=== PATIENT | female | born 1945 | race Caucasian/White ===

== ENCOUNTER 2018-01-06 19:56 | Inpatient (IN) | payer MEDICARE, SELFPAY ==
[2018-01-06] VITALS (7 sets, daily range): BP systolic 113–157; BP diastolic 70–117; PULSE 105–122; RESP 16–25; TEMP 37; O2SAT 88–95; BMI 34.3
--- NOTE | 2018-01-06 20:02 | EKG12_ITS ---
Test Reason : CP Blood Pressure : / mmHG Vent. Rate : 084 BPM Atrial Rate : 084 BPM P-R Int : 128 ms QRS Dur : 088 ms QT Int : 422 ms P-R-T Axes : 007 048 -87 degrees QTc Int : 498 ms Normal sinus rhythm with sinus arrhythmia Left ventricular hypertrophy T wave abnormality, consider inferior ischemia T wave abnormality, consider anterolateral ischemia Prolonged QT Abnormal ECG Confirmed by THEE LUNA, CHAD ([id number]), sports editor OUMOU RO ([id number]) on 01/17/2018 3:28:32 PM Referred By: DR YADAV Confirmed By:CHAD KINGSTON MD
--- NOTE | 2018-01-06 20:20 | EKG12_ITS ---
Test Reason : RAPID HR Blood Pressure : / mmHG Vent. Rate : 129 BPM Atrial Rate : 277 BPM P-R Int : 000 ms QRS Dur : 078 ms QT Int : 306 ms P-R-T Axes : 000 064 -31 degrees QTc Int : 448 ms Atrial fibrillation Septal infarct , age undetermined Abnormal ECG Confirmed by THEE LUNA, CHAD ([id number]), publishing editor OUMOU RO ([id number]) on 01/11/2018 2:50:22 PM Referred By: PETERSON Confirmed By:CHAD KINGSTON MD
--- NOTE | 2018-01-06 20:25 | RAD_ITS ---
STUDY: X-RAY CHEST REASON FOR EXAM: Female, 72 years old. Difficulty breathing. COPD. TECHNIQUE: Frontal and lateral views of the chest. COMPARISON: 09/30/2015. FINDINGS: The lungs are hyperexpanded. There are coarsened interstitial markings suggestive of mild chronic fibrosis. Diffuse density seen throughout the left lung suggestive of additional overlying infiltrate. Correlate clinically. No gross focal infiltrates. No gross effusions. Normal size heart. Normal mediastinum and lexus. Normal visualized pulmonary arteries. Normal visualized aortic arch and descending thoracic aorta. There are diffuse degenerative changes of the visualized thoracic spine. Normal visualized ribs, clavicles, and shoulders. There is no demonstrated abnormality of the visualized soft tissue structures of the upper abdomen. RAD/Chest PA and Lateral IMPRESSION: COPD with fibrosis. Cannot exclude additional mild diffuse infiltrate of the left lung. Electronically Signed: Alex Benavidez MD at 21:00 EST , Service support ,
[2018-01-06] MEDS: dilTIAZem 25 MG/5 ML Vial 10 MG IV BOLUS ×2 (20:45→21:13)
[2018-01-06 20:49] LABS: Absolute Neutrophil Count 6.5 X10^3/uL (2.0-7.7); Basophil# 0.06 X10^3/uL; Basophil% 0.6 % (0-1); Eosinophil# 0.15 X10^3/uL; Eosinophils% 1.6 % (0-5); Hematocrit 45.5 % (37-47); Lymphocyte % 22.8 % (19-41); Mean Corp Hgb Conc 30.8 g/gl (32-36); Mean Corpuscular Volume 100.7 fL (81-99); Mean Platelet Vol. 10.8 fl (6.2-12.0); Monocyte# 0.74 X10^3/uL; Monocyte% 7.7 % (0-10); Neutrophil # 6.48 X10^3/uL (2.7-7.7); Neutrophil % 67.2 % (47-70); Platelet Count 252 K/mm3 (150-450); RBC Distribution Width CV 14.8 % (11.6-14.6); RBC Distribution Width SD 54.5 fl (35.1-43.9); Red Blood Count 4.52 M/mm3 (4.2-5.4); White Blood Count 9.6 K/mm3 (4.4-11.0)
[2018-01-06 20:52] LABS: International Normalized Ratio 1.5; POSITIVE COUNT NO; POSITIVE DIFFERENTIAL NO; POSITIVE MORPHOLOGY NO; Prothrombin Time (Protime)PT. 18.4 SECONDS (11.7-14.9)
[2018-01-06 21:17] LABS: Anion Gap 9 (5-15); BUN 28 mg/dL (7-18); BUN/Creat Ratio 28.4 RATIO (10-20); Calcium,Total 8.9 mg/dL (8.5-10.1); Chloride 104 mmol/L (98-107); Creatinine, Serum 0.98 mg/dL (0.55-1.02); EST Glomerular Filtration Rate 59 mL/min (>60); Est Glom Filt Rate - Afr Amer 71 mL/min (>60); Estimated Creatinine Clearance 36.18 ml/min; Glucose 156 mg/dL (74-106); Potassium 3.6 mmol/L (3.5-5.1); Sodium Level 141 mmol/L (136-145)
--- NOTE | 2018-01-06 21:27 | CT_ITS ---
STUDY: CTA CHEST REASON FOR EXAM: Female, 72 years old. Shortness of breath and elevated blood pressure. History of hypertension, CAD, atrial fibrillation, COPD, myocardial infarction and cardiac stents. RADIATION DOSAGE (If Supplied By Facility): CTDIvol = ( 5.29 ) mGy, DLP = ( 272.24 ) mGycm TECHNIQUE: The examination was performed with the intravenous administration of 100 ml of Isovue 370 contrast material. Post-processing of the angiographic images was performed, with multiplanar reformation and 3D reconstruction. Individualized dose optimization techniques were used for this CT. COMPARISON: Prior chest radiograph of January 06, [address] chest [address] exam of November 15, 2006. FINDINGS: Normal enhancement of the main pulmonary artery and right and left pulmonary arteries. Normal enhancement of the bilateral peripheral pulmonary arteries. There is no demonstrated pulmonary embolism. There is atherosclerotic calcification of the aortic arch with tortuosity. Normal heart and pericardium. Coronary calcifications. Normal mediastinum. Normal hilar regions. Diffuse emphysematous changes of the upper lobes. Bronchial thickening in the middle and lower lobes. Multifocal areas of atelectasis and/or small consolidations in the right middle lobe, right lower lobe and left lower lobe. Negative for a substantial pleural effusion. Some pectoral lipoma of the left chest. There are degenerative changes of thoracic spine. Normal visualized upper abdomen. CT/CTA Chest W/WO Contrast IMPRESSION: Negative for pulmonary embolus. Atherosclerotic changes of the thoracic aorta. Cardiomegaly and coronary calcifications. Diffuse emphysematous changes of the upper lobes. Bronchial thickening in the middle and lower lobes with multifocal areas of atelectasis and/or small consolidations in the right middle lobe, right lower lobe and left lower lobe. Large subpectoral lipoma of the left chest. Degenerative changes of the thoracic spine. Electronically Signed: Christie Bergman MD at 22:26 EST , Service support ,
[2018-01-06] MEDS: Enoxaparin 100 MG/ML Syringe 80 MG SC (22:11)
--- NOTE | 2018-01-06 23:19 | PCM.HP.STD ---
Problem List (1) Multifocal community-acquired pneumonia Status: Acute (2) Bilateral lower lobes atelectasis Status: Acute (3) Obstructive sleep apnea Status: Acute (4) Atrial fibrillation with RVR Status: Acute (5) HTN (hypertension) Status: Chronic (6) GERD (gastroesophageal reflux disease) Status: Chronic (7) Restless leg syndrome Status: Chronic (8) Dyslipidemia Status: Chronic (9) CAD (coronary artery disease) Status: Chronic Comment: Status post stent (10) Alcohol withdrawal Status: Suspected (11) COPD (chronic obstructive pulmonary disease) Status: Chronic (12) Hypokalemia Status: Acute (13) Chronic atrial fibrillation Status: Chronic (14) Tobacco dependence Status: Chronic History of Present Illness Date of Admission: 01/06/18 Chief Complaint: Shortness of breath acute on chronic worse today The patient is a 72 year old F with multiple comorbidities as listed above but significant for chronic A. fib on Coumadin, COPD, not on home oxygen, active smoker about 15 cigarettes per day last admission in September 2015 for A. fib with RVR came to ER with acute on chronic shortness of breath today while she was shoveling. The patient has on and off shortness of breath for at least 5-6 months with history of intermittent URIs about 2-3 times in last 3-4 months. Patient denies chest pain, palpitation or flutter waves. She denies diaphoresis. Patient took Mirapex for restless leg syndrome and is little confused while I examined the patient. As per the EMS, her heart rate was 1 22/min, pulse ox 100% on nonrebreather mask. EMS EKG shows A. fib with RVR at 1 43 bpm with frequent PVCs. In ED, patient was found tachycardic 110/min, blood pressure is good, respiratory 25/min and hypoxic 94% on 2 L of oxygen. Patient denies fever or chills. INR is subtherapeutic Patient CT angiogram of chest shows negative for PE but diffuse emphysematous changes of the upper lobes, bronchial thickening and middle and lower lobes with multifocal areas of atelectasis and/or/small consolidation in right middle lobe and right lower lobe and left lower lobe. Patient was started on IV Cardizem drip and Lovenox 80 mg 1 dose was given in the ER Past Medical History Past Medical History (Chronic Problems): Chronic Problems HTN (hypertension) (Chronic) GERD (gastroesophageal reflux disease) (Chronic) Restless leg syndrome (Chronic) Dyslipidemia (Chronic) CAD (coronary artery disease) (Chronic) Status post stent COPD (chronic obstructive pulmonary disease) (Chronic) Chronic atrial fibrillation (Chronic) Tobacco dependence (Chronic) Allergies CLINT Inhibitors Allergy (Verified 01/06/18 19:59) Unknown acyclovir [From Zovirax] Allergy (Verified 01/06/18 19:59) Unknown amoxicillin trihydrate [From Augmentin] Allergy (Verified 01/06/18 19:59) Unknown codeine Allergy (Verified 01/06/18 19:59) Unknown potassium clavulanate [From Augmentin] Allergy (Verified 01/06/18 19:59) Unknown Home Medications: Ambulatory Orders Medication Instructions Recorded Atorvastatin Calcium [Lipitor] 40 mg PO QHS 04/15/15 Levothyroxine Sodium [Levoxyl] 100 mcg PO DAILY 04/15/15 Paroxetine HCl [Paxil] 40 mg PO DAILY 04/15/15 Warfarin [Coumadin] 3 mg PO SUTUTH 04/15/15 Warfarin [Coumadin] 6 mg PO MOWEFRSA 04/15/15 Atenolol [Tenormin (beta cruz)] 50 mg PO BID #120 tablet 04/17/15 Diltiazem CD [Cardizem CD] 120 mg PO BID #120 capsule 04/17/15 Spironolactone [Aldactone] 25 mg PO DAILY #30 tablet 09/30/15 Pramipexole Di-HCl [Mirapex] 1 mg PO TID PRN PRN 01/06/18 Surgical History: - - Lower extremity arterial bypass Cardiac stent placement Psychiatric History: No pertinent psych hx 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 Denies: Chills HEENT: Denies: Head Aches, Sinus Congestion, Sinus Drainage Cardiovascular: Reports: Edema. Denies: Chest Pain, Palpitations Respiratory: Reports: Cough, Shortness of breath at rest. Denies: Sputum production, Wheezing Gastrointestinal: Denies: Abdominal Pain, Nausea, Vomiting Genitourinary: Denies: Dysuria Musculoskeletal: Denies: Joint Pain, Joint Tenderness Skin: Denies: Rash, Wounds Neurological: Denies: Numbness, Tingling, Focal weakness Psychiatric: Denies: Anxiety, Depression, Homicidal Ideations, Suicidal Ideations Hematologic/ Lymphatic: Denies: Easy Bruising, Easy Bleeding VTE Information - Inpt Only VTE Present on Admission: No VTE Mechan Device Prophylaxis: SCD's VTE Pharm Prophylaxis ordered?: Yes Patient Problems: Active and Suspected Problems Multifocal community-acquired pneumonia (Acute) Bilateral lower lobes atelectasis (Acute) Obstructive sleep apnea (Acute) Atrial fibrillation with RVR (Acute) - Physical Exam General: Alert, Oriented x3, Cooperative HEENT: Atraumatic, PERRLA, EOMI, Normocephalic Oral: Dry Mucosa Neck: Supple, No JVD, Negative Carotid Bruits Lungs: Diminished - Diffuse stiffness but air entry on both side, Rhonchi, Short of Breath, Tachypneic Cardiovascular: Normal S1, Normal S2, No murmurs, Irregular Rate, Tachycardic Abdomen: Bowel Sounds Present, Soft, Non Tender Extremities: No edema, Capillary Refill Less than 3 Seconds Skin: No rashes, No breakdown Musculoskeletal: No Tenderness to Palpation of Joints or Extremities Neurological: Cranial nerves II-XII grossly intact Psych/Mental Status: Normal Affect, Appropriate Vital Signs Temp Pulse Resp BP Pulse Ox 98.6 F 105 H 25 H 113/70 95 01/06/18 19:56 01/06/18 23:00 01/06/18 23:00 01/06/18 23:00 01/06/18 23:00 Oxygen Flow Rate 2 Oxygen Delivery Method Nasal Cannula Weight: 175 lb 14.862 oz Body Mass Index (BMI) 34.3 Laboratory Tests Past 24 Hrs 01/06/18 01/06/18 01/06/18 20:05 20:05 20:05 WBC 9.6 RBC 4.52 Hgb 14.0 Hct 45.5 MCV 100.7 H MCH 31.0 MCHC 30.8 L RDW 14.8 H RDW Differential 54.5 H Plt Count 252 MPV 10.8 Immature Gran % (Auto) 0.100 Neut % (Auto) 67.2 Lymph % (Auto) 22.8 Seneca % (Auto) 7.7 Eos % (Auto) 1.6 Baso % (Auto) 0.6 Absolute Neuts (auto) 6.5 Absolute Lymphs (auto) 2.20 Total Counted Not Reportable PT 18.4 H INR 1.5 Sodium 141 Potassium 3.6 Chloride 104 Carbon Dioxide 28.0 Anion Gap 9 BUN 28 H Creatinine 0.98 Estim Creat Clear Calc 36.18 Est GFR (MDRD) Af Amer 71 Est GFR (MDRD) Non-Af 59 L BUN/Creatinine Ratio 28.4 H Glucose 156 H Calcium 8.9 Troponin I < 0.02 Assessment/Plan Active and Suspected Problems Multifocal community-acquired pneumonia (Acute) Bilateral lower lobes atelectasis (Acute) Obstructive sleep apnea (Acute) Atrial fibrillation with RVR (Acute) The patient is a 72 year old F with multiple comorbidities as listed above but significant for paroxysmal A. fib on Coumadin, COPD, not on home oxygen, active smoker about 15 cigarettes per day last admission in September 2015 for A. fib with RVR came to ER with acute on chronic shortness of breath today while she was shoveling. The patient has on and off shortness of breath for at least 5-6 months with history of intermittent URIs about 2-3 times in last 3-4 months. Patient denies chest pain, palpitation or flutter waves. She denies diaphoresis. Patient took Mirapex for restless leg syndrome and is little confused while I examined the patient. As per the EMS, her heart rate was 1 22/min, pulse ox 100% on nonrebreather mask. EMS EKG shows A. fib with RVR at 1 43 bpm with frequent PVCs. In ED, patient was found tachycardic 110/min, blood pressure is good, respiratory 25/min and hypoxic 94% on 2 L of oxygen. Patient denies fever or chills. INR is subtherapeutic and was given Lovenox. Patient CT angiogram of chest shows negative for PE but diffuse emphysematous changes of the upper lobes, bronchial thickening and middle and lower lobes with multifocal areas of atelectasis and/or/small consolidation in right middle lobe and right lower lobe and left lower lobe. 1. A. fib with RVR: Patient is being admitted in PCU. Started on IV Cardizem drip tapered down as heart rate is controlled and transition to oral Cardizem. Continue Coumadin and supplement with Lovenox if needed. Discontinue Lovenox once INR is more than 1.8. Continue home rate control medications; atenolol 50 mg twice daily and diltiazem CD 120 mg twice daily. 2D echo tomorrow morning. Previous echo in April 2015 shows normal LV size with left ventricular systolic function lower limits of normal, EF 55% with no regional wall motion abnormalities. Mildly dilated right ventricle with normal systolic function. Left atrium severely enlarged. Right atrium severely enlarged. Trivial MR. PA SP 40-45 mmHg with 2+ TR suggestive of moderate pulmonary hypertension. 2. Acute hypoxic respiratory failure most rarely from diffuse COPD, precipitated by A. fib with RVR and pneumonia: On oxygen to keep pulse ox more than 90%. 3. Pulmonary conditions: COPD with moderate acute bronchitis, with moderate pulmonary hypertension and bilateral lower lobes atelectasis. She also has history of obstructive sleep apnea: On bronchodilator, IV Solu-Medrol, chest physiotherapy, incentive spirometry. And was advised CPAP 5 years ago but she is noncompliant and returned the machine back. Smoking counseling done. On nicotine patch 4. Bilateral, multifocal currently acquired pneumonia with recent history of URI: Pneumonia workup with urinary antigen, blood cultures ?2 and sputum culture. Respiratory panel ordered. Started on IV Rocephin and Zithromax. 5. Hyperglycemia, possible diabetes mellitus type 2: Patient serum glucose is 156 and BMP. Patient was started on Accu-Chek before meals and at bedtime and cover with NovoLog sliding scale as she is on Solu-Medrol. A1c ordered for tomorrow. Other chronic comorbidities include hypertension, GERD, dyslipidemia, coronary artery status post stent, restless leg syndrome moderate pulmonary hypertension and obesity: This complicates the present care until his recovery. Guarded prognosis. DVT prophylaxis: On Coumadin. Patient is given Lovenox 1 mg/kg body weight in ER Laboratory Results 01/06/18 20:05: WBC 9.6, RBC 4.52, Hgb 14.0, Hct 45.5, MCV 100.7 H, MCH 31.0, MCHC 30.8 L, RDW 14.8 H, RDW Differential 54.5 H, Plt Count 252, MPV 10.8, Immature Gran % (Auto) 0.100, Neut % (Auto) 67.2, Lymph % (Auto) 22.8, Seneca % (Auto) 7.7, Eos % (Auto) 1.6, Baso % (Auto) 0.6, Absolute Neuts (auto) 6.5, Absolute Lymphs (auto) 2.20, Total Counted Not Reportable 01/06/18 20:05: PT 18.4 H, INR 1.5 01/06/18 20:05: Sodium 141, Potassium 3.6, Chloride 104, Carbon Dioxide 28.0, Anion Gap 9, BUN 28 H, Creatinine 0.98, Estim Creat Clear Calc 36.18, Est GFR (MDRD) Af Amer 71, Est GFR (MDRD) Non-Af 59 L, BUN/Creatinine Ratio 28.4 H, Glucose 156 H, Calcium 8.9, Troponin I < 0.02 Clinical Impression(s) from Imaging Studies Chest X-Ray 01/06/18 20:25 IMPRESSION: COPD with fibrosis. Cannot exclude additional mild diffuse infiltrate of the left lung. Chest CTA 01/06/18 21:27 IMPRESSION: Negative for pulmonary embolus. Atherosclerotic changes of the thoracic aorta. Cardiomegaly and coronary calcifications. Diffuse emphysematous changes of the upper lobes. Bronchial thickening in the middle and lower lobes with multifocal areas of atelectasis and/or small consolidations in the right middle lobe, right lower lobe and left lower lobe. Large subpectoral lipoma of the left chest. Degenerative changes of the thoracic spine. [] Code Visit Inpatient E&M: 88900 Subs Hosp L3
[2018-01-07] VITALS (24 sets, daily range): BP systolic 100–152; BP diastolic 53–106; PULSE 68–126; RESP 14–29; TEMP 36.3–36.8; O2SAT 92–99; BMI 28.0
--- NOTE | 2018-01-07 00:34 | ED.VISSUMM ---
- ER Visit Summary Date of Service: 01/07/18 Chief Complaint: Dyspnea History of Present Illness: The patient is a 72 F presents with a sudden onset of dyspnea. She states that she was clearing the snow off her windshield when she suddenly got short of breath. She has been noting some shortness of breath with exertion over the past week. She notes a chronic cough with no change in that. She denies any new sputum changes. No fevers. No rhinorrhea. She denies any chest pain. EMS prehospital EKG demonstrates A. fib with RVR. She is in chronic A. fib and is on Coumadin. She is to see Dr. Camejo who is an had an appointment last about 1 year ago. She states that recently she ran out of her cardiac medicines for couple weeks ago but had them refilled and is not taking them. She states that she chronically has sleeping disorders and cannot sleep. She cannot maintain sleep and she has tried several therapies with no relief. She continues to smoke. She had PCI in 2012. This was done at [facility] by Dr. Morrison. She has peripheral artery disease and had arterial bypass in 2005. He currently sees no antique automobiles repairer. She has a history of noncompliance. Physical Examination: 98.6 heart rate of 116 respiratory rate is 22 pulse ox 88% on room air 94% on 2 L blood pressure 157/106 Gen: Well-nourished well-developed Head: Normocephalic atraumatic Eyes: Perrl EOMI ENT: TMs clear no rhinorrhea moist mucous membranes Neck: Supple no lymphadenopathy no JVD nontender CVS: Irregularly irregular rhythm no murmurs normal S1-S2 Respiratory: No distress clear to auscultation bilaterally chest nontender Abdomen: Soft nontender nondistended normal bowel sounds no masses Back: Nontender Extremity: Nontender no edema Skin: Normal color no rash Neuro: alert orientated ?3 CN II-XII intact normal strength sensation reflexes gait cerebellar Psych: Normal affect normal mood Test Results: EKG shows atrial fibrillation at a rate of 129. CBC and chemistry showed glucose of 156. INR subtherapeutic at 1.5. Troponin less than 0.02. Chest x-ray showed no obvious acute findings. CT angios demonstrates no PE. There is multifocal areas of atelectasis cysts versus pneumonia. Emergency Department Course and Treatment: I do not believe the patient has pneumonia. I believe the area seen on chest CT are probably atelectasis. She has no fever, no white count, no change in cough or sputum production. I believe the patient most likely went into A. fib with RVR due to hypoxia. The patient most likely has worsening COPD and would probably benefit from home oxygen. She was given a dose of Lovenox and several doses of Cardizem and eventually placed on a Cardizem drip. Impression: 1. Atrial fibrillation with rapid ventricular response 2. Hypoxemia 3. Subtherapeutic INR This note was generated with [employer] dictation software. It may contain incorrect words, spelling, and punctuation that were not noted in review of the chart prior to signing ED Disposition - Plan for ED Patient: Disposition: Acute Care Hospital [facility] Chief Complaint: Shortness of Breath
--- NOTE | 2018-01-07 00:38 | ED.DCSUM_ITS ---
- ER Visit Summary Date of Service: 01/07/18 Chief Complaint: Dyspnea History of Present Illness: The patient is a 72 F presents with a sudden onset of dyspnea. She states that she was clearing the snow off her windshield when she suddenly got short of breath. She has been noting some shortness of breath with exertion over the past week. She notes a chronic cough with no change in that. She denies any new sputum changes. No fevers. No rhinorrhea. She denies any chest pain. EMS prehospital EKG demonstrates A. fib with RVR. She is in chronic A. fib and is on Coumadin. She is to see Dr. Camejo who is an had an appointment last about 1 year ago. She states that recently she ran out of her cardiac medicines for couple weeks ago but had them refilled and is not taking them. She states that she chronically has sleeping disorders and cannot sleep. She cannot maintain sleep and she has tried several therapies with no relief. She continues to smoke. She had PCI in 2012. This was done at [facility] by Dr. Morrison. She has peripheral artery disease and had arterial bypass in 2005. 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 She has a history of noncompliance. Physical Examination: 98.6 heart rate of 116 respiratory rate is 22 pulse ox 88 % on room air 94% on 2 L blood pressure 157/106 Gen: Well-nourished well-developed Head: Normocephalic atraumatic Eyes: Perrl EOMI ENT: TMs clear no rhinorrhea moist mucous membranes Neck: Supple no lymphadenopathy no JVD nontender CVS: Irregularly irregular rhythm no murmurs normal S1-S2 Respiratory: No distress clear to auscultation bilaterally chest nontender Abdomen: Soft nontender nondistended normal bowel sounds no masses Back: Nontender Extremity: Nontender no edema Skin: Normal color no rash Neuro: alert orientated ?3 CN II-XII intact normal strength sensation reflexes gait cerebellar Psych: Normal affect normal mood Test Results: EKG shows atrial fibrillation at a rate of 129. CBC and chemistry showed glucose of 156. INR subtherapeutic at 1.5. Troponin less than 0.02. Chest x-ray showed no obvious acute findings. CT angios demonstrates no PE. There is multifocal areas of atelectasis cysts versus pneumonia. Emergency Department Course and Treatment: I do not believe the patient has pneumonia. I believe the area seen on chest CT are probably atelectasis. She has no fever, no white count, no change in cough or sputum production. I believe the patient most likely went into A. fib with RVR due to hypoxia. The patient most likely has worsening COPD and would probably benefit from home oxygen. She was given a dose of Lovenox and several doses of Cardizem and eventually placed on a Cardizem drip. Impression: 1. Atrial fibrillation with rapid ventricular response 2. Hypoxemia 3. Subtherapeutic INR This note was generated with [employer] dictation software. It may contain incorrect words, spelling, and punctuation that were not noted in review of the chart prior to signing ED Disposition - Plan for ED Patient: Disposition: Acute Care Hospital [facility] Chief Complaint: Shortness of Breath
[2018-01-07] MEDS: 0.9% Normal Saline 1,000 ML 100 ML IV ×3 (00:56→18:10)
[2018-01-07] MEDS: Ceftriaxone 1 GM/50 ML BAG IV (01:03)
[2018-01-07 01:49] LABS: Color, Urine Yellow (Yellow); Glucose, Dipstick Normal (Normal); Ketone-Dipstick Negative (Negative); Leukocyte Esterase-Dipstick Negative /ul (Negative); Nitrite-Dipstick Negative (Negative); Occult Blood-Urine 10 /ul (Negative); Protein-Dipstick 15 mg/dl (Negative); Urine Bilirubin Dipstick Negative (Negative); Urine Clarity Clear (Clear); Urine Urobilinogen 1 mg/dl (Normal)
[2018-01-07] MEDS: Pramipexole Di-HCl 1 MG Tablet PO ×2 (02:20→21:01)
[2018-01-07] MEDS: Ipratropium/Albuterol Sulfate 3 ML AMPUL.NEB INHALATION ×5 (03:00→19:07)
[2018-01-07 05:32] LABS: Absolute Neutrophil Count 5.8 X10^3/uL (2.0-7.7); Basophil# 0.02 X10^3/uL; Basophil% 0.3 % (0-1); Eosinophil# 0.01 X10^3/uL; Eosinophils% 0.2 % (0-5); Hematocrit 41.7 % (37-47); Hemoglobin 13.1 g/dl (12.0-15.0); Lymphocyte % 9.2 % (19-41); Mean Corp Hgb Conc 31.4 g/gl (32-36); Mean Corpuscular Hgb 31.5 pg (27.0-32.0); Mean Corpuscular Volume 100.2 fL (81-99); Mean Platelet Vol. 10.7 fl (6.2-12.0); Monocyte# 0.09 X10^3/uL; Monocyte% 1.4 % (0-10); Neutrophil # 5.79 X10^3/uL (2.7-7.7); Neutrophil % 88.7 % (47-70); Platelet Count 231 K/mm3 (150-450); RBC Distribution Width CV 14.8 % (11.6-14.6); RBC Distribution Width SD 53.6 fl (35.1-43.9); Red Blood Count 4.16 M/mm3 (4.2-5.4); White Blood Count 6.5 K/mm3 (4.4-11.0)
[2018-01-07 05:33] LABS: International Normalized Ratio 1.7; Prothrombin Time (Protime)PT. 19.6 SECONDS (11.7-14.9)
[2018-01-07 05:41] LABS: Differential Indicated SCAN CRITERIA MET; POSITIVE COUNT NO; POSITIVE DIFFERENTIAL YES; POSITIVE MORPHOLOGY NO
--- NOTE | 2018-01-07 05:55 | ECHOD_ITS ---
Reason For Study: Afib w RVR Procedure This was a 2D Doppler, Color Flow transthoracic echocardiogram. Exam performed portable in patient room. Left Ventricle Normal size and thickness. The estimated ejection fraction is 65 %. Unable to assess diastolic dysfunction. No regional wall motion abnormalities noted. Right Ventricle Normal size and thickness. Normal systolic function. Atria The left atrium is severely enlarged. The right atrium is severely enlarged. Normal atrial septum. Mitral Valve Mild diffuse mitral valve thickening. Moderate mitral annular calcification extending into the posterior leaflet. Tricuspid Valve Normal tricuspid valve. Mild (1+) tricuspid valve insufficiency. Right ventricular systolic pressure estimated to be 47 mmHg. Moderate pulmonary hypertension. Aortic Valve Trisinus/trileaflet aortic valve. Mild focal aortic valve thickening. There is no aortic stenosis. Pulmonic Valve Normal pulmonic valve. Great Vessels Normal aortic root. Normal arch. Normal inferior vena cava. Inferior vena cava collapse with sniff. Pericardium/Pleural No pericardial effusion. MMode/2D Measurements & Calculations LVIDd: 4.4 cm IVSd: 0.84 cm Ao root diam: 2.5 cm LVIDs: 2.4 cm LVPWd: 0.99 cm LA dimension: 5.4 cm RVDd: 3.1 cm FS: 43.9 % LAV(MOD-bp): 86.2 ml LA A4 area: 25.7 cm2 RA A4 area: 24.3 cm2 LAV(MOD-bp) Indexed: 49.5 ml/m2 LAV(MOD-sp2): 91.1 ml LAV(MOD-sp4): 79.9 ml Doppler Measurements & Calculations MV E max [place]: 109.2 cm/sec Lat Peak E' [place]: 7.1 cm/sec Med Peak E' [place]: 6.3 cm/sec E/E' lat: 15.5 E/E' med: 17.3 Ao V2 max: 136.7 cm/sec LV V1 max: 87.5 cm/sec PA V2 max: 78.9 cm/sec Ao max P.6 mmHg LV V1 max P.1 mmHg Ao V2 mean: 92.3 cm/sec Ao mean P.8 mmHg Ao V2 VTI: 26.2 cm TR max [place]: 280.4 cm/sec TR max P.5 mmHg Interpretation Summary The estimated ejection fraction is 65 %. Unable to assess diastolic dysfunction due to atrial fibrillation. The left atrium is severely enlarged. The right atrium is severely enlarged. Mild (1+) tricuspid valve insufficiency. Right ventricular systolic pressure estimated to be 47 mmHg. Moderate pulmonary hypertension. Mild focal aortic valve thickening located on left coronary cusp. Pt appears to be in atrial fibrillation. Compared to echo report dated 04/17/2015, no appreciable changes noted. Ordering Physician: Vinh Dutta Referring Physician: Aleksandar Wiley Performed By: Yajaira Aguilar RDCS, RVT
[2018-01-07 05:56] LABS: Anion Gap 7 (5-15); BUN 24 mg/dL (7-18); BUN/Creat Ratio 29.9 RATIO (10-20); Calcium,Total 8.4 mg/dL (8.5-10.1); Chloride 104 mmol/L (98-107); EST Glomerular Filtration Rate 74 mL/min (>60); Est Glom Filt Rate - Afr Amer 90 mL/min (>60); Estimated Creatinine Clearance 55.52 ml/min; Glucose 147 mg/dL (74-106); Sodium Level 138 mmol/L (136-145); T4 Free Direct 1.38 ng/dL (0.76-1.46); Thyroid Stim Hormone (TSH) 0.94 uIU/mL (0.358-3.74)
[2018-01-07] MEDS: Levothyroxine 100 MCG Tablet PO (06:22)
[2018-01-07 07:06] LABS: Bedside Glucose 149 mg/dL (70-110)
[2018-01-07 07:19] LABS: Hemoglobin A1c 6.3 % (4.2-6.3)
[2018-01-07] MEDS: guaiFENesin 1,200 MG Tablet 1200 MG PO ×2 (09:12→21:00)
[2018-01-07] MEDS: dilTIAZem CD 120 MG Capsule PO ×2 (09:12→21:00)
[2018-01-07] MEDS: Atenolol 50 MG Tablet PO ×2 (09:13→21:00)
[2018-01-07] MEDS: Famotidine 20 MG Tablet PO ×2 (09:13→21:00)
[2018-01-07] MEDS: Polyethylene Glycol 3350 17 GM PACKET PO (09:16)
[2018-01-07 11:21] LABS: Bedside Glucose 211 mg/dL (70-110)
--- NOTE | 2018-01-07 12:32 | PN_ITS ---
<Jordana Boyd - Last Filed: 01/07/18 12:32> Patient Problems: Active and Suspected Problems Multifocal community-acquired pneumonia (Acute) Bilateral lower lobes atelectasis (Acute) Obstructive sleep apnea (Acute) Atrial fibrillation with RVR (Acute) Subjective: Patient seen and examined. States shortness of breath is slightly improved. Complains of nonproductive cough. Denies chest pain, dizziness, lightheadedness. States she did not sleep well overnight due to restless legs. Denies other complaints. - Physical Exam General: Alert, Oriented x3, Cooperative, No apparent distress HEENT: Atraumatic, PERRLA, EOMI, Normocephalic Neck: Supple, No JVD, Negative Carotid Bruits Lungs: Diminished, Wheezes Cardiovascular: Normal S1, Normal S2, Murmur, - - A.Fib. Rate controlled. Abdomen: Bowel Sounds Present, Soft, Non Tender, Non-Distended Extremities: No clubbing, No cyanosis, No edema, Capillary Refill Less than 3 Seconds Skin: No rashes, No breakdown Musculoskeletal: No Tenderness to Palpation of Joints or Extremities Neurological: Cranial nerves II-XII grossly intact, Neuro grossly intact Psych/Mental Status: Normal Affect, Appropriate Vital Signs Temp Pulse Resp BP Pulse Ox 98.1 F 82 20 H 116/96 H 98 01/07/18 09:00 01/07/18 11:00 01/07/18 11:00 01/07/18 11:00 01/07/18 11:00 Oxygen Flow Rate 2 Oxygen Delivery Method Nasal Cannula Weight: 77.5 kg Body Mass Index (BMI) 28.0 Intake and Output for Last 24 Hours 01/05/18 01/06/18 01/07/18 23:59 23:59 23:59 Intake Total 703 / 703 Balance 703 / 703 Microbiology Past 72 Hours 01/07/18 03:40 Respiratory Panel (PCR) - Final Mucosa - Nasopharyngeal Rhinovirus 01/07/18 01:25 Legionella Antigen - Final Interface Orders 01/07/18 01:25 Streptococcus pneumoniae Antigen (M - Final Interface Orders Laboratory Tests Past 24 Hrs 01/07/18 01/07/18 01/07/18 01:05 01:25 05:00 WBC 6.5 RBC 4.16 L Hgb 13.1 Hct 41.7 MCV 100.2 H MCH 31.5 MCHC 31.4 L RDW 14.8 H RDW Differential 53.6 H Plt Count 231 MPV 10.7 Immature Gran % (Auto) 0.200 Neut % (Auto) 88.7 H Lymph % (Auto) 9.2 L [place] % (Auto) 1.4 Eos % (Auto) 0.2 Baso % (Auto) 0.3 Absolute Neuts (auto) 5.8 Absolute Lymphs (auto) 0.60 L Total Counted Not Reportable PT INR Sodium Potassium Chloride Carbon Dioxide Anion Gap BUN Creatinine Estim Creat Clear Calc Est GFR (MDRD) Af Amer Est GFR (MDRD) Non-Af BUN/Creatinine Ratio Glucose Hemoglobin A1c Calcium Troponin I 0.06 TSH Free T4 Urine Color Yellow Urine Clarity Clear Urine pH 5.0 Ur Specific [place] 1.010 Urine Protein 15 H Urine Glucose (UA) Normal Urine Ketones Negative Urine Occult Blood 10 H Urine Nitrite Negative Urine Bilirubin Negative Urine Urobilinogen 1 H Ur Leukocyte Esterase Negative 01/07/18 01/07/18 01/07/18 05:00 05:00 05:00 WBC RBC Hgb Hct MCV MCH MCHC RDW RDW Differential Plt Count MPV Immature Gran % (Auto) Neut % (Auto) Lymph % (Auto) [place] % (Auto) Eos % (Auto) Baso % (Auto) Absolute Neuts (auto) Absolute Lymphs (auto) Total Counted PT 19.6 H INR 1.7 Sodium 138 Potassium 4.0 Chloride 104 Carbon Dioxide 27.0 Anion Gap 7 BUN 24 H Creatinine 0.80 Estim Creat Clear Calc 55.52 Est GFR (MDRD) Af Amer 90 Est GFR (MDRD) Non-Af 74 BUN/Creatinine Ratio 29.9 H Glucose 147 H Hemoglobin A1c 6.3 Calcium 8.4 L Troponin I 0.12 H TSH 0.94 Free T4 1.38 Urine Color Urine Clarity Urine pH Ur Specific [place] Urine Protein Urine Glucose (UA) Urine Ketones Urine Occult Blood Urine Nitrite Urine Bilirubin Urine Urobilinogen Ur Leukocyte Esterase 01/07/18 10:30 WBC RBC Hgb Hct MCV MCH MCHC RDW RDW Differential Plt Count MPV Immature Gran % (Auto) Neut % (Auto) Lymph % (Auto) [place] % (Auto) Eos % (Auto) Baso % (Auto) Absolute Neuts (auto) Absolute Lymphs (auto) Total Counted PT INR Sodium Potassium Chloride Carbon Dioxide Anion Gap BUN Creatinine Estim Creat Clear Calc Est GFR (MDRD) Af Amer Est GFR (MDRD) Non-Af BUN/Creatinine Ratio Glucose Hemoglobin A1c Calcium Troponin I 0.12 H TSH Free T4 Urine Color Urine Clarity Urine pH Ur Specific [place] Urine Protein Urine Glucose (UA) Urine Ketones Urine Occult Blood Urine Nitrite Urine Bilirubin Urine Urobilinogen Ur Leukocyte Esterase POC Glucose 01/07/18 01/07/18 11:11 06:36 POC Glucose 211 H 149 H Assessment/Plan Active and Suspected Problems Multifocal community-acquired pneumonia (Acute) Bilateral lower lobes atelectasis (Acute) Obstructive sleep apnea (Acute) Atrial fibrillation with RVR (Acute) Patient is a 72-year-old female admitted 01/06/2018 due to increased shortness of breath. She has a past medical history of hypertension, GERD, restless leg syndrome, hyperlipidemia, CAD status post PCI, COPD, chronic atrial fibrillation and tobacco dependence. 1. Acute COPD exacerbation secondary to acute rhinovirus with associated acute hypoxia-do not further suspect pneumonia. CTA of chest negative for PE. Diffuse emphysematous changes of the upper lobes. Bronchial thickening in the middle and lower lobes with multifocal areas of atelectasis on the right middle lobe, right lower lobe and left lower lobe. Chest x-ray showed COPD with fibrosis. Questionable mild diffuse infiltrate of the left lung. Continue albuterol and DuoNeb aerosols. IV Solu-Medrol. Patient is afebrile. No leukocytosis. Nonproductive cough. Discontinue antibiotics pending sputum culture. Continue supplemental oxygen to maintain O2 at or above 90%. Patient will need walking pulse ox prior to discharge. Recommend further follow-up with pulmonary as outpatient. Urine negative for strep and Legionella. Blood cultures pending. Sputum culture pending. IS/PEP. 2. Atrial fibrillation with RVR-on Cardizem drip. Transition to oral Cardizem. Continue Coumadin. INR 1.7. Continue home atenolol. Echocardiogram shows an estimated ejection fraction of 65%, mild tricuspid valve insufficiency, RVSP estimated to be 47 mmHg. No changes noted from previous echo 04/17/2015. 3. Obstructive sleep apnea-noncompliant with CPAP. CPAP was prescribed approximately 5 years ago and patient returned machine. Encouraged outpatient pulmonary follow-up and CPAP use. 4. Hypertension-stable, continue current regimen. 5. GERD-not on home regimen. 6. Hyperlipidemia-continue statin. 7. CAD status post PCI-continue beta-cruz, statin, Coumadin. 8. Restless leg syndrome-continue home Mirapex regimen. 9. Elevated glucose-hemoglobin A1c 6.3%. Continue Accu-Cheks before meals at bedtime with sliding scale insulin. Suspect acute increase in glucoses due to steroid usage. Will need further monitoring as outpatient. 10. Nicotine dependence-encourage smoking cessation. Nicotine replacement patch. DVT prophylaxis-Coumadin. This patient was seen by ROSE Ariza under the supervision of Dr. Sutton. <Arthur Sutton - Last Filed: 01/07/18 15:15> - Physical Exam Vital Signs Temp Pulse Resp BP Pulse Ox 98.1 F 88 20 H 120/77 96 01/07/18 09:00 01/07/18 15:00 01/07/18 13:00 01/07/18 13:00 01/07/18 13:00 Oxygen Flow Rate 2 Oxygen Delivery Method Nasal Cannula Weight: 77.5 kg Body Mass Index (BMI) 28.0 Intake and Output for Last 24 Hours 01/05/18 01/06/18 01/07/18 23:59 23:59 23:59 Intake Total 1556.7 / 1556.7 Output Total 250 / 250 Balance 1306.7 / 1306.7 Microbiology Past 72 Hours 01/07/18 04:00 Gram Stain - Final Sputum, Expectorated/Coughed 01/07/18 03:40 Respiratory Panel (PCR) - Final Mucosa - Nasopharyngeal Rhinovirus 01/07/18 01:25 Legionella Antigen - Final Interface Orders 01/07/18 01:25 Streptococcus pneumoniae Antigen (M - Final Interface Orders Laboratory Tests Past 24 Hrs 01/07/18 01/07/18 01/07/18 01:05 01:25 05:00 WBC 6.5 RBC 4.16 L Hgb 13.1 Hct 41.7 MCV 100.2 H MCH 31.5 MCHC 31.4 L RDW 14.8 H RDW Differential 53.6 H Plt Count 231 MPV 10.7 Immature Gran % (Auto) 0.200 Neut % (Auto) 88.7 H Lymph % (Auto) 9.2 L [place] % (Auto) 1.4 Eos % (Auto) 0.2 Baso % (Auto) 0.3 Absolute Neuts (auto) 5.8 Absolute Lymphs (auto) 0.60 L Total Counted Not Reportable PT INR Sodium Potassium Chloride Carbon Dioxide Anion Gap BUN Creatinine Estim Creat Clear Calc Est GFR (MDRD) Af Amer Est GFR (MDRD) Non-Af BUN/Creatinine Ratio Glucose Hemoglobin A1c Calcium Troponin I 0.06 TSH Free T4 Urine Color Yellow Urine Clarity Clear Urine pH 5.0 Ur Specific [place] 1.010 Urine Protein 15 H Urine Glucose (UA) Normal Urine Ketones Negative Urine Occult Blood 10 H Urine Nitrite Negative Urine Bilirubin Negative Urine Urobilinogen 1 H Ur Leukocyte Esterase Negative 01/07/18 01/07/18 01/07/18 05:00 05:00 05:00 WBC RBC Hgb Hct MCV MCH MCHC RDW RDW Differential Plt Count MPV Immature Gran % (Auto) Neut % (Auto) Lymph % (Auto) [place] % (Auto) Eos % (Auto) Baso % (Auto) Absolute Neuts (auto) Absolute Lymphs (auto) Total Counted PT 19.6 H INR 1.7 Sodium 138 Potassium 4.0 Chloride 104 Carbon Dioxide 27.0 Anion Gap 7 BUN 24 H Creatinine 0.80 Estim Creat Clear Calc 55.52 Est GFR (MDRD) Af Amer 90 Est GFR (MDRD) Non-Af 74 BUN/Creatinine Ratio 29.9 H Glucose 147 H Hemoglobin A1c 6.3 Calcium 8.4 L Troponin I 0.12 H TSH 0.94 Free T4 1.38 Urine Color Urine Clarity Urine pH Ur Specific [place] Urine Protein Urine Glucose (UA) Urine Ketones Urine Occult Blood Urine Nitrite Urine Bilirubin Urine Urobilinogen Ur Leukocyte Esterase 01/07/18 10:30 WBC RBC Hgb Hct MCV MCH MCHC RDW RDW Differential Plt Count MPV Immature Gran % (Auto) Neut % (Auto) Lymph % (Auto) [place] % (Auto) Eos % (Auto) Baso % (Auto) Absolute Neuts (auto) Absolute Lymphs (auto) Total Counted PT INR Sodium Potassium Chloride Carbon Dioxide Anion Gap BUN Creatinine Estim Creat Clear Calc Est GFR (MDRD) Af Amer Est GFR (MDRD) Non-Af BUN/Creatinine Ratio Glucose Hemoglobin A1c Calcium Troponin I 0.12 H TSH Free T4 Urine Color Urine Clarity Urine pH Ur Specific [place] Urine Protein Urine Glucose (UA) Urine Ketones Urine Occult Blood Urine Nitrite Urine Bilirubin Urine Urobilinogen Ur Leukocyte Esterase POC Glucose 01/07/18 01/07/18 11:11 06:36 POC Glucose 211 H 149 H Assessment/Plan This patient was seen in conjunction withROSE Ariza I have independently interviewed and examined the patient and reviewed pertinent historical, laboratory, and other data. Please refer to ANNIKA Ariza note for details of this patient's presentation, findings, and recommendations. I have reviewed ROSE Ariza note and concur with documented findings. In brief, patient is a a 72-year-old lady who was admitted with progressive shortness of breath and palpitations. An assessment of COPD exacerbation and A. fib RVR made admitted to a monitored bed for further management Physical Examination: GENERAL: cooperative HEENT: Clear conjunctiva, NECK; supple, normal thyroid, CHEST: Diminished to auscultation bilaterally, HEART: irregular S1 S2, ABDOMEN: soft, normoactive bowel sounds, RECTAL: deferred CHEESE GRADER: Awake, no lateralizing signs. Assessment: 1. COPD with exacerbation precipitated by rhinovirus infection 2. A. fib with RVR 3. Sleep apnea 4. Obstructive sleep apnea-noncompliant with CPAP. 5. Essential hypertension 6. Hyperlipidemia-continue statin. 7. CAD status post PCI 8. Restless leg syndrome 9. GERD without esophagitis 10. Tobacco dependence. 11. DVT prophylaxis patient on Coumadin no need for additional measures Recommendations: 1. I have discussed the results of my overview and impressions with the patient Code Visit Inpatient E&M: 90130 [facility] Hosp L3
--- NOTE | 2018-01-07 15:20 | CASEMGMT ---
Face to Face with patient for initial transition planning/care coordination assessment. RN ENZO introduced self and role at [facility], pt voices understanding and consents to assessment at this time. Pt is sitting up in chair in no distress at this time. Pt is A/O x4 at this time and answers all questions appropriately at this time. Care providers, pharmacy, and demographics verified. See attached link. Pt voices no further concerns/needs at this time. Advised pt to ask for CM if any further questions/concerns/needs arise, voices understanding. CM to follow for any further discharge planning/needs. PLAN: [place] [facility]
[2018-01-07 16:46] LABS: Bedside Glucose 165 mg/dL (70-110)
[2018-01-07] MEDS: Atorvastatin Calcium 40 MG Tablet PO (21:00)
[2018-01-07 21:41] LABS: Bedside Glucose 208 mg/dL (70-110)
[2018-01-08] VITALS (7 sets, daily range): BP systolic 153; BP diastolic 88–103; PULSE 72–107; RESP 12–20; TEMP 36.7; O2SAT 91–97
[2018-01-08] MEDS: 0.9% Normal Saline 1,000 ML 100 ML IV (04:20)
[2018-01-08] MEDS: Levothyroxine 100 MCG Tablet PO (05:38)
[2018-01-08] MEDS: Ipratropium/Albuterol Sulfate 3 ML AMPUL.NEB INHALATION ×2 (06:46→10:36)
[2018-01-08 06:51] LABS: Bedside Glucose 131 mg/dL (70-110)
[2018-01-08 07:19] LABS: Hematocrit 42.2 % (37-47); Hemoglobin 12.9 g/dl (12.0-15.0); Mean Corp Hgb Conc 30.6 g/gl (32-36); Mean Corpuscular Hgb 31.1 pg (27.0-32.0); Mean Corpuscular Volume 101.7 fL (81-99); Mean Platelet Vol. 10.9 fl (6.2-12.0); Platelet Count 221 K/mm3 (150-450); RBC Distribution Width CV 14.7 % (11.6-14.6); RBC Distribution Width SD 54.9 fl (35.1-43.9); Red Blood Count 4.15 M/mm3 (4.2-5.4); White Blood Count 17.1 K/mm3 (4.4-11.0)
[2018-01-08 07:20] LABS: Scan Indicated on CBC? Y/N NO
[2018-01-08 07:27] LABS: International Normalized Ratio 2.4; Prothrombin Time (Protime)PT. 26.3 SECONDS (11.7-14.9)
[2018-01-08 07:48] LABS: Anion Gap 8 (5-15); BUN 26 mg/dL (7-18); BUN/Creat Ratio 33.9 RATIO (10-20); Calcium,Total 8.7 mg/dL (8.5-10.1); Chloride 107 mmol/L (98-107); Creatinine, Serum 0.77 mg/dL (0.55-1.02); EST Glomerular Filtration Rate 78 mL/min (>60); Est Glom Filt Rate - Afr Amer 95 mL/min (>60); Estimated Creatinine Clearance 44.41 ml/min; Glucose 134 mg/dL (74-106); Potassium 4.8 mmol/L (3.5-5.1); Sodium Level 137 mmol/L (136-145)
[2018-01-08] MEDS: guaiFENesin 1,200 MG Tablet 1200 MG PO (08:30)
[2018-01-08] MEDS: dilTIAZem CD 120 MG Capsule PO (08:30)
[2018-01-08] MEDS: Atenolol 50 MG Tablet PO (08:31)
[2018-01-08] MEDS: Famotidine 20 MG Tablet PO (08:31)
[2018-01-08] MEDS: Ceftriaxone 1 GM/50 ML BAG IV (10:10)
--- NOTE | 2018-01-08 10:46 | PCM.DC ---
- Discharge Diagnoses Current Active Problems: Current Active and Chronic Problems Multifocal community-acquired pneumonia (Acute) Bilateral lower lobes atelectasis (Acute) Obstructive sleep apnea (Acute) Atrial fibrillation with RVR (Acute) You will use the following diet at home:: Cardiac Discharge Activity: Return to Normal Activity Call your doctor if you observe: Shortness of breath, Dizziness, Fainting spells, Chest pain, Increased palpitations (irregular heartbeat) Additional Instructions: Recommend you establish and follow up with sound engineering technician for your COPD and obstructive sleep apnea and cardiolgist for atrial fibrillation. Dr. Sierra and Dr. Cid are lung doctors here at the hospital and we spoke about follow up with Dr. Brennan for your heart. Allergies/Adverse Reactions: Allergies CLINT Inhibitors Allergy (Verified 01/06/18 19:59) Unknown acyclovir [From Zovirax] Allergy (Verified 01/06/18 19:59) Unknown amoxicillin trihydrate [From Augmentin] Allergy (Verified 01/06/18 19:59) Unknown codeine Allergy (Verified 01/06/18 19:59) Unknown potassium clavulanate [From Augmentin] Allergy (Verified 01/06/18 19:59) Unknown Medications to take at Discharge Atorvastatin Calcium [Lipitor] 40 mg PO QHS 04/15/15 Levothyroxine Sodium [Levoxyl] 100 mcg PO DAILY 04/15/15 Paroxetine HCl [Paxil] 40 mg PO DAILY 04/15/15 Warfarin [Coumadin] 3 mg PO SUTUTH 04/15/15 Warfarin [Coumadin] 6 mg PO MOWEFRSA 04/15/15 Atenolol [Tenormin (beta cruz)] 50 mg PO BID #120 tablet 04/17/15 Spironolactone [Aldactone] 25 mg PO DAILY #30 tablet 09/30/15 Pramipexole Di-HCl [Mirapex] 1 mg PO TID PRN PRN 01/06/18 Albuterol Inhaler [Ventolin Hfa] 1 - 2 puff INHALATION Q4H PRN PRN #1 inhaler 01/08/18 Diltiazem CD [Cardizem CD] 180 mg PO BID #60 cap 01/08/18 Prednisone See Taper PO DAILY #30 tab 01/08/18 The following prescriptions were given: Albuterol Inhaler [Ventolin Hfa] 1 - 2 puff INHALATION Q4H PRN PRN #1 inhaler PRN Reason: Shortness Of Breath Prednisone See Taper PO DAILY #30 tab Diltiazem CD [Cardizem CD] 180 mg PO BID #60 cap Primary Care Physician: Aleksandar Wiley DO [Primary Care Provider] - Please follow up with your Primary Care Physician in: 1-2 Weeks Please Follow Up With: Ventura Cid MD - May see CENTRAL SERVICE TECH, establish patient When: 2 Weeks Please Follow Up With: Jeff Brennan MD - May see CENTRAL SERVICE TECH/PA, establish patient When: 1-2 Weeks Proposed Discharge Date: 01/08/18
--- NOTE | 2018-01-08 10:49 | DCINST_ITS ---
- Discharge Diagnoses Current Active Problems: Current Active and Chronic Problems Multifocal community-acquired pneumonia (Acute) Bilateral lower lobes atelectasis (Acute) Obstructive sleep apnea (Acute) Atrial fibrillation with RVR (Acute) You will use the following diet at home:: Cardiac Discharge Activity: Return to Normal Activity Call your doctor if you observe: Shortness of breath, Dizziness, Fainting spells , Chest pain, Increased palpitations (irregular heartbeat) Additional Instructions: Recommend you establish and follow up with numerical control operator for your COPD and obstructive sleep apnea and cardiolgist for atrial fibrillation. Dr. Sierra and Dr. Cid are lung doctors here at the hospital and we spoke about follow up with Dr. Brennan for your heart. Allergies/Adverse Reactions: Allergies CLINT Inhibitors Allergy (Verified 01/06/18 19:59) Unknown acyclovir [From Zovirax] Allergy (Verified 01/06/18 19:59) Unknown amoxicillin trihydrate [From Augmentin] Allergy (Verified 01/06/18 19:59) Unknown codeine Allergy (Verified 01/06/18 19:59) Unknown potassium clavulanate [From Augmentin] Allergy (Verified 01/06/18 19:59) Unknown Medications to take at Discharge Atorvastatin Calcium [Lipitor] 40 mg PO QHS 04/15/15 Levothyroxine Sodium [Levoxyl] 100 mcg PO DAILY 04/15/15 Paroxetine HCl [Paxil] 40 mg PO DAILY 04/15/15 Warfarin [Coumadin] 3 mg PO SUTUTH 04/15/15 Warfarin [Coumadin] 6 mg PO MOWEFRSA 04/15/15 Atenolol [Tenormin (beta cruz)] 50 mg PO BID #120 tablet 04/17/15 Spironolactone [Aldactone] 25 mg PO DAILY #30 tablet 09/30/15 Pramipexole Di-HCl [Mirapex] 1 mg PO TID PRN PRN 01/06/18 Albuterol Inhaler [Ventolin Hfa] 1 - 2 puff INHALATION Q4H PRN PRN #1 inhaler Diltiazem CD [Cardizem CD] 180 mg PO BID #60 cap 01/08/18 Prednisone See Taper PO DAILY #30 tab 01/08/18 The following prescriptions were given: Albuterol Inhaler [Ventolin Hfa] 1 - 2 puff INHALATION Q4H PRN PRN #1 inhaler PRN Reason: Shortness Of Breath Prednisone See Taper PO DAILY #30 tab Diltiazem CD [Cardizem CD] 180 mg PO BID #60 cap Primary Care Physician: Aleksandar Wiley DO [Primary Care Provider] - Please follow up with your Primary Care Physician in: 1-2 Weeks Please Follow Up With: Ventura Cid MD - May see INTERVENTIONAL PAIN PHYSICIAN, establish patient When: 2 Weeks Please Follow Up With: Jeff Brennan MD - May see INTERVENTIONAL PAIN PHYSICIAN/PA, establish patient When: 1-2 Weeks Proposed Discharge Date: 01/08/18
--- NOTE | 2018-01-08 10:52 | PCM.DC.SUM ---
<Jordana Boyd - Last Filed: 01/08/18 10:59> Discharge Date and Diagnosis Date of Admission: 01/06/18 Date of Discharge: 01/08/18 - Primary Discharge Diagnosis Active and Suspected Problems 1. Acute COPD exacerbation secondary to acute rhinovirus 2. Acute hypoxia secondary to #1 3. Atrial for ablation with RVR - Secondary Discharge Diagnosis Chronic Problems HTN (hypertension) (Chronic) GERD (gastroesophageal reflux disease) (Chronic) Restless leg syndrome (Chronic) Dyslipidemia (Chronic) CAD (coronary artery disease) (Chronic) Status post stent COPD (chronic obstructive pulmonary disease) (Chronic) Chronic atrial fibrillation (Chronic) Tobacco dependence (Chronic) Hospital Course and Treatment Imaging Results: Diagnostic Data Chest X-Ray 01/06/18 20:25 IMPRESSION: COPD with fibrosis. Cannot exclude additional mild diffuse infiltrate of the left lung. Electronically Signed: Alex Benavidez MD at 21:00 EST , Service support , Chest CTA 01/06/18 21:27 IMPRESSION: Negative for pulmonary embolus. Atherosclerotic changes of the thoracic aorta. Cardiomegaly and coronary calcifications. Diffuse emphysematous changes of the upper lobes. Bronchial thickening in the middle and lower lobes with multifocal areas of atelectasis and/or small consolidations in the right middle lobe, right lower lobe and left lower lobe. Large subpectoral lipoma of the left chest. Degenerative changes of the thoracic spine. Electronically Signed: Christie Bergman MD at 22:26 EST , Service support , Operations: None Procedures: 2-D Echocardiogram Summary of Care Provided: Patient is a 72-year-old female admitted 01/06/2018 due to increased shortness of breath. She has a past medical history of hypertension, GERD, restless leg syndrome, hyperlipidemia, CAD status post PCI, COPD, chronic atrial fibrillation and tobacco dependence. 1. Acute COPD exacerbation secondary to acute rhinovirus with associated acute hypoxia-CTA of chest negative for PE. Diffuse emphysematous changes of the upper lobes. Bronchial thickening in the middle and lower lobes with multifocal areas of atelectasis on the right middle lobe, right lower lobe and left lower lobe. Chest x-ray showed COPD with fibrosis. Questionable mild diffuse infiltrate of the left lung. Do not suspect pneumonia. Patient has remained afebrile. No leukocytosis. Nonproductive cough. Patient did receive antibiotics during admission but will not be discharged on further antibiotic therapy. She received IV Solu-Medrol and will be discharged on prednisone taper. Patient required supplemental oxygen during admission and was weaned off. Walking pulse ox completed prior to discharge and patient did not require home oxygen. Patient does not follow with floor supervisor and has never had formal pulmonary function testing. Recommend follow-up with pulmonary medicine of [place] which was discussed with patient. She was discharged on albuterol inhaler as needed for shortness of breath. 2. Atrial fibrillation with RVR-patient on Cardizem drip during admission which was transitioned to oral Cardizem. Her home Cardizem regimen was increased to 180 mg twice daily. She will continue Coumadin therapy. INR therapeutic, 2.4 at discharge. She will continue home atenolol. Echocardiogram shows an estimated ejection fraction of 65%, mild tricuspid valve insufficiency, RVSP estimated to be 47 mmHg. No changes noted from previous echo 04/17/2015. Patient does not follow with a collateral analyst. She previously followed with Dr. Camejo, CCLore. Discussed following up with [facility]. She states she has seen Dr. Owen inpatient in the past and would prefer to see another provider. Discussed with her that she may see AREA ATTENDANT/PA to establish as a patient and may also see Dr. Brennan or Dr. Dempsey. She is agreeable. 3. Obstructive sleep apnea-noncompliant with CPAP. CPAP was prescribed approximately 5 years ago and patient returned machine. Encouraged outpatient pulmonary follow-up and CPAP use. 4. Hypertension-stable, continue current regimen. 5. GERD-not on home regimen. 6. Hyperlipidemia-continue statin. 7. CAD status post PCI-continue beta-cruz, statin, Coumadin. 8. Restless leg syndrome-continue home Mirapex regimen. 9. Elevated glucose-hemoglobin A1c 6.3%. Continue Accu-Cheks before meals at bedtime with sliding scale insulin. Suspect acute increase in glucoses due to steroid usage. Will need further monitoring as outpatient. 10. Nicotine dependence-encourage smoking cessation. General: Alert, Oriented x3, Cooperative, No apparent distress HEENT: Atraumatic, PERRLA, EOMI, Normocephalic Neck: Supple, No JVD, Negative Carotid Bruits Lungs: Diminished, clear to auscultation Cardiovascular: Normal S1, Normal S2, Murmur, - - A.Fib. Rate controlled. Abdomen: Bowel Sounds Present, Soft, Non Tender, Non-Distended Extremities: No clubbing, No cyanosis, No edema, Capillary Refill Less than 3 Seconds Skin: No rashes, No breakdown Musculoskeletal: No Tenderness to Palpation of Joints or Extremities Neurological: Cranial nerves II-XII grossly intact, Neuro grossly intact Psych/Mental Status: Normal Affect, Appropriate Patient seen and examined prior to discharge. Physical assessment as noted above. Patient is stable for discharge home with recommendations as noted above. This patient was seen by ROSE Ariza under the supervision of Dr. Sutton. Discharge Diet: Low fat/ Low Cholesterol, Carb Control Diet Discharge Activity: Return to Normal Activity Call your doctor if you observe: Shortness of breath, Dizziness, Fainting spells, Chest pain, Increased palpitations (irregular heartbeat) Home Medications: Medications to take at Discharge Atorvastatin Calcium [Lipitor] 40 mg PO QHS 04/15/15 Levothyroxine Sodium [Levoxyl] 100 mcg PO DAILY 04/15/15 Paroxetine HCl [Paxil] 40 mg PO DAILY 04/15/15 Warfarin [Coumadin] 3 mg PO SUTUTH 04/15/15 Warfarin [Coumadin] 6 mg PO MOWEFRSA 04/15/15 Atenolol [Tenormin (beta cruz)] 50 mg PO BID #120 tablet 04/17/15 Spironolactone [Aldactone] 25 mg PO DAILY #30 tablet 09/30/15 Pramipexole Di-HCl [Mirapex] 1 mg PO TID PRN PRN 01/06/18 Albuterol Inhaler [Ventolin Hfa] 1 - 2 puff INHALATION Q4H PRN PRN #1 inhaler 01/08/18 Diltiazem CD [Cardizem CD] 180 mg PO BID #60 cap 01/08/18 Prednisone See Taper PO DAILY #30 tab 01/08/18 Following Prescrptions Were Given to Patient: Albuterol Inhaler [Ventolin Hfa] 1 - 2 puff INHALATION Q4H PRN PRN #1 inhaler PRN Reason: Shortness Of Breath Prednisone See Taper PO DAILY #30 tab Diltiazem CD [Cardizem CD] 180 mg PO BID #60 cap Primary Care Physician: Aleksandar Wiley DO [Primary Care Provider] - Please follow up with your Primary Care Physician in: 1-2 Weeks Please Follow Up With: Ventura Cid MD - May see AREA ATTENDANT, establish patient When: 2 Weeks Please Follow Up With: Jeff Brennan MD - May see AREA ATTENDANT/PA, establish patient When: 1-2 Weeks Disposition: Home Minutes spent on discharge:: 35 Patient Condition:: Stable Meaningful Use Info Meaningful Use Diagnoses (Choose all that apply): None applicable <Arthur Sutton - Last Filed: 01/08/18 11:36> Discharge Date and Diagnosis - Secondary Discharge Diagnosis Chronic Problems HTN (hypertension) (Chronic) GERD (gastroesophageal reflux disease) (Chronic) Restless leg syndrome (Chronic) Dyslipidemia (Chronic) CAD (coronary artery disease) (Chronic) Status post stent COPD (chronic obstructive pulmonary disease) (Chronic) Chronic atrial fibrillation (Chronic) Tobacco dependence (Chronic) Hospital Course and Treatment Summary of Care Provided: In brief, patient is a a 72-year-old lady who was admitted with progressive shortness of breath and palpitations. An assessment of COPD exacerbation and A. fib RVR made admitted to a monitored bed for further management Assessment: 1. COPD with exacerbation precipitated by rhinovirus infection 2. A. fib with RVR 3. Sleep apnea 4. Obstructive sleep apnea-noncompliant with CPAP. 5. Essential hypertension 6. Hyperlipidemia-continue statin. 7. CAD status post PCI 8. Restless leg syndrome 9. GERD without esophagitis 10. Tobacco dependence. 11. DVT prophylaxis patient on Coumadin no need for additional measures Hospital course as elicited above by Jordana Boyd AREA ATTENDANT- C Patient was seen and examined by myself did review her discharge instructions and home going medications prior to her discharge. Discharge process 35 minutes Code Visit Inpatient E&M: 09313 Subs Hosp L3 Code Visit Inpatient E&M: 59881 Disch Hosp
--- NOTE | 2018-01-08 10:58 | DS.PCM_ITS ---
<Jordana Boyd - Last Filed: 01/08/18 10:59> Discharge Date and Diagnosis Date of Admission: 01/06/18 Date of Discharge: 01/08/18 - Primary Discharge Diagnosis Active and Suspected Problems 1. Acute COPD exacerbation secondary to acute rhinovirus 2. Acute hypoxia secondary to #1 3. Atrial for ablation with RVR - Secondary Discharge Diagnosis Chronic Problems HTN (hypertension) (Chronic) GERD (gastroesophageal reflux disease) (Chronic) Restless leg syndrome (Chronic) Dyslipidemia (Chronic) CAD (coronary artery disease) (Chronic) Status post stent COPD (chronic obstructive pulmonary disease) (Chronic) Chronic atrial fibrillation (Chronic) Tobacco dependence (Chronic) Hospital Course and Treatment Imaging Results: Diagnostic Data Chest X-Ray 01/06/18 20:25 IMPRESSION: COPD with fibrosis. Cannot exclude additional mild diffuse infiltrate of the left lung. Electronically Signed: Alex Benavidez MD at 21:00 EST , Service support , Chest CTA 01/06/18 21:27 IMPRESSION: Negative for pulmonary embolus. Atherosclerotic changes of the thoracic aorta. Cardiomegaly and coronary calcifications. Diffuse emphysematous changes of the upper lobes. Bronchial thickening in the middle and lower lobes with multifocal areas of atelectasis and/or small consolidations in the right middle lobe, right lower lobe and left lower lobe. Large subpectoral lipoma of the left chest. Degenerative changes of the thoracic spine. Electronically Signed: Christie Bergman MD at 22:26 EST , Service support , Operations: None Procedures: 2-D Echocardiogram Summary of Care Provided: Patient is a 72-year-old female admitted 01/06/2018 due to increased shortness of breath. She has a past medical history of hypertension, GERD, restless leg syndrome, hyperlipidemia, CAD status post PCI, COPD, chronic atrial fibrillation and tobacco dependence. 1. Acute COPD exacerbation secondary to acute rhinovirus with associated acute hypoxia-CTA of chest negative for PE. Diffuse emphysematous changes of the upper lobes. Bronchial thickening in the middle and lower lobes with multifocal areas of atelectasis on the right middle lobe, right lower lobe and left lower lobe. Chest x-ray showed COPD with fibrosis. Questionable mild diffuse infiltrate of the left lung. Do not suspect pneumonia. Patient has remained afebrile. No leukocytosis. Nonproductive cough. Patient did receive antibiotics during admission but will not be discharged on further antibiotic therapy. She received IV Solu-Medrol and will be discharged on prednisone taper. Patient required supplemental oxygen during admission and was weaned off. Walking pulse ox completed prior to discharge and patient did not require home oxygen. Patient does not follow with bolt cutter and has never had formal pulmonary function testing. Recommend follow-up with pulmonary medicine of [place] which was discussed with patient. She was discharged on albuterol inhaler as needed for shortness of breath. 2. Atrial fibrillation with RVR-patient on Cardizem drip during admission which was transitioned to oral Cardizem. Her home Cardizem regimen was increased to 180 mg twice daily. She will continue Coumadin therapy. INR therapeutic, 2.4 at discharge. She will continue home atenolol. Echocardiogram shows an estimated ejection fraction of 65%, mild tricuspid valve insufficiency , RVSP estimated to be 47 mmHg. No changes noted from previous echo 04/17/2015. Patient does not follow with a physical therapy aide. She previously followed with Dr. Camejo, CCLore. Discussed following up with [facility]. She states she has seen Dr. Owen inpatient in the past and would prefer to see another provider. Discussed with her that she may see HALVER MACHINE OPERATOR/PA to establish as a patient and may also see Dr. Brennan or Dr. Dempsey. She is agreeable. 3. Obstructive sleep apnea-noncompliant with CPAP. CPAP was prescribed approximately 5 years ago and patient returned machine. Encouraged outpatient pulmonary follow-up and CPAP use. 4. Hypertension-stable, continue current regimen. 5. GERD-not on home regimen. 6. Hyperlipidemia-continue statin. 7. CAD status post PCI-continue beta-cruz, statin, Coumadin. 8. Restless leg syndrome-continue home Mirapex regimen. 9. Elevated glucose-hemoglobin A1c 6.3%. Continue Accu-Cheks before meals at bedtime with sliding scale insulin. Suspect acute increase in glucoses due to steroid usage. Will need further monitoring as outpatient. 10. Nicotine dependence-encourage smoking cessation. General: Alert, Oriented x3, Cooperative, No apparent distress HEENT: Atraumatic, PERRLA, EOMI, Normocephalic Neck: Supple, No JVD, Negative Carotid Bruits Lungs: Diminished, clear to auscultation Cardiovascular: Normal S1, Normal S2, Murmur, - - A.Fib. Rate controlled. Abdomen: Bowel Sounds Present, Soft, Non Tender, Non-Distended Extremities: No clubbing, No cyanosis, No edema, Capillary Refill Less than 3 Seconds Skin: No rashes, No breakdown Musculoskeletal: No Tenderness to Palpation of Joints or Extremities Neurological: Cranial nerves II-XII grossly intact, Neuro grossly intact Psych/Mental Status: Normal Affect, Appropriate Patient seen and examined prior to discharge. Physical assessment as noted above. Patient is stable for discharge home with recommendations as noted above. This patient was seen by ROSE Ariza under the supervision of Dr. Sutton. Discharge Diet: Low fat/ Low Cholesterol, Carb Control Diet Discharge Activity: Return to Normal Activity Call your doctor if you observe: Shortness of breath, Dizziness, Fainting spells , Chest pain, Increased palpitations (irregular heartbeat) Home Medications: Medications to take at Discharge Atorvastatin Calcium [Lipitor] 40 mg PO QHS 04/15/15 Levothyroxine Sodium [Levoxyl] 100 mcg PO DAILY 04/15/15 Paroxetine HCl [Paxil] 40 mg PO DAILY 04/15/15 Warfarin [Coumadin] 3 mg PO SUTUTH 04/15/15 Warfarin [Coumadin] 6 mg PO MOWEFRSA 04/15/15 Atenolol [Tenormin (beta cruz)] 50 mg PO BID #120 tablet 04/17/15 Spironolactone [Aldactone] 25 mg PO DAILY #30 tablet 09/30/15 Pramipexole Di-HCl [Mirapex] 1 mg PO TID PRN PRN 01/06/18 Albuterol Inhaler [Ventolin Hfa] 1 - 2 puff INHALATION Q4H PRN PRN #1 inhaler Diltiazem CD [Cardizem CD] 180 mg PO BID #60 cap 01/08/18 Prednisone See Taper PO DAILY #30 tab 01/08/18 Following Prescrptions Were Given to Patient: Albuterol Inhaler [Ventolin Hfa] 1 - 2 puff INHALATION Q4H PRN PRN #1 inhaler PRN Reason: Shortness Of Breath Prednisone See Taper PO DAILY #30 tab Diltiazem CD [Cardizem CD] 180 mg PO BID #60 cap Primary Care Physician: Aleksandar Wiley DO [Primary Care Provider] - Please follow up with your Primary Care Physician in: 1-2 Weeks Please Follow Up With: Ventura Cid MD - May see HALVER MACHINE OPERATOR, establish patient When: 2 Weeks Please Follow Up With: Jeff Brennan MD - May see HALVER MACHINE OPERATOR/PA, establish patient When: 1-2 Weeks Disposition: Home Minutes spent on discharge:: 35 Patient Condition:: Stable Meaningful Use Info Meaningful Use Diagnoses (Choose all that apply): None applicable <Arthur Sutton - Last Filed: 01/08/18 11:36> Discharge Date and Diagnosis - Secondary Discharge Diagnosis Chronic Problems HTN (hypertension) (Chronic) GERD (gastroesophageal reflux disease) (Chronic) Restless leg syndrome (Chronic) Dyslipidemia (Chronic) CAD (coronary artery disease) (Chronic) Status post stent COPD (chronic obstructive pulmonary disease) (Chronic) Chronic atrial fibrillation (Chronic) Tobacco dependence (Chronic) Hospital Course and Treatment Summary of Care Provided: In brief, patient is a a 72-year-old lady who was admitted with progressive shortness of breath and palpitations. An assessment of COPD exacerbation and A. fib RVR made admitted to a monitored bed for further management Assessment: 1. COPD with exacerbation precipitated by rhinovirus infection 2. A. fib with RVR 3. Sleep apnea 4. Obstructive sleep apnea-noncompliant with CPAP. 5. Essential hypertension 6. Hyperlipidemia-continue statin. 7. CAD status post PCI 8. Restless leg syndrome 9. GERD without esophagitis 10. Tobacco dependence. 11. DVT prophylaxis patient on Coumadin no need for additional measures Hospital course as elicited above by Jordana Boyd HALVER MACHINE OPERATOR- C Patient was seen and examined by myself did review her discharge instructions and home going medications prior to her discharge. Discharge process 35 minutes Code Visit Inpatient E&M: 38535 Subs Hosp L3 Code Visit Inpatient E&M: 84125 Disch Hosp
== END 2018-01-08 11:23 | disposition home or self-care (01) | DRG 191 ==
LOC: ED 23:22 → PCU 23:54
PROVIDERS: Nurse Practitioner Family; Admitting Provider Internal Medicine; Emergency Provider Emergency Medicine; Family Provider Student in an Organized Health Care Education/Training Program; PCP Student in an Organized Health Care Education/Training Program; Visit Provider Internal Medicine
DX: J44.1 Chronic obstructive pulmonary disease with (acute) exacerbation (principal); J98.11 Atelectasis; I27.20 Pulmonary hypertension, unspecified; I48.2 Chronic atrial fibrillation; G25.81 Restless legs syndrome; E78.5 Hyperlipidemia, unspecified; F17.210 Nicotine dependence, cigarettes, uncomplicated; B97.89 Other viral agents as the cause of diseases classified elsewhere; G47.33 Obstructive sleep apnea (adult) (pediatric); I25.10 Atherosclerotic heart disease of native coronary artery without angina pectoris; I10 Essential (primary) hypertension; K21.9 Gastro-esophageal reflux disease without esophagitis; Z95.5 Presence of coronary angioplasty implant and graft; Z79.899 Other long term (current) drug therapy; Z79.01 Long term (current) use of anticoagulants; Z91.19 Patient's noncompliance with other medical treatment and regimen
CPT/HCPCS: 36415; 71046; 71275; 80048; 81002; 82962; 83036; 84439; 84443; 84484; 85025; 85027; 85610; 87040; 87070; 87077; 87186; 87205; 87449; 87633; 93005; 93306; 94640; 94667; 94668; 97802; 99285; 99406; J7030; Q9967; A4216

== ENCOUNTER 2018-01-28 17:41 | Emergency (ER) | payer MEDICARE, SELFPAY ==
[2018-01-28 17:42] VITALS: BP 154/100; PULSE 99; RESP 16; TEMP 36.2; O2SAT 95; BMI 27.8
--- NOTE | 2018-01-28 18:15 | NURSING ---
PAGED DR CISNEROS CALLED [facility] FOR CT RESULTS TO BE FAXED TO US.
[2018-01-28 18:38] LABS: Absolute Lymphocyte Count 1.81 X10^3/ul (0.83-4.51); Absolute Neutrophil Count 4.5 X10^3/uL (2.0-7.7); Basophil# 0.04 X10^3/uL; Basophil% 0.6 % (0-1); Eosinophil# 0.16 X10^3/uL; Eosinophils% 2.3 % (0-5); Hematocrit 42.4 % (37-47); Hemoglobin 13.3 g/dl (12.0-15.0); Lymphocyte # 1.81 X10^3/ul (4.0); Mean Corp Hgb Conc 31.4 g/gl (32-36); Mean Corpuscular Hgb 31.4 pg (27.0-32.0); Mean Corpuscular Volume 100.2 fL (81-99); Mean Platelet Vol. 10.4 fl (6.2-12.0); Monocyte# 0.47 X10^3/uL; Monocyte% 6.8 % (0-10); Neutrophil # 4.47 X10^3/uL (2.7-7.7); Neutrophil % 64.2 % (47-70); POSITIVE DIFFERENTIAL NO; Platelet Count 239 K/mm3 (150-450); RBC Distribution Width CV 15.4 % (11.6-14.6); Red Blood Count 4.23 M/mm3 (4.2-5.4)
[2018-01-28 18:39] LABS: POSITIVE COUNT NO; POSITIVE MORPHOLOGY NO
[2018-01-28 18:50] LABS: Prothrombin Time (Protime)PT. 35.6 SECONDS (11.7-14.9)
[2018-01-28 18:52] LABS: Anion Gap 7 (5-15); BUN 29 mg/dL (7-18); BUN/Creat Ratio 31.6 RATIO (10-20); Calcium,Total 8.9 mg/dL (8.5-10.1); Chloride 105 mmol/L (98-107); Creatinine, Serum 0.92 mg/dL (0.55-1.02); EST Glomerular Filtration Rate 64 mL/min (>60); Est Glom Filt Rate - Afr Amer 77 mL/min (>60); Estimated Creatinine Clearance 50.22 ml/min; Glucose 131 mg/dL (74-106); Potassium 4.4 mmol/L (3.5-5.1); Sodium Level 139 mmol/L (136-145)
[2018-01-28 18:55] LABS: International Normalized Ratio 3.5
--- NOTE | 2018-01-28 19:45 | ED.DCSUM_ITS ---
- ER Visit Summary Date of Service: 01/28/18 Chief Complaint: Abnormal CT History of Present Illness: The patient is a 72 F presenting for evaluation secondary to an abnormal CT. Patient states that she has been dealing with abdominal pain that has been going on over the course of the last month. Patient states that it has been associated with left lower quadrant abdominal pain that comes and goes. She denies any other associated symptoms such as nausea vomiting diarrhea weight loss or night sweats. Patient states she was getting this evaluated with CT abdomen and pelvis with IV contrast that was performed yesterday and she was called today with results and was recommended to come to the ER because she had a clot in her aorta. Patient states she does have a history of peripheral vascular disease with a femoral popliteal bypass in the left leg in the past. Patient states that she has not had any issues with her INR. Patient states she has a bruise in her left lower quadrant they came up after she had some forcible coughing. Physical Examination: Vital signs within normal limits. Well-nourished female no acute distress. Moist mucous membranes. Heart was irregular with regular rate. Lung sounds clear. Abdomen was tender in left lower quadrant with some ecchymosis noted of the abdominal wall in the left lower quadrant. No palpable masses or pulsatile mass. Lower extremity exam shows warm skin bilaterally with normal capillary refill. Pulses were difficult to palpate but were dopplerable bilaterally both PT and DP and were symmetric. Normal temperature of the skin. Test Results: CBC and chemistry unremarkable, INR slightly supratherapeutic at 3.5. Results of the patient's CT scan were reviewed and it shows a 3 mm abdominal aortic aneurysm with mural thrombus as well as a rectus sheath hematoma Emergency Department Course and Treatment: Patient presented due to abnormal CT scan. I contacted the covering physician for the patient's PCP and did get the results. Patient has mural thrombus, she has no evidence of vascular compromise distally at this point, and she slightly supratherapeutic on her INR. Patient was recommended to half her dose of her Coumadin today, and then continue her normal regimen. Patient was seen by Dr. Barakat in the past for her femoral popliteal bypass, and I believe that she can follow-up with him for her mural thrombus. Patient was given signs and symptoms for which to return. Disposition: Discharge Impression: 1. 3 cm abdominal aortic aneurysm 2. Mural thrombus 3. Supratherapeutic INR This note was generated with [employer] dictation software. It may contain incorrect words, spelling, and punctuation that were not noted in review of the chart prior to signing ED Disposition - Plan for ED Patient: Disposition: Home or Assisted Living Chief Complaint: Abd Pain Diagnosis: Aortic mural thrombus Instructions: ED Aneurysm Abdominal Aortic Stable Referrals: Eric Barakat MD [STAFF PHYSICIAN] -
[2018-01-28 20:13] VITALS: PULSE 83; O2SAT 95
== END 2018-01-28 20:13 | disposition home or self-care (01) ==
PROVIDERS: Emergency Provider Emergency Medicine; Family Provider Student in an Organized Health Care Education/Training Program; PCP Student in an Organized Health Care Education/Training Program
DX: I71.4 Abdominal aortic aneurysm, without rupture (principal); I51.3 Intracardiac thrombosis, not elsewhere classified; R79.1 Abnormal coagulation profile; S30.1XXA Contusion of abdominal wall, initial encounter; X58.XXXA Exposure to other specified factors, initial encounter; Y93.9 Activity, unspecified; Y92.9 Unspecified place or not applicable; Z86.79 Personal history of other diseases of the circulatory system; J44.9 Chronic obstructive pulmonary disease, unspecified; K21.9 Gastro-esophageal reflux disease without esophagitis; I10 Essential (primary) hypertension; E78.00 Pure hypercholesterolemia, unspecified; I48.91 Unspecified atrial fibrillation; G25.81 Restless legs syndrome; Z79.84 Long term (current) use of oral hypoglycemic drugs; Z79.01 Long term (current) use of anticoagulants; Z79.899 Other long term (current) drug therapy; Z72.0 Tobacco use
CPT/HCPCS: 80048; 85025; 85610; 85730; 99283; A4216

== ENCOUNTER 2018-02-03 16:23 | Outpatient (RCR) | payer MEDICARE, SELFPAY | END 2018-02-05 23:59 | LOC: DC 16:23 | PROVIDERS: Family Provider Student in an Organized Health Care Education/Training Program; PCP Student in an Organized Health Care Education/Training Program; Visit Provider Nurse Practitioner Adult Health | DX: E11.9 Type 2 diabetes mellitus without complications (principal); Z71.3 Dietary counseling and surveillance | CPT/HCPCS: G0108 ==

== ENCOUNTER 2018-02-28 10:30 | Outpatient (RCR) | payer MEDICARE, SELFPAY | END 2018-03-07 23:59 | LOC: DC 10:30 | PROVIDERS: Family Provider Student in an Organized Health Care Education/Training Program; PCP Student in an Organized Health Care Education/Training Program; Visit Provider Student in an Organized Health Care Education/Training Program | DX: E11.9 Type 2 diabetes mellitus without complications (principal); Z71.3 Dietary counseling and surveillance | CPT/HCPCS: 97802 ==

== ENCOUNTER → 2018-03-22 06:05 | Outpatient (CLI) | payer MEDICARE, SELFPAY ==
--- NOTE | 2018-03-22 14:01 | STRESSREP_ITS ---
Stress Test Report Date: 03/22/2018 Procedure: Pharmacologic stress nuclear imaging study Indications: Shortness of breath/dyspnea; CAD; PCI Consent: Per the patient Procedure: The patient underwent pharmacologic (Regadenoson) evaluation with a peak heart rate of 127 beats per minute (86 predicted maximal heart rate) and a peak blood pressure of 170/100 mmHg. The baseline ECG demonstrated atrial fibrillation. The peak pharmacologic ECG demonstrated no obvious ECG changes. There was a rare PVC during pharmacologic infusion. There was no complaint of chest discomfort during pharmacologic infusion or recovery. The examination was discontinued secondary to completion of protocol. Impression: 1. Pharmacologic (Regadenoson) evaluation 2. Peak pharmacologic ECG with with continued atrial fibrillation with no obvious ECG changes. 3. As a rare PVC during pharmacologic infusion 4. Nuclear images pending Myocardial perfusion imaging study: Technique: The patient was injected with 11.1 millicuries of technetium 99m Cardiolite and subsequently rest SPECT Cardiolite nuclear imaging was obtained in the horizontal long, vertical long, and short axis views. The patient underwent pharmacologic (Regadenoson) evaluation with a peak heart rate of 127 beats per minute (86 % percent predicted maximal heart rate) and a peak blood pressure of 170/100 mmHg. The patient was injected with 32.8 millicuries of technetium 99m Cardiolite and subsequently stress SPECT Cardiolite nuclear imaging was obtained in the horizontal long, vertical long, and short axis views. A gated Cardiolite study at peak stress was obtained. Interpretation: Rest and stress SPECT Cardiolite nuclear imaging status post realignment, normalization, and attenuation correction demonstrate relative uniform tracer uptake and myocardial perfusion appearing within normal limits. There is end systolic thickening and brightening. The gated Cardiolite study demonstrates myocardial thickening and inward wall motion. The reported LVEF is 65 %. Impression: 1. Rest and stress SPECT Cardiolite nuclear imaging demonstrate relative uniform tracer uptake and myocardial perfusion appearing within normal limits. 2. The gated Cardiolite study reports an LVEF of 65%. This note was generated with [employer] software. It may contain incorrect words, spelling, and punctuation that were not noted in checking the note before signing.
== END ==
LOC: CVS 06:08
PROVIDERS: Family Provider Student in an Organized Health Care Education/Training Program; PCP Student in an Organized Health Care Education/Training Program; Visit Provider Internal Medicine Cardiovascular Disease
DX: I25.10 Atherosclerotic heart disease of native coronary artery without angina pectoris (principal); Z95.5 Presence of coronary angioplasty implant and graft; I48.2 Chronic atrial fibrillation
CPT/HCPCS: 78452; 93017; 93225; 93226; A9500; A4216; J2785

== ENCOUNTER 2018-10-05 18:59 | Inpatient (IN) | payer MEDICARE, MEDICAID, SELFPAY ==
[2018-10-05] VITALS (17 sets, daily range): BP systolic 108–143; BP diastolic 57–114; PULSE 13–135; RESP 18–134; TEMP 36.4–36.6; O2SAT 85–93; BMI 37.2; BMI 30.2
--- NOTE | 2018-10-05 19:08 | EKG12_ITS ---
Test Reason : SOB Blood Pressure : / mmHG Vent. Rate : 124 BPM Atrial Rate : 107 BPM P-R Int : 000 ms QRS Dur : 082 ms QT Int : 320 ms P-R-T Axes : 000 069 090 degrees QTc Int : 459 ms Atrial fibrillation with rapid ventricular response Nonspecific ST and T wave abnormality Abnormal ECG Confirmed by THEE LUNA, CHAD ([id number]), market editor AMY ALVAREZ ([id number]) on 10/07/2018 2:30:31 PM Referred By: ELIEZER Confirmed By:CHAD KINGSTON MD
--- NOTE | 2018-10-05 19:11 | ED.VISSUMM ---
- ER Visit Summary Date of Service: 10/05/18 Chief Complaint: Shortness of breath History of Present Illness: The patient is a [address] Brennan and Dr. Wiley. She reports that she has shortness of breath began approximately 1 hour ago. It was severe at worst and mild currently. Is worsened by exertion. It is unchanged by lying flat or coughing. Seems to be improved by the oxygen she was placed on by squad. She reports that she has a nebulizer, but has not used it lately. Patient reports has had a nonproductive cough for the past 2 weeks. No fever or chills. No chest pain. She reports that she is nauseated. She denies abdominal pain, vomiting, or diarrhea. Patient does have a history of obstructive sleep apnea. She reports that she does not like CPAP and returned her machine. She is not on home O2. She is on Coumadin for atrial fibrillation. She reports that she has not taken her evening medications including Cardizem CD or atenolol. Physical Examination: Vitals: 97.9, 141/114, 133, 30, 88% on room air which is hypoxic. General: Well-nourished and well-developed. Head: Normocephalic atraumatic. Neck: Supple, no lymphadenopathy. No JVD. Nontender. Cardiovascular: Tachycardic irregular rhythm. No murmurs. Respiratory: Mild respiratory distress. Fine crackles throughout the entire left lung and at the right base. Greatly decreased air movement.. Abdominal: Soft, nontender, nondistended, normal bowel sounds. No guarding, rebound, or peritoneal signs. Back: Nontender. Extremities: Nontender, 1+ pitting edema over lower extremities bilaterally. Skin: Normal color, no rash. Neurologic: Alert and oriented ?3. Cranial nerves II through XII are intact. Normal strength and sensation. Psych: Normal affect. Test Results: EKG is atrial fibrillation rate [address] changes. There is no significant change since February of this year. CBC is remarkable for segmented neutrophils 77 lymphocytes 17. Chem-7 is more for BUN 22 and glucose 185. INR is 2.9. Lactic acid is 1.9. Troponin 0 0.023. BTNP is 319.0. Chest x-ray shows COPD with superimposed congestive heart failure with possible tiny pleural effusions. Emergency Department Course and Treatment: Patient was given albuterol Atrovent aerosols. She was given a dose of Solu-Medrol IV. She was given Cardizem IV. She was given her evening dose of Cardizem CD and atenolol p.o. She was given 40 mg of Lasix IV. She feels much improved and is resting comfortably. Treatment Plan: The patient was discussed with Dr. Donovan. She will be admitted to the hospital for further evaluation and treatment. Disposition: Admitted in improved condition. Impression: 1. Atrial fibrillation with RVR. 2. Coumadin coagulopathy. 3. Hypoxia. 4. CHF. 5. COPD. 6. Critical care time 30 minutes. This note was generated with [employer] dictation software. It may contain incorrect words, spelling, and punctuation that were not noted in review of the chart prior to signing ED Disposition - Plan for ED Patient: Chief Complaint: Shortness of Breath Referrals: Aleksandar Wiley DO [Primary Care Provider] -
[2018-10-05] MEDS: MethylPREDNISolone 125 MG/2 ML Vial IV (19:15)
[2018-10-05] MEDS: Ipratropium/Albuterol Sulfate 3 ML AMPUL.NEB INHALATION ×2 (19:15→23:49)
--- NOTE | 2018-10-05 19:15 | RAD_ITS ---
STUDY: X-RAY CHEST REASON FOR EXAM: Female, 73 years old. Short of breath TECHNIQUE: AP portable COMPARISON: January 06, 2018 FINDINGS: Lungs are hyperinflated and there is diffuse interstitial thickening with mild bronchovascular cuffing. There is blunting of the costophrenic sulci possibly representing tiny effusions. Heart is enlarged. Normal mediastinum and lexus. Normal visualized pulmonary arteries. Normal visualized aortic arch and descending thoracic aorta. Dorsal spine demonstrates spondylosis. Normal visualized ribs, clavicles, and right shoulder. There appears to be mild inferior subluxation of left shoulder There is no demonstrated abnormality of the visualized soft tissue structures of the upper abdomen. RAD/Chest 1 View (Portable) IMPRESSION: COPD with superimposed congestive failure with possible tiny pleural effusions Electronically Signed: Lee Villegas MD at 20:11 EST , Service support ,
[2018-10-05] MEDS: dilTIAZem 25 MG/5 ML Vial 20 MG IV BOLUS ×2 (19:16→21:23)
[2018-10-05 19:28] LABS: Absolute Lymphocyte Count 1.52 X10^3/ul (0.83-4.51); Basophil# 0.04 X10^3/uL; Basophil% 0.4 % (0-1); Eosinophil# 0.08 X10^3/uL; Eosinophils% 0.9 % (0-5); Hematocrit 40.7 % (37-47); Hemoglobin 12.7 g/dl (12.0-15.0); Lymphocyte # 1.52 X10^3/ul (4.0); Lymphocyte % 16.7 % (19-41); Mean Corp Hgb Conc 31.2 g/gl (32-36); Mean Corpuscular Hgb 32.4 pg (27.0-32.0); Mean Corpuscular Volume 103.8 fL (81-99); Monocyte# 0.48 X10^3/uL; Monocyte% 5.3 % (0-10); Neutrophil # 6.99 X10^3/uL (2.7-7.7); Neutrophil % 76.6 % (47-70); Platelet Count 299 K/mm3 (150-450); RBC Distribution Width CV 15.7 % (11.6-14.6); Red Blood Count 3.92 M/mm3 (4.2-5.4); White Blood Count 9.1 K/mm3 (4.4-11.0)
[2018-10-05 19:29] LABS: POSITIVE COUNT NO; POSITIVE DIFFERENTIAL NO; POSITIVE MORPHOLOGY NO
[2018-10-05 19:40] LABS: Anion Gap 7 (5-15); BUN 22 mg/dL (7-18); BUN/Creat Ratio 26.4 RATIO (10-20); Calcium,Total 8.7 mg/dL (8.5-10.1); Chloride 106 mmol/L (98-107); Creatinine, Serum 0.83 mg/dL (0.55-1.02); EST Glomerular Filtration Rate 71 mL/min (>60); Est Glom Filt Rate - Afr Amer 86 mL/min (>60); Estimated Creatinine Clearance 42.07 ml/min; Glucose 185 mg/dL (74-106); Potassium 3.5 mmol/L (3.5-5.1); Sodium Level 142 mmol/L (136-145)
[2018-10-05 19:42] LABS: International Normalized Ratio 2.9; Prothrombin Time (Protime)PT. 30.4 SECONDS (11.7-14.9)
[2018-10-05] MEDS: Atenolol 50 MG Tablet PO (19:42)
[2018-10-05] MEDS: dilTIAZem CD 180 MG Capsule PO (19:42)
[2018-10-05 19:49] LABS: Lactic Acid 1.9 mmol/L (0.4-2.0)
[2018-10-05] MEDS: Furosemide 40 MG/4 ML Vial IV (20:35)
--- NOTE | 2018-10-05 21:00 | HP.PCM_ITS ---
Problem List (1) Atrial fibrillation with RVR Status: Acute (2) Heart failure Status: Acute (3) COPD (chronic obstructive pulmonary disease) Status: Chronic History of Present Illness Date of Admission: 10/05/18 Chief Complaint: shortness of breath The patient is a 73 year old F with a significant history of Pre-diabetes; abdominal aortic aneurysm; hyperlipidemia; hypertension; pulmonary hypertension; PAD; A. fib on home rate control drugs and anticoagulation; CAD status post stent; hypothyroidism; COPD; tobacco abuse; obstructive sleep apnea who presented with 1 month history of worsening shortness of breath. Her shortness of breath is at rest and it increases with exertion. Associated with her symptoms is orthopnea and paroxysmal nocturnal dyspnea. She has tried home nebulizer without any real relief. Associated with her symptoms is dry cough and rhinorrhea. Reportedly she missed some doses of her home Cardizem. At the emergency department patient was found to be severely hypoxic and required supplemental oxygen administration. Past Medical History Past Medical History (Chronic Problems): Chronic Problems (Last Reviewed 10/05/18 @ 22:11 by Ronen Donovan MD) COPD (chronic obstructive pulmonary disease) (Chronic) Aneurysm of infrarenal abdominal aorta (Chronic) Presence of stent in coronary artery (Chronic) PTCA/GAIL to LCX 06/19/13 @ [facility] Chronic atrial fibrillation (Chronic) Secondary pulmonary arterial hypertension (Chronic) Nicotine dependence (Chronic) Atherosclerosis of coronary artery of [place] heart without angina pectoris (Chronic) PTCA/GAIL to LCX 06/19/13 @ [facility] Hypertension (Chronic) Dyslipidemia (Chronic) Medical History: Medical History (Last Reviewed 10/05/18 @ 22:11 by Ronen Donovan MD) Aneurysm of infrarenal abdominal aorta (Chronic) I71.4 Chronic atrial fibrillation (Chronic) I48.2 Secondary pulmonary arterial hypertension (Chronic) I27.21 Nicotine dependence (Chronic) F17.200 Atherosclerosis of coronary artery of [place] heart without angina pectoris (Chronic) I25.10 PTCA/GAIL to LCX 06/19/13 @ [facility] Hypertension (Chronic) I10 Atrial fibrillation with RVR (Acute) Onset Date: ~01/2018 I48.91 Dyslipidemia (Chronic) E78.5 Acute coronary syndrome I24.9 COPD (chronic obstructive pulmonary disease) J44.9 GERD (gastroesophageal reflux disease) K21.9 Obstructive sleep apnea G47.33 Peripheral artery disease I73.9 RLS (restless legs syndrome) G25.81 Pneumonia Onset Date: ~01/2018 J18.9 Allergies CLINT Inhibitors Allergy (Verified 10/05/18 19:00) Unknown acyclovir [From Zovirax] Allergy (Verified 10/05/18 19:00) Unknown amoxicillin trihydrate [From Augmentin] Allergy (Verified 10/05/18 19:00) Unknown codeine Allergy (Verified 10/05/18 19:00) Unknown potassium clavulanate [From Augmentin] Allergy (Verified 10/05/18 19:00) Unknown Home Medications: Ambulatory Orders Medication Instructions Recorded Atorvastatin Calcium [Lipitor] 40 mg PO QHS 04/15/15 Paroxetine HCl [Paxil] 40 mg PO DAILY 04/15/15 Warfarin [Coumadin] 6 mg PO MOWE 04/15/15 Atenolol [Tenormin (beta cruz)] 50 mg PO BID #120 tab 04/17/15 Spironolactone [Aldactone] 25 mg PO DAILY #30 tab 09/30/15 Pramipexole Di-HCl [Mirapex] 1 mg PO TID PRN PRN 01/06/18 Diltiazem CD [Cardizem CD] 180 mg PO BID #60 cap 01/08/18 levothyroxine 100 mcg tablet 100 mcg PO DAILY tab 02/17/18 warfarin 3 mg tablet 3 mg PO SUTUTHFRSA 02/17/18 Surgical History: Surgical History (Last Reviewed 10/05/18 @ 22:11 by Ronen Donovan MD) Presence of stent in coronary artery (Chronic) Z95.5 PTCA/GAIL to LCX 06/19/13 @ [facility] History of partial thyroidectomy E89.0 History of total hysterectomy Z90.710 Postsurgical percutaneous transluminal coronary angioplasty (PTCA) status Z98.61 PTCA/GAIL to LCX 06/19/13 @ [facility] Surgical History: - - Lower extremity arterial bypass Cardiac stent placement Psychiatric History: No pertinent psych hx COMMUNITY HEALTH NURSE History: No pertinent COMMUNITY HEALTH NURSE history Lives: With Family Smoking Status: Current every day smoker Tobacco Use: Cigarettes - *Family History Paternal Family History: Family History (Last Reviewed 10/05/18 @ 22:11 by Ronen Donovan MD) Father Cancer Mother Heart disease Sister Hypertension Sister Hypertension History Items: Cancer - Father of dysphagia CA Review of Systems Constitutional: Denies: Chills, Fever, Weight Change HEENT: Denies: Head Aches, Sinus Congestion, Sinus Drainage Cardiovascular: Denies: Chest Pain, Palpitations Respiratory: Reports: Cough, Shortness of Breath, Shortness of breath at rest, Shortness of breath upon exertion. Denies: Sputum production Gastrointestinal: Denies: Abdominal Pain, Nausea, Vomiting Genitourinary: Denies: Dysuria Musculoskeletal: Denies: Joint Pain, Joint Tenderness Skin: Denies: Rash, Wounds Neurological: Denies: Numbness, Tingling, Focal weakness Psychiatric: Reports: Anxiety. Denies: Depression, Homicidal Ideations, Suicidal Ideations Hematologic/ Lymphatic: Denies: Easy Bruising, Easy Bleeding VTE Information - Inpt Only VTE Present on Admission: No VTE Mechan Device Prophylaxis: None VTE Pharm Prophylaxis ordered?: No Reason prophylaxis not ordered:: Treatment Not Indicated - Therapeutic anticoagulated for A. fib. Patient Problems: Active and Suspected Problems (Last Reviewed 10/05/18 @ 22:11 by Ronen Donovan MD) Heart failure (Acute) - Physical Exam General: Alert, Oriented x3, Cooperative HEENT: Atraumatic, PERRLA, EOMI, Normocephalic Neck: Supple, No JVD, Negative Carotid Bruits Lungs: Normal air movement, Rales - left lung base, Tachypneic Cardiovascular: No murmurs, Irregular Rate Abdomen: Bowel Sounds Present, Soft, Non Tender Extremities: No edema, Capillary Refill Less than 3 Seconds Skin: No rashes, No breakdown Musculoskeletal: No Tenderness to Palpation of Joints or Extremities Neurological: Neuro grossly intact Psych/Mental Status: Anxious Vital Signs Temp Pulse Resp BP Pulse Ox 97.9 F 104 H 26 H 141/114 H 93 10/05/18 19:00 10/05/18 20:30 10/05/18 20:30 10/05/18 19:00 10/05/18 20:30 Oxygen Flow Rate (L/min) 4 Oxygen Delivery Method Nasal Cannula Weight: 86.5 kg Body Mass Index (BMI) 37.2 Microbiology Past 72 Hours 10/05/18 19:25 Influenza Types A,B Direct FA (PORTER) - Final Mucosa - Nasopharyngeal Laboratory Tests Past 24 Hrs 11/28/18 11/28/18 11/28/18 19:12 19:12 19:12 WBC 9.1 RBC 3.92 L Hgb 12.7 Hct 40.7 MCV 103.8 H MCH 32.4 H MCHC 31.2 L RDW 15.7 H RDW Differential 59.0 H Plt Count 299 MPV 10.0 Immature Gran % (Auto) 0.100 Neut % (Auto) 76.6 H Lymph % (Auto) 16.7 L [place] % (Auto) 5.3 Eos % (Auto) 0.9 Baso % (Auto) 0.4 Absolute Neuts (auto) 7.0 Absolute Lymphs (auto) 1.52 Total Counted Not Reportable PT INR Sodium 142 Potassium 3.5 Chloride 106 Carbon Dioxide 29.0 Anion Gap 7 BUN 22 H Creatinine 0.83 Estim Creat Clear Calc 42.07 Est GFR (MDRD) Af Amer 86 Est GFR (MDRD) Non-Af 71 BUN/Creatinine Ratio 26.4 H Glucose 185 H Lactic Acid 1.9 Calcium 8.7 Troponin I 0.023 B-Natriuretic Peptide 10/05/18 10/05/18 19:12 19:12 WBC RBC Hgb Hct MCV MCH MCHC RDW RDW Differential Plt Count MPV Immature Gran % (Auto) Neut % (Auto) Lymph % (Auto) [place] % (Auto) Eos % (Auto) Baso % (Auto) Absolute Neuts (auto) Absolute Lymphs (auto) Total Counted PT 30.4 H INR 2.9 Sodium Potassium Chloride Carbon Dioxide Anion Gap BUN Creatinine Estim Creat Clear Calc Est GFR (MDRD) Af Amer Est GFR (MDRD) Non-Af BUN/Creatinine Ratio Glucose Lactic Acid Calcium Troponin I B-Natriuretic Peptide 319.0 H Assessment/Plan All Active Problems (Last Reviewed 10/05/18 @ 22:11 by Ronen Donovan MD) Heart failure (Acute) Atrial fibrillation with RVR (Acute ~01/2018) Alcohol withdrawal (Resolved) Bilateral lower lobes atelectasis (Resolved) Hypokalemia (Resolved) Multifocal community-acquired pneumonia (Resolved) The patient is a 73 year old F with a significant history of prediabetes; a bdominal aortic aneurysm; hyperlipidemia; hypertension; pulmonary hypertension;PAD; A. fib on home rate control drugs and anticoagulation; CAD status post stent; hypothyroidism; COPD; tobacco abuse; obstructive sleep apnea who presented with 1 month history of worsening shortness of breath and found to be hypoxic have radiographic evidence of pulmonary congestion; and with A. fib with RVR. Acute hypoxemic respiratory failure Patient with respiratory rate as high as 28. On 4 L oxygen saturation was 88%. Chest x-ray personally reviewed is consistent with hyper inflation with diffuse congestion significant for COPD and acute heart failure. Also noted was small blunting of costophrenic angles consistent with radiologist reading. It could be her A. fib that has thrown her into acute heart failure. It is also possible that she has some viral illness that has thrown her into A. fib and heart failure causing pulmonary congestion.. We will check respiratory pathogen panel. Scheduled DuoNeb and as needed. Cautious use of beta agonist because of A. fib with RVR. Mucinex for cough. Flonase for rhinorrhea. Acute heart failure BNP on admission was 319. Her echocardiogram on 01/07/2018 showed estimated ejection fraction of 65%. Her diastolic function was not able to be accessed. She had severely enlarged left atrium; and right atrium. Also she had mild diffuse mitral valve thickening. Moderate mitral annular calcification extending into the posterior leaflet. Also she had mild tricuspid valve insufficiency. Right ventricular systolic pressure was estimated to be 47. She had moderate pulmonary hypertension. She had mild focal aortic valve thickening without any aortic stenosis. We will repeat echocardiogram. Patient received 40 mg IV Lasix at emergency department. IV Lasix continued. Hold Aldactone continued. A TSH and magnesium was ordered. Will trend BMP. Potassium supplementation ordered in view of starting Lasix. Potassium on admission was 3.5. 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 Consider discussing with Cardiology A. fib with RVR. On admission heart rate was in the 133 and telemetry showed A. fib with RVR. Her etiology of her A. fib could be due to missing doses of her rate control medication; heart failure; viral illness or other. Will place on telemetry at the PCU. Patient received Cardizem bolus at emergency department. At emergency department and Cardizem extended release and atenolol was stopped. Since patient is still in A. fib with RVR Cardizem drip started with parameters to maintain heart rate to less than 90 and to hold for systolic blood pressure less than 100. At emergency department her INR was 2.9. Reportedly she takes 6 mg of Coumadin on Wednesday and Wednesday. That day she takes 6 mg of Coumadin. Her last Coumadin dose was a day before her admission where she took 3 mg. Today (10/05/2018) will give 3 mg of Coumadin. Daily INR. Dose Coumadin daily base on INR. COPD Patient is no wheezing. However, rule out COPD exacerbation at this time. Breathing treatment as above. Prediabetes Patient reports borderline diabetes. Blood glucose on admission was 185. We will check A1c. Meanwhile will cover patient with low dose correction scale regimen. Hypothyroidism Synthroid continued TSH ordered in view of A. fib with RVR. CAD with stents No chest pain Patient had a stent placed in 2012. Home Coumadin continued. Restless leg syndrome Mirapex continued Anxiety Paxil continued. Hypertension Blood pressure on admission was fairly within goal. Continue home Aldactone and atenolol. Cardizem drip to control heart rate. Trend blood pressures. Tobacco Abuse Nicoderm patch ordered Inpatient consult smoking cessation. LEAH Returned CPAP/Bipap machine because of mask inconvenience. Encouraged to discuss with PCP on alternate mask DVT Prophylaxis Not indicated in the setting of therapeutic INR for anticoagulation for A. fib. Code Visit Inpatient E&M: 33056 Init Hosp L3
[2018-10-05] MEDS: Pramipexole Di-HCl 1 MG Tablet PO (21:07)
--- NOTE | 2018-10-05 21:20 | ED.RN ---
DISCUSSED HR/PULSE WITH MD. GIVE CARDIZEM PER .
--- NOTE | 2018-10-05 22:27 | ECHOD_ITS ---
Reason For Study: AFIB/FLUTTER Procedure This was a 2D Doppler, Color Flow transthoracic echocardiogram. The study was technically difficult. Due to arryhtmia and patient was very restless, unable to lie still. Exam performed portable in patient room. Left Ventricle Normal size and thickness. The estimated ejection fraction is 65 %. No regional wall motion abnormalities noted. Right Ventricle Moderately dilated right ventricle. Normal systolic function. Atria The left atrium is severely enlarged. The right atrium is moderately enlarged. Normal atrial septum. Mitral Valve Mild diffuse mitral valve thickening. Severe mitral annular calcification extending into the posterior leaflet. Tricuspid Valve Normal tricuspid valve. Mild to moderate (1-2+) tricuspid valve insufficiency. Right ventricular systolic pressure estimated to be 54 mmHg. Moderate pulmonary hypertension. Aortic Valve Trisinus/trileaflet aortic valve. Mild diffuse aortic valve thickening. Moderate focal thickening of left coronary cusp. Pulmonic Valve The pulmonic valve is not well visualized. Great Vessels Normal aortic root. Normal arch. The inferior vena cava is dilated. Inferior vena cava collapse with sniff. Pericardium/Pleural No pericardial effusion. MMode/2D Measurements & Calculations LVIDd: 4.0 cm IVSd: 0.90 cm Ao root diam: 2.5 cm LVIDs: 2.5 cm LVPWd: 0.93 cm RVDd: 3.9 cm FS: 38.3 % LAV(MOD-bp): 102.8 ml LA A4 area: 28.7 cm2 LA dimension(2D): 4.0 cm LAV(MOD-bp) Indexed: 56.3 ml/m2 LAV(MOD-sp2): 103.6 ml LAV(MOD-sp4): 101.9 ml RA A4 area: 22.1 cm2 Doppler Measurements & Calculations MV E max hermelindo: 124.3 cm/sec Ao V2 max: 149.7 cm/sec LV V1 max: 102.7 cm/sec Ao max P.0 mmHg LV V1 max P.2 mmHg PA V2 max: 93.4 cm/sec TR max hermelidno: 310.3 cm/sec TR max P.9 mmHg Interpretation Summary The estimated ejection fraction is 65 %. Moderately dilated right ventricle. The left atrium is severely enlarged. The right atrium is moderately enlarged. Mild to moderate (1-2+) tricuspid valve insufficiency. Right ventricular systolic pressure estimated to be 54 mmHg. Moderate pulmonary hypertension. Moderate focal thickening of left coronary cusp. Compared to echo report dated 01/07/2018, no appreciable changes noted. Pt appears to be in atrial fibrillation. Ordering Physician: Ronen Donovan Referring Physician: Aleksandar Putnam Performed By: Joceline Gan, EDIS, RVT
[2018-10-05 22:55] LABS: Magnesium 1.6 mg/dL (1.6-2.6); Thyroid Stim Hormone (TSH) 3.68 uIU/mL (0.358-3.74)
[2018-10-05] MEDS: guaiFENesin 1,200 MG Tablet 1200 MG PO (23:25)
[2018-10-05] MEDS: Atorvastatin Calcium 40 MG Tablet PO (23:25)
[2018-10-05 23:41] LABS: Bedside Glucose 141 mg/dL (70-110)
[2018-10-06] VITALS (18 sets, daily range): BP systolic 124–155; BP diastolic 63–78; PULSE 69–122; RESP 15–22; TEMP 36.2–37; O2SAT 86–98
[2018-10-06 06:26] LABS: International Normalized Ratio 3.1; Prothrombin Time (Protime)PT. 32.3 SECONDS (11.7-14.9)
[2018-10-06 06:30] LABS: Anion Gap 8 (5-15); BUN 23 mg/dL (7-18); BUN/Creat Ratio 23.2 RATIO (10-20); Calcium,Total 8.3 mg/dL (8.5-10.1); Chloride 108 mmol/L (98-107); Creatinine, Serum 0.99 mg/dL (0.55-1.02); EST Glomerular Filtration Rate 58 mL/min (>60); Est Glom Filt Rate - Afr Amer 70 mL/min (>60); Estimated Creatinine Clearance 44.18 ml/min; Glucose 197 mg/dL (74-106); Potassium 4.1 mmol/L (3.5-5.1); Sodium Level 143 mmol/L (136-145)
[2018-10-06 06:43] LABS: Hemoglobin A1c 6.5 % (4.2-6.3)
[2018-10-06] MEDS: Levothyroxine 100 MCG Tablet PO (06:49)
[2018-10-06] MEDS: Ipratropium/Albuterol Sulfate 3 ML AMPUL.NEB INHALATION ×2 (06:58→13:26)
[2018-10-06 07:05] LABS: Bedside Glucose 191 mg/dL (70-110)
[2018-10-06] MEDS: Insulin Lispro 100 UNIT/ML INSULN.PEN SC ×3 (08:21→21:39)
[2018-10-06] MEDS: Pramipexole Di-HCl 1 MG Tablet PO ×2 (09:32→21:38)
[2018-10-06] MEDS: Fluticasone 0.05% 1 SPRAY NASAL.SRY NASAL ×2 (09:47→21:33)
[2018-10-06] MEDS: Spironolactone 25 MG Tablet PO (09:49)
[2018-10-06] MEDS: Atenolol 50 MG Tablet PO ×2 (09:50→21:38)
[2018-10-06] MEDS: dilTIAZem CD 180 MG Capsule PO ×2 (09:51→21:38)
[2018-10-06] MEDS: guaiFENesin 1,200 MG Tablet 1200 MG PO ×2 (09:51→21:38)
[2018-10-06] MEDS: Furosemide 40 MG/4 ML Vial IV ×2 (09:54→16:51)
[2018-10-06] MEDS: Glucerna Shake 120 ML LIQUID PO ×2 (10:09→14:43)
[2018-10-06 12:06] LABS: Bedside Glucose 142 mg/dL (70-110)
--- NOTE | 2018-10-06 12:50 | CASEMGMT ---
PAOLA GIRALDO INITIAL ASSESSMENT D/C PLAN: Home Face to Face with patient for initial transition planning/care coordination assessment. PAOLA GIRALDO introduced self and role at [facility]. Care providers, pharmacy, and demographics verified. PCP: Saurabh. has an appt on Wednesday. Specialists: Anu Preferred Pharmacy: [facility] Insurance: [employer] [facility], Medicaid Prescription Benefit: Yes. States does have some difficulty with paying for prescriptions and is interested in talking with SW for resources, but would like to wait until tomorrow to talk with someone. MERON Hancock, made aware. Living Will/HPOA: Does not have either. Is not interested in talking with SW at this time. Interested in info and states may consider having paperwork completed in the future. Pt provided with [employer] info card on AD and phone number. Informed pt she can call to make an appt as an out-pt if she would like. LNOK: Daughter and son, sister Living Arrangements: Lives with her sister in a mobile home. 4 steps to enter. Independent with ADL's. Transportation: Drives DME: Has rails/grab bars. Does not use device for ambulation or other DME. Denies needs. States if she would need to go home on oxygen, she has no preference of DME company. HHC/SNF: Has been to [facility] in the past. Denies needs for HHC or other discharge planning needs at this time. Informed if she should have any concerns, questions, or needs to have CM notified. Pt voices understanding. Pt wishes to return home. CM to follow for any further discharge planning needs that may arise. Melva WARREN RN, CM
[2018-10-06] MEDS: predniSONE 20 MG Tablet 40 MG PO (14:44)
[2018-10-06] MEDS: Bisacodyl 5 MG Tablet PO (14:45)
--- NOTE | 2018-10-06 14:51 | NURSING ---
Student nurse charting reviewed and appropriate
--- NOTE | 2018-10-06 15:34 | PCM.PN.HOSP ---
Patient Problems: Active and Suspected Problems (Last Reviewed 10/05/18 @ 22:11 by Ronen Donovan MD) Heart failure (Acute) Subjective: Patient was seen and examined. Complains of slight shortness of breath. Denies any fever or chills. History history of COPD, not on home oxygen. Has shortness of breath when she walks out into cold weather. No recent upper respiratory symptoms. Vitals/I&O's: Vital Signs Temp Pulse Resp BP Pulse Ox 98.1 F 72 16 155/67 H 94 10/06/18 10:25 10/06/18 13:26 10/06/18 13:26 10/06/18 10:25 10/06/18 14:49 Oxygen Flow Rate (L/min) [ 2 AMBULATION with Oxygen] Oxygen Flow Rate (L/min) 2 Oxygen Delivery Method Nasal Cannula Weight: 82.2 kg Body Mass Index (BMI) 30.2 Intake and Output for Last 24 Hours 10/04/18 10/05/18 10/06/18 23:59 23:59 23:59 Intake Total 960 / 960 Balance 960 / 960 General: Alert, Oriented x3, Cooperative, No apparent distress, - - 4 L of oxygen HEENT: Atraumatic, PERRLA, EOMI, Normocephalic Oral: Moist Mucosa Neck: Supple, No JVD, Negative Carotid Bruits Lungs: Normal air movement, Diminished, Rales - Few rales at the lung bases Cardiovascular: Regular rate, Regular Rhythm, Normal S1, Normal S2, No murmurs Abdomen: Bowel Sounds Present, Soft, Non Tender, Non-Distended, No Hepato-splenomegaly Extremities: No edema Skin: No rashes, No breakdown Musculoskeletal: No Tenderness to Palpation of Joints or Extremities Lymphatic: No Cervical, Supraclavicular, or Inguinal Adenopathy Neurological: Cranial nerves II-XII grossly intact, Neuro grossly intact Psych/Mental Status: Normal Affect, Appropriate Microbiology Past 72 Hours 10/05/18 22:50 Mucosa - Nose Respiratory Panel (PCR) - Final 10/05/18 19:25 Mucosa - Nasopharyngeal Influenza Types A,B Direct FA (PORTER) - Final Laboratory Results 10/05/18 19:12: WBC 9.1, RBC 3.92 L, Hgb 12.7, Hct 40.7, MCV 103.8 H, MCH 32.4 H, MCHC 31.2 L, RDW 15.7 H, RDW Differential 59.0 H, Plt Count 299, MPV 10.0, Immature Gran % (Auto) 0.100, Neut % (Auto) 76.6 H, Lymph % (Auto) 16.7 L, Emanuel % (Auto) 5.3, Eos % (Auto) 0.9, Baso % (Auto) 0.4, Absolute Neuts (auto) 7.0, Absolute Lymphs (auto) 1.52, Total Counted Not Reportable 10/05/18 19:12: Sodium 142, Potassium 3.5, Chloride 106, Carbon Dioxide 29.0, Anion Gap 7, BUN 22 H, Creatinine 0.83, Estim Creat Clear Calc 42.07, Est GFR (MDRD) Af Amer 86, Est GFR (MDRD) Non-Af 71, BUN/Creatinine Ratio 26.4 H, Glucose 185 H, Calcium 8.7, Troponin I 0.023 10/05/18 19:12: Lactic Acid 1.9 10/05/18 19:12: PT 30.4 H, INR 2.9 10/05/18 19:12: B-Natriuretic Peptide 319.0 H 10/05/18 19:12: Magnesium 1.6, TSH 3.68 10/05/18 23:01: POC Glucose 141 H 10/06/18 05:40: Hemoglobin A1c 6.5 H 10/06/18 05:40: PT 32.3 H, INR 3.1 10/06/18 05:40: Sodium 143, Potassium 4.1, Chloride 108 H, Carbon Dioxide 27.0, Anion Gap 8, BUN 23 H, Creatinine 0.99, Estim Creat Clear Calc 44.18, Est GFR (MDRD) Af Amer 70, Est GFR (MDRD) Non-Af 58 L, BUN/Creatinine Ratio 23.2 H, Glucose 197 H, Calcium 8.3 L 10/06/18 06:48: POC Glucose 191 H 10/06/18 11:54: POC Glucose 142 H Current Medications Acetaminophen (Tylenol) 650 mg PO Q6H PRN PRN PRN Reason: Mild Pain (scale 0-3)/T>100.7 Albuterol Sulfate (Ventolin Aerosols) 2.5 mg INHALATION Q2H PRN PRN PRN Reason: SOB/WHEEZING Albuterol/Ipratropium (Duoneb) 3 ml INHALATION Q6H.RT [facility] Last Admin: 10/06/18 13:26 Dose: 3 ml Atenolol (Tenormin (Beta Fidel)) 50 mg PO BID [facility] Last Admin: 10/06/18 09:50 Dose: 50 mg Atorvastatin Calcium (Lipitor) 40 mg PO QHS [facility] Last Admin: 10/05/18 23:25 Dose: 40 mg Bisacodyl (Dulcolax) 5 mg PO DAILY PRN PRN PRN Reason: Constipation Last Admin: 10/06/18 14:45 Dose: 5 mg Diltiazem HCl (Cardizem Cd) 180 mg PO BID [facility] Last Admin: 10/06/18 09:51 Dose: 180 mg Fluticasone Propionate (Flonase Nasal [place]) 1 spray NASAL BID [facility] Last Admin: 10/06/18 09:47 Dose: 1 spray Furosemide (Lasix) 40 mg IV BIDLX [facility] Last Admin: 10/06/18 09:54 Dose: 40 mg Guaifenesin (Mucinex) 1,200 mg PO BID [facility] Last Admin: 10/06/18 09:51 Dose: 1,200 mg Insulin Human Lispro (Humalog Kwikpen (Bkc)) 0 unit SC [facility]; Protocol Last Admin: 10/06/18 11:57 Dose: Not Given Levothyroxine Sodium (Synthroid) 100 mcg PO DAILY@0600 [facility] Last Admin: 10/06/18 06:49 Dose: 100 mcg Magnesium Hydroxide (Milk Of Magnesia) 30 ml PO DAILY PRN PRN Reason: Constipation Nicotine (Nicoderm Cq (Pbkc)) 21 mg TRANSDERM. DAILY [facility] Last Admin: 10/06/18 09:51 Dose: 21 mg Nutritional Formula (Lactose Free) (Glucerna Shake) 120 ml PO 4X/DAY [facility] Last Admin: 10/06/18 14:43 Dose: 120 ml Ondansetron HCl (Zofran) 4 mg IV Q8H PRN PRN PRN Reason: NAUSEA Paroxetine HCl (Paxil) 40 mg PO DAILY [facility] Last Admin: 10/06/18 09:49 Dose: 40 mg Potassium Chloride (K-Dur) 40 meq PO DAILYCM [facility] Last Admin: 10/06/18 08:19 Dose: 40 meq Pramipexole Dihydrochloride (Mirapex) 1 mg PO TID PRN PRN PRN Reason: RESTLESS LEGS Last Admin: 10/06/18 09:32 Dose: 1 mg Prednisone () 40 mg PO DAILY@0800 [facility]; Taper Stop: 10/18/18 07:59 Sodium Chloride () 5 - 15 ml IV UD PRN PRN Reason: SALINE FLUSH Spironolactone (Aldactone) 25 mg PO DAILY [facility] Last Admin: 10/06/18 09:49 Dose: 25 mg Warfarin Sodium (Coumadin (Pbkc)) 3 mg PO DAILY@1700 [facility] Last Admin: 10/05/18 23:25 Dose: 3 mg Zolpidem Tartrate (Ambien (Generic)) 5 mg PO QHS PRN PRN PRN Reason: INSOMNIA Medical Necessity - Tobacco Use Smoking Status: Current every day smoker Tobacco Use: Cigarettes Assessment/Plan All Active Problems (Last Reviewed 10/05/18 @ 22:11 by Ronen Donovan MD) Heart failure (Acute) Atrial fibrillation with RVR (Acute ~01/2018) Alcohol withdrawal (Resolved) Bilateral lower lobes atelectasis (Resolved) Hypokalemia (Resolved) Multifocal community-acquired pneumonia (Resolved) 1. Acute hypoxic respiratory failure secondary to possible acute on chronic diastolic CHF/COPD exacerbation Patient is currently on 4 L of oxygen, will encourage use of incentive spirometer, wean off oxygen 2. Acute on chronic diastolic CHF, improving, will continue on IV Lasix, will continue with strict I's and O's, daily weights, low-salt diet 3. A. fib with RVR, rate controlled now, on atenolol, Cardizem , INR is therapeutic, will continue to monitor 4. 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 Pre-diabetes, hgbA1c 6.5, will continue to monitor 6. Hypothyroidism, on Synthroid 7. CAD s/p stents 8. Restless leg, on Mirapex 9. Anxiety, on Paxil 10. Nicotine dependence, on nicotine patch 11. LEAH, not on CPAP, needs to follow-up with pulmonology 12. DVT PPx- INR is therapeutic with Coumadin Code Visit Inpatient E&M: 06387 Subs Hosp L2
--- NOTE | 2018-10-06 15:41 | PN_ITS ---
Patient Problems: Active and Suspected Problems (Last Reviewed 10/05/18 @ 22:11 by Ronen Donovan MD) Heart failure (Acute) Subjective: Patient was seen and examined. Complains of slight shortness of breath. Denies any fever or chills. History history of COPD, not on home oxygen. Has shortness of breath when she walks out into cold weather. No recent upper respiratory symptoms. Vitals/I&O's: Vital Signs Temp Pulse Resp BP Pulse Ox 98.1 F 72 16 155/67 H 94 10/06/18 10:25 10/06/18 13:26 10/06/18 13:26 10/06/18 10:25 10/06/18 14:49 Oxygen Flow Rate (L/min) [ 2 AMBULATION with Oxygen] Oxygen Flow Rate (L/min) 2 Oxygen Delivery Method Nasal Cannula Weight: 82.2 kg Body Mass Index (BMI) 30.2 Intake and Output for Last 24 Hours 10/04/18 10/05/18 10/06/18 23:59 23:59 23:59 Intake Total 960 / 960 Balance 960 / 960 General: Alert, Oriented x3, Cooperative, No apparent distress, - - 4 L of oxygen HEENT: Atraumatic, PERRLA, EOMI, Normocephalic Oral: Moist Mucosa Neck: Supple, No JVD, Negative Carotid Bruits Lungs: Normal air movement, Diminished, Rales - Few rales at the lung bases Cardiovascular: Regular rate, Regular Rhythm, Normal S1, Normal S2, No murmurs Abdomen: Bowel Sounds Present, Soft, Non Tender, Non-Distended, No Hepato- splenomegaly Extremities: No edema Skin: No rashes, No breakdown Musculoskeletal: No Tenderness to Palpation of Joints or Extremities Lymphatic: No Cervical, Supraclavicular, or Inguinal Adenopathy Neurological: Cranial nerves II-XII grossly intact, Neuro grossly intact Psych/Mental Status: Normal Affect, Appropriate Microbiology Past 72 Hours 10/05/18 22:50 Mucosa - Nose Respiratory Panel (PCR) - Final 10/05/18 19:25 Mucosa - Nasopharyngeal Influenza Types A,B Direct FA (PORTER) - Final Laboratory Results 10/05/18 19:12: WBC 9.1, RBC 3.92 L, Hgb 12.7, Hct 40.7, MCV 103.8 H, MCH 32.4 H , MCHC 31.2 L, RDW 15.7 H, RDW Differential 59.0 H, Plt Count 299, MPV 10.0, Immature Gran % (Auto) 0.100, Neut % (Auto) 76.6 H, Lymph % (Auto) 16.7 L, Cherry % (Auto) 5.3, Eos % (Auto) 0.9, Baso % (Auto) 0.4, Absolute Neuts (auto) 7.0, Absolute Lymphs (auto) 1.52, Total Counted Not Reportable 10/05/18 19:12: Sodium 142, Potassium 3.5, Chloride 106, Carbon Dioxide 29.0, Anion Gap 7, BUN 22 H, Creatinine 0.83, Estim Creat Clear Calc 42.07, Est GFR (MDRD) Af Amer 86, Est GFR (MDRD) Non-Af 71, BUN/Creatinine Ratio 26.4 H, Glucose 185 H, Calcium 8.7, Troponin I 0.023 10/05/18 19:12: Lactic Acid 1.9 10/05/18 19:12: PT 30.4 H, INR 2.9 10/05/18 19:12: B-Natriuretic Peptide 319.0 H 10/05/18 19:12: Magnesium 1.6, TSH 3.68 10/05/18 23:01: POC Glucose 141 H 10/06/18 05:40: Hemoglobin A1c 6.5 H 10/06/18 05:40: PT 32.3 H, INR 3.1 10/06/18 05:40: Sodium 143, Potassium 4.1, Chloride 108 H, Carbon Dioxide 27.0, Anion Gap 8, BUN 23 H, Creatinine 0.99, Estim Creat Clear Calc 44.18, Est GFR (MDRD) Af Amer 70, Est GFR (MDRD) Non-Af 58 L, BUN/Creatinine Ratio 23.2 H, Glucose 197 H, Calcium 8.3 L 10/06/18 06:48: POC Glucose 191 H 10/06/18 11:54: POC Glucose 142 H Current Medications Acetaminophen (Tylenol) 650 mg PO Q6H PRN PRN PRN Reason: Mild Pain (scale 0-3)/T>100.7 Albuterol Sulfate (Ventolin Aerosols) 2.5 mg INHALATION Q2H PRN PRN PRN Reason: SOB/WHEEZING Albuterol/Ipratropium (Duoneb) 3 ml INHALATION Q6H.RT [facility] Last Admin: 10/06/18 13:26 Dose: 3 ml Atenolol (Tenormin (Beta Fidel)) 50 mg PO BID [facility] Last Admin: 10/06/18 09:50 Dose: 50 mg Atorvastatin Calcium (Lipitor) 40 mg PO QHS [facility] Last Admin: 10/05/18 23:25 Dose: 40 mg Bisacodyl (Dulcolax) 5 mg PO DAILY PRN PRN PRN Reason: Constipation Last Admin: 10/06/18 14:45 Dose: 5 mg Diltiazem HCl (Cardizem Cd) 180 mg PO BID [facility] Last Admin: 10/06/18 09:51 Dose: 180 mg Fluticasone Propionate (Flonase Nasal [place]) 1 spray NASAL BID [facility] Last Admin: 10/06/18 09:47 Dose: 1 spray Furosemide (Lasix) 40 mg IV BIDLX [facility] Last Admin: 10/06/18 09:54 Dose: 40 mg Guaifenesin (Mucinex) 1,200 mg PO BID [facility] Last Admin: 10/06/18 09:51 Dose: 1,200 mg Insulin Human Lispro (Humalog Kwikpen (Bkc)) 0 unit SC [facility]; Protocol Last Admin: 10/06/18 11:57 Dose: Not Given Levothyroxine Sodium (Synthroid) 100 mcg PO DAILY@0600 [facility] Last Admin: 10/06/18 06:49 Dose: 100 mcg Magnesium Hydroxide (Milk Of Magnesia) 30 ml PO DAILY PRN PRN Reason: Constipation Nicotine (Nicoderm Cq (Pbkc)) 21 mg TRANSDERM. DAILY [facility] Last Admin: 10/06/18 09:51 Dose: 21 mg Nutritional Formula (Lactose Free) (Glucerna Shake) 120 ml PO 4X/DAY [facility] Last Admin: 10/06/18 14:43 Dose: 120 ml Ondansetron HCl (Zofran) 4 mg IV Q8H PRN PRN PRN Reason: NAUSEA Paroxetine HCl (Paxil) 40 mg PO DAILY [facility] Last Admin: 10/06/18 09:49 Dose: 40 mg Potassium Chloride (K-Dur) 40 meq PO DAILYCM [facility] Last Admin: 10/06/18 08:19 Dose: 40 meq Pramipexole Dihydrochloride (Mirapex) 1 mg PO TID PRN PRN PRN Reason: RESTLESS LEGS Last Admin: 10/06/18 09:32 Dose: 1 mg Prednisone () 40 mg PO DAILY@0800 [facility]; Taper Stop: 10/18/18 07:59 Sodium Chloride () 5 - 15 ml IV UD PRN PRN Reason: SALINE FLUSH Spironolactone (Aldactone) 25 mg PO DAILY [facility] Last Admin: 10/06/18 09:49 Dose: 25 mg Warfarin Sodium (Coumadin (Pbkc)) 3 mg PO DAILY@1700 [facility] Last Admin: 10/05/18 23:25 Dose: 3 mg Zolpidem Tartrate (Ambien (Generic)) 5 mg PO QHS PRN PRN PRN Reason: INSOMNIA Medical Necessity - Tobacco Use Smoking Status: Current every day smoker Tobacco Use: Cigarettes Assessment/Plan All Active Problems (Last Reviewed 10/05/18 @ 22:11 by Ronen Donovan MD) Heart failure (Acute) Atrial fibrillation with RVR (Acute ~01/2018) Alcohol withdrawal (Resolved) Bilateral lower lobes atelectasis (Resolved) Hypokalemia (Resolved) Multifocal community-acquired pneumonia (Resolved) 1. Acute hypoxic respiratory failure secondary to possible acute on chronic diastolic CHF/COPD exacerbation Patient is currently on 4 L of oxygen, will encourage use of incentive spirometer, wean off oxygen 2. Acute on chronic diastolic CHF, improving, will continue on IV Lasix, will continue with strict I's and O's, daily weights, low-salt diet 3. A. fib with RVR, rate controlled now, on atenolol, Cardizem , INR is therapeutic, will continue to monitor 4. 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 Pre-diabetes, hgbA1c 6.5, will continue to monitor 6. Hypothyroidism, on Synthroid 7. CAD s/p stents 8. Restless leg, on Mirapex 9. Anxiety, on Paxil 10. Nicotine dependence, on nicotine patch 11. LEAH, not on CPAP, needs to follow-up with pulmonology 12. DVT PPx- INR is therapeutic with Coumadin Code Visit Inpatient E&M: 64676 Subs Hosp L2
--- NOTE | 2018-10-06 18:53 | NURSING ---
care and medication pass completed by bella weaver completed under the supervision of this RN
[2018-10-06 19:41] LABS: Bedside Glucose 150 mg/dL (70-110)
[2018-10-06] MEDS: Atorvastatin Calcium 40 MG Tablet PO (21:38)
[2018-10-06 22:11] LABS: Bedside Glucose 168 mg/dL (70-110)
[2018-10-07] VITALS (8 sets, daily range): BP systolic 113–127; BP diastolic 61–78; PULSE 69–88; RESP 16–18; TEMP 36.6–36.9; O2SAT 91–98
[2018-10-07 06:04] LABS: Absolute Lymphocyte Count 0.69 X10^3/ul (0.83-4.51); Hematocrit 37.3 % (37-47); Hemoglobin 11.4 g/dl (12.0-15.0); Lymphocyte # 0.69 X10^3/ul (4.0); Lymphocyte % 3.6 % (19-41); Mean Corp Hgb Conc 30.6 g/gl (32-36); Mean Corpuscular Hgb 32.1 pg (27.0-32.0); Mean Corpuscular Volume 105.1 fL (81-99); Monocyte# 0.66 X10^3/uL; Monocyte% 3.4 % (0-10); Neutrophil # 17.96 X10^3/uL (2.7-7.7); Neutrophil % 92.8 % (47-70); Platelet Count 277 K/mm3 (150-450); RBC Distribution Width CV 15.5 % (11.6-14.6); RBC Distribution Width SD 58.5 fl (35.1-43.9); Red Blood Count 3.55 M/mm3 (4.2-5.4); White Blood Count 19.4 K/mm3 (4.4-11.0)
[2018-10-07 06:10] LABS: POSITIVE COUNT NO; POSITIVE DIFFERENTIAL NO; POSITIVE MORPHOLOGY NO
[2018-10-07 06:24] LABS: Anion Gap 8 (5-15); BUN 35 mg/dL (7-18); Chloride 103 mmol/L (98-107); Creatinine, Serum 1.06 mg/dL (0.55-1.02); EST Glomerular Filtration Rate 54 mL/min (>60); Est Glom Filt Rate - Afr Amer 65 mL/min (>60); Estimated Creatinine Clearance 41.26 ml/min; Glucose 141 mg/dL (74-106); Magnesium 2.2 mg/dL (1.6-2.6); Potassium 4.7 mmol/L (3.5-5.1); Sodium Level 142 mmol/L (136-145)
[2018-10-07] MEDS: Ipratropium/Albuterol Sulfate 3 ML AMPUL.NEB INHALATION ×2 (06:26→12:39)
[2018-10-07] MEDS: Levothyroxine 100 MCG Tablet PO (06:51)
[2018-10-07 07:01] LABS: Bedside Glucose 151 mg/dL (70-110)
[2018-10-07] MEDS: Insulin Lispro 100 UNIT/ML INSULN.PEN SC (09:01)
[2018-10-07] MEDS: predniSONE 10 MG Tablet 40 MG PO (09:02)
[2018-10-07] MEDS: Furosemide 20 MG Tablet PO (09:03)
[2018-10-07] MEDS: guaiFENesin 1,200 MG Tablet 1200 MG PO (09:03)
[2018-10-07] MEDS: Spironolactone 25 MG Tablet PO (09:03)
[2018-10-07] MEDS: dilTIAZem CD 180 MG Capsule PO (09:03)
[2018-10-07] MEDS: Fluticasone 0.05% 1 SPRAY NASAL.SRY NASAL (09:03)
[2018-10-07] MEDS: Atenolol 50 MG Tablet PO (09:04)
--- NOTE | 2018-10-07 09:30 | CASEMGMT ---
MERON met with patient, introduced self as well as role at [facility]. SW asked patient about her financial concerns with medications. SW asked if she gets extra help through Medicaid. She said she doesn't know. SW asked her what her co-pays are normally and she said some are $3 and didn't know about others. 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 (?) Then a few minutes later she said she gets a check for $32 a month. She said it is difficult when they are all due at the same time. MERON called [facility] and patient must get extra help with her prescriptions through Social Security as her co-pays are $3. There isn't much else to offer SW as she appears to be getting all the government assistance there is available. MERON will give her information on [employer]. Karissa CORDOVA
--- NOTE | 2018-10-07 10:18 | DCINST_ITS ---
- Discharge Diagnoses Current Active Problems: Current Active and Chronic Problems (Last Reviewed 10/05/18 @ 22:11 by Ronen Donovan MD) Heart failure (Acute) COPD (chronic obstructive pulmonary disease) (Chronic) Reason(s) for Visit for Discharge Instructions: Shortness of breath You will use the following diet at home:: Cardiac Your food should be the consistency of: Regular Your liquids should be the consistency of: Regular/Thin Discharge Activity: Return to Normal Activity Additional Instructions: Complete your steroid taper. You have been prescribed Lasix. Continue to follow a low salt diet, weigh yourself everyday, restrict fluyids to 1.5L daily. Call your doctor if you gain more than 4 pounds within a couple of days. You should discuss with your doctor about whether you should reduce the dose of lasix. You will need a repeat blood work when you see your doctor in 3 days as scheduled. Use the inhaler as need for shortness of breath. You are strongly advised to quit smoking. You should follow your doctor for INR draws as scheduled. You will need to follow-up with the lung doctors in 2 weeks. Allergies/Adverse Reactions: Allergies CLINT Inhibitors Allergy (Verified 10/05/18 19:00) Unknown acyclovir [From Zovirax] Allergy (Verified 10/05/18 19:00) Unknown amoxicillin trihydrate [From Augmentin] Allergy (Verified 10/05/18 19:00) Unknown codeine Allergy (Verified 10/05/18 19:00) Unknown potassium clavulanate [From Augmentin] Allergy (Verified 10/05/18 19:00) Unknown Medications to take at Discharge Atorvastatin Calcium [Lipitor] 40 mg PO QHS 04/15/15 Paroxetine HCl [Paxil] 40 mg PO DAILY 04/15/15 Warfarin [Coumadin] 6 mg PO MOWE 04/15/15 Atenolol [Tenormin (beta cruz)] 50 mg PO BID #120 tab 04/17/15 Spironolactone [Aldactone] 25 mg PO DAILY #30 tab 09/30/15 Pramipexole Di-HCl [Mirapex] 1 mg PO TID PRN PRN 01/06/18 Diltiazem CD [Cardizem CD] 180 mg PO BID #60 cap 01/08/18 levothyroxine 100 mcg tablet 100 mcg PO DAILY tab 02/17/18 warfarin 3 mg tablet 3 mg PO SUTUTHFRSA 02/17/18 Albuterol Inhaler [Ventolin Hfa] 1 puff INHALATION Q4H PRN PRN #1 inhaler 10/07/18 Furosemide [Lasix] 20 mg PO BID@1000,1800 #60 tablet 10/07/18 Guaifenesin [Mucinex] 1,200 mg PO BID #10 tablet 10/07/18 Prednisone 10 mg PO UD #30 tablet 10/07/18 The following prescriptions were given: Albuterol Inhaler [Ventolin Hfa] 1 puff INHALATION Q4H PRN PRN #1 inhaler PRN Reason: Sob &/Or Wheezing Furosemide [Lasix] 20 mg PO BID@1000,1800 #60 tablet Prednisone 10 mg PO UD #30 tablet Guaifenesin [Mucinex] 1,200 mg PO BID #10 tablet Primary Care Physician: Aleksandar Wiley DO [Primary Care Provider] - Please follow up with your Primary Care Physician in: within 1-2 weeks as scheduled Test Results: Test results from this visit will be discussed in further detail at your follow- up appointment, if applicable. Please Follow Up With: Ventura Cid MD When: within 2 weeks Proposed Discharge Date: 10/07/18
--- NOTE | 2018-10-07 10:29 | PCM.DC.SUM ---
Discharge Date and Diagnosis Date of Admission: 10/05/18 Date of Discharge: 10/07/18 - Primary Discharge Diagnosis Active and Suspected Problems (Last Reviewed 10/05/18 @ 22:11 by Ronen Donovan MD) Acute hypoxic respiratory failure Acute on chronic diastolic CHF A. fib with RVR COPD exacerbation Prediabetes Nicotine dependence - Secondary Discharge Diagnosis Chronic Problems (Last Reviewed 10/05/18 @ 22:11 by Ronen Donovan MD) COPD (chronic obstructive pulmonary disease) (Chronic) Aneurysm of infrarenal abdominal aorta (Chronic) Presence of stent in coronary artery (Chronic) PTCA/GAIL to LCX 06/19/13 @ [facility] Chronic atrial fibrillation (Chronic) Secondary pulmonary arterial hypertension (Chronic) Nicotine dependence (Chronic) Atherosclerosis of coronary artery of [place] heart without angina pectoris (Chronic) PTCA/GAIL to LCX 06/19/13 @ [facility] Hypertension (Chronic) Dyslipidemia (Chronic) LEAH not on CPAP Hospital Course and Treatment Imaging Results: Clinical Impression(s) from Imaging Studies Chest X-Ray 10/05/18 19:15 IMPRESSION: COPD with superimposed congestive failure with possible tiny pleural effusions Electronically Signed: Lee Villegas MD at 20:11 EST , Service support , None Operations: None Procedures: None Summary of Care Provided: The patient is a 73 year old F with past medical history of COPD, not on home oxygen, chronic diastolic CHF, comes in with complaints of shortness of breath worse when she goes out during the winter. Patient was admitted to a telemetry bed, managed as acute hypoxic respiratory failure secondary to acute on chronic diastolic CHF and COPD exacerbation. She improved on IV Lasix, and prednisone taper. Patient on admission had gone into A. fib with RVR, she received a loading dose of Cardizem and was started on Cardizem drip. This was switched off briefly. Patient was continued on her atenolol and Cardizem oral. Her INR remained therapeutic on Coumadin. Patient was discharged on a prednisone taper. She needs to follow-up with pulmonology in the outpatient for pulmonary function testing and LEAH evaluation. She did not qualify for oxygen on discharge. She was off oxygen. She will follow-up with the primary care doctor in 3 days. Subjective: The day of discharge, patient felt better. Off oxygen. Ambulates in the room with no worsening shortness of breath. Denies any dizziness or fever or chills. Has occasional cough. Objective: Physical exam: General: Alert, Oriented x3, Cooperative, No apparent distress, off oxygen HEENT: Atraumatic, PERRLA, EOMI, Normocephalic Oral: Moist Mucosa Neck: Supple, No JVD, Negative Carotid Bruits Lungs: Normal air movement, Diminished, Rales - Few rales at the lung bases Cardiovascular: Regular rate, Regular Rhythm, Normal S1, Normal S2, No murmurs Abdomen: Bowel Sounds Present, Soft, Non Tender, Non-Distended, No Hepato-splenomegaly Extremities: No edema Skin: No rashes, No breakdown Musculoskeletal: No Tenderness to Palpation of Joints or Extremities Lymphatic: No Cervical, Supraclavicular, or Inguinal Adenopathy Neurological: Cranial nerves II-XII grossly intact, Neuro grossly intact Psych/Mental Status: Normal Affect, Appropriate - Physical Exam Vital Signs Temp Pulse Resp BP Pulse Ox 97.8 F 69 16 113/61 98 10/07/18 03:30 10/07/18 07:25 10/07/18 06:26 10/07/18 03:30 10/07/18 06:26 Oxygen Flow Rate (L/min) [ 2 AMBULATION with Oxygen] Oxygen Flow Rate (L/min) 2 Oxygen Delivery Method Nasal Cannula Weight: 81.6 kg Body Mass Index (BMI) 30.2 Intake and Output for Last 24 Hours 10/05/18 10/06/18 10/07/18 23:59 23:59 23:59 Intake Total 1265 / 1265 Balance 1265 / 1265 Microbiology Past 72 Hours 10/05/18 22:50 Respiratory Panel (PCR) - Final Mucosa - Nose 10/05/18 19:25 Influenza Types A,B Direct FA (PORTER) - Final Mucosa - Nasopharyngeal Laboratory Tests Past 24 Hrs 10/07/18 10/07/18 05:30 05:30 WBC 19.4 H RBC 3.55 L Hgb 11.4 L Hct 37.3 MCV 105.1 H MCH 32.1 H MCHC 30.6 L RDW 15.5 H RDW Differential 58.5 H Plt Count 277 MPV 11.0 Immature Gran % (Auto) 0.200 Neut % (Auto) 92.8 H Lymph % (Auto) 3.6 L Andrews % (Auto) 3.4 Eos % (Auto) 0.0 Baso % (Auto) 0.0 Absolute Neuts (auto) 18.0 H Absolute Lymphs (auto) 0.69 L Total Counted Not Reportable Sodium 142 Potassium 4.7 Chloride 103 Carbon Dioxide 31.0 Anion Gap 8 BUN 35 H Creatinine 1.06 H Estim Creat Clear Calc 41.26 Est GFR (MDRD) Af Amer 65 Est GFR (MDRD) Non-Af 54 L BUN/Creatinine Ratio 33.0 H Glucose 141 H Calcium 9.0 Magnesium 2.2 POC Glucose 10/07/18 10/06/18 10/06/18 06:50 21:23 16:45 POC Glucose 151 H 168 H 150 H 10/06/18 11:54 POC Glucose 142 H Discharge Diet: Low fat/ Low Cholesterol, 8 Cup Fluid Restriciton, 2000 mg Sodium Diet Discharge Activity: Return to Normal Activity Home Medications: Medications to take at Discharge Atorvastatin Calcium [Lipitor] 40 mg PO QHS 04/15/15 Paroxetine HCl [Paxil] 40 mg PO DAILY 04/15/15 Warfarin [Coumadin] 6 mg PO MOWE 04/15/15 Atenolol [Tenormin (beta cruz)] 50 mg PO BID #120 tab 04/17/15 Spironolactone [Aldactone] 25 mg PO DAILY #30 tab 09/30/15 Pramipexole Di-HCl [Mirapex] 1 mg PO TID PRN PRN 01/06/18 Diltiazem CD [Cardizem CD] 180 mg PO BID #60 cap 01/08/18 levothyroxine 100 mcg tablet 100 mcg PO DAILY tab 02/17/18 warfarin 3 mg tablet 3 mg PO SUTUTHFRSA 02/17/18 Albuterol Inhaler [Ventolin Hfa] 1 puff INHALATION Q4H PRN PRN #1 inhaler 10/07/18 Furosemide [Lasix] 20 mg PO BID@1000,1800 #60 tablet 10/07/18 Guaifenesin [Mucinex] 1,200 mg PO BID #10 tablet 10/07/18 Prednisone 10 mg PO UD #30 tab 10/07/18 Following Prescrptions Were Given to Patient: Albuterol Inhaler [Ventolin Hfa] 1 puff INHALATION Q4H PRN PRN #1 inhaler PRN Reason: Sob &/Or Wheezing Furosemide [Lasix] 20 mg PO BID@1000,1800 #60 tablet Prednisone 10 mg PO UD #30 tab Guaifenesin [Mucinex] 1,200 mg PO BID #10 tablet Primary Care Physician: Aleksandar Wiley DO [Primary Care Provider] - Please follow up with your Primary Care Physician in: within 1-2 weeks as scheduled Please Follow Up With: Ventura Cid MD When: within 2 weeks Disposition: Home Minutes spent on discharge:: 40 Patient Condition:: Stable Medical Necessity - Tobacco Use Smoking Status: Current every day smoker Tobacco Use: Cigarettes Meaningful Use Info Meaningful Use Diagnoses (Choose all that apply): CHF - CHF CLINT/ARB ordered at discharge?: No Reason CLINT/ARB not ordered?: Drug Interaction - No indication fvor ARB Documented LVEF (%): 65
[2018-10-07 11:05] LABS: International Normalized Ratio 3.4; Prothrombin Time (Protime)PT. 34.4 SECONDS (11.7-14.9)
--- NOTE | 2018-10-10 14:46 | CASEMGMT ---
PAOLA GIRALDO Discharge Follow-up Phone Call: JOSUÉ: Vitaly Strata: 3 Call Date: 10/10/18 Discharge Date: 10/07/18 Time of Call: 1410 Duration: 7 minutes ? Admitting Diagnosis: Respiratory failure, A/C diastolic CHF, Afib, COPD exac This PAOLA GIRALDO contacted pt via telephone for discharge follow-up. Pt states she has been doing well and that her breathing has been much better. Her only complaints of feeling lightheaded this AM. Pt states she has been taking her medications and that she has been following her fluid restriction. Encouraged pt to contact her physician if the lightheadedness persists. Pt did state she took her medications this morning in three increments which is abnormal for her and she may have taken one twice although she does not think she actually did. Pt states she has been weighing herself and was 172# last pm. Pt states she usually weighs around 173-174# on her home scale. Pt is aware of her follow-up appointments. Pt denies any further questions or concerns. Jacek Pettit RN
--- OUTSIDE RECORDS SUMMARY | 2018-12-01 04:34 | XMS RPT_ITS ---
:1945 Author Organization OHIP Support Name Relationship Address Phone KWESI GOMEZ Unavailable [facility] [address] + [place] [address] R Unavailable Unavailable Unavailable FOUGHT, TREVOR Unavailable . + [place] [address] PATRICIA KWESI Unavailable [facility] [address] + [place] [address] R Unavailable Unavailable Unavailable FOUGHT, TREVOR Unavailable Unavailable + [place] [address] PATRICIA KWESI Unavailable [facility] [address] + [place] [address] R Unavailable Unavailable Unavailable FOUGHT, TREVOR Unavailable . + [place] [address] PATRICIA KWESI Unavailable [facility] [address] + [place] [address] R Unavailable Unavailable Unavailable PATRICIA KWESI Unavailable [facility] [address] + [place] [address] R Unavailable Unavailable Unavailable PATRICIA, KWESI Unavailable [facility] [address] + [place] [address] R Unavailable Unavailable Unavailable PATRICIA KWESI Unavailable [facility] [address] + [place] [address] R Unavailable Unavailable Unavailable PATRICIA KWESI Unavailable [facility] [address] + [place] [address] R Unavailable Unavailable Unavailable PATRICIA KWESI Unavailable [facility] [address] + [place] [address] R Unavailable Unavailable Unavailable GOMEZ, KWESI Unavailable [facility] [address] + [place] [address] R Unavailable Unavailable Unavailable R Unavailable Unavailable Unavailable PATRICIA KWESI Unavailable [facility] [address] + [place] [address] KARNAS, TYREL Unavailable [address] [place] [address] R Unavailable Unavailable Unavailable GOMEZ, KWESI Unavailable [address] + [place] [address] R Unavailable Unavailable Unavailable R Unavailable Unavailable Unavailable GOMEZ, KWESI Unavailable [facility] [address] + [place] [address] KARNAS, TYREL Unavailable [address] [place] [address] R Unavailable Unavailable Unavailable GOMEZ, KWESI Unavailable [facility] [address] + [place] [address] KARNAS, TYREL Unavailable [address] [place] [address] R Unavailable Unavailable Unavailable GOMEZ, KWESI Unavailable [facility] [address] + [place] [address] KARNAS, TYREL Unavailable [address] [place] [address] R Unavailable Unavailable Unavailable GOMEZ, KWESI Unavailable [facility] [address] + [place] [address] KARNAS, TYREL Unavailable [address] [place] [address] R Unavailable Unavailable Unavailable GOMEZ, KWESI Unavailable [facility] [address] + [place] [address] KARNAS, TYREL Unavailable [address] [place] [address] R Unavailable Unavailable Unavailable GOMEZ, KWESI Unavailable [facility] [address] + [place] [address] KARNAS, TYREL Unavailable [address] [place] [address] R Unavailable Unavailable Unavailable GOMEZ, KWESI Unavailable [facility] [address] + [place] [address] KARNAS, TYREL Unavailable [address] [place] [address] R Unavailable Unavailable Unavailable GOMEZ, KWESI Unavailable [facility] [address] + [place] [address] KARTC, TYREL Unavailable [address] [place] [address] R Unavailable Unavailable Unavailable KWESI GOMEZ Unavailable [address] + [place] [address] KARTC, TYREL Unavailable [address] [place] [address] R Unavailable Unavailable Unavailable Care Team Providers Name Role Phone Wiley, Aleksandar Primary Care Unavailable Tra, Vinh Admitting Unavailable Arthur Sutton Attending Unavailable Tra, Vinh Admitting Unavailable Tra, Vinh Attending Unavailable Wiley, Aleksandar Primary Care Unavailable Tra, Vinh Consulting Unavailable Tra, Vinh Admitting Unavailable Wiley, Aleksandar Primary Care Unavailable Arthur Sutton Consulting Unavailable Arthur Sutton Attending Unavailable Tra, Vinh Admitting Unavailable Wiley, Aleksandar Primary Care Unavailable Arthur Sutton Consulting Unavailable Arthur Sutton Attending Unavailable Jesus Aguilar Attending Unavailable Wiley, Aleksandar Referring Unavailable Corniello, Verna HEAD OF PRODUCT-C Attending Unavailable Wiley, Aleksandar Primary Care Unavailable Corniello, Verna HEAD OF PRODUCT-C Referring Unavailable Wiley, Aleksandar Primary Care Unavailable Ramiro Carlson Attending Unavailable Wiley, Aleksandar Primary Care Unavailable Wiley, Aleksandar Attending Unavailable Wiley, Aleksandar Referring Unavailable Lilliana Casey Attending Unavailable Spohia Baptiste Attending Unavailable Reynold Dempsey Attending Unavailable Tra, Vinh Referring Unavailable MoodJeff bradley Attending Unavailable Wiley, Aleksandar Referring Unavailable Wiley, Aleksandar Primary Care Unavailable Wiley, Aleksandar Attending Unavailable Wiley, Aleksandar Referring Unavailable Wiley, Aleksandar Primary Care Unavailable Jeff Brennan Attending Unavailable Jeff Brennan Referring Unavailable Wiley, Aleksandar Primary Care Unavailable Eric Barakat Attending Unavailable Jeff Brennan Referring Unavailable Jeff Brennan Attending Unavailable Jeff Brennan Referring Unavailable Sophia Conley Attending Unavailable Wiley, Aleksandar Referring Unavailable Wiley, Aleksandar Primary Care Unavailable Ronen Donovan Admitting Unavailable Jacque Hogan Attending Unavailable Ronen Donovan Admitting Unavailable Ronen Donovan Attending Unavailable Wiley, Aleksandar Primary Care Unavailable AgyepongRonen Consulting Unavailable Agyepong, Ronen Admitting Unavailable Paintsil, Osce[place] Attending Unavailable Wliey, Aleksandar Primary Care Unavailable Paintsil, [place] Consulting Unavailable Agyepong, Ronen Admitting Unavailable Paintsil, [place] Attending Unavailable Wiley, Aleksandar Primary Care Unavailable Paintsil, [place] Consulting Unavailable CORNIELLO, VERNA L (FIELD INSTALLATION TECHNICIAN) Attending Unavailable CORNIELLO, VERNA L (FIELD INSTALLATION TECHNICIAN) Referring Unavailable CORNIELLO, VERNA L (FIELD INSTALLATION TECHNICIAN) Referring Unavailable WILEY, ALEKSANDAR L Referring Unavailable CORNIELLO, VERNA L (FIELD INSTALLATION TECHNICIAN) Referring Unavailable WILEY, ALEKSANDAR L Attending Unavailable WILEY, ALEKSANDAR L Referring Unavailable WILEY, ALEKSANDAR L Referring Unavailable WILEY, ALEKSANDAR L Referring Unavailable WILEY, ALEKSANDAR L Referring Unavailable ATHY, BELEM R (PA) Referring Unavailable WILEY, ALEKSANDAR L Referring Unavailable WILEY, ALEKSANDAR L Referring Unavailable WILEY, ALEKSANDAR L Referring Unavailable WILEY, ALEKSANDAR L Referring Unavailable CORNIELLO, VERNA L (FIELD INSTALLATION TECHNICIAN) Referring Unavailable WILEY, ALEKSANDAR L Referring Unavailable WILEY, ALEKSANDAR L Referring Unavailable WILEY, ALEKSANDAR L Referring Unavailable WILEY, ALEKSANDAR L Referring Unavailable WILEY, ALEKSANDAR L Referring Unavailable CORNIELLO, VERNA L (FIELD INSTALLATION TECHNICIAN) Attending Unavailable CORNIELLO, VERNA L (FIELD INSTALLATION TECHNICIAN) Referring Unavailable CORNIELLO, VERNA L (FIELD INSTALLATION TECHNICIAN) Referring Unavailable WILEY, ALEKSANDAR L Referring Unavailable CORNIELLO, VERNA L (FIELD INSTALLATION TECHNICIAN) Referring Unavailable CORNIELLO, VERNA L (FIELD INSTALLATION TECHNICIAN) Referring Unavailable PROBLEMS PROBLEMS DATE TYPE CONDITION / CODE ATTENDING STATUS SOURCE 10/25/2018 Active Chronic kidney NA Active [place] disease, stage 3 [facility] (moderate) / [place] N18.3(ICD-10) Repository 10/20/2018 Active Heart failure, NA Active [place] unspecified / [facility] I50.9(ICD-10) [place] Repository 10/20/2018 Active Elevated white blood NA Active [facility] cell count, [facility] unspecified / [place] D72.829(ICD-10) Repository 10/20/2018 Active Cramp and spasm / NA Active [place] R25.2(ICD-10) [facility] [place] Repository 10/18/2018 Active Hyperglycemia, NA Active [place] unspecified / [facility] R73.9(ICD-10) [place] Repository 08/23/2018 Unknown I71.4 - Abdominal Conley, Active [place] aortic aneurysm, [facility] without rupture / Hospital I71.4(ICD-10) Repository 08/06/2018 Active Encounter for NA Active [place] immunization / [facility] Z23(ICD-10) [place] Repository 11/21/2010 Active Supraventricular NA Active [place] tachycardia / [facility] I47.1(ICD-10) [place] Repository 04/21/2018 Active Chronic obstructive NA Active [place] pulmonary disease with [facility] (acute) exacerbation / [place] J44.1(ICD-10) Repository 04/18/2018 Active Encounter for NA Active [place] screening mammogram [facility] for malignant neoplasm [place] of breast / Repository Z12.31(ICD-10) 05/04/2016 Active Mixed hyperlipidemia / NA Active [place] E78.2(ICD-10) [facility] [place] Repository 08/25/2013 Active Vitamin D deficiency, NA Active [place] unspecified / [facility] E55.9(ICD-10) [place] Repository 11/21/2010 Active Essential (primary) NA Active [place] hypertension / [facility] I10(ICD-10) [place] Repository 03/30/2018 Active Type 2 diabetes NA Active [place] mellitus without [facility] complications / [place] E11.9(ICD-10) Repository 03/30/2018 Active Other 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 Repository without angina pectoris / I25.10(ICD-10) 02/17/2018 Unknown I48.2 - Chronic atrial [place], Active [place] fibrillation / [facility] I48.2(ICD-10) Hospital Repository 02/17/2018 Unknown I48.91 - Unspecified [place], Active [place] atrial fibrillation / [facility] I48.91(ICD-10) Hospital Repository 02/17/2018 Unknown Z95.5 - Presence of [place], Active [place] coronary angioplasty [facility] implant and graft / Hospital Z95.5(ICD-10) Repository 01/27/2018 Active Intra-abdominal and NA Active [place] pelvic swelling, mass [facility] and lump, unspecified [place] site / R19.00(ICD-10) Repository 01/17/2018 Active Left lower quadrant NA Active [place] abdominal swelling, [facility] mass and lump / [place] R19.04(ICD-10) Repository 01/17/2018 Active Other abnormal glucose NA Active [place] / R73.09(ICD-10) [facility] [place] Repository PROCEDURES PROCEDURES No Procedure Records FoundRESULTS RESULTS PERIOD AND VOLUME Collected: 10/25/2018 Status: F Source: [place] 5:00 AM [facility] TYPE CODE TESTS RESULT OUT OF REFERENCE UNITS RANGE LAB PER hr Period 22 LAB VOL mL Volume 1100 PROGRESS Observed: 10/20/2018 Status: COMPLETED Source: [place] 2:01 PM [facility] HNO ID: [id number] Author: Destini Mackenzie LPN Service: (none) Author Type: (none) Type: Progress Notes Filed: 10/20/2018 2:02 PM Note Text: Phoned patient and went over notes from Verna Ibrahim HEAD OF PRODUCT with understanding. Scheduled appt for coumadin clinic for 10/27/2018 at 745 am. PROGRESS Observed: 10/20/2018 Status: COMPLETED Source: [place] 11:58 AM [facility] HNO ID: [id number] Author: Verna Ibrahim Service: (none) Author Type: Nurse Practitioner Type: Progress Notes Filed: 10/20/2018 2:02 PM Note Text: Please have INR checked in 1 week otherwise agree Verna Ibrahim APRN.FIELD INSTALLATION TECHNICIAN PROGRESS Observed: 10/20/2018 Status: COMPLETED Source: [place] 10:49 AM [facility] HNO ID: [id number] Author: Sophia Nunez RN Service: (none) Author Type: (none) Type: Progress Notes Filed: 10/20/2018 10:50 AM Note Text: patient had inr completed at [facility] patients inr is 3.0 (patients inr range is 2.0-3.0) patient is currently taking 6mg Mon,Wed and 3mg all other days patients last dose change was on 05/02/18 due to a high level of 3.3 (dose at that time was 6mg Mon,Wed,Fri and 3mg all other days) patient has had no changes in medication and no missed doses and no change in diet Advised patient to continue on the same dose(s) and that they would only be contacted regarding dosage and follow up instructions after review with provider, if a change is needed. Written instructions given and patient verbalized understanding. Presently scheduled in 2 weeks (11/03/18) for follow up INR since level is on the higher side of normal, but patient did just complete steroid treatment. XR CHEST 2V FRONTAL/LAT Observed: 10/20/2018 Status: F Source: [place] 9:39 AM [facility] RE[facility] * * *Final Report* * * DATE OF EXAM: Oct 20 2018 9:39AM WOX [id number] - XR CHEST 2V FRONTAL/LAT / PROCEDURE REASON: multiple diagnoses * * * * Physician Interpretation * * * * EXAMINATION: CHEST RADIOGRAPH (2 VIEW FRONTAL and LATERAL) CLINICAL HISTORY: Congestive heart failure, unspecified HF chronicity, unspecified heart failure type (HCC) Leukocytosis, unspecified type MQ: XC2_5 Comparison: 04/21/2018 RESULT: Lines, tubes, and devices: None. Lungs and pleura: No consolidation. No lung mass. No pleural effusion. Cardiomediastinal silhouette: Mild cardiomegaly IMPRESSION: No acute radiographic abnormality. Mild cardiomegaly [place] Pilot: ZAC Transcribe Date/Time: Oct 20 2018 11:11A Dictated by : KANU PETERSON MD This examination was interpreted and the report reviewed and electronically signed by: KANU PETERSON MD on Oct 20 2018 11:13AM EST [id number] PROGRESS Observed: 10/20/2018 Status: COMPLETED Source: [place] 9:31 AM [facility] HNO ID: [id number] Author: Shefali Ulloa (Rt) Liset Mg Service: (none) Author Type: Shellacker Type: Progress Notes Filed: 10/20/2018 9:39 AM Note Text: Radiology Service Progress Note PATIENT NAME: Taz Zavaleta DATE OF SERVICE: October 20, 2018 TIME: 9:31 AM PATIENT IDENTITY VERIFICATION COMPLETED USING TWO (2) METHODS: Patient confirmed name verbally and Date of . PATIENT GENDER DATA: Female. status: : No status: NO. PATIENT RELEVANT IMPLANT DATA REVIEWED: Not Applicable RADIOLOGY DEPARTMENT: General X-ray: Exam(s) Completed: Chest X-Ray PERIPHERAL IV DATA: Not applicable SIGNED BY: RT Percy October 20, 2018 9:31 AM ALBUMIN/CREAT RATIO Collected: 10/20/2018 Status: F Source: [place] 9:18 AM [facility] TYPE CODE TESTS RESULT OUT OF REFERENCE UNITS RANGE LAB UCRR 20-300 mg/dL Creatinine,Ur 155.4 ine,Ran LAB UALBR 0.0-23.0 mg/L High Albumin Urine 37.6 Random LAB UALBCR 0-30 mg/g Albumin/Creat 24 Ratio Result Comment: 30 to 300 mg/g indicates an increased risk for diabetic nephropathy. Greater than 300 mg/g is consistent with clinical nephropathy. (Am J Kidney Disease 1995, 25:107) Performed By: #### UACR #### [facility] [address] [address] PROGRESS Observed: 10/20/2018 Status: COMPLETED Source: [place] 9:16 AM [facility] HNO ID: [id number] Author: Verna Ruiz (Illustrator Set) Shana Service: (none) Author Type: Nurse Practitioner Type: Progress Notes Filed: 10/20/2018 9:33 AM Note Text: HPI/CC: Taz Zavaleta is a 73 year old female who presents to the office today for hospital follow-up. She was to [facility] following c/o SOB. Was admitted for acute hypoxic respiratory failure, acute on chronic diastolic failure, afib with RVR, prediabetes, nicotine dependence. Testing completed at the facility: Xray showed COPD with superimposed CHF with possible tiny pleural effusions. Echo Labwork completed at the facility: CBC, CMP, BNP, influenza, troponin, INR, TSH. Patient was treated with IV lasix, cardizem IV bolus. Continued anticoagulation. Other specialist and follow up care: cardiology (Dr. Brennan) and pulmonology (Dr. Sierra) Reviewed labs and diagnostics from hospitalization. Currently patient states she is doing well. Admits to not taking her lasix and Cardizem as ordered prior to hospitalization. Continue s coumadin but has not had INR since DC. Reviewed recent labs with patient: Component Latest Ref Rng AND Units 10/18/2018 WBC 3.70 - 11.00 k/uL 13.01 (H) RBC 3.90 - 5.20 m/uL 4.67 Hemoglobin 11.5 - 15.5 g/dL 15.2 Hematocrit 36.0 - 46.0 % 50.6 (H) MCV 80.0 - 100.0 fL 108.4 (H) MCH 26.0 - 34.0 pG 32.5 MCHC 30.5 - 36.0 g/dL 30.0 (L) RDW-CV 11.5 - 15.0 % 15.9 (H) Platelet Count 150 - 400 k/uL 308 MPV 9.0 - 12.7 fL 11.1 Neut% % 81.4 Abs Neut (ANC) 1.45 - 7.50 k/uL 10.59 (H) Lymph% % 12.9 Abs Lymph 1.00 - 4.00 k/uL 1.68 Denali% % 4.4 Abs Denali <0.87 k/uL 0.57 Eosin% % 1.0 Abs Eosin <0.46 k/uL 0.13 Baso% % 0.3 Abs Baso <0.11 k/uL 0.04 Nucleated Reds 0 /100 WBC 0.0 Absolute nRBC <0.01 k/uL <0.01 Diff Type Auto Diff Protein, Total 6.3 - 8.0 g/dL 7.4 Albumin 3.9 - 4.9 g/dL 4.1 Calcium 8.5 - 10.2 mg/dL 9.4 Bilirubin, Total 0.2 - 1.3 mg/dL 0.6 Alkaline Phosphatase 34 - 123 U/L 80 AST 13 - 35 U/L 34 Glucose 74 - 99 mg/dL 122 (H) BUN 7 - 21 mg/dL 29 (H) Creatinine 0.58 - 0.96 mg/dL 1.08 (H) Sodium 136 - 144 mmol/L 139 Potassium 3.7 - 5.1 mmol/L 4.9 Chloride 97 - 105 mmol/L 95 (L) CO2 22 - 30 mmol/L 28 Anion Gap 9 - 18 mmol/L 16 ALT 7 - 38 U/L 31 eGFR- 60 eGFR-All Other Races . 49 Hemoglobin A1C 4.3 - 5.6 % 6.4 (H) Estimated Average Glucose mg/dL 137 REVIEW OF SYSTEMS as above HISTORIES: PAST MEDICAL HISTORY Diagnosis Date - AAA (abdominal aortic aneurysm) ([facility]) 01/2018 3 cm - Allergic rhinitis, cause unspecified - Chronic airway obstruction, not elsewhere classified - Diabetes ([facility]) - Diverticulosis of colon (without mention of hemorrhage) - Essential hypertension, benign - Heart failure ([facility]) - Insomnia, unspecified - Lipoma Left upper anterior chest - Major depressive disorder, recurrent episode, unspecified - Osteoporosis - Other and unspecified disc disorder of unspecified region Intervertebral disc disorders - Other and unspecified hyperlipidemia - PAD (peripheral artery disease) ([facility]) - PAT (paroxysmal atrial tachycardia) ([facility]) - Tobacco use disorder PAST SURGICAL HISTORY Procedure Laterality Date - ARTERIOGRAM EXTREMITY LOW VASC O/P F26/6 07/17/05 - ARTERY X-RAYS, ARM/LEG 01/05/06 - COLONOSCOP W/ OR W/O [facility] SPEC 09/05/10 - CONTRAST X-RAY EXAM OF AORTA 01/05/06 - PERC TRANSL COR ANGIO 2012 Percutaneous Transluminal Coronary Angio Status - PLACE CATH SUBSELECT ART,ABD/PEL 01/05/06 - THYROID FINE NEEDLE ASPIRATION 03/01/06 left thyroid fna - THYROIDECTOMY 04/13 partial - TOTAL ABDOM HYSTERECTOMY 1991 - VEIN BYPASS GRAFT,FEM-POP 08/19/2005 FAMILY HISTORY Problem Relation Age of Onset - other (GLUCOMA [Other]) Maternal Grandmother - Heart Mother - Cancer Father ESOPHAGUS - Hypertension Sister - Hypertension Sister - Alzheimer's Disease Brother Social History Marital status: Spouse name: Years of education: Number of children: Social History Main Topics Smoking status: Current Every Day Smoker Packs/day: 0.50 Years: 40.00 Types: Cigarettes Smokeless tobacco: Never Used Comment: 6 cigs daily. Alcohol use: Yes 18.0 oz/week Comment: occasionally Drug use: No Sexual activity: No Current Outpatient Prescriptions on File Prior to Visit: albuterol (PROVENTIL) 2.5 mg /3 mL (0.083 %) nebulizer solution Use 3 mL via nebulizer every 4 hours as needed for Wheezing/Shortness of Breath. Use over 5-15minutes. atenolol (TENORMIN) 50 mg tablet Take 1 tablet by mouth twice daily. atorvastatin (LIPITOR) 40 mg tablet Take 1 tablet by mouth daily at bedtime. For cholesterol. diltiazem CD (CARDIZEM CD, CARTIA XT) 180 mg 24 hr capsule Take 1 capsule by mouth twice daily. furosemide (LASIX) 20 mg tablet Take 1 tablet by mouth once daily. levothyroxine (SYNTHROID) 100 mcg tablet Take 1 tablet by mouth once daily. Take on empty stomach. For Thyroid PARoxetine (PAXIL) 40 mg tablet Take 1.5 tablets by mouth once daily. pramipexole (MIRAPEX) 1 mg tablet Take 1 tablet by mouth three times daily as needed. spironolactone (ALDACTONE) 25 mg tablet Take 1 tablet by mouth once daily. warfarin (COUMADIN) 3 mg tablet 6 mg on Mon/Wed/Fri/Sat 3 mg all other days or as directed. warfarin (COUMADIN) 6 mg tablet 6 mg on Mon/Wed/Wed/Sat 3 mg all other days or as directed. No current facility-administered medications on file prior to visit. ALLERGIES Allergen Reactions - Clint Inhibitors Hives - Ambien [Zolpidem Ta* Mental Status Change falls - Amitriptyline Mental Status Change - Augmentin [Amoxicil* Hives - Codeine Hives - Zovirax [Acyclovir * PHYSICAL EXAMINATION: BP 120/72 Pulse 88 Resp 16 Wt 78.5 kg (173 lb) SpO2 98% BMI 29.70 kg/m? General appearance: Well appearing, alert, in no acute distress, well-hydrated, well nourished. Skin: Skin color, texture, turgor normal, no suspicious rashes or lesions Lungs: Lungs diminished to auscultation. No wheezing, rhonchi, rales Heart: Positive findings: irregular rhythm Extremities: No edema Peripheral pulses: Normal Neuro: Gait normal. Reflexes normal and symmetric. Sensation grossly intact. ASSESSMENT/PLAN: 1. Hospital discharge follow-up - ICD9: V67.59, ICD10: Z09 (primary diagnosis) - 2. Persistent atrial fibrillation (HCC) - ICD9: 427.31, ICD10: I48.1 - continue current regimen and f/u with cards - INR today 3. COPD with chronic bronchitis (HCC) - ICD9: 491.20, ICD10: J44.9 - f/u with pulmonology - taking only ABRAN 4. Congestive heart failure, unspecified HF chronicity, unspecified heart failure type (HCC) - ICD9: 428.0, ICD10: I50.9 - as above - continue Lasix BID, aldactone daily - f/u with cards - continue daily weight, sodium restriction and fluid restriction - XR CHEST 2V FRONTAL/LAT 5. Chronic renal disease, stage 3, moderately decreased glomerular filtration rate (GFR) between 30-59 mL/min/1.73 square meter (HCC) - ICD9: 585.3, ICD10: N18.3 - decreased funtion - CREAT CLEAR 24 HOUR - US KIDNEY/BLADDER - likely need nephrology consult for recommendations and management 6. IFG (impaired fasting glucose) - ICD9: 790.21, ICD10: R73.01 - monitor - may consider restarting metformin 7. Leukocytosis, unspecified type - ICD9: 288.60, ICD10: D72.829 - XR CHEST 2V FRONTAL/LAT - concern fo PNA 8. Leg cramps - ICD9: 729.82, ICD10: R25.2 - MAGNESIUM BLD - f/u in 1 month with PCP or before if symptoms are worse. Verna Ibrahim APRN.CNP CNOV Observed: 10/20/2018 Status: COMPLETED Source: [place] 8:00 AM [facility] REPOS[facility] Office Visit (FAMPWS) TAZ ZAVALETA ([id number]) 1945 F Date Time Provider Department 10/20/18 8:00 AM VERNA IBRAHIM (FIELD INSTALLATION TECHNICIAN) FAMPWS During your visit today, we recorded the following information about you: Pulse Respiration Blood pressure Weight 88/minute 16/minute 120/72 78.5 kg Verna Ibrahim APRN.CNP 10/20/2018 9:33 AM Signed HPI/CC: Taz Zavaleta is a 73 year old female who presents to the office today for hospital follow-up. She was to [facility] following c/o SOB. Was admitted for acute hypoxic respiratory failure, acute on chronic diastolic failure, afib with RVR, prediabetes, nicotine dependence. Testing completed at the facility: Xray showed COPD with superimposed CHF with possible tiny pleural effusions. Echo Labwork completed at the facility: CBC, CMP, BNP, influenza, troponin, INR, TSH. Patient was treated with IV lasix, cardizem IV bolus. Continued anticoagulation. Other specialist and follow up care: cardiology (Dr. Brennan) and pulmonology (Dr. Sierra) Reviewed labs and diagnostics from hospitalization. Currently patient states she is doing well. Admits to not taking her lasix and Cardizem as ordered prior to hospitalization. Continue s coumadin but has not had INR since DC. Reviewed recent labs with patient: Component Latest Ref Rng AND Units 10/18/2018 WBC 3.70 - 11.00 k/uL 13.01 (H) RBC 3.90 - 5.20 m/uL 4.67 Hemoglobin 11.5 - 15.5 g/dL 15.2 Hematocrit 36.0 - 46.0 % 50.6 (H) MCV 80.0 - 100.0 fL 108.4 (H) MCH 26.0 - 34.0 pG 32.5 MCHC 30.5 - 36.0 g/dL 30.0 (L) RDW-CV 11.5 - 15.0 % 15.9 (H) Platelet Count 150 - 400 k/uL 308 MPV 9.0 - 12.7 fL 11.1 Neut% % 81.4 Abs Neut (ANC) 1.45 - 7.50 k/uL 10.59 (H) Lymph% % 12.9 Abs Lymph 1.00 - 4.00 k/uL 1.68 Denali% % 4.4 Abs Denali <0.87 k/uL 0.57 Eosin% % 1.0 Abs Eosin <0.46 k/uL 0.13 Baso% % 0.3 Abs Baso <0.11 k/uL 0.04 Nucleated Reds 0 /100 WBC 0.0 Absolute nRBC <0.01 k/uL <0.01 Diff Type Auto Diff Protein, Total 6.3 - 8.0 g/dL 7.4 Albumin 3.9 - 4.9 g/dL 4.1 Calcium 8.5 - 10.2 mg/dL 9.4 Bilirubin, Total 0.2 - 1.3 mg/dL 0.6 Alkaline Phosphatase 34 - 123 U/L 80 AST 13 - 35 U/L 34 Glucose 74 - 99 mg/dL 122 (H) BUN 7 - 21 mg/dL 29 (H) Creatinine 0.58 - 0.96 mg/dL 1.08 (H) Sodium 136 - 144 mmol/L 139 Potassium 3.7 - 5.1 mmol/L 4.9 Chloride 97 - 105 mmol/L 95 (L) CO2 22 - 30 mmol/L 28 Anion Gap 9 - 18 mmol/L 16 ALT 7 - 38 U/L 31 eGFR- 60 eGFR-All Other Races . 49 Hemoglobin A1C 4.3 - 5.6 % 6.4 (H) Estimated Average Glucose mg/dL 137 REVIEW OF SYSTEMS as above HISTORIES: PAST MEDICAL HISTORY Diagnosis Date - AAA (abdominal aortic aneurysm) ([facility]) 01/2018 3 cm - Allergic rhinitis, cause unspecified - Chronic airway obstruction, not elsewhere classified - Diabetes ([facility]) - Diverticulosis of colon (without mention of hemorrhage) - Essential hypertension, benign - Heart failure ([facility]) - Insomnia, unspecified - Lipoma Left upper anterior chest - Major depressive disorder, recurrent episode, unspecified - Osteoporosis - Other and unspecified disc disorder of unspecified region Intervertebral disc disorders - Other and unspecified hyperlipidemia - PAD (peripheral artery disease) ([facility]) - PAT (paroxysmal atrial tachycardia) ([facility]) - Tobacco use disorder PAST SURGICAL HISTORY Procedure Laterality Date - ARTERIOGRAM EXTREMITY LOW VASC O/P F26/6 07/17/05 - ARTERY X-RAYS, ARM/LEG 01/05/06 - COLONOSCOP W/ OR W/O [facility] SPEC 09/05/10 - CONTRAST X-RAY EXAM OF AORTA 01/05/06 - PERC TRANSL COR ANGIO 2013 Percutaneous Transluminal Coronary Angio Status - PLACE CATH SUBSELECT ART,ABD/PEL 01/05/06 - THYROID FINE NEEDLE ASPIRATION 03/01/06 left thyroid fna - THYROIDECTOMY 04/13 partial - TOTAL ABDOM HYSTERECTOMY 1991 - VEIN BYPASS GRAFT,FEM-POP 08/19/2005 FAMILY HISTORY Problem Relation Age of Onset - other (GLUCOMA [Other]) Maternal Grandmother - Heart Mother - Cancer Father ESOPHAGUS - Hypertension Sister - Hypertension Sister - Alzheimer's Disease Brother Social History Marital status: Spouse name: Years of education: Number of children: Social History Main Topics Smoking status: Current Every Day Smoker Packs/day: 0.50 Years: 40.00 Types: Cigarettes Smokeless tobacco: Never Used Comment: 6 cigs daily. Alcohol use: Yes 18.0 oz/week Comment: occasionally Drug use: No Sexual activity: No Current Outpatient Prescriptions on File Prior to Visit: albuterol (PROVENTIL) 2.5 mg /3 mL (0.083 %) nebulizer solution Use 3 mL via nebulizer every 4 hours as needed for Wheezing/Shortness of Breath. Use over 5-15minutes. atenolol (TENORMIN) 50 mg tablet Take 1 tablet by mouth twice daily. atorvastatin (LIPITOR) 40 mg tablet Take 1 tablet by mouth daily at bedtime. For cholesterol. diltiazem CD (CARDIZEM CD, CARTIA XT) 180 mg 24 hr capsule Take 1 capsule by mouth twice daily. furosemide (LASIX) 20 mg tablet Take 1 tablet by mouth once daily. levothyroxine (SYNTHROID) 100 mcg tablet Take 1 tablet by mouth once daily. Take on empty stomach. For Thyroid PARoxetine (PAXIL) 40 mg tablet Take 1.5 tablets by mouth once daily. pramipexole (MIRAPEX) 1 mg tablet Take 1 tablet by mouth three times daily as needed. spironolactone (ALDACTONE) 25 mg tablet Take 1 tablet by mouth once daily. warfarin (COUMADIN) 3 mg tablet 6 mg on Mon/Wed/Fri/Sat 3 mg all other days or as directed. warfarin (COUMADIN) 6 mg tablet 6 mg on Mon/Wed/Wed/Sat 3 mg all other days or as directed. No current facility-administered medications on file prior to visit. ALLERGIES Allergen Reactions - Clint Inhibitors Hives - Ambien [Zolpidem Ta* Mental Status Change falls - Amitriptyline Mental Status Change - Augmentin [Amoxicil* Hives - Codeine Hives - Zovirax [Acyclovir * PHYSICAL EXAMINATION: BP 120/72 Pulse 88 Resp 16 Wt 78.5 kg (173 lb) SpO2 98% BMI 29.70 kg/m? General appearance: Well appearing, alert, in no acute distress, well-hydrated, well nourished. Skin: Skin color, texture, turgor normal, no suspicious rashes or lesions Lungs: Lungs diminished to auscultation. No wheezing, rhonchi, rales Heart: Positive findings: irregular rhythm Extremities: No edema Peripheral pulses: Normal Neuro: Gait normal. Reflexes normal and symmetric. Sensation grossly intact. ASSESSMENT/PLAN: 1. Hospital discharge follow-up - ICD9: V67.59, ICD10: Z09 (primary diagnosis) - 2. Persistent atrial fibrillation (HCC) - ICD9: 427.31, ICD10: I48.1 - continue current regimen and f/u with cards - INR today 3. COPD with chronic bronchitis (HCC) - ICD9: 491.20, ICD10: J44.9 - f/u with pulmonology - taking only ABRAN 4. Congestive heart failure, unspecified HF chronicity, unspecified heart failure type (HCC) - ICD9: 428.0, ICD10: I50.9 - as above - continue Lasix BID, aldactone daily - f/u with cards - continue daily weight, sodium restriction and fluid restriction - XR CHEST 2V FRONTAL/LAT 5. Chronic renal disease, stage 3, moderately decreased glomerular filtration rate (GFR) between 30-59 mL/min/1.73 square meter (HCC) - ICD9: 585.3, ICD10: N18.3 - decreased funtion - CREAT CLEAR 24 HOUR - US KIDNEY/BLADDER - likely need nephrology consult for recommendations and management 6. IFG (impaired fasting glucose) - ICD9: 790.21, ICD10: R73.01 - monitor - may consider restarting metformin 7. Leukocytosis, unspecified type - ICD9: 288.60, ICD10: D72.829 - XR CHEST 2V FRONTAL/LAT - concern fo PNA 8. Leg cramps - ICD9: 729.82, ICD10: R25.2 - MAGNESIUM BLD - f/u in 1 month with PCP or before if symptoms are worse. Verna Ibrahim APRN.FIELD INSTALLATION TECHNICIAN Referring Provider: SELF [[id number]] Allergies As of Date: 10/20/2018 Noted Allergy Reaction CLINT INHIBITORS 09/01/2005 4 - Hives AMBIEN (ZOLPIDEM TARTRATE) 12/20/2015 1 - Mental Status Change Comments: falls AMITRIPTYLINE 05/17/2015 1 - Mental Status Change AUGMENTIN (AMOXICILLIN-POT CLAVUL*09/01/2005 4 - Hives CODEINE 09/01/2005 4 - Hives ZOVIRAX (ACYCLOVIR SODIUM) 09/01/2005 Date Reviewed: 10/20/2018 Reviewed by: Maurilio Walker LPN - Fully Assessed Reason for Visit: Hospital Follow Up [177] Cmt: [facility] follow up dx: acute respiratory failure Primary Visit Diagnosis:Hospital discharge follow-up [Z09] Other Visit Diagnoses:Persistent atrial fibrillation (HCC) [I48.1] COPD with chronic bronchitis (HCC) [J44.9] Congestive heart failure, unspecified HF chronicity, unspecified heart failure type (HCC) [I50.9] Chronic renal disease, stage 3, moderately decreased glomerular filtration rate (GFR) between 30-59 mL/min/1.73 square meter (HCC) [N18.3] IFG (impaired fasting glucose) [R73.01] Leukocytosis, unspecified type [D72.829] Leg cramps [R25.2] Order(s):MAGNESIUM BLD [SQMG1] Order #: [id number] FUTURE CREAT CLEAR 24 HOUR [SQUCCLR] Order #: [id number] FUTURE XR CHEST 2V FRONTAL/LAT [1206880] Order #: [id number] FUTURE KIDNEY/BLADDER [8857061] Order #: [id number] FUTURE Prescriptions as of 10/20/2018 Sig: ALBUTEROL SULFATE 2.5 MG/3 ML* Use 3 mL via nebulizer every * ATENOLOL 50 MG TABLET Take 1 tablet by mouth twice * ATORVASTATIN 40 MG TABLET Take 1 tablet by mouth daily * DILTIAZEM SR 180 MG 24 HR CAP Take 1 capsule by mouth twice* FUROSEMIDE 20 MG TABLET Take 1 tablet by mouth once d* LEVOTHYROXINE 100 MCG TABLET Take 1 tablet by mouth once d* PAROXETINE 40 MG TABLET Take 1.5 tablets by mouth onc* PRAMIPEXOLE 1 MG TABLET Take 1 tablet by mouth three * SPIRONOLACTONE 25 MG TABLET Take 1 tablet by mouth once d* WARFARIN 3 MG TABLET 6 mg on Wed/Wed/Wed/Sat 3 mg * WARFARIN 6 MG TABLET 6 mg on Wed/Wed/Wed/Sat 3 mg* Problem List As Of Date 10/20/2018 Noted Resolved PERIPHERAL VASC DISEASE (See also PVD) [I73.9] INVALID FOR* Other and unspecified disc disorder of unspecif* 01/17/2018 More... Hyperlipidemia [E78.5] 01/17/2018 Chronic airway obstruction, not elsewhere class* 01/17/2018 ALLERGIC RHINITIS NOS [J30.9] INSOMNIA NOS [G47.00] TOBACCO USE DISORDER [F17.200] LIPOMA OTHER SKIN AND SUBCUTANEOUS (Left upper Ch*INVALID FOR*11/21/2010 THYROID NODULE NODULE, NONTOXIC (Left) [E04.1] INVALID FOR*05/22/2011 NERVE INJURY UNSPECIFIED(Left recurrent larynge*INVALID FOR*01/17/2018 Atrial fibrillation (HCC) [I48.91] INVALID FOR*01/17/2018 Essential hypertension, benign [I10] INVALID FOR* PAT (paroxysmal atrial tachycardia) [I47.1] INVALID FOR* Anxiety [F41.9] INVALID FOR* CAD (coronary artery disease) [I25.10] INVALID FOR* Vitamin D deficiency [E55.9] INVALID FOR* Osteoporosis [M81.0] INVALID FOR* Varicose veins with pain [I83.819] INVALID FOR* Restless leg syndrome [G25.81] INVALID FOR* Mixed hyperlipidemia [E78.2] INVALID FOR* Persistent atrial fibrillation (HCC) [I48.1] INVALID FOR* Coronary artery disease involving [place]*INVALID FOR* COPD with chronic bronchitis (HCC) [J44.9] INVALID FOR* AAA (abdominal aortic aneurysm) (HCC) [I71.4] INVALID FOR* More... Medications Discontinued During This Encounter rOPINIRole (REQUIP) 2 mg tablet 90 t* 5 03/26/2017 10/20/2018 Class: Print RX Route: ORAL Sig: Take 1-2 tablets by mouth daily at bedtime. Ok to take 1 tablet during day as needed for restless legs as well. Disc: Reason for discontinue is not on file. cholecalciferol, Vitamin D3, (VITAMI* 12 c* 0 04/01/2018 10/20/2018 Route: ORAL Sig: Take 1 capsule by mouth once each week. Disc: Reason for discontinue is not on file. benzonatate (TESSALON PERLES) 100 mg* 30 c* 0 04/20/2018 10/20/2018 Route: ORAL Sig: Take 2 capsules by mouth three times daily as needed. Disc: Reason for discontinue is not on file. Encounter Status:Closed by VERNA IBRAHIM CNP on 10/20/18 CBC AND DIFFERENTIAL Collected: 10/18/2018 Status: F Source: [place] 10:44 AM [facility] TYPE CODE TESTS RESULT OUT OF REFERENCE UNITS RANGE LAB WBC 3.70-11.00 k/uL WBC High 13.01 LAB RBC 3.90-5.20 m/uL RBC 4.67 LAB HGB 11.5-15.5 g/dL Hemoglobin 15.2 LAB HCT 36.0-46.0 % High Hematocrit 50.6 LAB MCV 80.0-100.0 fL MCV High 108.4 LAB MCH 26.0-34.0 pG MCH 32.5 LAB MCHC 30.5-36.0 g/dL Low MCHC 30.0 LAB RDWCV 11.5-15.0 % RDW-CV High 15.9 LAB PLTCT 150-400 k/uL Platelet Count 308 LAB MPV 9.0-12.7 fL MPV 11.1 LAB ANEUT % Neut% 81.4 LAB AANEUT 1.45-7.50 k/uL Abs Neut High 10.59 LAB ALYMP % Lymph% 12.9 LAB AALYMP 1.00-4.00 k/uL Abs Lymph 1.68 LAB AMONO % Denali% 4.4 LAB AAMONO <0.87 k/uL Abs Denali 0.57 LAB AEOS % Eosin% 1.0 LAB AAEOS <0.46 k/uL Abs Eosin 0.13 LAB ABASO % Baso% 0.3 LAB AABASO <0.11 k/uL Abs Baso 0.04 LAB AUNRBC 0 /100 WBC NRBCs 0.0 LAB ABNRBC <0.01 k/uL Absolute nRBC <0.01 LAB DTYP DTYPE Auto Diff Performed By: #### CBCDIF, CMP, HBA1C #### [facility] [address] [place], [place] [address] COMP METABOLIC PANEL Collected: 10/18/2018 Status: F Source: [place] 10:44 AM [facility] REPOSITORY TYPE CODE TESTS RESULT OUT OF REFERENCE UNITS RANGE LAB TP 6.3-8.0 g/dL Protein, Total 7.4 LAB ALB 3.9-4.9 g/dL Albumin 4.1 LAB CA 8.5-10.2 mg/dL Calcium, Total 9.4 LAB TBIL 0.2-1.3 mg/dL Bilirubin, Total 0.6 LAB ALKP 34-123 U/L Alkaline Phosphatase 80 LAB AST 13-35 U/L AST 34 LAB GLU 74-99 mg/dL Glucose High 122 Result Comment: The [place] [employer] Association (ADA) provides guidance for cutoff values for fasting glucose and random glucose. The ADA defines fasting as no caloric intake for at least 8 hours. Fas ting plasma glucose results between 100 to 125 mg/dL indicate increased risk for diabetes (prediabetes). Fasting plasma glucose results greater than or equal to 126 mg/dL meet the criteria for diagnosis of diabetes. In the absence of unequivocal hyperglycemia, results should be confirmed by repeat testing. In a patient with classic symptoms of hyperglycemia or hyperglycemic crisis, random plasma glucose results greater than or equal to 200 mg/dL meet the criteria for diagnosis of diabetes. Reference: Standards of Medical Care in Diabetes 2016, [place] [employer] Association. Diabetes Care. 2016.39(Suppl 1). LAB BUN 7-21 mg/dL BUN High 29 LAB CRET 0.58-0.96 mg/dL Creatinine High 1.08 LAB NA 136-144 mmol/L Sodium 139 LAB K 3.7-5.1 mmol/L Potassium 4.9 LAB CL 97-105 mmol/L Low Chloride 95 LAB CO2 22-30 mmol/L CO2 28 LAB AGAP 9-18 mmol/L Anion Gap 16 LAB ALT 7-38 U/L ALT 31 LAB GFRAA eGFR- Amer. 60 LAB GFRNAA . eGFR-All Other Races 49 Result Comment: eGFR (Estimated GFR) Units of measure: mL/min/1.73 meters squared eGFR is derived from the reexpressed MDRD Study equation using the following parameters: serum creatinine, age, gender and race. The creatinine assay has been calibrated to be traceable to IDMS. An eGFR <60 mL/min/1.73m2 for >3 months is consistent with chronic kidney disease. Refer to KDOQI guidelines for clinical interpretation. In patients with unstable renal function, e.g. those with acute kidney injury, the eGFR may not accurately reflect actual GFR. Performed By: #### CBCDIF, CMP, HBA1C #### [facility] [address] [place], [place] [address] HEMOGLOBIN A1C Collected: 10/18/2018 Status: F Source: [place] 10:44 AM [facility] REPOSITORY TYPE CODE TESTS RESULT OUT OF REFERENCE UNITS RANGE LAB HGBA1C 4.3-5.6 % High Hemoglobin A1c 6.4 Result Comment: [place] Diabetes Association guidelines indicate that patients with HgbA1c in the range 5.7-6.4% are at increased risk for development of diabetes, and intervention by lifestyle modification may be beneficial. HgbA1c greater or equal to 6.5% is considered diagnostic of diabetes. LAB HBA0 mg/dL Est. Average Glucose 137 Result Comment: eAG: (Estimated average glucose) is a calculated value from HgbA1c and is sales representative publications of the average blood glucose level in the last 2-3 month period. Performed By: #### CBCDIF, CMP, HBA1C #### [facility] [address] [place], [place] [address] MAGNESIUM Collected: 10/18/2018 Status: F Source: [place] 10:44 AM [facility] REPOSITORY TYPE CODE TESTS RESULT OUT OF REFERENCE UNITS RANGE LAB MG 1.7-2.3 mg/dL Magnesium 2.0 Performed By: #### MG1 #### [facility] [address] [place], [place] [address] DISCHARGE SUMMARY Observed: 10/07/2018 Status: F Source: [place] 3:28 PM [facility] REPOSITORY [facility] Medical Records Department [address] [place] [address] Discharge Summary 10/07/18 1029 MR#: [id number] Acct: [id number] Name: TAZ ZAVALETA Rep #: [id number] : 1945 73 From: Jacque Hogan MD PCP: Aleksandar Putnam DO Status: DIS IN Y Location: [facility] [id number] Discharge Date and Diagnosis Date of Admission: 10/05/18 Date of Discharge: 10/07/18 - Primary Discharge Diagnosis Active and Suspected Problems (Last Reviewed 10/05/18 @ 22:11 by Ronen Donovan MD) Acute hypoxic respiratory failure Acute on chronic diastolic CHF A. fib with RVR COPD exacerbation Prediabetes Nicotine dependence - Secondary Discharge Diagnosis Chronic Problems (Last Reviewed 10/05/18 @ 22:11 by Ronen Donovan MD) COPD (chronic obstructive pulmonary disease) (Chronic) Aneurysm of infrarenal abdominal aorta (Chronic) Presence of stent in coronary artery (Chronic) PTCA/GAIL to LCX 06/19/[address] [facility] Chronic atrial fibrillation (Chronic) Secondary pulmonary arterial hypertension (Chronic) Nicotine dependence (Chronic) Atherosclerosis of coronary artery of [place] without angina pectoris (Chronic) PTCA/GAIL to LCX 06/19/[address] [facility] Hypertension (Chronic) Dyslipidemia (Chronic) LEAH not on CPAP Hospital Course and Treatment Imaging Results: Clinical Impression(s) from Imaging Studies Chest X-Ray 10/05/18 19:15 IMPRESSION: COPD with superimposed congestive failure with possible tiny pleural effusions Electronically Signed: eLe Villegas MD at 20:11 EST , Service support , None Operations: None Procedures: None Summary of Care Provided: The patient is a 73 year old F with past medical history of COPD, not on home oxygen, chronic diastolic CHF, comes in with complaints of shortness of breath worse when she goes out during the winter. Patient was admitted to a telemetry bed, managed as acute hypoxic respiratory failure secondary to acute on chronic diastolic CHF and COPD exacerbation. She improved on IV Lasix, and prednisone taper. Patient on admission had gone into A. fib with RVR, she received a loading dose of Cardizem and was started on Cardizem drip. This was switched off briefly. Patient was continued on her atenolol and Cardizem oral. Her INR remained therapeutic on Coumadin. Patient was discharged on a prednisone taper. She needs to follow-up with pulmonology in the outpatient for pulmonary function testing and LEAH evaluation. She did not qualify for oxygen on discharge. She was off oxygen. She will follow-up with the primary care doctor in 3 days. Subjective: The day of discharge, patient felt better. Off oxygen. Ambulates in the room with no worsening shortness of breath. Denies any dizziness or fever or chills. Has occasional cough. Objective: Physical exam: General: Alert, Oriented x3, Cooperative, No apparent distress, off oxygen HEENT: Atraumatic, PERRLA, EOMI, Normocephalic Oral: Moist Mucosa Neck: Supple, No JVD, Negative Carotid Bruits Lungs: Normal air movement, Diminished, Rales - Few rales at the lung bases Cardiovascular: Regular rate, Regular Rhythm, Normal S1, Normal S2, No murmurs Abdomen: Bowel Sounds Present, Soft, Non Tender, Non-Distended, No Hepato-splenomegaly Extremities: No edema Skin: No rashes, No breakdown Musculoskeletal: No Tenderness to Palpation of Joints or Extremities Lymphatic: No Cervical, Supraclavicular, or Inguinal Adenopathy Neurological: Cranial nerves II-XII grossly intact, Neuro grossly intact Psych/Mental Status: Normal Affect, Appropriate - Physical Exam Vital Signs Temp Pulse Resp BP Pulse Ox 97.8 F 69 16 113/61 98 10/07/18 03:30 10/07/18 07:25 10/07/18 06:26 10/07/18 03:30 10/07/18 06:26 Oxygen Flow Rate (L/min) [ 2 AMBULATION with Oxygen] Oxygen Flow Rate (L/min) 2 Oxygen Delivery Method Nasal Cannula Weight: 81.6 kg Body Mass Index (BMI) 30.2 Intake and Output for Last 24 Hours Intake Total 1265 / 1265 Balance 1265 / 1265 Microbiology Past 72 Hours 10/05/18 22:50 Respiratory Panel (PCR) - Final Mucosa - Nose 10/05/18 19:25 Influenza Types A,B Direct FA (PORTER) - Final Mucosa - Nasopharyngeal Laboratory Tests Past 24 Hrs WBC 19.4 H RBC 3.55 L Hgb 11.4 L Hct 37.3 MCV 105.1 H MCH 32.1 H MCHC 30.6 L RDW 15.5 H RDW Differential 58.5 H POC Glucose POC Glucose 151 H 168 H 150 H POC Glucose 142 H Discharge Diet: Low fat/ Low Cholesterol, 8 Cup Fluid Restriciton, 2000 mg Sodium Diet Discharge Activity: Return to Normal Activity Home Medications: Medications to take at Discharge Atorvastatin Calcium [Lipitor] 40 mg PO QHS 04/15/15 Paroxetine HCl [Paxil] 40 mg PO DAILY 04/15/15 Warfarin [Coumadin] 6 mg PO MOWE 04/15/15 Atenolol [Tenormin (beta cruz)] 50 mg PO BID #120 tab 04/17/15 Spironolactone [Aldactone] 25 mg PO DAILY #30 tab 09/30/15 Pramipexole Di-HCl [Mirapex] 1 mg PO TID PRN PRN 01/06/18 Diltiazem CD [Cardizem CD] 180 mg PO BID #60 cap 01/08/18 levothyroxine 100 mcg tablet 100 mcg PO DAILY tab 02/17/18 warfarin 3 mg tablet 3 mg PO SUTUTHFRSA 02/17/18 Albuterol Inhaler [Ventolin Hfa] 1 puff INHALATION Q4H PRN PRN #1 inhaler 10/07/18 Furosemide [Lasix] 20 mg PO BID@1000,1800 #60 tablet 10/07/18 Guaifenesin [Mucinex] 1,200 mg PO BID #10 tablet 10/07/18 Prednisone 10 mg PO UD #30 tab 10/07/18 Following Prescrptions Were Given to Patient: Albuterol Inhaler [Ventolin Hfa] 1 puff INHALATION Q4H PRN PRN #1 inhaler PRN Reason: Sob AND /Or Wheezing Furosemide [Lasix] 20 mg PO BID@1000,1800 #60 tablet Prednisone 10 mg PO UD #30 tab Guaifenesin [Mucinex] 1,200 mg PO BID #10 tablet Primary Care Physician: Aleksandar Wiley DO [Primary Care Provider] - Please follow up with your Primary Care Physician in: within 1-2 weeks as scheduled Please Follow Up With: Ventura Cid MD When: within 2 weeks Disposition: Home Minutes spent on discharge:: 40 Patient Condition:: Stable Medical Necessity - Tobacco Use Smoking Status: Current every day smoker Tobacco Use: Cigarettes Meaningful Use Info Meaningful Use Diagnoses (Choose all that apply): CHF - CHF CLINT/ARB ordered at discharge?: No Reason CLINT/ARB not ordered?: Drug Interaction - No indication fvor ARB Documented LVEF (%): 65 10/07/18 1528 <Electronically signed by Jacque Hogan MD> Date Jacque Hogan MD Cosigner Signature (if applicable): Date CC: Jacque Hogan MD; Aleksandar Putnam DO Signed 12 LEAD ELECTROCARDIOGRAM Observed: 10/07/2018 Status: F Source: [place] 2:31 PM [facility] REPOSITORY [facility] Cardiovascular Services [address] [place] [address] 12 Lead EKG 10/05/18 1907 MR#: [id number] Acct: [id number] Name: TAZ ZAVALETA Rep #: [id number] : 1945 73 From: Eladio Owen MD Attending Dr: Jacque Hogan MD Status: DIS IN Ordering Dr: Nasir Villa MD Date: 10/05/18 Location: [facility] Sex: F C Admitted: 10/05/18 Test Reason : SOB Blood Pressure : / mmHG Vent. Rate : 124 BPM Atrial Rate : 107 BPM P-R Int : 000 ms QRS Dur : 082 ms QT Int : 320 ms P-R-T Axes : 000 069 090 degrees QTc Int : 459 ms Atrial fibrillation with rapid ventricular response Nonspecific ST and T wave abnormality Abnormal ECG Confirmed by THEE LUNA, ELADIO ([id number]), assignment editor AMY ALVAREZ ([id number]) on 10/07/2018 2:30:31 PM Referred By: ELIEZER Confirmed By:ELADIO OWEN MD 10/07/18 1430 Date Eladio Owen MD CC: Jacque Hogan MD; Aleksandar Putnam DO; Nasir Villa MD Signed PROTHROMBIN TIME W/INR Collected: 10/07/2018 Status: F Source: [place] 10:41 AM [facility] REPOSITORY TYPE CODE TESTS RESULT OUT OF RANGE REFERENCE UNITS LAB L300.4150 11.7-14.9 SECONDS High PROTIME 34.4 LAB L300.4200 Normal INR 3.4 Performed By: #### L300.3900 #### [facility] [address] [place], [address] DISCHARGE INSTRUCTION Observed: 10/07/2018 Status: F Source: [place] 10:29 AM [facility] REPOSITORY [facility] Medical Records Department [address] [place] [address] Instructions for Home/Discharge Instructions 10/07/18 1017 MR#: [id number] Acct: [id number] Name: TAZ ZAVALETA Rep #: [id number] : 1945 73 From: Jacque Hogan MD PCP: Aleksandar Putnam DO Status: ADM IN - Discharge Diagnoses Current Active Problems: Current Active and Chronic Problems (Last Reviewed 10/05/18 @ 22:11 by Ronen Donovan MD) Heart failure (Acute) COPD (chronic obstructive pulmonary disease) (Chronic) Reason(s) for Visit for Discharge Instructions: Shortness of breath You will use the following diet at home:: Cardiac Your food should be the consistency of: Regular Your liquids should be the consistency of: Regular/Thin Discharge Activity: Return to Normal Activity Additional Instructions: Complete your steroid taper. You have been prescribed Lasix. Continue to follow a low salt diet, weigh yourself everyday, restrict fluyids to 1.5L daily. Call your doctor if you gain more than 4 pounds within a couple of days. You should discuss with your doctor about whether you should reduce the dose of lasix. You will need a repeat blood work when you see your doctor in 3 days as scheduled. Use the inhaler as need for shortness of breath. You are strongly advised to quit smoking. You should follow your doctor for INR draws as scheduled. You will need to follow-up with the lung doctors in 2 weeks. Allergies/Adverse Reactions: Allergies CLINT Inhibitors Allergy (Verified 10/05/18 19:00) Unknown acyclovir [From Zovirax] Allergy (Verified 10/05/18 19:00) Unknown amoxicillin trihydrate [From Augmentin] Allergy (Verified 10/05/18 19:00) Unknown codeine Allergy (Verified 10/05/18 19:00) Unknown potassium clavulanate [From Augmentin] Allergy (Verified 10/05/18 19:00) Unknown Medications to take at Discharge Atorvastatin Calcium [Lipitor] 40 mg PO QHS 04/15/15 Paroxetine HCl [Paxil] 40 mg PO DAILY 04/15/15 Warfarin [Coumadin] 6 mg PO MOWE 04/15/15 Atenolol [Tenormin (beta cruz)] 50 mg PO BID #120 tab 04/17/15 Spironolactone [Aldactone] 25 mg PO DAILY #30 tab 09/30/15 Pramipexole Di-HCl [Mirapex] 1 mg PO TID PRN PRN 01/06/18 Diltiazem CD [Cardizem CD] 180 mg PO BID #60 cap 01/08/18 levothyroxine 100 mcg tablet 100 mcg PO DAILY tab 02/17/18 warfarin 3 mg tablet 3 mg PO SUTUTHFRSA 02/17/18 Albuterol Inhaler [Ventolin Hfa] 1 puff INHALATION Q4H PRN PRN #1 inhaler 10/07/18 Furosemide [Lasix] 20 mg PO BID@1000,1800 #60 tablet 10/07/18 Guaifenesin [Mucinex] 1,200 mg PO BID #10 tablet 10/07/18 Prednisone 10 mg PO UD #30 tablet 10/07/18 The following prescriptions were given: Albuterol Inhaler [Ventolin Hfa] 1 puff INHALATION Q4H PRN PRN #1 inhaler PRN Reason: Sob AND /Or Wheezing Furosemide [Lasix] 20 mg PO BID@1000,1800 #60 tablet Prednisone 10 mg PO UD #30 tablet Guaifenesin [Mucinex] 1,200 mg PO BID #10 tablet Primary Care Physician: Aleksandar Wiley DO [Primary Care Provider] - Please follow up with your Primary Care Physician in: within 1-2 weeks as scheduled Test Results: Test results from this visit will be discussed in further detail at your follow-up appointment, if applicable. Please Follow Up With: Ventura Cid MD When: within 2 weeks Proposed Discharge Date: 10/07/18 10/07/18 1029 <Electronically signed by Jacque Hogan MD> Date Jacque Hogan MD CC: Aleksandar Putnam DO BEDSIDE GLUCOSE Collected: 10/07/2018 Status: F Source: SARA 6:50 AM [facility] REPOSITORY TYPE CODE TESTS RESULT OUT OF REFERENCE UNITS RANGE LAB L501.080 70-110 mg/dL High BEDSIDE GLU 151 Result Comment: MANAGEMENT OF PATIENT CARE PER NURSING PROTOCOL Performed By: #### L501.080 #### [facility] Point of Care [address] [place] [address] CBC W/DIFF, AUTOMATED Collected: 10/07/2018 Status: F Source: SARA 5:30 AM [facility] REPOSITORY TYPE CODE TESTS RESULT OUT OF RANGE REFERENCE UNITS LAB L100.1000 4.4-11.0 K/mm3 High WBC 19.4 LAB L100.1200 4.2-5.4 M/mm3 Low RBC 3.55 LAB L100.1300 12.0-15.0 g/dl Low HGB 11.4 LAB L100.1400 37-47 % Normal HCT 37.3 LAB L100.1500 81-99 fL High MCV 105.1 LAB L100.1600 27.0-32.0 pg High MCH 32.1 LAB L100.1700 32-36 g/gl Low MCHC 30.6 LAB L100.1810 11.6-14.6 % High RDW CV 15.5 LAB L100.1820 35.1-43.9 fl High RDW SD 58.5 LAB L100.1900 150-450 K/mm3 Normal PLT 277 LAB L100.2000 6.2-12.0 fl Normal MPV 11.0 LAB L100.2100 47-70 % High NEUT% 92.8 LAB L100.2200 19-41 % Low LY% 3.6 LAB L100.2300 0-10 % Normal MONO% 3.4 LAB L100.2400 0-5 % Normal EO% 0.0 LAB L100.2500 0-1 % Normal BASO% 0.0 LAB L100.2550 0.0-0.9 % Normal IM GRAN % 0.200 Result Comment: IG% - Immature Granulocytes (promyelocytes, myelocytes and metamyelocytes) > 1% indicates that a LEFT SHIFT is Present. LAB L100.2620 2.0-7.7 X10 3/uL High Absolute Neut 18.0 LAB L100.2720 0.83-4.51 X10 3/ul Low Absolute Lymph 0.69 Performed By: #### L100.0100 #### [facility] [address] [place], [address] BASIC METABOLIC Collected: 10/07/2018 Status: F Source: SARA PROFILE (BMP) 5:30 AM [facility] REPOSITORY TYPE CODE TESTS RESULT OUT OF RANGE REFERENCE UNITS LAB L501.0100 74-106 mg/dL High GLU 141 Result Comment: Fasting Glucose result greater than or equal to 126 mg/dL suggests DIABETES MELLITUS per A.D.A. criteria. Please note revised GLUCOSE reference range effective 2017. LAB L501.1000 7-18 mg/dL High BUN 35 LAB L501.1100 0.55-1.02 mg/dL High CREAT,SERUM 1.06 Result Comment: The validity of the calculated GFR AND GFRAA in patients over 70 years has not been determined. Clinical correlation is essential. LAB L501.1110 >60 mL/min Low EST GFR 54 Result Comment: Non- GFR Calc LAB L501.1115 >60 mL/min Normal EST GFR - AA 65 Result Comment: GFR Calc LAB L501.1255 ml/min Normal Estimated CRCL 41.26 LAB L501.1300 10-20 RATIO High BUN/CRE 33.0 LAB L501.2200 8.5-10 mg/dL Normal .1 CA 9.0 LAB L501.5300 136-14 mmol/L Normal 5 NA 142 LAB L501.5600 3.5-5. mmol/L Normal 1 K 4.7 LAB L501.5900 98-107 mmol/L Normal CL 103 LAB L501.6100 21.0-3 mmol/L Normal 2.0 CO2 31.0 LAB L501.6200 5-15 Normal GAP 8 Performed By: #### L500.2500, L501.5200 #### [facility] [address] [place], [place], [address] MAGNESIUM Collected: 10/07/2018 Status: F Source: SARA 5:30 AM [facility] REPOSITORY TYPE CODE TESTS RESULT OUT OF RANGE REFERENCE UNITS LAB L501.5200 1.6-2.6 mg/dL Normal MG 2.2 Performed By: #### L500.2500, L501.5200 #### [facility] [address] [place], [place], [address] BEDSIDE GLUCOSE Collected: 10/06/2018 Status: F Source: SARA 9:23 PM [facility] REPOSITORY TYPE CODE TESTS RESULT OUT OF REFERENCE UNITS RANGE LAB L501.080 70-110 mg/dL High BEDSIDE GLU 168 Result Comment: MANAGEMENT OF PATIENT CARE PER NURSING PROTOCOL Performed By: #### L501.080 #### [facility] Point of Care [address] [place] [address] HISTORY AND PHYSICAL Observed: 10/06/2018 Status: F Source: LACLED[place] EXAM 5:57 PM [facility] REPOSITORY [facility] Medical Records Department [address] [place] [address] History and Physical 10/05/182058 MR#: [id number] Acct: [id number] Name: TAZ ZAVALETA Rep #: [id number] : 1945 73 From: Ronen Donovan MD PCP: Aleksandar Putnam DO Status: ADM IN Location: [place] [address] ADDENDUM by Ronen Donovan MD on 10/06/18 at 1757 Code Visit Hold Aldactone continued should read Home Aldactone continued. 10/06/18 175 <Electronically signed by Ronen Donovan MD> Date Ronen Donovan MD cc: Aleksandar Putnam DO; Ronen Donovan MD * Signed Problem List (1) Atrial fibrillation with RVR Status: Acute (2) Heart failure Status: Acute (3) COPD (chronic obstructive pulmonary disease) Status: Chronic History of Present Illness Date of Admission: 10/05/18 Chief Complaint: shortness of breath The patient is a 73 year old F with a significant history of Pre-diabetes; abdominal aortic aneurysm; hyperlipidemia; hypertension; pulmonary hypertension; PAD; A. fib on home rate control drugs and anticoagulation; CAD status post stent; hypothyroidism; COPD; tobacco abuse; obstructive sleep apnea who presented with 1 month history of worsening shortness of breath. Her shortness of breath is at rest and it increases with exertion. Associated with her symptoms is orthopnea and paroxysmal nocturnal dyspnea. She has tried home nebulizer without any real relief. Associated with her symptoms is dry cough and rhinorrhea. Reportedly she missed some doses of her home Cardizem. At the emergency department patient was found to be severely hypoxic and required supplemental oxygen administration. Past Medical History Past Medical History (Chronic Problems): Chronic Problems (Last Reviewed 10/05/18 @ 22:11 by Ronen Donovan MD) COPD (chronic obstructive pulmonary disease) (Chronic) Aneurysm of infrarenal abdominal aorta (Chronic) Presence of stent in coronary artery (Chronic) PTCA/GAIL to LCX 06/19/13 @ [facility] Chronic atrial fibrillation (Chronic) Secondary pulmonary arterial hypertension (Chronic) Nicotine dependence (Chronic) Atherosclerosis of coronary artery of [place] heart without angina pectoris (Chronic) PTCA/GAIL to LCX 06/19/13 @ [facility] Hypertension (Chronic) Dyslipidemia (Chronic) Medical History: Medical History (Last Reviewed 10/05/18 @ 22:11 by Ronen Donovan MD) Aneurysm of infrarenal abdominal aorta (Chronic) I71.4 Chronic atrial fibrillation (Chronic) I48.2 Secondary pulmonary arterial hypertension (Chronic) I27.21 Nicotine dependence (Chronic) F17.200 Atherosclerosis of coronary artery of [place] heart without angina pectoris (Chronic) I25.10 PTCA/GAIL to LCX 06/19/13 @ [facility] Hypertension (Chronic) I10 Atrial fibrillation with RVR (Acute) Onset Date: 01/2018 I48.91 Dyslipidemia (Chronic) E78.5 Acute coronary syndrome I24.9 COPD (chronic obstructive pulmonary disease) J44.9 GERD (gastroesophageal reflux disease) K21.9 Obstructive sleep apnea G47.33 Peripheral artery disease I73.9 RLS (restless legs syndrome) G25.81 Pneumonia Onset Date: 01/2018 J18.9 Allergies CLINT Inhibitors Allergy (Verified 10/05/18 19:00) Unknown acyclovir [From Zovirax] Allergy (Verified 10/05/18 19:00) Unknown amoxicillin trihydrate [From Augmentin] Allergy (Verified 10/05/18 19:00) Unknown codeine Allergy (Verified 10/05/18 19:00) Unknown potassium clavulanate [From Augmentin] Allergy (Verified 10/05/18 19:00) Unknown Home Medications: Ambulatory Orders Medication Instructions Recorded Atorvastatin Calcium [Lipitor] 40 mg PO QHS 04/15/15 Paroxetine HCl [Paxil] 40 mg PO DAILY 04/15/15 Warfarin [Coumadin] 6 mg PO MOWE 04/15/15 Surgical History: Surgical History (Last Reviewed 10/05/18 @ 22:11 by Ronen Donovan MD) Presence of stent in coronary artery (Chronic) Z95.5 PTCA/GAIL to LCX 06/19/[address] [facility] History of partial thyroidectomy E89.0 History of total hysterectomy Z90.710 Postsurgical percutaneous transluminal coronary angioplasty (PTCA) status Z98.61 PTCA/GAIL to LCX 06/19/[address] 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: No pertinent DIRECT MARKETING COORDINATOR history Lives: With Family Smoking Status: Current every day smoker Tobacco Use: Cigarettes - *Family History Paternal Family History: Family History (Last Reviewed 10/05/18 @ 22:11 by Ronen Donovan MD) Father Cancer Mother Heart disease Sister Hypertension Sister Hypertension History Items: Cancer - Father of dysphagia CA Review of Systems Constitutional: Denies: Chills, Fever, Weight Change HEENT: Denies: Head Aches, Sinus Congestion, Sinus Drainage Cardiovascular: Denies: Chest Pain, Palpitations Respiratory: Reports: Cough, Shortness of Breath, Shortness of breath at rest, Shortness of breath upon exertion. Denies: Sputum production Gastrointestinal: Denies: Abdominal Pain, Nausea, Vomiting Genitourinary: Denies: Dysuria Musculoskeletal: Denies: Joint Pain, Joint Tenderness Skin: Denies: Rash, Wounds Neurological: Denies: Numbness, Tingling, Focal weakness Psychiatric: Reports: Anxiety. Denies: Depression, Homicidal Ideations, Suicidal Ideations Hematologic/ Lymphatic: Denies: Easy Bruising, Easy Bleeding VTE Information - Inpt Only VTE Present on Admission: No VTE Mechan Device Prophylaxis: None VTE Pharm Prophylaxis ordered?: No Reason prophylaxis not ordered:: Treatment Not Indicated - Therapeutic anticoagulated for A. fib. Patient Problems: Active and Suspected Problems (Last Reviewed 10/05/18 @ 22:11 by Ronen Donovan MD) Heart failure (Acute) - Physical Exam General: Alert, Oriented x3, Cooperative HEENT: Atraumatic, PERRLA, EOMI, Normocephalic Neck: Supple, No JVD, Negative Carotid Bruits Lungs: Normal air movement, Rales - left lung base, Tachypneic Cardiovascular: No murmurs, Irregular Rate Abdomen: Bowel Sounds Present, Soft, Non Tender Extremities: No edema, Capillary Refill Less than 3 Seconds Skin: No rashes, No breakdown Musculoskeletal: No Tenderness to Palpation of Joints or Extremities Neurological: Neuro grossly intact Psych/Mental Status: Anxious Vital Signs Temp Pulse Resp BP Pulse Ox 97.9 F 104 H 26 H 141/114 H 93 10/05/18 19:00 10/05/18 20:30 10/05/18 20:30 10/05/18 19:00 10/05/18 20:30 Oxygen Flow Rate (L/min) 4 Oxygen Delivery Method Nasal Cannula Weight: 86.5 kg Body Mass Index (BMI) 37.2 Microbiology Past 72 Hours 10/05/18 19:25 Influenza Types A,B Direct FA (PORTER) - Final Mucosa - Nasopharyngeal Laboratory Tests Past 24 Hrs WBC 9.1 RBC 3.92 L WBC RBC Assessment/Plan All Active Problems (Last Reviewed 10/05/18 @ 22:11 by Ronen Donovan MD) Heart failure (Acute) Atrial fibrillation with RVR (Acute 01/2018) Alcohol withdrawal (Resolved) Bilateral lower lobes atelectasis (Resolved) Hypokalemia (Resolved) Multifocal community-acquired pneumonia (Resolved) The patient is a 73 year old F with a significant history of prediabetes; abdominal aortic aneurysm; hyperlipidemia; hypertension; pulmonary hypertension;PAD; A. fib on home rate control drugs and anticoagulation; CAD status post stent; hypothyroidism; COPD; tobacco abuse; obstructive sleep apnea who presented with 1 month history of worsening shortness of breath and found to be hypoxic have radiographic evidence of pulmonary congestion; and with A. fib with RVR. Acute hypoxemic respiratory failure Patient with respiratory rate as high as 28. On 4 L oxygen saturation was 88%. Chest x-ray personally reviewed is consistent with hyper inflation with diffuse congestion significant for COPD and acute heart failure. Also noted was small blunting of costophrenic angles consistent with radiologist reading. It could be her A. fib that has thrown her into acute heart failure. It is also possible that she has some viral illness that has thrown her into A. fib and heart failure causing pulmonary congestion.. We will check respiratory pathogen panel. Scheduled DuoNeb and as needed. Cautious use of beta agonist because of A. fib with RVR. Mucinex for cough. Flonase for rhinorrhea. Acute heart failure BNP on admission was 319. Her echocardiogram on 01/07/2018 showed estimated ejection fraction of 65%. Her diastolic function was not able to be accessed. She had severely enlarged left atrium; and right atrium. Also she had mild diffuse mitral valve thickening. Moderate mitral annular calcification extending into the posterior leaflet. Also she had mild tricuspid valve insufficiency. Right ventricular systolic pressure was estimated to be 47. She had moderate pulmonary hypertension. She had mild focal aortic valve thickening without any aortic stenosis. We will repeat echocardiogram. Patient received 40 mg IV Lasix at emergency department. IV Lasix continued. Hold Aldactone continued. A TSH and magnesium was ordered. Will trend BMP. Potassium supplementation ordered in view of starting Lasix. Potassium on admission was 3.5. 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 Consider discussing with Cardiology A. fib with RVR. On admission heart rate was in the 133 and telemetry showed A. fib with RVR. Her etiology of her A. fib could be due to missing doses of her rate control medication; heart failure; viral illness or other. Will place on telemetry at the PCU. Patient received Cardizem bolus at emergency department. At emergency department and Cardizem extended release and atenolol was stopped. Since patient is still in A. fib with RVR Cardizem drip started with parameters to maintain heart rate to less than 90 and to hold for systolic blood pressure less than 100. At emergency department her INR was 2.9. Reportedly she takes 6 mg of Coumadin on Wednesday and Wednesday. That day she takes 6 mg of Coumadin. Her last Coumadin dose was a day before her admission where she took 3 mg. Today (10/05/2018) will give 3 mg of Coumadin. Daily INR. Dose Coumadin daily base on INR. COPD Patient is no wheezing. However, rule out COPD exacerbation at this time. Breathing treatment as above. Prediabetes Patient reports borderline diabetes. Blood glucose on admission was 185. We will check A1c. Meanwhile will cover patient with low dose correction scale regimen. Hypothyroidism Synthroid continued TSH ordered in view of A. fib with RVR. CAD with stents No chest pain Patient had a stent placed in 2012. Home Coumadin continued. Restless leg syndrome Mirapex continued Anxiety Paxil continued. Hypertension Blood pressure on admission was fairly within goal. Continue home Aldactone and atenolol. Cardizem drip to control heart rate. Trend blood pressures. Tobacco Abuse Nicoderm patch ordered Inpatient consult smoking cessation. LEAH Returned CPAP/Bipap machine because of mask inconvenience. Encouraged to discuss with PCP on alternate mask DVT Prophylaxis Not indicated in the setting of therapeutic INR for anticoagulation for A. fib. Code Visit Inpatient E AND M: 07755 Init Hosp L3 10/05/189 <Electronically signed by Ronen Donovan MD> Date Ronen Donovan MD Cosigner Signature: Date (if applicable) CC: Aleksandar Putnam DO; Ronen Donovan MD Signed BEDSIDE GLUCOSE Collected: 10/06/2018 Status: F Source: [place] 4:45 PM [facility] REPOSITORY TYPE CODE TESTS RESULT OUT OF REFERENCE UNITS RANGE LAB L501.080 70-110 mg/dL High BEDSIDE GLU 150 Result Comment: MANAGEMENT OF PATIENT CARE PER NURSING PROTOCOL Performed By: #### L501.080 #### [facility] Point of Care [address] [place] [address] ECHOCARDIOGRAM COMPLETE Observed: 10/06/2018 Status: F Source: [place] 12:23 PM [facility] REPOSITORY [facility] Cardiovascular Services [address] [place] [address] Echo Complete 10/06/18 0844 MR#: [id number] Acct: [id number] Name: PORTIA ZAVALETAANNETTE Tolentino Rep #: [id number] : 1945 73 From: Reynold Dempsey MD Attending Dr: Jacque Hogan MD Status: ADM IN Ordering Dr: Ronen Donovan MD Date: 10/05/18 Location: [facility] Sex: F C Admitted: 10/05/18 Reason For Study: AFIB/FLUTTER Procedure This was a 2D Doppler, Color Flow transthoracic echocardiogram. The study was technically difficult. Due to arryhtmia and patient was very restless, unable to lie still. Exam performed portable in patient room. Left Ventricle Normal size and thickness. The estimated ejection fraction is 65 %. No regional wall motion abnormalities noted. Right Ventricle Moderately dilated right ventricle. Normal systolic function. Atria The left atrium is severely enlarged. The right atrium is moderately enlarged. Normal atrial septum. Mitral Valve Mild diffuse mitral valve thickening. Severe mitral annular calcification extending into the posterior leaflet. Tricuspid Valve Normal tricuspid valve. Mild to moderate (1-2+) tricuspid valve insufficiency. Right ventricular systolic pressure estimated to be 54 mmHg. Moderate pulmonary hypertension. Aortic Valve Trisinus/trileaflet aortic valve. Mild diffuse aortic valve thickening. Moderate focal thickening of left coronary cusp. Pulmonic Valve The pulmonic valve is not well visualized. Great Vessels Normal aortic root. Normal arch. The inferior vena cava is dilated. Inferior vena cava collapse with sniff. Pericardium/Pleural No pericardial effusion. MMode/2D Measurements AND Calculations LVIDd: 4.0 cm IVSd: 0.90 cm Ao root diam: 2.5 cm LVIDs: 2.5 cm LVPWd: 0.93 cm RVDd: 3.9 cm FS: 38.3 % LAV(MOD-bp): 102.8 ml LA A4 area: 28.7 cm2 LA dimension(2D): 4.0 cm LAV(MOD-bp) Indexed: 56.3 ml/m2 LAV(MOD-sp2): 103.6 ml LAV(MOD-sp4): 101.9 ml RA A4 area: 22.1 cm2 Doppler Measurements AND Calculations MV E max hermelindo: 124.3 cm/sec Ao V2 max: 149.7 cm/sec LV V1 max: 102.7 cm/sec Ao max P.0 mmHg LV V1 max P.2 mmHg PA V2 max: 93.4 cm/sec TR max hermelindo: 310.3 cm/sec TR max P.9 mmHg Interpretation Summary The estimated ejection fraction is 65 %. Moderately dilated right ventricle. The left atrium is severely enlarged. The right atrium is moderately enlarged. Mild to moderate (1-2+) tricuspid valve insufficiency. Right ventricular systolic pressure estimated to be 54 mmHg. Moderate pulmonary hypertension. Moderate focal thickening of left coronary cusp. Compared to echo report dated 01/07/2018, no appreciable changes noted. Pt appears to be in atrial fibrillation. Ordering Physician: Ronen Donovan Referring Physician: Aleksandar Putnam Performed By: Joceline Gan, EIDS, RVT 10/06/18 1223 Date Reynold Dempsey MD CC: Jacque Hogan MD; Aleksandar Putnam DO; Ronen Donovan MD Date Dictated: 10/06/18 0844 Date Transcribed: 10/06/18 1223 [place] Pilot: Signed BEDSIDE GLUCOSE Collected: 10/06/2018 Status: F Source: SARA 11:54 AM [facility] REPOSITORY TYPE CODE TESTS RESULT OUT OF REFERENCE UNITS RANGE LAB L501.080 70-110 mg/dL High BEDSIDE GLU 142 Result Comment: MANAGEMENT OF PATIENT CARE PER NURSING PROTOCOL Performed By: #### L501.080 #### [facility] Point of Care [address] [place], [place] [address] BEDSIDE GLUCOSE Collected: 10/06/2018 Status: F Source: SARA 6:48 AM [facility] REPOSITORY TYPE CODE TESTS RESULT OUT OF REFERENCE UNITS RANGE LAB L501.080 70-110 mg/dL High BEDSIDE GLU 191 Result Comment: MANAGEMENT OF PATIENT CARE PER NURSING PROTOCOL Performed By: #### L501.080 #### [facility] Point of Care [address] [place] [address] BASIC METABOLIC Collected: 10/06/2018 Status: F Source: SARA PROFILE (BMP) 5:40 AM [facility] REPOSITORY TYPE CODE TESTS RESULT OUT OF RANGE REFERENCE UNITS LAB L501.0100 74-106 mg/dL High GLU 197 Result Comment: Fasting Glucose result greater than or equal to 126 mg/dL suggests DIABETES MELLITUS per A.D.A. criteria. Please note revised GLUCOSE reference range effective 2017. LAB L501.1000 7-18 mg/dL High BUN 23 LAB L501.1100 0.55-1.02 mg/dL Normal CREAT,SERUM 0.99 Result Comment: The validity of the calculated GFR AND GFRAA in patients over 70 years has not been determined. Clinical correlation is essential. LAB L501.1110 >60 mL/min Low EST GFR 58 Result Comment: Non- GFR Calc LAB L501.1115 >60 mL/min Normal EST GFR - AA 70 Result Comment: GFR Calc LAB L501.1255 ml/min Normal Estimated CRCL 44.18 LAB L501.1300 10-20 RATIO High BUN/CRE 23.2 LAB L501.2200 8.5-10 mg/dL Low .1 CA 8.3 LAB L501.5300 136-14 mmol/L Normal 5 NA 143 LAB L501.5600 3.5-5. mmol/L Normal 1 K 4.1 LAB L501.5900 98-107 mmol/L High CL 108 LAB L501.6100 21.0-3 mmol/L Normal 2.0 CO2 27.0 LAB L501.6200 5-15 Normal GAP 8 Performed By: #### L500.2500 #### [facility] [address] [place], [address] PROTHROMBIN TIME W/INR Collected: 10/06/2018 Status: F Source: [place] 5:40 AM [facility] REPOSITORY TYPE CODE TESTS RESULT OUT OF RANGE REFERENCE UNITS LAB L300.4150 11.7-14.9 SECONDS High PROTIME 32.3 LAB L300.4200 Normal INR 3.1 Performed By: #### L300.3900 #### [facility] [address] [place], [address] HEMOGLOBIN A1C Collected: 10/06/2018 Status: F Source: [place] 5:40 AM [facility] REPOSITORY Order Comment: SPOKE TO NURSE ZHANNA PIÑA TO ADD ON TO MORNING LABS. CAN NOT BE ADDED ON TO SPECIMEN IN LAB. TYPE CODE TESTS RESULT OUT OF RANGE REFERENCE UNITS LAB L501.9985 4.2-6.3 % High HGB A1C 6.5 Performed By: #### L501.9985 #### [facility] [address] [place], [address] EMERGENCY DEPARTMENT Observed: 10/05/2018 Status: F Source: [place]LED[place] SUMMARY 11:11 PM [facility] REPOSITORY [facility] Medical Records Department [address] [place] [address] Emergency Department Summary 10/05/18 191 MR#: [id number] Acct: [id number] Name: TZA ZAVALETA Rajan Rep #: [id number] : 1945 73 From: Nasir Villa MD PCP: Aleksandar Putnam DO Status: ADM IN - ER Visit Summary Date of Service: 10/05/18 Chief Complaint: Shortness of breath History of Present Illness: The patient is a [address] Brennan and Dr. Wiley. She reports that she has shortness of breath began approximately 1 hour ago. It was severe at worst and mild currently. Is worsened by exertion. It is unchanged by lying flat or coughing. Seems to be improved by the oxygen she was placed on by squad. She reports that she has a nebulizer, but has not used it lately. Patient reports has had a nonproductive cough for the past 2 weeks. No fever or chills. No chest pain. She reports that she is nauseated. She denies abdominal pain, vomiting, or diarrhea. Patient does have a history of obstructive sleep apnea. She reports that she does not like CPAP and returned her machine. She is not on home O2. She is on Coumadin for atrial fibrillation. She reports that she has not taken her evening medications including Cardizem CD or atenolol. Physical Examination: Vitals: 97.9, 141/114, 133, 30, 88% on room air which is hypoxic. General: Well-nourished and well-developed. Head: Normocephalic atraumatic. Neck: Supple, no lymphadenopathy. No JVD. Nontender. Cardiovascular: Tachycardic irregular rhythm. No murmurs. Respiratory: Mild respiratory distress. Fine crackles throughout the entire left lung and at the right base. Greatly decreased air movement.. Abdominal: Soft, nontender, nondistended, normal bowel sounds. No guarding, rebound, or peritoneal signs. Back: Nontender. Extremities: Nontender, 1+ pitting edema over lower extremities bilaterally. Skin: Normal color, no rash. Neurologic: Alert and oriented 3. Cranial nerves II through XII are intact. Normal strength and sensation. Psych: Normal affect. Test Results: EKG is atrial fibrillation rate [address] changes. There is no significant change since February of this year. CBC is remarkable for segmented neutrophils 77 lymphocytes 17. Chem-7 is more for BUN 22 and glucose 185. INR is 2.9. Lactic acid is 1.9. Troponin 0 0.023. BTNP is 319.0. Chest x-ray shows COPD with superimposed congestive heart failure with possible tiny pleural effusions. Emergency Department Course and Treatment: Patient was given albuterol Atrovent aerosols. She was given a dose of Solu-Medrol IV. She was given Cardizem IV. She was given her evening dose of Cardizem CD and atenolol p.o. She was given 40 mg of Lasix IV. She feels much improved and is resting comfortably. Treatment Plan: The patient was discussed with Dr. Donovan. She will be admitted to the hospital for further evaluation and treatment. Disposition: Admitted in improved condition. Impression: 1. Atrial fibrillation with RVR. 2. Coumadin coagulopathy. 3. Hypoxia. 4. CHF. 5. COPD. 6. Critical care time 30 minutes. This note was generated with Idibonation software. It may contain incorrect words, spelling, and punctuation that were not noted in review of the chart prior to signing ED Disposition - Plan for ED Patient: Chief Complaint: Shortness of Breath Referrals: Aleksandar Wiley DO [Primary Care Provider] - What to do if you have Problems For any increased pain, shortness of breath, bleeding, nausea or vomiting, chest pain, or any unexpected problems, contact your Primary Care Provider. Call [facility] ([phone]) or report to the closest Emergency Room. Call 911 if necessary. 10/05/18 2311 <Electronically signed by Nasir Villa MD> Date Nasir Villa MD Cosigner Signature (If Indicated): Date CC: Aleksandar Putnam DO BEDSIDE GLUCOSE Collected: 10/05/2018 Status: F Source: SARA 11:01 PM [facility] REPOSITORY TYPE CODE TESTS RESULT OUT OF REFERENCE UNITS RANGE LAB L501.080 70-110 mg/dL High BEDSIDE GLU 141 Result Comment: MANAGEMENT OF PATIENT CARE PER NURSING PROTOCOL Performed By: #### L501.080 #### [facility] Point of Care [address] [place] [address] Observed: 10/05/2018 Status: F Source: SARA RESPIRATORY PANEL 10:50 PM [facility] MOLECULAR REPOSITORY Comments: collected by RT Geovanna RP PANEL ADENOVIRUS Not Detected HUMAN METAPHNEUMO Not Detected INFLUENZA A Not Detected INFLUENZA A (SUBTYPE H1) Not Detected INFLUENZA A (SUBTYPE H3) Not Detected INFLUENZA B Not Detected PARAINFLUENZA 1 Not Detected PARAINFLUENZA 2 Not Detected PARAINFLUENZA 3 Not Detected PARAINFLUENZA 4 Not Detected RHINOVIRUS Not Detected RSV A Not Detected RSV B Not Detected NAAT METHOD Testing was performed using nucleic acid amplification Performed By: #### M100.638 #### [facility] [address] [place], [place], [address] Observed: 10/05/2018 Status: F Source: [place] INFLUENZA A+B (RAPID 7:25 PM [facility] OSCAR) REPOSITORY FLU A/B Rapid Negative test results should be confirmed by culture. Order Rapid Viral Culture for Influenzae A+B ([id number]) if clinically indicated. Influenza Ag, Direct Presumptive NEGATIVE for Influenza A/B Antigen (See Note) Performed By: #### M101.0101 #### [facility] [facility] [address] [place], [place], [address] Observed: 10/05/2018 Status: F Source: [place] CULTURE, BLOOD (WB) 7:23 PM [facility] REPOSITORY BC No growth in 5 days. Performed By: #### M200.1000 #### [facility] [address] [place], [place], [address] CBC W/DIFF, AUTOMATED Collected: 10/05/2018 Status: F Source: [place] 7:12 PM [facility] REPOSITORY TYPE CODE TESTS RESULT OUT OF RANGE REFERENCE UNITS LAB L100.1000 4.4-11.0 K/mm3 Normal WBC 9.1 LAB L100.1200 4.2-5.4 M/mm3 Low RBC 3.92 LAB L100.1300 12.0-15.0 g/dl Normal HGB 12.7 LAB L100.1400 37-47 % Normal HCT 40.7 LAB L100.1500 81-99 fL High MCV 103.8 LAB L100.1600 27.0-32.0 pg High MCH 32.4 LAB L100.1700 32-36 g/gl Low MCHC 31.2 LAB L100.1810 11.6-14.6 % High RDW CV 15.7 LAB L100.1820 35.1-43.9 fl High RDW SD 59.0 LAB L100.1900 150-450 K/mm3 Normal PLT 299 LAB L100.2000 6.2-12.0 fl Normal MPV 10.0 LAB L100.2100 47-70 % High NEUT% 76.6 LAB L100.2200 19-41 % Low LY% 16.7 LAB L100.2300 0-10 % Normal MONO% 5.3 LAB L100.2400 0-5 % Normal EO% 0.9 LAB L100.2500 0-1 % Normal BASO% 0.4 LAB L100.2550 0.0-0.9 % Normal IM GRAN % 0.100 Result Comment: IG% - Immature Granulocytes (promyelocytes, myelocytes and metamyelocytes) > 1% indicates that a LEFT SHIFT is Present. LAB L100.2620 2.0-7.7 X10 3/uL Normal Absolute Neut 7.0 LAB L100.2720 0.83-4.51 X10 3/ul Normal Absolute Lymph 1.52 Performed By: #### L100.0100 #### [facility] [address] [place], [place], [address] BASIC METABOLIC Collected: 10/05/2018 Status: F Source: [place] PROFILE (BMP) 7:12 PM [facility] REPOSITORY TYPE CODE TESTS RESULT OUT OF RANGE REFERENCE UNITS LAB L501.0100 74-106 mg/dL High GLU 185 Result Comment: Fasting Glucose result greater than or equal to 126 mg/dL suggests DIABETES MELLITUS per A.D.A. criteria. Please note revised GLUCOSE reference range effective 2017. LAB L501.1000 7-18 mg/dL High BUN 22 LAB L501.1100 0.55-1.02 mg/dL Normal CREAT,SERUM 0.83 Result Comment: The validity of the calculated GFR AND GFRAA in patients over 70 years has not been determined. Clinical correlation is essential. LAB L501.1110 >60 mL/min Normal EST GFR 71 Result Comment: Non- GFR Calc LAB L501.1115 >60 mL/min Normal EST GFR - AA 86 Result Comment: GFR Calc LAB L501.1255 ml/min Normal Estimated CRCL 42.07 LAB L501.1300 10-20 RATIO High BUN/CRE 26.4 LAB L501.2200 8.5-10 mg/dL Normal .1 CA 8.7 LAB L501.5300 136-14 mmol/L Normal 5 NA 142 LAB L501.5600 3.5-5. mmol/L Normal 1 K 3.5 LAB L501.5900 98-107 mmol/L Normal CL 106 LAB L501.6100 21.0-3 mmol/L Normal 2.0 CO2 29.0 LAB L501.6200 5-15 Normal GAP 7 Performed By: #### L500.2500, L501.4010 #### [facility] [address] [facility] [address] [place], [place], [id number] TROPONIN-I Collected: 10/05/2018 Status: F Source: [place] 7:12 PM [facility] REPOSITORY TYPE CODE TESTS RESULT OUT OF RANGE REFERENCE UNITS LAB L501.4010 <0.045 ng/mL Normal 0.023 TROPONIN-I Result Comment: TROPONIN-I EXPECTED VALUES <0.045 Negative 0.045 - 0.590 Consistent with Cardiac Damage > OR = 0.600 Critical Value Not every elevated troponin is indicative of GA. These values should be used with clinical judgement in examining the patient's clinical picture for diagnosis. To establish a diagnosis of GA versus myocardial injury, there must be a demonstrated rise and/or fall in the troponin values, in addition to ischemic symptoms, EKG changes, new regional wall motion abnormality, and/or angiographical evidence. PLEASE NOTE: REFERENCE RANGES EDITED 18 Performed By: #### L500.2500, L501.4010 #### [facility] [address] [facility] [address] [place], [place], [id number] PROTHROMBIN TIME W/INR Collected: 10/05/2018 Status: F Source: [place] 7:12 PM [facility] REPOSITORY TYPE CODE TESTS RESULT OUT OF RANGE REFERENCE UNITS LAB L300.4150 11.7-14.9 SECONDS High PROTIME 30.4 LAB L300.4200 Normal INR 2.9 Performed By: #### L300.3900 #### [facility] [address] [place], [address] LACTIC ACID Collected: 10/05/2018 Status: F Source: SARA 7:12 PM [facility] REPOSITORY Order Comment: Yes/No query for Sepsis Lactate Rule Y TYPE CODE TESTS RESULT OUT OF RANGE REFERENCE UNITS LAB L503.6005 0.4-2.0 mmol/L Normal LACTIC ACID 1.9 Performed By: #### L503.6005 #### [facility] [address] [place], [address] BNP,B-TYPE NATRIURETIC Collected: 10/05/2018 Status: F Source: SARA PEPTIDE 7:12 PM [facility] REPOSITORY TYPE CODE TESTS RESULT OUT OF RANGE REFERENCE UNITS LAB L503.6620 0-100 pg/mL High B-TYPE 319.0 RACHEL PEP Performed By: #### L503.6620 #### [facility] [address] [place], [address] MAGNESIUM Collected: 10/05/2018 Status: F Source: SARA 7:12 PM [facility] REPOSITORY TYPE CODE TESTS RESULT OUT OF RANGE REFERENCE UNITS LAB L501.5200 1.6-2.6 mg/dL Normal MG 1.6 Performed By: #### L501.5200, L501.9520 #### [facility] [address] [place], [address] THYROID STIM HORMONE Collected: 10/05/2018 Status: F Source: SARA (TSH) 7:12 PM [facility] REPOSITORY TYPE CODE TESTS RESULT OUT OF RANGE REFERENCE UNITS LAB L501.9520 0.358-3.74 uIU/mL Normal TSH 3.68 Performed By: #### L501.5200, L501.9520 #### [facility] [address] [place], [address] Observed: 10/05/2018 Status: F Source: SARA CULTURE, BLOOD (WB) 7:12 PM [facility] REPOSITORY BC No growth in 5 days. Performed By: #### M200.1000 #### [facility] [address] [place], [address] CHEST 1 VIEW Observed: 10/05/2018 Status: F Source: [place] (PORTABLE) 7:10 PM [facility] REPOSITORY [facility] Imaging Services [address] [place] [address] Chest 1 View (Portable) MR#: [id number] Acct: [id number] Name: TAZ ZAVALETA Rep #: [id number] : 1945 F 73 From: Lee Villegas MD PCP: Aleksandar Putnam DO Status: REG ER Study: Chest 1 View (Portable) Date of Exam: 10/05/18 Exam# [id number] Ordering Dr: Nasir Villa MD STUDY: X-RAY CHEST REASON FOR EXAM: Female, 73 years old. Short of breath TECHNIQUE: AP portable COMPARISON: January 06, 2018 FINDINGS: Lungs are hyperinflated and there is diffuse interstitial thickening with mild bronchovascular cuffing. There is blunting of the costophrenic sulci possibly representing tiny effusions. Heart is enlarged. Normal mediastinum and lexus. Normal visualized pulmonary arteries. Normal visualized aortic arch and descending thoracic aorta. Dorsal spine demonstrates spondylosis. Normal visualized ribs, clavicles, and right shoulder. There appears to be mild inferior subluxation of left shoulder There is no demonstrated abnormality of the visualized soft tissue structures of the upper abdomen. RAD/Chest 1 View (Portable) IMPRESSION: COPD with superimposed congestive failure with possible tiny pleural effusions Electronically Signed: Lee Villegas MD at 20:11 EST , Service support , CC: Aleksandar Putnam DO; Nasir iVlla MD [place]: Signed PROGRESS Observed: 09/13/2018 Status: COMPLETED Source: [place] 11:02 AM [facility] REPOSITORY HNO ID: [id number] Author: Aleksandar Wiley Service: (none) Author Type: Physician Type: Progress Notes Filed: 09/13/2018 3:40 PM Note Text: Agree with below Aleksandar Wiley DO PROGRESS Observed: 09/13/2018 Status: COMPLETED Source: [place] 10:55 AM [facility] REPOSITORY O ID: [id number] Author: Sophia Nunez RN Service: (none) Author Type: (none) Type: Progress Notes Filed: 09/13/2018 10:56 AM Note Text: patient had inr completed at [facility] patients inr is 2.2 (patients inr range is 2.0-3.0) patient is currently taking 6mg Mon,Wed and 3mg all other days patients last dose change was on 05/02/18 due to a high level of 3.3 (dose at that time was 6mg Mon,Wed,Fri and 3mg all other days) patient has had no changes in medication and no missed doses and no change in diet Advised patient to continue on the same dose(s) and that they would only be contacted regarding dosage and follow up instructions after review with provider, if a change is needed. Written instructions given and patient verbalized understanding. Presently scheduled in 4 weeks - appt with pcp also) for follow up INR. CARDIOLOGY VISIT Observed: 08/26/2018 Status: F Source: S[place] REPORT 11:33 AM [facility] REPOSITORY [facility] [address] [place] [address] OFFICE VISIT Date of Service: 08/23/18 MR#: [id number] Acct: [id number] Name: TAZ ZAVALETA Rep #: [id number] : 1945 Provider: Sophia Conley Age/Sex: 72/F Location: [facility] Status: Signed HPI HPI Details: TAZ ZAVALETA, is a 72 F who presents to the office today for a cardiovascular follow-up. She recently established with us earlier this year. She does have a history of coronary artery disease with stenting to her left circumflex in 2012, persistent atrial fibrillation, abdominal aortic aneurysm with mural thrombus, hypertension, pulmonary hypertension and hyperlipidemia. Pt did not go to see Dr. Barakat d/t cost of co-pays. Pt does admit to PND. This does occur frequently. She does not sleep well. This is not new. She does sleep in a bed. She does occasionally have edema to her leg with her bypass, she notes that this occurs when she has been on her feet. She does not have any chest pain/heaviness/tightness. She does not have any lightheadedness/dizziness. She does not have any near syncope/syncope. Intake Vital Signs08/23/18 Height 5 ft 3.75 in 08/23/18 Weight: 179 lb 08/23/18 Body Mass Index (BMI) 30.9 08/23/18 Blood Pressure 122/62 H 08/23/18 Blood Pressure Location Lt brachial Intake Visit Reasons: 6 M FU Replenisher Required: No Accompanied by: None Is patient in pain?: No Allergies CLINT Inhibitors Allergy (Verified 08/23/18 14:07) Unknown acyclovir [From Zovirax] Allergy (Verified 08/23/18 14:07) Unknown amoxicillin trihydrate [From Augmentin] Allergy (Verified 08/23/18 14:07) Unknown codeine Allergy (Verified 08/23/18 14:07) Unknown potassium clavulanate [From Augmentin] Allergy (Verified 08/23/18 14:07) Unknown Medications Atorvastatin Calcium [Lipitor] 40 mg PO QHS 04/15/15 [History Confirmed 08/23/18] Paroxetine HCl [Paxil] 40 mg PO DAILY 04/15/15 [History Confirmed 08/23/18] Warfarin [Coumadin] 6 mg PO MOWEFRSA 04/15/15 [History Confirmed 08/23/18] Atenolol [Tenormin (beta cruz)] 50 mg PO BID #120 tab 04/17/15 [Rx Confirmed 08/23/18] Spironolactone [Aldactone] 25 mg PO DAILY #30 tab 09/30/15 [Rx Confirmed 08/23/18] Pramipexole Di-HCl [Mirapex] 1 mg PO TID PRN PRN 01/06/18 [History Confirmed 08/23/18] Albuterol Inhaler [Ventolin Hfa] 1 - 2 puff INHALATION Q4H PRN PRN #1 inhaler 01/08/18 [Rx Confirmed 08/23/18] Diltiazem CD [Cardizem CD] 180 mg PO BID #60 cap 01/08/18 [Rx Confirmed 08/23/18] levothyroxine 100 mcg tablet 100 mcg PO QDAY tab 02/17/18 [History Confirmed 08/23/18] warfarin 3 mg tablet 3 mg PO SUTUTH 02/17/18 [History Confirmed 08/23/18] PFSH Medical History Aneurysm of infrarenal abdominal aorta (Chronic) Chronic atrial fibrillation (Chronic) Secondary pulmonary arterial hypertension (Chronic) Nicotine dependence (Chronic) Atherosclerosis of coronary artery of [place] heart without angina pectoris (Chronic) Hypertension (Chronic) Atrial fibrillation with RVR (Acute 01/2018) Dyslipidemia (Chronic) Acute coronary syndrome (Acute) COPD (chronic obstructive pulmonary disease) (Chronic) GERD (gastroesophageal reflux disease) (Chronic) Obstructive sleep apnea (Chronic) Peripheral artery disease (Chronic) RLS (restless legs syndrome) (Chronic) Pneumonia (Resolved 01/2018) Surgical History Presence of stent in coronary artery (Chronic) History of partial thyroidectomy (Chronic) History of total hysterectomy (Chronic) Postsurgical percutaneous transluminal coronary angioplasty (PTCA) status (Chronic) Family History Father Cancer Mother Heart disease Sister Hypertension Sister Hypertension Social History Smoking Status: Heavy Smoker (>10/day) alcohol intake: never details: rare substance use type: does not use caffeine: Yes Type: coffee Number of servings: 4 ROS Const Const: Negative for fatigue, weakness, weight gain, weight loss, frequent falls or excessive sweating Eyes Eyes: Negative for change in vision, blurry vision or transient loss of vision ENT ENT: Negative for dizziness or balance problems Cardio Chest Pain: No Edema: None, Left (slight lt LE) Muscle aches with walking: None Resp Respiratory: Positive for SOB with activity (baseline); negative for SOB at rest GI GI: Negative vomiting or vomiting blood/hematemesis : Negative for hematuria Musc Musc: Negative for balance problems Skin Skin: Negative non-healing lesions or rash Neuro Neuro: Negative for weakness, frequent falls, blurry vision or dizziness Matias Hematologic/Lymphatic: Negative for easy bleeding Endo Endo: Negative for fatigue or excessive sweating Psych Psych: Negative for anxiety or depression Allergy Allergy/Immunology: Negative for rash Cardiology Exam Const Appearance: cooperative, healthy appearing, comfortable, no acute distress, well developed and well groomed Nutritional Appearance: average body habitus Orientation: alert, awake and oriented x3 Head Head: normal to inspection, normocephalic and atraumatic Ears: hearing grossly normal bilaterally Nose: external nose normal Face and Sinus: face symmetric Mouth: oral mucosae normal Eyes General: appearance normal, both eyes and all related structures Eyelids: eyelids normal Conjunctivae: conjunctivae normal Pupils: PERRL EOM: EOM intact bilaterally Neck Neck: normal visual inspection and full ROM Carotids: normal carotid upstroke Chest Chest inspection: normal inspection of the chest and symmetric chest movement Auscultation: Bilateral: Diminished Lung Sounds, Inspiratory Wheezes, Expiratory Wheezes Cardio Palpation: normal PMI Heart sounds: S1 normal and S2 normal GI GI: normal to inspection and soft Neuro General: alert, awake and oriented x3 Extremities Pulses: Normal: Right Radial Pulse, Left Radial Pulse Lower Extremity Edema: +1: Left (ankle) Psych Psychological: normal affect Supplemental Info Echocardiogram in 2018 demonstrated : The estimated ejection fraction is 65 %. Unable to assess diastolic dysfunction due to atrial fibrillation. The left atrium is severely enlarged. The right atrium is severely enlarged. Mild (1+) tricuspid valve insufficiency. Right ventricular systolic pressure estimated to be 47 mmHg. Moderate pulmonary hypertension. Mild focal aortic valve thickening located on left coronary cusp. Pt appears to be in atrial fibrillation. Compared to echo report dated 04/17/2015, no appreciable changes noted. Stress test in 2018 was negative for ischemia. Assessment AND Plan 1. Atherosclerosis of [place] coronary artery of [place] heart without angina pectoris I25.10 PTCA/GAIL to LCX 06/19/[address] [facility] Plan Stable, from a cardiac standpoint patient does not have any symptoms of angina. We recommend that they continue with current aggressive medical management and risk factor modification. 2. Chronic atrial fibrillation I48.2 Plan Patient does have persistent atrial fibrillation. Her heart rate is adequately controlled on her calcium channel cruz and beta-cruz. She remains on Coumadin with a therapeutic INR goal of 2-3. 3. Essential hypertension I10 Plan Adequately controlled on current medications. Will not make any adjustments at this time. 4. Dyslipidemia E78.5 Plan Patient is currently on a moderate intensity statin. These are managed by her primary care doctor. Have asked for copy of labs for continuity of care. 5. Aneurysm of infrarenal abdominal aorta I71.4 Plan Patient wished to not follow-up with vascular due to concerns over cost of co-pays. Will obtain a CTA of the abdomen to evaluate stability. If this is changed she is agreeable to see vascular. Orders Orders: Plan Detail Additional Comments Thank you for allowing us to participate in the patients plan of care, if you have any questions please do not hesitate to call. This note was generated using a voice recognition system and there may be incorrect words, spelling or punctuation that were not noted when reviewing the office note prior to saving. Follow Up 6 Months (MMM after CTA) 1 Year (PFM) Coding Level of Care Code Off vis,est,level 3 Diagnoses Atherosclerosis of [place] coronary artery of [place] heart without angina pectoris I25.10 Coronary Disease-Associated Artery/Lesion type: [place] artery Chronic atrial fibrillation I48.2 Essential hypertension I10 Hypertension type: essential hypertension Dyslipidemia E78.5 Aneurysm of infrarenal abdominal aorta I71.4 Coding Level of Care Code Off vis,est,level 3 Diagnoses Atherosclerosis of [place] coronary artery of [place] heart without angina pectoris I25.10 Coronary Disease-Associated Artery/Lesion type: [place] artery Chronic atrial fibrillation I48.2 Essential hypertension I10 Hypertension type: essential hypertension Dyslipidemia E78.5 Aneurysm of infrarenal abdominal aorta I71.4 08/26/18 1133 <Electronically signed by Sophia MENDEZ> Date Sophia MENDEZ Cosigner Signature: Date (if applicable) CC: PROGRESS Observed: 08/09/2018 Status: COMPLETED Source: [place] 1:08 PM [facility] REPOSITORY O ID: [id number] Author: Aleksandar Wiley Service: (none) Author Type: Physician Type: Progress Notes Filed: 08/09/2018 3:31 PM Note Text: Agree with below Aleksandar Wiley, DO PROGRESS Observed: 08/09/2018 Status: COMPLETED Source: [place] 12:25 PM [facility] REPOSITORY HNO ID: [id number] Author: Sophia Nunez RN Service: (none) Author Type: (none) Type: Progress Notes Filed: 08/09/2018 12:26 PM Note Text: patient had inr completed at [facility] patients inr is 2.1 (patients inr range is 2.0-3.0) patient is currently taking 6mg Mon,Wed and 3mg all other days patients last dose change was on 05/02/18 due to a high level of 3.3 (dose at that time was 6mg Mon,Wed,Fri and 3mg all other days) patient has had no changes in medication and no missed doses and no change in diet Advised patient to continue on the same dose(s) and that they would only be contacted regarding dosage and follow up instructions after review with provider, if a change is needed. Written instructions given and patient verbalized understanding. Presently scheduled in 1 month (09/13/18) for follow up INR. CNNURSE Observed: 08/06/2018 Status: COMPLETED Source: COMF[place]Y 8:00 AM [facility] REPOSITORY Nurse Visit (CORW[facility]) TAZ ZAVALETA ([id number]) 1945 F Date Time Provider Department 08/06/18 8:00 AM NURSE [facility] During your visit today, we recorded the following information about you: Liat Quintanilla Ma 08/06/2018 8:14 AM Signed 72 year old female here for INACTIVATED INFLUENZA VACCINE. 1099-0165 Season Patient is identified by name and date of : Yes [] CONTRAINDICATIONS color enhanced section Age less than 6 months? No Allergy to eggs, chicken, chicken feathers, or chicken dander? No Allergy to thimerosal (a preservative) or formaldehyde, gelatin? No History of severe reaction to any vaccine component or a previous dose of influenza vaccination? No History of Guillain-Alamo Syndrome within 6 weeks after a previous influenza vaccine? No Patient is not moderately or severely ill? No Current temperature greater or equal to 100.4F? No History of Bone Marrow Transplant prior 6 months or solid organ transplant in the past 3 months ? No History of fainting after a prior injection or medical procedure? No- ? If patient has fainted in the past, the CDC recommends sitting or lying down for 15 minutes after the vaccination. [] VERIFICATION color enhanced section Was the answer Yes for any of the above contraindications? No contraindications present. Acceptable to proceed with vaccine. Patient/guardian agrees the above answers are true to the best of their knowledge? Yes Flu vaccine information sheet given? Yes See immunization activity in [facility] for details of immunizations adminstered today. Patient age: [age] year old For The 1298-9789 Flu Season 6-35 months old: Fluzone 0.25 ml - IM (Preservative Free) 3 years of age: Fluzone 0.5 ml - IM (Preservative Free) 3 years and older: Fluzone 0.5 ml- IM-(with Preservatives) 65+ years old: 2-49 years old Fluzone High-Dose 0.5 ml - IM (Preservative Free) FLUMIST- intranasal REMEMBER: If patient is less than 9 years of age and this is the first vaccine of Influenza to be received in any flu season, they should receive a second dose in one months time. Referring Provider: ALEKSANDAR WILEY [[id number]] Allergies As of Date: 08/06/2018 Noted Allergy Reaction CLINT INHIBITORS 09/01/2005 4 - Hives AMBIEN (ZOLPIDEM TARTRATE) 12/20/2015 1 - Mental Status Change Comments: falls AMITRIPTYLINE 05/17/2015 1 - Mental Status Change AUGMENTIN (AMOXICILLIN-POT CLAVUL*09/01/2005 4 - Hives CODEINE 09/01/2005 4 - Hives ZOVIRAX (ACYCLOVIR SODIUM) 09/01/2005 Date Reviewed: 05/09/2018 Reviewed by: Sophia Nunez RN - Fully Assessed Reason for Visit: Imm/Inj [58] Cmt: Flu Vaccine Primary Visit Diagnosis:Need for vaccination [Z23] Order(s):INFLUENZA SEASONAL HIGH DOSE AGE 65+ [04101BRM] Order #: [id number] Prescriptions as of 08/06/2018 Sig: WARFARIN 6 MG TABLET 6 mg on Wed/Wed/Wed/Sat 3 mg* BENZONATATE 100 MG CAPSULE Take 2 capsules by mouth thre* ALBUTEROL SULFATE 2.5 MG/3 ML* Use 3 mL via nebulizer every * LEVOTHYROXINE 100 MCG TABLET Take 1 tablet by mouth once d* ATENOLOL 50 MG TABLET Take 1 tablet by mouth twice * SPIRONOLACTONE 25 MG TABLET Take 1 tablet by mouth once d* PRAMIPEXOLE 1 MG TABLET Take 1 tablet by mouth three * PAROXETINE 40 MG TABLET Take 1.5 tablets by mouth onc* ATORVASTATIN 40 MG TABLET Take 1 tablet by mouth daily * CHOLECALCIFEROL (VITAMIN D3) * Take 1 capsule by mouth once * DILTIAZEM SR 180 MG 24 HR CAP Take 1 capsule by mouth twice* WARFARIN 3 MG TABLET 6 mg on Wed/Wed/Wed/Sat 3 mg * ROPINIROLE 2 MG TABLET Take 1-2 tablets by mouth meg* FUROSEMIDE 20 MG TABLET Take 1 tablet by mouth once d* Problem List As Of Date 08/06/2018 Noted Resolved PERIPHERAL VASC DISEASE (See also PVD) [I73.9] INVALID FOR* Other and unspecified disc disorder of unspecif* 01/17/2018 More... Hyperlipidemia [E78.5] 01/17/2018 Chronic airway obstruction, not elsewhere class* 01/17/2018 ALLERGIC RHINITIS NOS [J30.9] INSOMNIA NOS [G47.00] TOBACCO USE DISORDER [F17.200] LIPOMA OTHER SKIN AND SUBCUTANEOUS (Left upper Ch*INVALID FOR*11/21/2010 THYROID NODULE NODULE, NONTOXIC (Left) [E04.1] INVALID FOR*05/22/2011 NERVE INJURY UNSPECIFIED(Left recurrent larynge*INVALID FOR*01/17/2018 Atrial fibrillation (HCC) [I48.91] INVALID FOR*01/17/2018 Essential hypertension, benign [I10] INVALID FOR* PAT (paroxysmal atrial tachycardia) [I47.1] INVALID FOR* Anxiety [F41.9] INVALID FOR* CAD (coronary artery disease) [I25.10] INVALID FOR* Vitamin D deficiency [E55.9] INVALID FOR* Osteoporosis [M81.0] INVALID FOR* Varicose veins with pain [I83.819] INVALID FOR* Restless leg syndrome [G25.81] INVALID FOR* Mixed hyperlipidemia [E78.2] INVALID FOR* Persistent atrial fibrillation (HCC) [I48.1] INVALID FOR* Coronary artery disease involving [place]*INVALID FOR* COPD with chronic bronchitis (HCC) [J44.9] INVALID FOR* AAA (abdominal aortic aneurysm) (HCC) [I71.4] INVALID FOR* More... Encounter Status:Closed by LIAT QUINTANILLA MA on 08/06/18 PROGRESS Observed: 08/02/2018 Status: COMPLETED Source: [place] 9:39 AM [facility] REPOS[facility] O ID: [id number] Author: Liat Quintanilla Ma Service: (none) Author Type: (none) Type: Progress Notes Filed: 08/06/2018 8:14 AM Note Text: 72 year old female here for INACTIVATED INFLUENZA VACCINE. [id number] Season Patient is identified by name and date of : Yes [] CONTRAINDICATIONS color enhanced section Age less than 6 months? No Allergy to eggs, chicken, chicken feathers, or chicken dander? No Allergy to thimerosal (a preservative) or formaldehyde, gelatin? No History of severe reaction to any vaccine component or a previous dose of influenza vaccination? No History of Guillain-Alamo Syndrome within 6 weeks after a previous influenza vaccine? No Patient is not moderately or severely ill? No Current temperature greater or equal to 100.4F? No History of Bone Marrow Transplant prior 6 months or solid organ transplant in the past 3 months ? No History of fainting after a prior injection or medical procedure? No- ? If patient has fainted in the past, the CDC recommends sitting or lying down for 15 minutes after the vaccination. [] VERIFICATION color enhanced section Was the answer Yes for any of the above contraindications? No contraindications present. Acceptable to proceed with vaccine. Patient/guardian agrees the above answers are true to the best of their knowledge? Yes Flu vaccine information sheet given? Yes See immunization activity in [facility] for details of immunizations adminstered today. Patient age: [age] year old For The 5337-1286 Flu Season 6-35 months old: Fluzone 0.25 ml - IM (Preservative Free) 3 years of age: Fluzone 0.5 ml - IM (Preservative Free) 3 years and older: Fluzone 0.5 ml- IM-(with Preservatives) 65+ years old: 2-49 years old Fluzone High-Dose 0.5 ml - IM (Preservative Free) FLUMIST- intranasal REMEMBER: If patient is less than 9 years of age and this is the first vaccine of Influenza to be received in any flu season, they should receive a second dose in one months time. PROGRESS Observed: 07/12/2018 Status: COMPLETED Source: [place] 1:56 PM [facility] HNO ID: [id number] Author: Aleksandar Wiley Service: (none) Author Type: Physician Type: Progress Notes Filed: 07/12/2018 4:22 PM Note Text: Agree with below Aleksandar Wiley, DO PROGRESS Observed: 07/12/2018 Status: COMPLETED Source: [place] 12:05 PM [facility] HNO ID: [id number] Author: Sophia Nunez RN Service: (none) Author Type: (none) Type: Progress Notes Filed: 07/12/2018 12:06 PM Note Text: patient had inr completed at [facility] patients inr is 2.7 (patients inr range is 2.0-3.0) patient is currently taking 6mg Mon,Wed, and 3mg all other days patients last dose change was on 05/02/18 due to a high level of 3.3 (dose at that time was 6mg Mon,Wed,Fri and 3mg all other days) patient has had no changes in medication and no missed doses and no change in diet Advised patient to continue on the same dose(s) and that they would only be contacted regarding dosage and follow up instructions after review with provider, if a change is needed. Written instructions given and patient verbalized understanding. Presently scheduled in 4 weeks (08/09/18) for follow up INR. CNCO Observed: 06/14/2018 Status: COMPLETED Source: [place] 12:00 AM [facility] REPOSITORY Letter Text [address] [place], [place] [address] Taz Zavaleta [address] [place], [place] [id number] Clinic #: [id number] 06/14/2018 Dear Ms. Zavaleta, I have received the results of your recent tests. Labs improving. Continue current care. ? We can discuss this at your next visit. Please do not hesitate to contact me with any questions. Sincerely, Verna Ibrahim APRN.CNP electronically signed to expedite mailing PROGRESS Observed: 06/13/2018 Status: COMPLETED Source: [place] 3:13 PM [facility] HNO ID: [id number] Author: Verna Ibrahim Service: (none) Author Type: Nurse Practitioner Type: Progress Notes Filed: 06/13/2018 3:49 PM Note Text: Continue current dose- agree with recommendation Verna Ibrahim APRN.CNP PROGRESS Observed: 06/13/2018 Status: COMPLETED Source: [place] 2:42 PM [facility] HNO ID: [id number] Author: Sophia Nunez RN Service: (none) Author Type: (none) Type: Progress Notes Filed: 06/13/2018 2:43 PM Note Text: patient had inr completed at [facility] patients inr is 2.3 (patients inr range is 2.0-3.0) patient is currently taking 6mg Mon,Wed and 3mg all other days patients last dose change was on 05/02/18 due to a high level of 3.3 (dose at that time was 6mg Mon,Wed,Fri and 3mg all other days) patient has had no changes in medication and no missed doses and no change in diet Advised patient to continue on the same dose(s) and that they would only be contacted regarding dosage and follow up instructions after review with provider, if a change is needed. Written instructions given and patient verbalized understanding. Presently scheduled in 4 weeks (07/12/18) for follow up INR. HEMOGLOBIN A1C Collected: 06/13/2018 Status: F Source: [place] 10:45 AM [facility] TYPE CODE TESTS RESULT OUT OF REFERENCE UNITS RANGE LAB HGBA1C 4.3-5.6 % High Hemoglobin A1c 6.3 LAB HBA0 mg/dL Est. Average Glucose 134 Result Comment: eAG: (Estimated average glucose) is a calculated value from HgbA1c and is sales representative publications of the average blood glucose level in the last 2-3 month period. Performed By: #### HBA1C, CMP, VITD #### [facility] [address] [place] [address] COMP METABOLIC PANEL Collected: 06/13/2018 Status: F Source: [place] 10:45 AM [facility] TYPE CODE TESTS RESULT OUT OF REFERENCE UNITS RANGE LAB TP 6.3-8.0 g/dL Protein, Total 7.5 LAB ALB 3.9-4.9 g/dL Albumin 4.0 LAB CA 8.5-10.2 mg/dL Calcium, Total 9.5 LAB TBIL 0.2-1.3 mg/dL Bilirubin, Total 0.5 LAB ALKP 32-117 U/L Alkaline Phosphatase 81 LAB AST 13-35 U/L AST 30 LAB GLU 74-99 mg/dL Glucose High 105 Result Comment: The [place] [employer] Association (ADA) provides guidance for cutoff values for fasting glucose and random glucose. The ADA defines fasting as no caloric intake for at least 8 hours. Fas ting plasma glucose results between 100 to 125 mg/dL indicate increased risk for diabetes (prediabetes). Fasting plasma glucose results greater than or equal to 126 mg/dL meet the criteria for diagnosis of diabetes. In the absence of unequivocal hyperglycemia, results should be confirmed by repeat testing. In a patient with classic symptoms of hyperglycemia or hyperglycemic crisis, random plasma glucose results greater than or equal to 200 mg/dL meet the criteria for diagnosis of diabetes. Reference: Standards of Medical Care in Diabetes 2016, [place] [employer] Association. Diabetes Care. 2016.39(Suppl 1). LAB BUN 7-21 mg/dL BUN High 26 LAB CRET 0.58-0.96 mg/dL Creatinine 0.93 LAB NA 136-144 mmol/L Sodium 139 LAB K 3.7-5.1 mmol/L Potassium 4.8 LAB CL 97-105 mmol/L Chloride 100 LAB CO2 22-30 mmol/L CO2 24 LAB AGAP 9-18 mmol/L Anion Gap 15 LAB ALT 7-38 U/L ALT 17 LAB GFRAA eGFR- Amer. >60 LAB GFRNAA . eGFR-All Other Races 59 Result Comment: eGFR (Estimated GFR) Units of measure: mL/min/1.73 meters squared eGFR is derived from the reexpressed MDRD Study equation using the following parameters: serum creatinine, age, gender and race. The creatinine assay has been calibrated to be traceable to IDMS. An eGFR <60 mL/min/1.73m2 for >3 months is consistent with chronic kidney disease. Refer to KDOQI guidelines for clinical interpretation. In patients with unstable renal function, e.g. those with acute kidney injury, the eGFR may not accurately reflect actual GFR. Performed By: #### HBA1C, CMP, VITD #### [facility] [address] [place] [address] VITAMIN D 25 HYDROXY Collected: 06/13/2018 Status: F Source: [place] 10:45 AM [facility] TYPE CODE TESTS RESULT OUT OF REFERENCE UNITS RANGE LAB VITD 31.0-80.0 ng/mL Vitamin D 25 37.9 Hydroxy Result Comment: Classification of 25 [place] Vitamin D status: Insufficiency/Moderate Deficiency: < or = 30 ng/mL Sufficiency/Optimal Levels: 31 to 80 ng/mL Toxicity: > 100 ng/mL Test performed by chemiluminescent immunoassay. Performed By: #### HBA1C, CMP, VITD #### [facility] [address] [place] [id number] PROGRESS Observed: 05/23/2018 Status: COMPLETED Source: [place] 3:11 PM [facility] HNO ID: [id number] Author: Sophia Nunez RN Service: (none) Author Type: (none) Type: Progress Notes Filed: 05/23/2018 3:11 PM Note Text: PATIENT NOTIFIED OF INFORMATION PROGRESS Observed: 05/23/2018 Status: COMPLETED Source: [place] 12:19 PM [facility] HNO ID: [id number] Author: Verna Ibrahim Service: (none) Author Type: Nurse Practitioner Type: Progress Notes Filed: 05/23/2018 3:11 PM Note Text: Take 6mg Mon, Wednesday and Sat and 3mg all the other days this week. Then return to 6mg Mon and Wed and 3 mg the rest of the week. Recheck as scheduled. Verna Ibrahim APRN.CNP PROGRESS Observed: 05/23/2018 Status: COMPLETED Source: [place] 12:12 PM [facility] HNO ID: [id number] Author: Sophia Nunez RN Service: (none) Author Type: (none) Type: Progress Notes Filed: 05/23/2018 12:13 PM Note Text: patient had inr completed at [facility] patients inr is 1.9 (patients inr range is 2.0-3.0) patient is currently taking 6mg Mon,Wed and 3mg all other days patients last dose change was on 05/02/18 due to a high level of 3.3 (dose that time was 6mg Mon,Wed,Fri and 3mg all other days) patient has had no changes in medication and no missed doses and no change in diet Advised patient to continue on the same dose(s) and that they would only be contacted regarding dosage and follow up instructions after review with provider, if a change is needed. Written instructions given and patient verbalized understanding. Presently scheduled in 2 weeks (06/13/18) for follow up INR since level is just slightly below the normal range PROGRESS Observed: 05/09/2018 Status: COMPLETED Source: [place] 2:50 PM [facility] HNO ID: [id number] Author: Aleksandar Wiley Service: (none) Author Type: Physician Type: Progress Notes Filed: 05/09/2018 5:33 PM Note Text: Continue same dose coumadin, recheck INR 2 weeks Aleksandar Wiley DO PROGRESS Observed: 05/09/2018 Status: COMPLETED Source: [place] 12:38 PM [facility] HNO ID: [id number] Author: Sophia Grassbaugh RN Service: (none) Author Type: (none) Type: Progress Notes Filed: 05/09/2018 12:39 PM Note Text: patient had inr completed at [facility] patients inr is 2.1 (patients inr range is 2.0-3.0) patient is currently taking 6mg Mon,Wed and 3mg all other days patients last dose change was on 05/02/18 due to a high level of 3.3 (dose at that time ws 6mg Mon,Wed,Fri and 3mg all other days) patient has had no changes in medication except for the coumadin and no missed doses and no change in diet Advised patient to continue on the same dose(s) and that they would only be contacted regarding dosage and follow up instructions after review with provider, if a change is needed. Written instructions given and patient verbalized understanding. Presently scheduled in 2 weeks (05/23/18) for follow up INR since this is the first normal reading since dose change. PROGRESS Observed: 05/02/2018 Status: COMPLETED Source: [place] 1:45 PM [facility] HNO ID: [id number] Author: Cheryl Reddy LPN Service: (none) Author Type: (none) Type: Progress Notes Filed: 05/02/2018 4:38 PM Note Text: Pt notified. PROGRESS Observed: 05/02/2018 Status: COMPLETED Source: [place] 9:39 AM [facility] HNO ID: [id number] Author: Aleksandar Wiley Service: (none) Author Type: Physician Type: Progress Notes Filed: 05/02/2018 4:38 PM Note Text: Decrease dose to 6 mg on Mon, Wed and 3 mg other days of week, recheck INR 1 week as scheduled Aleksandar Wiley DO PROGRESS Observed: 05/02/2018 Status: COMPLETED Source: [place] 9:21 AM [facility] HNO ID: [id number] Author: Sophia Nunez RN Service: (none) Author Type: (none) Type: Progress Notes Filed: 05/02/2018 9:22 AM Note Text: patient had inr completed at [facility] patients inr is 3.3 (patients inr range is 2.0-3.0) patient is currently taking 6mg Mon,Wed,Fri and 3mg all other days patients last dose change was on 04/08/18 due to a high level of 4.2 (dose at that time was 3mg Tues,Thurs,Sun and 6mg all other days) patient has had no changes in medication and no missed doses and no change in diet Advised patient that they would be contacted regarding medication dose and when to follow up after information is reviewed by provider. After provider review please contact the patient with information and schedule follow up appointment with coumadin clinic. FYI - patient has been scheduled for a 1 week follow up inr on 05/09/18 XR CHEST 2V FRONTAL/LAT Observed: 04/21/2018 Status: F Source: [place] 4:50 PM [facility] * * *Final Report* * * DATE OF EXAM: Apr 21 2018 4:50PM WRX [id number] - XR CHEST 2V FRONTAL/LAT / PROCEDURE REASON: Chronic obstructive pulmonary disease with (acute) exacerbation * * * * Physician Interpretation * * * * EXAMINATION: CHEST RADIOGRAPH (2 VIEW FRONTAL and LATERAL) Clinical History: Chronic obstructive pulmonary disease with (acute) exacerbation MQ: XC2_5 Comparison: 11/04/2016 RESULT: Lines, tubes, and devices: None. Lungs and pleura: Chronic increased interstitial markings. No acute consolidation. No lung mass. No pleural effusion. Cardiomediastinal silhouette: Stable mild cardiomegaly without overt congestive heart failure. Other: . IMPRESSION: No acute radiographic abnormality. [place] Pilot: ZAC Transcribe Date/Time: Apr 21 2018 4:56P Dictated by : FRACISCO OWENS MD This examination was interpreted and the report reviewed and electronically signed by: FRACISCO OWENS MD on Apr 21 2018 4:56PM EST [id number] PROGRESS Observed: 04/21/2018 Status: COMPLETED Source: [place] 4:44 PM [facility] HNO ID: [id number] Author: Shefali Ulloa (RtLiset Torre Service: (none) Author Type: Shellacker Type: Progress Notes Filed: 04/21/2018 4:50 PM Note Text: Radiology Service Progress Note PATIENT NAME: Taz Zavaleta DATE OF SERVICE: April 21, 2018 TIME: 4:44 PM PATIENT IDENTITY VERIFICATION COMPLETED USING TWO (2) METHODS: Patient confirmed name verbally and Date of . PATIENT GENDER DATA: Female. status: : No status: NO. PATIENT RELEVANT IMPLANT DATA REVIEWED: Not Applicable RADIOLOGY DEPARTMENT: General X-ray: Exam(s) Completed: Chest X-Ray PERIPHERAL IV DATA: Not applicable SIGNED BY: RT Percy April 21, 2018 4:44 PM PROGRESS Observed: 04/20/2018 Status: COMPLETED Source: [place] 5:09 PM [facility] RE[facility] HNO ID: [id number] Author: Belem Pollard) Zach Service: (none) Author Type: Physician Radiator Repairer Type: Progress Notes Filed: 04/20/2018 6:19 PM Note Text: Subjective HPI Pt presents with wheezing, cough, congestion and shortness of breath x 3 days. She has been using her inhaler 3-4 times a day the past few days. It does help her for a little while. Review of Systems Constitutional: Negative for chills and fever. HENT: Negative. Eyes: Negative. Respiratory: Positive for cough, sputum production, shortness of breath and wheezing. Cardiovascular: Negative. Negative for chest pain. Gastrointestinal: Negative. Genitourinary: Negative. Musculoskeletal: Negative. Skin: Negative. All other systems reviewed and are negative. PAST MEDICAL HISTORY Diagnosis Date - AAA (abdominal aortic aneurysm) ([facility]) 01/2018 3 cm - Allergic rhinitis, cause unspecified - Chronic airway obstruction, not elsewhere classified - Diabetes ([facility]) - Diverticulosis of colon (without mention of hemorrhage) - Essential hypertension, benign - Heart failure ([facility]) - Insomnia, unspecified - Lipoma Left upper anterior chest - Major depressive disorder, recurrent episode, unspecified - Osteoporosis - Other and unspecified disc disorder of unspecified region Intervertebral disc disorders - Other and unspecified hyperlipidemia - PAD (peripheral artery disease) ([facility]) - PAT (paroxysmal atrial tachycardia) ([facility]) - Tobacco use disorder Current Outpatient Prescriptions: levothyroxine (SYNTHROID) 100 mcg tablet Take 1 tablet by mouth once daily. Take on empty stomach. For Thyroid Disp: 30 tablet Rfl: 5 atenolol (TENORMIN) 50 mg tablet Take 1 tablet by mouth twice daily. Disp: 60 tablet Rfl: 5 spironolactone (ALDACTONE) 25 mg tablet Take 1 tablet by mouth once daily. Disp: 30 tablet Rfl: 5 pramipexole (MIRAPEX) 1 mg tablet Take 1 tablet by mouth three times daily as needed. Disp: 90 tablet Rfl: 5 PARoxetine (PAXIL) 40 mg tablet Take 1.5 tablets by mouth once daily. Disp: 45 tablet Rfl: 5 atorvastatin (LIPITOR) 40 mg tablet Take 1 tablet by mouth daily at bedtime. For cholesterol. Disp: 30 tablet Rfl: 5 cholecalciferol, Vitamin D3, (VITAMIN D3) 50,000 unit cap capsule Take 1 capsule by mouth once each week. Disp: 12 capsule Rfl: 0 diltiazem CD (CARDIZEM CD, CARTIA XT) 180 mg 24 hr capsule Take 1 capsule by mouth twice daily. Disp: 180 capsule Rfl: 3 warfarin (COUMADIN) 6 mg tablet 6 mg on Mon/Wed/Fri/Sat 3 mg all other days or as directed. Disp: 60 tablet Rfl: 5 warfarin (COUMADIN) 3 mg tablet 6 mg on Mon/Wed/Fri/Sat 3 mg all other days or as directed. Disp: 30 tablet Rfl: 11 furosemide (LASIX) 20 mg tablet Take 1 tablet by mouth once daily. Disp: 30 tablet Rfl: 3 rOPINIRole (REQUIP) 2 mg tablet Take 1-2 tablets by mouth daily at bedtime. Ok to take 1 tablet during day as needed for restless legs as well. Disp: 90 tablet Rfl: 5 No current facility-administered medications for this visit. PAST SURGICAL HISTORY Procedure Laterality Date - ARTERIOGRAM EXTREMITY LOW VASC O/P F26/6 07/17/05 - ARTERY X-RAYS, ARM/LEG 01/05/06 - COLONOSCOP W/ OR W/O [facility] SPEC 09/05/10 - CONTRAST X-RAY EXAM OF AORTA 01/05/06 - PERC TRANSL COR ANGIO 2013 Percutaneous Transluminal Coronary Angio Status - PLACE CATH SUBSELECT ART,ABD/PEL 01/05/06 - THYROID FINE NEEDLE ASPIRATION 03/01/06 left thyroid fna - THYROIDECTOMY 04/13 partial - TOTAL ABDOM HYSTERECTOMY 1991 - VEIN BYPASS GRAFT,FEM-POP 08/19/2005 FAMILY HISTORY Problem Relation Age of Onset - GLUCOMA [Other] [OTHER] Maternal Grandmother - Heart Mother - Cancer Father ESOPHAGUS - Hypertension Sister - Hypertension Sister - Alzheimer's Disease Brother Social History Substance Use Topics - Smoking status: Current Every Day Smoker Packs/day: 0.50 Years: 40.00 Types: Cigarettes - Smokeless tobacco: Never Used Comment: 6 cigs daily. - Alcohol use 18.0 oz/week Comment: occasionally BP 122/80 Pulse 90 Temp 36.9 ?C (98.5 ?F) (Left Tympanic) Resp 26 Wt 78.5 kg (173 lb) SpO2 91% BMI 29.70 kg/m? Objective Physical Exam Constitutional: She is well-developed, well-nourished, and in no distress. HENT: Head: Normocephalic and atraumatic. Eyes: Conjunctivae are normal. Neck: Normal range of motion. Cardiovascular: Normal rate, regular rhythm and normal heart sounds. Pulmonary/Chest: Effort normal. Moderate wheezes in bases of the lungs. No retractions or accessory muscle use. Speaking in full sentences. Skin: Skin is warm and dry. Psychiatric: Affect and judgment normal. Nursing note and vitals reviewed. ASSESSMENT/PLAN: 1. COPD with exacerbation (HCC) - ICD9: 491.21, ICD10: J44.1 Pt received an albuterol treatment here and does feel improved. Pulse ox improved to 92%. I did send her home with a nebulizer machine as well. Also given doxycycline, tessalon and prednisone. While taking prednisone patient was informed not to take any nsaids. Discussed if she spikes a fever or feels more short of breath or has chest pain she needs to go to the ED. Xray is closed for the day so I did order one for tomorrow. Pt comfortable going over to the [facility] and having that down. Will call on results. - ALBUTEROL SULFATE 2.5 MG/3 ML (0.083 %) SOLUTION FOR NEBULIZATION DALILA RudolphOV Observed: 04/20/2018 Status: COMPLETED Source: [place] 5:00 PM [facility] Office Visit ([facility]) TAZ ZAVALETA ([id number]) 1945 F Date Time Provider Department 04/20/18 5:00 PM BELEM NAVARRO) [facility] During your visit today, we recorded the following information about you: Temperature Pulse Respiration Blood pressure 98.5 degrees 90/minute 26/minute 122/80 Weight 78.5 kg Belem Navarro PA-C 04/20/2018 6:19 PM Signed Subjective HPI Pt presents with wheezing, cough, congestion and shortness of breath x 3 days. She has been using her inhaler 3-4 times a day the past few days. It does help her for a little while. Review of Systems Constitutional: Negative for chills and fever. HENT: Negative. Eyes: Negative. Respiratory: Positive for cough, sputum production, shortness of breath and wheezing. Cardiovascular: Negative. Negative for chest pain. Gastrointestinal: Negative. Genitourinary: Negative. Musculoskeletal: Negative. Skin: Negative. All other systems reviewed and are negative. PAST MEDICAL HISTORY Diagnosis Date - AAA (abdominal aortic aneurysm) ([facility]) 01/2018 3 cm - Allergic rhinitis, cause unspecified - Chronic airway obstruction, not elsewhere classified - Diabetes ([facility]) - Diverticulosis of colon (without mention of hemorrhage) - Essential hypertension, benign - Heart failure ([facility]) - Insomnia, unspecified - Lipoma Left upper anterior chest - Major depressive disorder, recurrent episode, unspecified - Osteoporosis - Other and unspecified disc disorder of unspecified region Intervertebral disc disorders - Other and unspecified hyperlipidemia - PAD (peripheral artery disease) ([facility]) - PAT (paroxysmal atrial tachycardia) ([facility]) - Tobacco use disorder Current Outpatient Prescriptions: levothyroxine (SYNTHROID) 100 mcg tablet Take 1 tablet by mouth once daily. Take on empty stomach. For Thyroid Disp: 30 tablet Rfl: 5 atenolol (TENORMIN) 50 mg tablet Take 1 tablet by mouth twice daily. Disp: 60 tablet Rfl: 5 spironolactone (ALDACTONE) 25 mg tablet Take 1 tablet by mouth once daily. Disp: 30 tablet Rfl: 5 pramipexole (MIRAPEX) 1 mg tablet Take 1 tablet by mouth three times daily as needed. Disp: 90 tablet Rfl: 5 PARoxetine (PAXIL) 40 mg tablet Take 1.5 tablets by mouth once daily. Disp: 45 tablet Rfl: 5 atorvastatin (LIPITOR) 40 mg tablet Take 1 tablet by mouth daily at bedtime. For cholesterol. Disp: 30 tablet Rfl: 5 cholecalciferol, Vitamin D3, (VITAMIN D3) 50,000 unit cap capsule Take 1 capsule by mouth once each week. Disp: 12 capsule Rfl: 0 diltiazem CD (CARDIZEM CD, CARTIA XT) 180 mg 24 hr capsule Take 1 capsule by mouth twice daily. Disp: 180 capsule Rfl: 3 warfarin (COUMADIN) 6 mg tablet 6 mg on Mon/Wed/Fri/Sat 3 mg all other days or as directed. Disp: 60 tablet Rfl: 5 warfarin (COUMADIN) 3 mg tablet 6 mg on Mon/Wed/Fri/Sat 3 mg all other days or as directed. Disp: 30 tablet Rfl: 11 furosemide (LASIX) 20 mg tablet Take 1 tablet by mouth once daily. Disp: 30 tablet Rfl: 3 rOPINIRole (REQUIP) 2 mg tablet Take 1-2 tablets by mouth daily at bedtime. Ok to take 1 tablet during day as needed for restless legs as well. Disp: 90 tablet Rfl: 5 No current facility-administered medications for this visit. PAST SURGICAL HISTORY Procedure Laterality Date - ARTERIOGRAM EXTREMITY LOW VASC O/P F26/6 07/17/05 - ARTERY X-RAYS, ARM/LEG 01/05/06 - COLONOSCOP W/ OR W/O [facility] SPEC 09/05/10 - CONTRAST X-RAY EXAM OF AORTA 01/05/06 - PERC TRANSL COR ANGIO 2013 Percutaneous Transluminal Coronary Angio Status - PLACE CATH SUBSELECT ART,ABD/PEL 01/05/06 - THYROID FINE NEEDLE ASPIRATION 03/01/06 left thyroid fna - THYROIDECTOMY 04/13 partial - TOTAL ABDOM HYSTERECTOMY 1991 - VEIN BYPASS GRAFT,FEM-POP 08/19/2005 FAMILY HISTORY Problem Relation Age of Onset - GLUCOMA [Other] [OTHER] Maternal Grandmother - Heart Mother - Cancer Father ESOPHAGUS - Hypertension Sister - Hypertension Sister - Alzheimer's Disease Brother Social History Substance Use Topics - Smoking status: Current Every Day Smoker Packs/day: 0.50 Years: 40.00 Types: Cigarettes - Smokeless tobacco: Never Used Comment: 6 cigs daily. - Alcohol use 18.0 oz/week Comment: occasionally BP 122/80 Pulse 90 Temp 36.9 ?C (98.5 ?F) (Left Tympanic) Resp 26 Wt 78.5 kg (173 lb) SpO2 91% BMI 29.70 kg/m? Objective Physical Exam Constitutional: She is well-developed, well-nourished, and in no distress. HENT: Head: Normocephalic and atraumatic. Eyes: Conjunctivae are normal. Neck: Normal range of motion. Cardiovascular: Normal rate, regular rhythm and normal heart sounds. Pulmonary/Chest: Effort normal. Moderate wheezes in bases of the lungs. No retractions or accessory muscle use. Speaking in full sentences. Skin: Skin is warm and dry. Psychiatric: Affect and judgment normal. Nursing note and vitals reviewed. ASSESSMENT/PLAN: 1. COPD with exacerbation (HCC) - ICD9: 491.21, ICD10: J44.1 Pt received an albuterol treatment here and does feel improved. Pulse ox improved to 92%. I did send her home with a nebulizer machine as well. Also given doxycycline, tessalon and prednisone. While taking prednisone patient was informed not to take any nsaids. Discussed if she spikes a fever or feels more short of breath or has chest pain she needs to go to the ED. Xray is closed for the day so I did order one for tomorrow. Pt comfortable going over to the [facility] and having that down. Will call on results. - ALBUTEROL SULFATE 2.5 MG/3 ML (0.083 %) SOLUTION FOR NEBULIZATION DALILA Rudolph Ma 04/20/2018 5:43 PM Signed 2.5 solution aerosol treatment given per doctor's orders. Prior to treatment O2 Sat is 91%. Treatment completed. O2 sat is 92%. Tolerated well. Referring Provider: SELF [[id number]] Allergies As of Date: 04/20/2018 Noted Allergy Reaction CLINT INHIBITORS 09/01/2005 4 - Hives AMBIEN (ZOLPIDEM TARTRATE) 12/20/2015 1 - Mental Status Change Comments: falls AMITRIPTYLINE 05/17/2015 1 - Mental Status Change AUGMENTIN (AMOXICILLIN-POT CLAVUL*09/01/2005 4 - Hives CODEINE 09/01/2005 4 - Hives ZOVIRAX (ACYCLOVIR SODIUM) 09/01/2005 Date Reviewed: 04/20/2018 Reviewed by: Maddie Zavala Ma - Fully Assessed Reason for Visit: Cough [28] Chest Congestion [236] Primary Visit Diagnosis:COPD with exacerbation (HCC) [J44.1] Order(s):[] albuterol 2.5 mg /3 mL (0.083 %) 2.5 mg (PROVENTIL)Disp: Rfl: XR CHEST 2V FRONTAL/LAT [[id number]] Order #: [id number] FUTURE doxycycline (VIBRA-TABS) 100 mg tabletTake 1 tablet by mouth twice daily for 10 days.Disp: 20 tabletRfl: 0 predniSONE (DELTASONE) 20 mg tabletTake 1 tablet by mouth twice daily for 5 days.Disp: 10 tabletRfl: 0 benzonatate (TESSALON PERLES) 100 mg capsuleTake 2 capsules by mouth three times daily as needed.Disp: 30 capsuleRfl: 0 albuterol (PROVENTIL) 2.5 mg /3 mL (0.083 %) nebulizer solutionUse 3 mL via nebulizer every 4 hours as needed for Wheezing/Shortness of Breath. Use over 5-15minutes.Disp: 1 PackageRfl: 0 Prescriptions as of 04/20/2018 Sig: LEVOTHYROXINE 100 MCG TABLET Take 1 tablet by mouth once d* ATENOLOL 50 MG TABLET Take 1 tablet by mouth twice * SPIRONOLACTONE 25 MG TABLET Take 1 tablet by mouth once d* PRAMIPEXOLE 1 MG TABLET Take 1 tablet by mouth three * PAROXETINE 40 MG TABLET Take 1.5 tablets by mouth onc* ATORVASTATIN 40 MG TABLET Take 1 tablet by mouth daily * CHOLECALCIFEROL (VITAMIN D3) * Take 1 capsule by mouth once * DILTIAZEM SR 180 MG 24 HR CAP Take 1 capsule by mouth twice* WARFARIN 6 MG TABLET 6 mg on Wed/Wed/Wed/Sat 3 mg* WARFARIN 3 MG TABLET 6 mg on Wed/Wed/Wed/Sat 3 mg * FUROSEMIDE 20 MG TABLET Take 1 tablet by mouth once d* DOXYCYCLINE HYCLATE 100 MG TA* Take 1 tablet by mouth twice * PREDNISONE 20 MG TABLET Take 1 tablet by mouth twice * BENZONATATE 100 MG CAPSULE Take 2 capsules by mouth thre* ALBUTEROL SULFATE 2.5 MG/3 ML* Use 3 mL via nebulizer every * ROPINIROLE 2 MG TABLET Take 1-2 tablets by mouth meg* Problem List As Of Date 04/20/2018 Noted Resolved PERIPHERAL VASC DISEASE (See also PVD) [I73.9] INVALID FOR* Other and unspecified disc disorder of unspecif* 01/17/2018 More... Hyperlipidemia [E78.5] 01/17/2018 Chronic airway obstruction, not elsewhere class* 01/17/2018 ALLERGIC RHINITIS NOS [J30.9] INSOMNIA NOS [G47.00] TOBACCO USE DISORDER [F17.200] LIPOMA OTHER SKIN AND SUBCUTANEOUS (Left upper Ch*INVALID FOR*11/21/2010 THYROID NODULE NODULE, NONTOXIC (Left) [E04.1] INVALID FOR*05/22/2011 NERVE INJURY UNSPECIFIED(Left recurrent larynge*INVALID FOR*01/17/2018 Atrial fibrillation (HCC) [I48.91] INVALID FOR*01/17/2018 Essential hypertension, benign [I10] INVALID FOR* PAT (paroxysmal atrial tachycardia) [I47.1] INVALID FOR* Anxiety [F41.9] INVALID FOR* CAD (coronary artery disease) [I25.10] INVALID FOR* Vitamin D deficiency [E55.9] INVALID FOR* Osteoporosis [M81.0] INVALID FOR* Varicose veins with pain [I83.819] INVALID FOR* Restless leg syndrome [G25.81] INVALID FOR* Mixed hyperlipidemia [E78.2] INVALID FOR* Persistent atrial fibrillation (HCC) [I48.1] INVALID FOR* Coronary artery disease involving [place]*INVALID FOR* COPD with chronic bronchitis (HCC) [J44.9] INVALID FOR* AAA (abdominal aortic aneurysm) (HCC) [I71.4] INVALID FOR* More... Visit Notes: >> Maddie Zavala Ma WedApr 20, 2018 5:32 PM Status: Signed 2.5 solution aerosol treatment given per doctor's orders. Prior to treatment O2 Sat is 91%. Treatment completed. O2 sat is 92%. Tolerated well. Prescriptions ordered this encounter Disp Refills Start End ALBUTEROL SULFATE 2.5 MG/3 ML (0.083* 04/20/2018 04/20/2018 Route: INHALATION DOXYCYCLINE HYCLATE 100 MG TABLET 20 t* 0 04/20/2018 04/30/2018 Route: ORAL Sig: Take 1 tablet by mouth twice daily for 10 days. PREDNISONE 20 MG TABLET 10 t* 0 04/20/2018 04/25/2018 Route: ORAL Sig: Take 1 tablet by mouth twice daily for 5 days. BENZONATATE 100 MG CAPSULE 30 c* 0 04/20/2018 Route: ORAL Sig: Take 2 capsules by mouth three times daily as needed. ALBUTEROL SULFATE 2.5 MG/3 ML (0.083* 1 Pa* 0 04/20/2018 Route: NEBULIZATION Sig: Use 3 mL via nebulizer every 4 hours as needed for Wheezing/Shortness of Breath. Use over 5-15minutes. Encounter Status:Closed by BELEM NAVARRO PA-C on 04/20/18 PROGRESS Observed: 04/18/2018 Status: COMPLETED Source: [place] 10:01 AM [facility] REPOSITORY HNO ID: [id number] Author: Aleksandar Wiley Service: (none) Author Type: Physician Type: Progress Notes Filed: 04/18/2018 3:52 PM Note Text: AGREE WITH BELOW Aleksandar Wiley DO CNCO Observed: 04/18/2018 Status: COMPLETED Source: [place] 9:13 AM [facility] REPOSITORY HNO ID: [id number] Author: Mammography Coordinator Service: (none) Author Type: Physician Type: Letter Filed: 04/19/2018 11:31 PM Note Text: April 18, 2018 PID: [id number] Taz Zavaleta [address] [address] Dear Ms. Zavaleta, We are pleased to inform you that the results of your recent breast imaging exam on 04/18/2018 are normal. Early detection of cancer is very important. We also understand recommendations regarding breast cancer screening are controversial. Please discuss with your primary care provider which strategy is best for you and whether a mammogram is right for you. Your imaging studies and report will be kept on file at [facility] as part of your permanent medical record and are available for your continuing care. Thank you for allowing us to help in meeting your health care needs. Sincerely, Dr. Hicks Interpreting Radiologist [facility] (Normal over 40) DONNA SCREENING Observed: 04/18/2018 Status: F Source: [place] 8:54 AM [facility] REPOSITORY * * *Final Report* * * DATE OF EXAM: Apr 18 2018 8:54AM [facility] 0581 - [facility] SCREENING / PROCEDURE REASON: Encounter for screening mammogram for malignant neoplasm of breast * * * * Physician Interpretation * * * * RESULT: #[id number] - DONNA SCREENING BILATERAL DIGITAL SCREENING MAMMOGRAM WITH CAD: 04/18/2018 HISTORY: Encounter For Screening Mammogram For Malignant Neoplasm Of Breast /Screening Mammogram - patient reports NO breast symptoms /Priors available for comparison. RESULT: TECHNIQUE: The study was acquired using full field digital technology and interpreted from soft copy. Current study was also evaluated with a Computer Aided Detection (CAD). Comparison is made to exams dated: 04/02/2017 mammogram - [facility], 01/01/2016 mammogram, 09/08/2013 mammogram, and 2014 mammogram - [facility]. The tissue of both breasts is predominantly fatty. No significant masses, calcifications, or other findings are seen in either breast. There has been no significant interval change. IMPRESSION: NEGATIVE There is no mammographic evidence of malignancy.A 1 year screening mammogram is recommended. Roxanna Hicks M.D. pt/howie:04/18/2018 09:13:20 Logger All Round: Mercedes CRUZ (R)), [facility] letter sent: Normal over 40 Mammogram BI-RADS: 1 Negative [place] Pilot: Howie Transcribe Date/Time: Apr 18 2018 8:31A Dictated by: ROXANNA HICKS MD This examination was interpreted and the report reviewed and electronically signed by: ROXANNA HICKS MD on Apr 18 2018 9:13AM EST [id number] PROGRESS Observed: 04/18/2018 Status: COMPLETED Source: [place] 8:14 AM [facility] REPOSIT[facility] O ID: [id number] Author: Sophia Nunez RN Service: (none) Author Type: (none) Type: Progress Notes Filed: 04/18/2018 8:16 AM Note Text: patient had inr completed at [facility] patients inr is 2.2 (patients inr range 2.0-3.0) patient is currently taking 6mg Mon,Wed,Fri and 3mg all other days patients last dose change was on 04/08/18 due to a high level of 4.2 (dose at that time was 3mg Tues,Thurs,Sun and 6mg all other days patient has had no changes in medication except for the coumadin and no missed doses and no change in diet Advised patient to continue on the same dose(s) and that they would only be contacted regarding dosage and follow up instructions after review with provider, if a change is needed. Written instructions given and patient verbalized understanding. Presently scheduled in 2 weeks (05/02/18) for follow up INR since this is the first normal reading since dose change PROGRESS Observed: 04/08/2018 Status: COMPLETED Source: [place] 5:21 PM [facility] RE[facility] HNO ID: [id number] Author: Aleksandar Wiley Service: (none) Author Type: Physician Type: Progress Notes Filed: 04/08/2018 5:25 PM Note Text: SIDNEY Taz Zavaleta is a 72 year old female who presents to the office for follow up HPI: Seen in office 2-3 months ago by Verna [facility] follow-up on January 06, 2018 for shortness of breath and afib RVR. Patient was transported to [facility] ED via EMS and was started on a non-rebreathe mask. Upon arrival to ED, patient received an EKG which showed A-fib with RVR, with a pulse rate of 148 bpm. While in the hospital the patient received CT angiogram of the chest, CXR, and a 2D echocardiogram. CXR impression showed multifocal infiltrates. Patient was started on Rocephin and Zithromax. CT angiogram was negative for PE. Patient was also started on IV Cardizem drip which was tapered down as heart rate started to become more controlled. Patients lab work showed an elevation of glucose and PT. Pt received insulin while admitted in the hospital. Pt complains of RLQ pain currently in office and states her last bowel movement was 1 week ago. Patient denies shortness of breath, chest pain, dizziness, changes in urinary pattern, and syncope. ? ? Other specialist and follow up care: Table Hand (February 09, 2018) She had an A1c which was elevated at 6.5%, She was on multiple steroids at that time. She hasn't started the Metformin prescribed because no previous hx of diabetes prior to steroid use. Diagnosed with AAA approximately [address] abd/pelvis that she had as well. Asymptomatic Overall feeling well other than joint pains and aches, hands, knees, back. Has hx of arthritis. PAST MEDICAL HISTORY Diagnosis Date - AAA (abdominal aortic aneurysm) (HCC) 01/2018 3 cm - Allergic rhinitis, cause unspecified - Chronic airway obstruction, not elsewhere classified - Diabetes (HCC) - Diverticulosis of colon (without mention of hemorrhage) - Essential hypertension, benign - Heart failure (HCC) - Insomnia, unspecified - Lipoma Left upper anterior chest - Major depressive disorder, recurrent episode, unspecified - Osteoporosis - Other and unspecified disc disorder of unspecified region Intervertebral disc disorders - Other and unspecified hyperlipidemia - PAD (peripheral artery disease) (HCC) - PAT (paroxysmal atrial tachycardia) (HCC) - Tobacco use disorder PAST SURGICAL HISTORY Procedure Laterality Date - ARTERIOGRAM EXTREMITY LOW VASC O/P F26/6 07/17/05 - ARTERY X-RAYS, ARM/LEG 01/05/06 - COLONOSCOP W/ OR W/O [facility] SPEC 09/05/10 - CONTRAST X-RAY EXAM OF AORTA 01/05/06 - PERC TRANSL COR ANGIO 2013 Percutaneous Transluminal Coronary Angio Status - PLACE CATH SUBSELECT ART,ABD/PEL 01/05/06 - THYROID FINE NEEDLE ASPIRATION 03/01/06 left thyroid fna - THYROIDECTOMY 04/13 partial - TOTAL ABDOM HYSTERECTOMY 1991 - VEIN BYPASS GRAFT,FEM-POP 08/19/2005 Current Outpatient Prescriptions: levothyroxine (SYNTHROID) 100 mcg tablet Take 1 tablet by mouth once daily. Take on empty stomach. For Thyroid atenolol (TENORMIN) 50 mg tablet Take 1 tablet by mouth twice daily. spironolactone (ALDACTONE) 25 mg tablet Take 1 tablet by mouth once daily. pramipexole (MIRAPEX) 1 mg tablet Take 1 tablet by mouth three times daily as needed. PARoxetine (PAXIL) 40 mg tablet Take 1.5 tablets by mouth once daily. atorvastatin (LIPITOR) 40 mg tablet Take 1 tablet by mouth daily at bedtime. For cholesterol. cholecalciferol, Vitamin D3, (VITAMIN D3) 50,000 unit cap capsule Take 1 capsule by mouth once each week. diltiazem CD (CARDIZEM CD, CARTIA XT) 180 mg 24 hr capsule Take 1 capsule by mouth twice daily. warfarin (COUMADIN) 6 mg tablet 6 mg on Mon/Wed/Fri/Sat 3 mg all other days or as directed. warfarin (COUMADIN) 3 mg tablet 6 mg on Mon/Wed/Fri/Sat 3 mg all other days or as directed. furosemide (LASIX) 20 mg tablet Take 1 tablet by mouth once daily. rOPINIRole (REQUIP) 2 mg tablet Take 1-2 tablets by mouth daily at bedtime. Ok to take 1 tablet during day as needed for restless legs as well. No current facility-administered medications for this visit. ALLERGIES Allergen Reactions - Clint Inhibitors Hives - Ambien [Zolpidem Ta* Mental Status Change falls - Amitriptyline Mental Status Change - Augmentin [Amoxicil* Hives - Codeine Hives - Zovirax [Acyclovir * Social History Marital status: Spouse name: Years of education: Number of children: Social History Main Topics Smoking status: Current Every Day Smoker Packs/day: 0.50 Years: 40.00 Types: Cigarettes Smokeless tobacco: Never Used Comment: 6 cigs daily. Alcohol use: Yes 18.0 oz/week Comment: occasionally Drug use: No Sexual activity: No ROS: See HPI PE: BP 132/86 Pulse 76 Temp (Src) 96.7 (Right Tympanic) Resp 16 Wt 170 lb (77.1kg) Gen: AANDOX3, NAD, non-toxic appearing HEENT: PERRLA, EOMs intact b/l, nares without drainage, pharynx without erythema, exudate, lesions, or drainage. Uvula midline. Neck: No LAD, no thyromegaly, no meningismus. CV: RRR, 2/6 HSM RUSB murmur Lungs: diffusely mildly diminished, no distress Skin: No rashes, lesions, or wounds on exposed skin. No edema, normal pulses ASSESSMENT/PLAN: 1. Hypothyroidism, unspecified type - ICD9: 244.9, ICD10: E03.9 (primary diagnosis) - Instructed patient on importance of taking on an empty stomach either first thing in the morning or at bedtime. - LEVOTHYROXINE 100 MCG TABLET 2. Controlled type 2 diabetes mellitus without complication, without long-term current use of insulin (HCC) - ICD9: 250.00, ICD10: E11.9 - recently diagnosed after high dose steroids while hospitalized, she refuses to take the Metformin, wants labs to be rechecked - HGB A1C - COMP METABOLIC PANEL 3. Chronic atrial fibrillation (HCC) - ICD9: 427.31, ICD10: I48.2 - rx refilled, f/u with Dr. Brennan as scheduled. - ATENOLOL 50 MG TABLET - SPIRONOLACTONE 25 MG TABLET 4. RLS (restless legs syndrome) - ICD9: 333.94, ICD10: G25.81 - PRAMIPEXOLE 1 MG TABLET 5. Anxiety - ICD9: 300.00, ICD10: F41.9 - stable, rx refilled. - PAROXETINE 40 MG TABLET 6. Dyslipidemia - ICD9: 272.4, ICD10: E78.5 - good control - Continue current medication. - ATORVASTATIN 40 MG TABLET 7. Visit for screening mammogram - ICD9: V76.12, ICD10: Z12.31 - Set up for mammogram, yearly mammogram recommended - Encouraged monthly BSE - DONNA SCREENING 8. Abdominal aortic aneurysm (AAA) without rupture (HCC) - ICD9: 441.4, ICD10: I71.4 - continue to follow every 1-2 years Aleksandar Wiley DO Return if no improvement. Follow up with Aleksandar Wiley DO. Discussed risks, benefits, alternatives, and potential side effects of medications. Patient/Guardian expressed understanding and agreed with the plan. See patient instructions. Aleksandar Wiley DO [address] [place] [address] PROGRESS Observed: 04/08/2018 Status: COMPLETED Source: [place] 1:20 PM [facility] REPOSIT[facility] HNO ID: [id number] Author: Taryn Gaytan RN Service: (none) Author Type: (none) Type: Progress Notes Filed: 04/08/2018 1:24 PM Note Text: Patient notified of PCP instructions. Verbalized understanding. Appt scheduled for 04/18 per patient request. PROGRESS Observed: 04/08/2018 Status: COMPLETED Source: [place] 11:52 AM [facility] RE[facility] HNO ID: [id number] Author: Aleksandar Wiley Service: (none) Author Type: Physician Type: Progress Notes Filed: 04/08/2018 1:24 PM Note Text: Decrease dose to 3 mg tues, thurs, sat, Sun and 6 mg other days of week, recheck INR 1 week Aleksandar Wiley DO PROGRESS Observed: 04/08/2018 Status: COMPLETED Source: [place] 9:28 AM [facility] RE[facility] HNO ID: [id number] Author: Taryn Gaytan RN Service: (none) Author Type: (none) Type: Progress Notes Filed: 04/08/2018 9:29 AM Note Text: Patient had INR completed at [facility] Patient's INR is 4.2 Patient is currently taking 3mg TuThSu, 6mg all other days Patient's last dose change was 07/30/17 due to low INR at 1.9 Patient has had no medication and no change in diet. Advised patient that they would be contacted regarding medication dose and follow-up once reviewed by provider. After provider review, please contact patient with information and schedule follow-up appointment with coumadin clinic. DARLING Observed: 04/08/2018 Status: COMPLETED Source: [place] 8:20 AM [facility] REPOS[facility] Office Visit (FAMPWS) TAZ ZAVALETA ([id number]) 1945 F Date Time Provider Department 04/08/18 8:20 AM [facility] During your visit today, we recorded the following information about you: Temperature Pulse Respiration Blood pressure 96.7 degrees 76/minute 16/minute 132/86 Weight 77.1 kg Aleksandar Wiley DO 04/08/2018 5:25 PM Signed CC Taz Zavaleta is a 72 year old female who presents to the office for follow up HPI: Seen in office 2-3 months ago by Verna [facility] follow-up on January 06, 2018 for shortness of breath and afib RVR. Patient was transported to [facility] ED via EMS and was started on a non-rebreathe mask. Upon arrival to ED, patient received an EKG which showed A-fib with RVR, with a pulse rate of 148 bpm. While in the hospital the patient received CT angiogram of the chest, CXR, and a 2D echocardiogram. CXR impression showed multifocal infiltrates. Patient was started on Rocephin and Zithromax. CT angiogram was negative for PE. Patient was also started on IV Cardizem drip which was tapered down as heart rate started to become more controlled. Patients lab work showed an elevation of glucose and PT. Pt received insulin while admitted in the hospital. Pt complains of RLQ pain currently in office and states her last bowel movement was 1 week ago. Patient denies shortness of breath, chest pain, dizziness, changes in urinary pattern, and syncope. ? ? Other specialist and follow up care: Table Hand (February 09, 2018) She had an A1c which was elevated at 6.5%, She was on multiple steroids at that time. She hasn't started the Metformin prescribed because no previous hx of diabetes prior to steroid use. Diagnosed with AAA approximately [address] abd/pelvis that she had as well. Asymptomatic Overall feeling well other than joint pains and aches, hands, knees, back. Has hx of arthritis. PAST MEDICAL HISTORY Diagnosis Date - AAA (abdominal aortic aneurysm) (HCC) 01/2018 3 cm - Allergic rhinitis, cause unspecified - Chronic airway obstruction, not elsewhere classified - Diabetes ([facility]) - Diverticulosis of colon (without mention of hemorrhage) - Essential hypertension, benign - Heart failure (HCC) - Insomnia, unspecified - Lipoma Left upper anterior chest - Major depressive disorder, recurrent episode, unspecified - Osteoporosis - Other and unspecified disc disorder of unspecified region Intervertebral disc disorders - Other and unspecified hyperlipidemia - PAD (peripheral artery disease) ([facility]) - PAT (paroxysmal atrial tachycardia) ([facility]) - Tobacco use disorder PAST SURGICAL HISTORY Procedure Laterality Date - ARTERIOGRAM EXTREMITY LOW VASC O/P F26/6 07/17/05 - ARTERY X-RAYS, ARM/LEG 01/05/06 - COLONOSCOP W/ OR W/O [facility] SPEC 09/05/10 - CONTRAST X-RAY EXAM OF AORTA 01/05/06 - PERC TRANSL COR ANGIO 2012 Percutaneous Transluminal Coronary Angio Status - PLACE CATH SUBSELECT ART,ABD/PEL 01/05/06 - THYROID FINE NEEDLE ASPIRATION 03/01/06 left thyroid fna - THYROIDECTOMY 04/13 partial - TOTAL ABDOM HYSTERECTOMY 1991 - VEIN BYPASS GRAFT,FEM-POP 08/19/2005 Current Outpatient Prescriptions: levothyroxine (SYNTHROID) 100 mcg tablet Take 1 tablet by mouth once daily. Take on empty stomach. For Thyroid atenolol (TENORMIN) 50 mg tablet Take 1 tablet by mouth twice daily. spironolactone (ALDACTONE) 25 mg tablet Take 1 tablet by mouth once daily. pramipexole (MIRAPEX) 1 mg tablet Take 1 tablet by mouth three times daily as needed. PARoxetine (PAXIL) 40 mg tablet Take 1.5 tablets by mouth once daily. atorvastatin (LIPITOR) 40 mg tablet Take 1 tablet by mouth daily at bedtime. For cholesterol. cholecalciferol, Vitamin D3, (VITAMIN D3) 50,000 unit cap capsule Take 1 capsule by mouth once each week. diltiazem CD (CARDIZEM CD, CARTIA XT) 180 mg 24 hr capsule Take 1 capsule by mouth twice daily. warfarin (COUMADIN) 6 mg tablet 6 mg on Mon/Wed/Fri/Sat 3 mg all other days or as directed. warfarin (COUMADIN) 3 mg tablet 6 mg on Mon/Wed/Wed/Sat 3 mg all other days or as directed. furosemide (LASIX) 20 mg tablet Take 1 tablet by mouth once daily. rOPINIRole (REQUIP) 2 mg tablet Take 1-2 tablets by mouth daily at bedtime. Ok to take 1 tablet during day as needed for restless legs as well. No current facility-administered medications for this visit. ALLERGIES Allergen Reactions - Clint Inhibitors Hives - Ambien [Zolpidem Ta* Mental Status Change falls - Amitriptyline Mental Status Change - Augmentin [Amoxicil* Hives - Codeine Hives - Zovirax [Acyclovir * Social History Marital status: Spouse name: Years of education: Number of children: Social History Main Topics Smoking status: Current Every Day Smoker Packs/day: 0.50 Years: 40.00 Types: Cigarettes Smokeless tobacco: Never Used Comment: 6 cigs daily. Alcohol use: Yes 18.0 oz/week Comment: occasionally Drug use: No Sexual activity: No ROS: See HPI PE: BP 132/86 Pulse 76 Temp (Src) 96.7 (Right Tympanic) Resp 16 Wt 170 lb (77.1kg) Gen: AANDOX3, NAD, non-toxic appearing HEENT: PERRLA, EOMs intact b/l, nares without drainage, pharynx without erythema, exudate, lesions, or drainage. Uvula midline. Neck: No LAD, no thyromegaly, no meningismus. CV: RRR, 2/6 HSM RUSB murmur Lungs: diffusely mildly diminished, no distress Skin: No rashes, lesions, or wounds on exposed skin. No edema, normal pulses ASSESSMENT/PLAN: 1. Hypothyroidism, unspecified type - ICD9: 244.9, ICD10: E03.9 (primary diagnosis) - Instructed patient on importance of taking on an empty stomach either first thing in the morning or at bedtime. - LEVOTHYROXINE 100 MCG TABLET 2. Controlled type 2 diabetes mellitus without complication, without long-term current use of insulin (HCC) - ICD9: 250.00, ICD10: E11.9 - recently diagnosed after high dose steroids while hospitalized, she refuses to take the Metformin, wants labs to be rechecked - HGB A1C - COMP METABOLIC PANEL 3. Chronic atrial fibrillation (HCC) - ICD9: 427.31, ICD10: I48.2 - rx refilled, f/u with Dr. Brennan as scheduled. - ATENOLOL 50 MG TABLET - SPIRONOLACTONE 25 MG TABLET 4. RLS (restless legs syndrome) - ICD9: 333.94, ICD10: G25.81 - PRAMIPEXOLE 1 MG TABLET 5. Anxiety - ICD9: 300.00, ICD10: F41.9 - stable, rx refilled. - PAROXETINE 40 MG TABLET 6. Dyslipidemia - ICD9: 272.4, ICD10: E78.5 - good control - Continue current medication. - ATORVASTATIN 40 MG TABLET 7. Visit for screening mammogram - ICD9: V76.12, ICD10: Z12.31 - Set up for mammogram, yearly mammogram recommended - Encouraged monthly BSE - DON[facility] SCREENING 8. Abdominal aortic aneurysm (AAA) without rupture (HCC) - ICD9: 441.4, ICD10: I71.4 - continue to follow every 1-2 years Aleksandar Wiley DO Return if no improvement. Follow up with Aleksandar Wiley DO. Discussed risks, benefits, alternatives, and potential side effects of medications. Patient/Guardian expressed understanding and agreed with the plan. See patient instructions. Aleksandar Wiley DO [address] [place] [address] Referring Provider: ALEKSANDAR WILEY [[id number]] Allergies As of Date: 04/08/2018 Noted Allergy Reaction CLINT INHIBITORS 09/01/2005 4 - Hives AMBIEN (ZOLPIDEM TARTRATE) 12/20/2015 1 - Mental Status Change Comments: falls AMITRIPTYLINE 05/17/2015 1 - Mental Status Change AUGMENTIN (AMOXICILLIN-POT CLAVUL*09/01/2005 4 - Hives CODEINE 09/01/2005 4 - Hives ZOVIRAX (ACYCLOVIR SODIUM) 09/01/2005 Date Reviewed: 04/08/2018 Reviewed by: Terrence Quach LPN - Fully Assessed Reason for Visit: Follow Up [171] Cmt: 6 months Primary Visit Diagnosis:Hypothyroidism, unspecified type [E03.9] Other Visit Diagnoses:Controlled type 2 diabetes mellitus without complication, without long-term current use of insulin (HCC) [E11.9] Chronic atrial fibrillation (HCC) [I48.2] RLS (restless legs syndrome) [G25.81] Anxiety [F41.9] Dyslipidemia [E78.5] Visit for screening mammogram [Z12.31] Abdominal aortic aneurysm (AAA) without rupture (HCC) [I71.4] Order(s):[facility] SCREENING [1069510] Order #: [id number] FUTURE levothyroxine (SYNTHROID) 100 mcg tabletTake 1 tablet by mouth once daily. Take on empty stomach. For ThyroidDisp: 30 tabletRfl: 5 atenolol (TENORMIN) 50 mg tabletTake 1 tablet by mouth twice daily.Disp: 60 tabletRfl: 5 spironolactone (ALDACTONE) 25 mg tabletTake 1 tablet by mouth once daily.Disp: 30 tabletRfl: 5 pramipexole (MIRAPEX) 1 mg tabletTake 1 tablet by mouth three times daily as needed.Disp: 90 tabletRfl: 5 PARoxetine (PAXIL) 40 mg tabletTake 1.5 tablets by mouth once daily.Disp: 45 tabletRfl: 5 atorvastatin (LIPITOR) 40 mg tabletTake 1 tablet by mouth daily at bedtime. For cholesterol.Disp: 30 tabletRfl: 5 HGB A1C [[id number]] Order #: [id number] FUTURE COMP METABOLIC PANEL [SQCMP] Order #: [id number] FUTURE Prescriptions as of 04/08/2018 Sig: LEVOTHYROXINE 100 MCG TABLET Take 1 tablet by mouth once d* ATENOLOL 50 MG TABLET Take 1 tablet by mouth twice * SPIRONOLACTONE 25 MG TABLET Take 1 tablet by mouth once d* PRAMIPEXOLE 1 MG TABLET Take 1 tablet by mouth three * PAROXETINE 40 MG TABLET Take 1.5 tablets by mouth onc* ATORVASTATIN 40 MG TABLET Take 1 tablet by mouth daily * CHOLECALCIFEROL (VITAMIN D3) * Take 1 capsule by mouth once * DILTIAZEM SR 180 MG 24 HR CAP Take 1 capsule by mouth twice* WARFARIN 6 MG TABLET 6 mg on Wed/Wed/Wed/Sat 3 mg* WARFARIN 3 MG TABLET 6 mg on Wed/Wed/Wed/Sat 3 mg * FUROSEMIDE 20 MG TABLET Take 1 tablet by mouth once d* ROPINIROLE 2 MG TABLET Take 1-2 tablets by mouth meg* Medication notes this encounter ROPINIROLE 2 MG TABLET >> Terrence Quach LPN 04/08/2018 8:16 AM >> TERRENCE QUACH LPN WedApr 08, 2018 8:16 AM Finished Problem List As Of Date 04/08/2018 Noted Resolved PERIPHERAL VASC DISEASE (See also PVD) [I73.9] INVALID FOR* Other and unspecified disc disorder of unspecif* 01/17/2018 More... Hyperlipidemia [E78.5] 01/17/2018 Chronic airway obstruction, not elsewhere class* 01/17/2018 ALLERGIC RHINITIS NOS [J30.9] INSOMNIA NOS [G47.00] TOBACCO USE DISORDER [F17.200] LIPOMA OTHER SKIN AND SUBCUTANEOUS (Left upper Ch*INVALID FOR*11/21/2010 THYROID NODULE NODULE, NONTOXIC (Left) [E04.1] INVALID FOR*05/22/2011 NERVE INJURY UNSPECIFIED(Left recurrent larynge*INVALID FOR*01/17/2018 Atrial fibrillation (HCC) [I48.91] INVALID FOR*01/17/2018 Essential hypertension, benign [I10] INVALID FOR* PAT (paroxysmal atrial tachycardia) [I47.1] INVALID FOR* Anxiety [F41.9] INVALID FOR* CAD (coronary artery disease) [I25.10] INVALID FOR* Vitamin D deficiency [E55.9] INVALID FOR* Osteoporosis [M81.0] INVALID FOR* Varicose veins with pain [I83.819] INVALID FOR* Restless leg syndrome [G25.81] INVALID FOR* Mixed hyperlipidemia [E78.2] INVALID FOR* Persistent atrial fibrillation (HCC) [I48.1] INVALID FOR* Coronary artery disease involving [place]*INVALID FOR* COPD with chronic bronchitis (HCC) [J44.9] INVALID FOR* AAA (abdominal aortic aneurysm) (HCC) [I71.4] INVALID FOR* More... Prescriptions ordered this encounter Disp Refills Start End LEVOTHYROXINE 100 MCG TABLET 30 t* 5 04/08/2018 Class: Print RX Route: ORAL Sig: Take 1 tablet by mouth once daily. Take on empty stomach. For Thyroid ATENOLOL 50 MG TABLET 60 t* 5 04/08/2018 Class: Print RX Route: ORAL Sig: Take 1 tablet by mouth twice daily. SPIRONOLACTONE 25 MG TABLET 30 t* 5 04/08/2018 Class: Print RX Route: ORAL Sig: Take 1 tablet by mouth once daily. PRAMIPEXOLE 1 MG TABLET 90 t* 5 04/08/2018 Class: Print RX Route: ORAL Sig: Take 1 tablet by mouth three times daily as needed. PAROXETINE 40 MG TABLET 45 t* 5 04/08/2018 Class: Print RX Route: ORAL Sig: Take 1.5 tablets by mouth once daily. ATORVASTATIN 40 MG TABLET 30 t* 5 04/08/2018 Class: Print RX Route: ORAL Sig: Take 1 tablet by mouth daily at bedtime. For cholesterol. Medications Discontinued During This Encounter metFORMIN (GLUCOPHAGE) 500 mg tablet 30 t* 3 01/18/2018 04/08/2018 Route: ORAL Sig: Take 1 tablet by mouth daily with breakfast. Disc: Reason for discontinue is not on file. levothyroxine (SYNTHROID) 100 mcg ta* 30 t* 5 10/08/2017 04/08/2018 Class: Print RX Route: ORAL Sig: Take 1 tablet by mouth once daily. Take on empty stomach. For Thyroid Disc: Reason for discontinue is not on file. atenolol (TENORMIN) 50 mg tablet 60 t* 5 10/08/2017 04/08/2018 Class: Print RX Route: ORAL Sig: Take 1 tablet by mouth twice daily. Disc: Reason for discontinue is not on file. spironolactone (ALDACTONE) 25 mg tab* 30 t* 5 10/08/2017 04/08/2018 Class: Print RX Route: ORAL Sig: Take 1 tablet by mouth once daily. Disc: Reason for discontinue is not on file. pramipexole (MIRAPEX) 1 mg tablet 90 t* 5 10/08/2017 04/08/2018 Class: Print RX Route: ORAL Sig: Take 1 tablet by mouth three times daily as needed. Disc: Reason for discontinue is not on file. PARoxetine (PAXIL) 40 mg tablet 45 t* 11 10/08/2017 04/08/2018 Route: ORAL Sig: Take 1.5 tablets by mouth once daily. Disc: Reason for discontinue is not on file. atorvastatin (LIPITOR) 40 mg tablet 30 t* 5 10/08/2017 04/08/2018 Route: ORAL Sig: Take 1 tablet by mouth daily at bedtime. For cholesterol. Disc: Reason for discontinue is not on file. Encounter Status:Closed by ALEKSANDAR WILEY DO on 04/08/18 CBC AND DIFFERENTIAL Collected: 03/30/2018 Status: F Source: [place] 10:55 AM [facility] TYPE CODE TESTS RESULT OUT OF REFERENCE UNITS RANGE LAB WBC 3.70-11.00 k/uL WBC 6.57 LAB RBC 3.90-5.20 m/uL RBC 4.96 LAB HGB 11.5-15.5 g/dL Hemoglobin 15.3 LAB HCT 36.0-46.0 % High Hematocrit 50.3 LAB MCV 80.0-100.0 fL MCV High 101.4 LAB MCH 26.0-34.0 pG MCH 30.8 LAB MCHC 30.5-36.0 g/dL Low MCHC 30.4 LAB RDWCV 11.5-15.0 % RDW-CV High 15.6 LAB PLTCT 150-400 k/uL Platelet Count 267 LAB MPV 9.0-12.7 fL MPV 11.5 LAB ANEUT % Neut% 56.3 LAB AANEUT 1.45-7.50 k/uL Abs Neut 3.68 LAB ALYMP % Lymph% 34.2 LAB AALYMP 1.00-4.00 k/uL Abs Lymph 2.25 LAB AMONO % Denali% 6.2 LAB AAMONO <0.87 k/uL Abs Denali 0.41 LAB AEOS % Eosin% 2.1 LAB AAEOS <0.46 k/uL Abs Eosin 0.14 LAB ABASO % Baso% 1.2 LAB AABASO <0.11 k/uL Abs Baso 0.08 LAB AUNRBC 0 /100 WBC NRBCs 0.0 LAB ABNRBC <0.01 k/uL Absolute nRBC <0.01 LAB DTYP DTYPE Auto Diff Performed By: #### CBCDIF, CMP, LIPB, VITD #### [facility] [address] [place], [place] [address] COMP METABOLIC PANEL Collected: 03/30/2018 Status: F Source: [place] 10:55 AM [facility] REPOSITORY TYPE CODE TESTS RESULT OUT OF REFERENCE UNITS RANGE LAB TP 6.3-8.0 g/dL Protein, High Total 8.2 LAB ALB 3.9-4.9 g/dL Albumin 4.3 LAB CA 8.5-10.2 mg/dL Calcium, Total 9.8 LAB TBIL 0.2-1.3 mg/dL Bilirubin, Total 0.6 LAB ALKP 32-117 U/L Alkaline Phosphatase 84 LAB AST 13-35 U/L AST 35 LAB GLU 74-99 mg/dL Glucose 96 Result Comment: The [place] Diabetes Association (ADA) provides guidance for cutoff values for fasting glucose and random glucose. The ADA defines fasting as no caloric intake for at least 8 hours. Fas ting plasma glucose results between 100 to 125 mg/dL indicate increased risk for diabetes (prediabetes). Fasting plasma glucose results greater than or equal to 126 mg/dL meet the criteria for diagnosis of diabetes. In the absence of unequivocal hyperglycemia, results should be confirmed by repeat testing. In a patient with classic symptoms of hyperglycemia or hyperglycemic crisis, random plasma glucose results greater than or equal to 200 mg/dL meet the criteria for diagnosis of diabetes. Reference: Standards of Medical Care in Diabetes 2016, [place] [employer] Association. Diabetes Care. 2016.39(Suppl 1). LAB BUN 7-21 mg/dL BUN 19 LAB CRET 0.58-0.96 mg/dL Creatinine 0.94 LAB NA 136-144 mmol/L Sodium 138 LAB K 3.7-5.1 mmol/L Potassium 4.5 LAB CL 97-105 mmol/L Chloride 99 LAB CO2 22-30 mmol/L CO2 24 LAB AGAP 9-18 mmol/L Anion Gap 15 LAB ALT 7-38 U/L ALT 22 LAB GFRAA eGFR- Amer. >60 LAB GFRNAA . eGFR-All Other Races 58 Result Comment: eGFR (Estimated GFR) Units of measure: mL/min/1.73 meters squared eGFR is derived from the reexpressed MDRD Study equation using the following parameters: serum creatinine, age, gender and race. The creatinine assay has been calibrated to be traceable to IDMS. An eGFR <60 mL/min/1.73m2 for >3 months is consistent with chronic kidney disease. Refer to KDOQI guidelines for clinical interpretation. In patients with unstable renal function, e.g. those with acute kidney injury, the eGFR may not accurately reflect actual GFR. Performed By: #### CBCDIF, CMP, LIPB, VITD #### [facility] [address] [place] [id number] LIPID PANEL, BASIC Collected: 03/30/2018 Status: F Source: [place] 10:55 AM [facility] REPOSITORY TYPE CODE TESTS RESULT OUT OF REFERENCE UNITS RANGE LAB CHOL <200 mg/dL Cholesterol 119 Result Comment: <200 mg/dL, Desirable 200-239 mg/dL, Borderline high >239 mg/dL, High LAB TRIGLY <150 mg/dL Triglyceride 79 Result Comment: <150 mg/dL, Normal 150-199 mg/dL, Borderline high 200-499 mg/dL, High >499 mg/dL, Very high LAB HDL >39 mg/dL HDL-Cholesterol 55 Result Comment: 40-59 mg/dL, Acceptable >59 mg/dL, High: Negative risk factor for coronary heart disease <40 mg/dL, Low: Positive risk factor for coronary heart disease LAB LDL <100 mg/dL LDL-Cholesterol 48 Result Comment: <100 mg/dL, Optimal 100-129 mg/dL, Near optimal/above optimal 130-159 mg/dL, Borderline high 160-189 mg/dL, High >189 mg/dL, Very high Secondary prevention optimal LDL Cholesterol levels are recommended to be < 70 mg/dL LAB NONHDL <130 mg/dL Non HDL Cholesterol 64 Result Comment: <130 mg/dL, Optimal 130-159 mg/dL, Near optimal/above optimal 160-189 mg/dL, Borderline high 190-219 mg/dL, High >219 mg/dL, Very high Secondary prevention optimal non HDL Cholesterol levels are recommended to be < 100 mg/dL LAB FT hrs Fasting Time 18 LAB VLDL <30 mg/dL VLDL Cholesterol 16 LAB TCHDL <5.10 TC:HDL Ratio 2.16 LAB LDLHDL <2.54 LDL:HDL Ratio 0.87 Result Comment: Reference: 1. National Cholesterol Education Program ATP III Guideline At-A-Glance Quick Desk Reference: National Heart, Lung, and Blood [place]. National Institutes of Health. 2001: NIH Publication No. 01-3305. 2. An International Atherosclerosis Society position paper: global recommendations for the management of dyslipidemia: executive summary, Atherosclerosis. 2014: 232(2):410-413. Performed By: #### CBCDIF, CMP, LIPB, VITD #### [facility] [address] [place], [place] [address] VITAMIN D 25 HYDROXY Collected: 03/30/2018 Status: F Source: [place] 10:55 AM [facility] REPOSITORY TYPE CODE TESTS RESULT OUT OF REFERENCE UNITS RANGE LAB VITD 31.0-80.0 ng/mL Low Vitamin D 25 17.4 Hydroxy Result Comment: Classification of 25 [place] Vitamin D status: Insufficiency/Moderate Deficiency: < or = 30 ng/mL Sufficiency/Optimal Levels: 31 to 80 ng/mL Toxicity: > 100 ng/mL Test performed by chemiluminescent immunoassay. Performed By: #### CBCDIF, CMP, LIPB, VITD #### [facility] [address] [place], [place] [address] STRESS REPORT Observed: 03/22/2018 Status: F Source: [place] 2:01 PM [facility] REPOSITORY [facility] Cardiovascular Services [address] [place] [id number] MR#: [id number] Acct: [id number] Name: TAZ ZAVALETA Rep #: [id number] : 1945 72 From: Jeff Brennan MD Primary Care: Aleksandar Putnam DO Status: REG CLI Ordering Dr: Sex: F C Stress Test Report Date: 03/22/2018 Procedure: Pharmacologic stress nuclear imaging study Indications: Shortness of breath/dyspnea; CAD; PCI Consent: Per the patient Procedure: The patient underwent pharmacologic (Regadenoson) evaluation with a peak heart rate of 127 beats per minute (86 predicted maximal heart rate) and a peak blood pressure of 170/100 mmHg. The baseline ECG demonstrated atrial fibrillation. The peak pharmacologic ECG demonstrated no obvious ECG changes. There was a rare PVC during pharmacologic infusion. There was no complaint of chest discomfort during pharmacologic infusion or recovery. The examination was discontinued secondary to completion of protocol. Impression: 1. Pharmacologic (Regadenoson) evaluation 2. Peak pharmacologic ECG with with continued atrial fibrillation with no obvious ECG changes. 3. As a rare PVC during pharmacologic infusion 4. Nuclear images pending Myocardial perfusion imaging study: Technique: The patient was injected with 11.1 millicuries of technetium 99m Cardiolite and subsequently rest SPECT Cardiolite nuclear imaging was obtained in the horizontal long, vertical long, and short axis views. The patient underwent pharmacologic (Regadenoson) evaluation with a peak heart rate of 127 beats per minute (86 % percent predicted maximal heart rate) and a peak blood pressure of 170/100 mmHg. The patient was injected with 32.8 millicuries of technetium 99m Cardiolite and subsequently stress SPECT Cardiolite nuclear imaging was obtained in the horizontal long, vertical long, and short axis views. A gated Cardiolite study at peak stress was obtained. Interpretation: Rest and stress SPECT Cardiolite nuclear imaging status post realignment, normalization, and attenuation correction demonstrate relative uniform tracer uptake and myocardial perfusion appearing within normal limits. There is end systolic thickening and brightening. The gated Cardiolite study demonstrates myocardial thickening and inward wall motion. The reported LVEF is 65 %. Impression: 1. Rest and stress SPECT Cardiolite nuclear imaging demonstrate relative uniform tracer uptake and myocardial perfusion appearing within normal limits. 2. The gated Cardiolite study reports an LVEF of 65%. This note was generated with Idibonation software. It may contain incorrect words, spelling, and punctuation that were not noted in checking the note before signing. 03/22/18 1401 <Electronically signed by Jeff Brennan MD> Date Jeff Brennan MD CC: Aleksandar Putnam DO; Jeff Brennan MD Date Dictated: 03/22/18 1356 Date Transcribed: 03/22/181355 [place]: PM Signed [email or web address] Observed: 03/22/2018 Status: COMPLETED Source: [place] 12:00 AM [facility] REPOSITORY Patient Outreach (FAMPST) TAZ ZAVALETA ([id number]) 1945 F Date Time Provider Department 03/22/18 ALEKSANDAR WILEY FAMPST During your visit today, we recorded the following information about you: Allergies As of Date: 03/22/2018 Noted Allergy Reaction CLINT INHIBITORS 09/01/2005 4 - Hives AMBIEN (ZOLPIDEM TARTRATE) 12/20/2015 1 - Mental Status Change Comments: falls AMITRIPTYLINE 05/17/2015 1 - Mental Status Change AUGMENTIN (AMOXICILLIN-POT CLAVUL*09/01/2005 4 - Hives CODEINE 09/01/2005 4 - Hives ZOVIRAX (ACYCLOVIR SODIUM) 09/01/2005 Date Reviewed: 01/21/2018 Reviewed by: Nelsy Mckinney Ct - Fully Assessed Visit Diagnosis:Medication management [Z79.899] Order(s):ALBUMIN/CREAT RATIO RND UR [SQUACR] Order #: [id number] FUTURE Prescriptions as of 03/22/2018 Sig: DILTIAZEM SR 180 MG 24 HR CAP Take 1 capsule by mouth twice* X METFORMIN 500 MG TABLET Take 1 tablet by mouth daily * X LEVOTHYROXINE 100 MCG TABLET Take 1 tablet by mouth once d* X ATENOLOL 50 MG TABLET Take 1 tablet by mouth twice * X SPIRONOLACTONE 25 MG TABLET Take 1 tablet by mouth once d* X PRAMIPEXOLE 1 MG TABLET Take 1 tablet by mouth three * X PAROXETINE 40 MG TABLET Take 1.5 tablets by mouth onc* X ATORVASTATIN 40 MG TABLET Take 1 tablet by mouth daily * WARFARIN 3 MG TABLET 6 mg on Wed/Wed/Wed/Sat 3 mg * X WARFARIN 6 MG TABLET 6 mg on Wed/Wed/Wed/Sat 3 mg* ROPINIROLE 2 MG TABLET Take 1-2 tablets by mouth meg* FUROSEMIDE 20 MG TABLET Take 1 tablet by mouth once d* Problem List As Of Date 03/22/2018 Noted Resolved PERIPHERAL VASC DISEASE (See also PVD) [I73.9] INVALID FOR* Other and unspecified disc disorder of unspecif* 01/17/2018 More... Hyperlipidemia [E78.5] 01/17/2018 Chronic airway obstruction, not elsewhere class* 01/17/2018 ALLERGIC RHINITIS NOS [J30.9] INSOMNIA NOS [G47.00] TOBACCO USE DISORDER [F17.200] LIPOMA OTHER SKIN AND SUBCUTANEOUS (Left upper Ch*INVALID FOR*11/21/2010 THYROID NODULE NODULE, NONTOXIC (Left) [E04.1] INVALID FOR*05/22/2011 NERVE INJURY UNSPECIFIED(Left recurrent larynge*INVALID FOR*01/17/2018 Atrial fibrillation (HCC) [I48.91] INVALID FOR*01/17/2018 Essential hypertension, benign [I10] INVALID FOR* PAT (paroxysmal atrial tachycardia) [I47.1] INVALID FOR* Anxiety [F41.9] INVALID FOR* CAD (coronary artery disease) [I25.10] INVALID FOR* Vitamin D deficiency [E55.9] INVALID FOR* Osteoporosis [M81.0] INVALID FOR* Varicose veins with pain [I83.819] INVALID FOR* Restless leg syndrome [G25.81] INVALID FOR* Mixed hyperlipidemia [E78.2] INVALID FOR* Persistent atrial fibrillation (HCC) [I48.1] INVALID FOR* Coronary artery disease involving [place]*INVALID FOR* COPD with chronic bronchitis (HCC) [J44.9] INVALID FOR* Encounter Status:Closed by ZAC HARPER on 08/19/18 CARDIOLOGY VISIT Observed: 02/17/2018 Status: F Source: SARA REPORT 5:36 PM [facility] REPOSITORY [facility] [address] [place] [address] OFFICE VISIT Date of Service: 02/17/18 MR#: [id number] Acct: [id number] Name: TAZ ZAVALETA Rajan Rep #: [id number] : 1945 Provider: Jeff Brennan MD Age/Sex: 72/F Location: [facility] Status: Signed HPI HPI Details: TAZ ZAVALETA, is a 72 F who presents to the office today for for outpatient cardiovascular consultation for concerns of a history of atrial fibrillation, CAD, status post LCx PCI (06/19/2013), abdominal aortic aneurysm, hyperlipidemia, hypertension, secondary pulmonary hypertension, superimposed upon COPD, with symptoms of shortness of breath/dyspnea. She has been previously followed by [facility] cardiology having outpatient and inpatient cardiovascular studies performed at both the [facility] center locally and at [facility]. She states she has been diagnosed with atrial fibrillation years ago and his been on rate control therapy and anticoagulant therapy. She does not recall any previous attempts at antiarrhythmic therapy, DC cardioversion, or consideration for EPS/RFA. She states she cannot sense when her heart rate changes. She also has a history of CAD. She states she has undergone noninvasive studies with exercise tolerance test/imaging studies and diagnostic cardiac catheterizations. She notes she has had cardiac catheterizations performed locally and at [facility]. To the best of her recollection her most recent one was performed on 06/19/2013 at [facility] at which time she received an LCx PTCA/stent. At that time according to the report her left main coronary artery was apparently patent, there was no comment, based upon the impression, of any obvious LAD disease. There was comment that the right coronary artery had 60-70% stenosis. Her left ventricle was normal with an LVEF of 55-60%. Her renal arteries were patent. She was reported as having moderate right iliac atherosclerotic vascular disease with 50% stenosis in the right common iliac artery. She does not believe she has had any further invasive studies since that time. She does have a history of abdominal aortic aneurysm. This appears to been diagnosed recently through the [facility] office. There is a comment in a CAT scan report that she had a 3 cm x 2.9 cm aneurysmal dilatation of the infrarenal aorta with an associated mural thrombus. She states she has not been evaluated by peripheral vascular surgery for this as of yet. She denies any abdominal or low back discomfort. She is also being treated for concerns of hyperlipidemia and hypertension and secondary pulmonary hypertension. She has a history of underlying COPD. She is currently not following with a electrical instrument technician. She states she has been evaluated for sleep apnea. She believes she was told this was negative. It appears that she was recently placed on additional medical therapy for rate control with diltiazem CD. She states she has just picked up her prescription to initiate this medication. She did have an ECG in the office today. She was in atrial fibrillation. She had poor R-wave progression. Her ECG did not appear to demonstrate any acute ECG changes. She also had a transthoracic echocardiogram performed recently at [facility] on 01/07/2018. The left ventricle was normal with an LVEF of 65%. The atrium both left and right were considered severely enlarged. She had moderate mitral annular calcification, mild tricuspid valve regurgitation, mild focal aortic valve thickening, and an estimated RV systolic pressure 47 mmHg. This was performed during a hospitalization for COPD exacerbation. She has denied any ongoing chest discomfort. She does have shortness of breath and dyspnea more so with activity. There has been no orthopnea, PND,. She has had mild edema of the left lower extremity/ankle area. There has been no near syncope or syncope. Intake Vital Signs02/17/18 Height 5 ft 5 in 02/17/18 Weight: 174 lb 02/17/18 Body Mass Index (BMI) 28.9 02/17/18 Blood Pressure 124/74 Intake Visit Reasons: DC 01-08-18 (NEW to [facility], wants [facility]) Allergies CLINT Inhibitors Allergy (Verified 02/17/18 15:53) Unknown acyclovir [From Zovirax] Allergy (Verified 02/17/18 15:53) Unknown amoxicillin trihydrate [From Augmentin] Allergy (Verified 02/17/18 15:53) Unknown codeine Allergy (Verified 02/17/18 15:53) Unknown potassium clavulanate [From Augmentin] Allergy (Verified 02/17/18 15:53) Unknown Medications Atorvastatin Calcium [Lipitor] 40 mg PO QHS 04/15/15 [History Confirmed 02/17/18] Paroxetine HCl [Paxil] 40 mg PO DAILY 04/15/15 [History Confirmed 02/17/18] Warfarin [Coumadin] 6 mg PO MOWEFRSA 04/15/15 [History Confirmed 02/17/18] Atenolol [Tenormin (beta cruz)] 50 mg PO BID #120 tab 04/17/15 [Rx Confirmed 02/17/18] Spironolactone [Aldactone] 25 mg PO DAILY #30 tab 09/30/15 [Rx Confirmed 02/17/18] Pramipexole Di-HCl [Mirapex] 1 mg PO TID PRN PRN 01/06/18 [History Confirmed 02/17/18] Albuterol Inhaler [Ventolin Hfa] 1 - 2 puff INHALATION Q4H PRN PRN #1 inhaler 01/08/18 [Rx Confirmed 02/17/18] Diltiazem CD [Cardizem CD] 180 mg PO BID #60 cap 01/08/18 [Rx Confirmed 02/17/18] Metformin HCl [Glucophage] 500 mg PO DAILY 01/28/18 [History Confirmed 02/17/18] levothyroxine 100 mcg tablet 100 mcg PO QDAY tab 02/17/18 [History Confirmed 02/17/18] warfarin 3 mg tablet 3 mg PO SUTUTH 02/17/18 [History Confirmed 02/17/18] PFSH Medical History Presence of stent in coronary artery (Chronic) Chronic atrial fibrillation (Chronic) Secondary pulmonary arterial hypertension (Chronic) Nicotine dependence (Chronic) Atherosclerosis of coronary artery of [place] heart without angina pectoris (Chronic) Hypertension (Chronic) Atrial fibrillation with RVR (Acute 01/2018) Dyslipidemia (Chronic) Acute coronary syndrome (Acute) COPD (chronic obstructive pulmonary disease) (Chronic) GERD (gastroesophageal reflux disease) (Chronic) Obstructive sleep apnea (Chronic) Peripheral artery disease (Chronic) RLS (restless legs syndrome) (Chronic) Pneumonia (Resolved 01/2018) Surgical History History of partial thyroidectomy (Chronic) History of total hysterectomy (Chronic) Postsurgical percutaneous transluminal coronary angioplasty (PTCA) status (Chronic) Family History Father Cancer Mother Heart disease Sister Hypertension Sister Hypertension Social History Smoking Status: Current every day smoker alcohol intake: current details: rare substance use type: does not use ROS Const Const: Negative for fatigue, weakness, weight gain, weight loss, frequent falls or excessive sweating Eyes Eyes: Negative for change in vision, blurry vision or transient loss of vision ENT ENT: Negative for dizziness or balance problems Cardio Chest Pain: No Edema: None, Left (slight lt LE) Muscle aches with walking: None Resp Respiratory: Positive for SOB with activity (baseline); negative for SOB at rest GI GI: Negative vomiting or vomiting blood/hematemesis : Negative for hematuria Musc Musc: Positive for joint pain (HX arthritis); negative for balance problems, muscle aches/ myalgia or muscle weakness Skin Skin: Negative non-healing lesions or rash Neuro Neuro: Negative for weakness, blurry vision, dizziness, lightheadedness, frequent falls or orthostatic symptoms Matias Hematologic/Lymphatic: Negative for easy bleeding Endo Endo: Negative for fatigue or excessive sweating Psych Psych: Negative for anxiety or depression Allergy Allergy/Immunology: Negative for hives, Negative for rash Cardiology Exam Const Appearance: cooperative, healthy appearing, comfortable, no acute distress, well developed and well groomed Nutritional Appearance: average body habitus Orientation: alert, awake and oriented x3 Head Head: normal to inspection, normocephalic and atraumatic Ears: hearing grossly normal bilaterally Nose: external nose normal Face and Sinus: face symmetric Mouth: oral mucosae normal Eyes General: appearance normal, both eyes and all related structures Eyelids: eyelids normal Conjunctivae: conjunctivae normal Pupils: PERRL EOM: EOM intact bilaterally Neck Neck: normal visual inspection and full ROM Carotids: normal carotid upstroke Chest Chest inspection: normal inspection of the chest and symmetric chest movement Auscultation: Bilateral: Clear to Auscultation Cardio Palpation: normal PMI Rhythm: irregular rhythm Heart sounds: S1 normal and S2 normal GI GI: normal to inspection and soft Neuro General: alert, awake and oriented x3 Extremities Pulses: Normal: Right Radial Pulse, Left Radial Pulse Lower Extremity Edema: +1: Left (ankle) Psych Psychological: normal affect Assessment AND Plan 1. Chronic atrial fibrillation I48.2 Plan At the present time she does have a history of chronic atrial fibrillation. She will continue rate control therapy and anticoagulant therapy. Based upon her addition of additional rate control agents she will have a future follow-up Holter monitor to assess her average rate to monitor for any significant bradycardia dysrhythmias as well as tachydysrhythmias. She states her primary care physicians are monitoring her INR status. Based upon the chronicity of her atrial fibrillation, the severity of her atrial enlargement, it appears that it would be more challenging with respect to obtaining or maintaining sinus rhythm by various other medications and/or maneuvers. Orders Orders: 2. Atherosclerosis of [place] coronary artery of [place] heart without angina pectoris I25.10 PTCA/GAIL to LCX 06/19/13 @ [facility] Plan She does have a history of CAD leading to PCI as noted above. She does need to continue risk factor modification and medical management. However based on her shortness of breath and dyspnea would not be unreasonable to reassess her coronary artery physiology for any evidence of myocardial ischemia that would warrant repeat evaluation or care. Thus she will be scheduled for future pharmacologic stress nuclear imaging study. Orders Orders: 3. Presence of stent in coronary artery Z95.5 PTCA/GAIL to LCX 06/19/13 @ [facility] Plan She will continue evaluation and care as noted above. Orders Orders: 4. Abdominal aortic aneurysm (AAA) without rupture I71.4 Plan She has been diagnosed with an abdominal aortic aneurysm with associated mural thrombus. She will be referred to Dr. Eric Barakat for further evaluation and care of this diagnosis. Orders Referrals: 5. Dyslipidemia E78.5 Plan She will continue her medical management. She is being followed by her primary care physician for this. 6. Essential hypertension I10 Plan Her blood pressure appears to be under reasonably good control at this time. She will continue her current medical management. 7. Secondary pulmonary arterial hypertension I27.21 Plan She does have a history of secondary pulmonary hypertension. This may be associated with her underlying cardiovascular/pulmonary disease process. She will continue her cardiovascular evaluation care. She was encouraged to consider future pulmonary evaluation care as well. 8. Chronic obstructive pulmonary disease, unspecified COPD type J44.9 Plan Again she has a history of underlying COPD. She was encouraged to consider future pulmonary evaluation care. She states she will take this under advisement. 9. Shortness of breath R06.02 Plan Based upon her shortness of breath/dyspnea, which may be multifactorial, however also concerning for the possibility of underlying progression of her CAD, it would not be unreasonable that she undergo further evaluation and care as noted above. She was agreeable to this approach. Plan Detail Other Orders Orders: Other Medications Discontinued: Additional Comments She will be scheduled for future outpatient cardiovascular follow-up visit. She will continue her evaluation care in the interim as noted above. Thank you for allowing me to participate in the care of your patient. Please don't hesitate to call if any issues arise. This note was generated using a voice recognition system and there may be incorrect words, spelling or punctuation that were not noted when reviewing the office note prior to saving. Follow Up 6 Months (PFM/KEVAN/JR) 1 Month (Kingsley Barakat MD) Coding Level of Care Code Off vis,new,level 4 Diagnoses Chronic atrial fibrillation I48.2 Atherosclerosis of [place] coronary artery of [place] heart without angina pectoris I25.10 Coronary Disease-Associated Artery/Lesion type: [place] artery Presence of stent in coronary artery Z95.5 Abdominal aortic aneurysm (AAA) without rupture I71.4 Presence of rupture: without rupture Dyslipidemia E78.5 Essential hypertension I10 Hypertension type: essential hypertension Secondary pulmonary arterial hypertension I27.21 Chronic obstructive pulmonary disease, unspecified COPD type J44.9 COPD type: unspecified COPD Shortness of breath R06.02 Time Spent (min) 30 Coding Level of Care Code Off vis,new,level 4 Diagnoses Chronic atrial fibrillation I48.2 Atherosclerosis of [place] coronary artery of [place] heart without angina pectoris I25.10 Coronary Disease-Associated Artery/Lesion type: [place] artery Presence of stent in coronary artery Z95.5 Abdominal aortic aneurysm (AAA) without rupture I71.4 Presence of rupture: without rupture Dyslipidemia E78.5 Essential hypertension I10 Hypertension type: essential hypertension Secondary pulmonary arterial hypertension I27.21 Chronic obstructive pulmonary disease, unspecified COPD type J44.9 COPD type: unspecified COPD Shortness of breath R06.02 Time Spent (min) 30 02/17/18 1736 <Electronically signed by Jeff Brennan MD> Date Jeff Brennan MD Cosigner Signature: Date (if applicable) CC: Aleksandar Putnam DO; Eric Barakat MD 12 LEAD EKG PERFORMED Observed: 02/17/2018 Status: F Source: [facility] BY [facility] 3:53 PM [facility] REPOSITORY [place] [address] [place] [address] 12 Lead EKG performed by HOLLY 02/17/18 1551 MR#: [id number] Acct: [id number] Name: TZA ZAVALETA Rep #: [id number] : 1945 72 From: Jeff Brennan MD Attending Dr: Jeff Brennan MD Status: DEP AMB Ordering Dr: Jeff Brennan MD Date: 02/17/18 Location: [facility] Sex: F C Admitted: BMS/12 Lead EKG performed by [facility] ECG Report Interpretation Somatic / motion artifactAtrial fibrillationPoor R wave progressionAbnormalElectronically signed on 02/17/2018 at 17:37 by Jeff Brennan 02/17/18 1740 Date Jeff Brennan MD CC: Aleksandar Putnam DO Date Dictated: 02/17/18 1551 Date Transcribed: 02/17/181550 [place] Pilot: PM Signed EMERGENCY DEPARTMENT Observed: 01/29/2018 Status: F Source: [place] SUMMARY 1:09 AM [facility] Medical Records Department [address] [place] [address] Emergency Department Summary 01/28/181940 MR#: [id number] Acct: [id number] Name: TAZ ZAVALETA Rep #: [id number] : 1945 72 From: Ramiro Carlson MD PCP: Aleksandar Putnam DO Status: DEP ER - ER Visit Summary Date of Service: 01/28/18 Chief Complaint: Abnormal CT History of Present Illness: The patient is a 72 F presenting for evaluation secondary to an abnormal CT. Patient states that she has been dealing with abdominal pain that has been going on over the course of the last month. Patient states that it has been associated with left lower quadrant abdominal pain that comes and goes. She denies any other associated symptoms such as nausea vomiting diarrhea weight loss or night sweats. Patient states she was getting this evaluated with CT abdomen and pelvis with IV contrast that was performed yesterday and she was called today with results and was recommended to come to the ER because she had a clot in her aorta. Patient states she does have a history of peripheral vascular disease with a femoral popliteal bypass in the left leg in the past. Patient states that she has not had any issues with her INR. Patient states she has a bruise in her left lower quadrant they came up after she had some forcible coughing. Physical Examination: Vital signs within normal limits. Well- nourished female no acute distress. Moist mucous membranes. Heart was irregular with regular rate. Lung sounds clear. Abdomen was tender in left lower quadrant with some ecchymosis noted of the abdominal wall in the left lower quadrant. No palpable masses or pulsatile mass. Lower extremity exam shows warm skin bilaterally with normal capillary refill. Pulses were difficult to palpate but were dopplerable bilaterally both PT and DP and were symmetric. Normal temperature of the skin. Test Results: CBC and chemistry unremarkable, INR slightly supratherapeutic at 3.5. Results of the patient's CT scan were reviewed and it shows a 3 mm abdominal aortic aneurysm with mural thrombus as well as a rectus sheath hematoma Emergency Department Course and Treatment: Patient presented due to abnormal CT scan. I contacted the covering physician for the patient's PCP and did get the results. Patient has mural thrombus, she has no evidence of vascular compromise distally at this point, and she slightly supratherapeutic on her INR. Patient was recommended to half her dose of her Coumadin today, and then continue her normal regimen. Patient was seen by Dr. Barakat in the past for her femoral popliteal bypass, and I believe that she can follow- up with him for her mural thrombus. Patient was given signs and symptoms for which to return. Disposition: Discharge Impression: 1. 3 cm abdominal aortic aneurysm 2. Mural thrombus 3. Supratherapeutic INR This note was generated with Phrazit dictation software. It may contain incorrect words, spelling, and punctuation that were not noted in review of the chart prior to signing ED Disposition - Plan for ED Patient: Disposition: Home or Assisted Living Chief Complaint: Abd Pain Diagnosis: Aortic mural thrombus Instructions: ED Aneurysm Abdominal Aortic Stable Referrals: Eric Barakat MD [STAFF PHYSICIAN] - What to do if you have Problems For any increased pain, shortness of breath, bleeding, nausea or vomiting, chest pain, or any unexpected problems, contact your Primary Care Provider. Call [facility] ([phone]) or report to the closest Emergency Room. Call 911 if necessary. 01/29/18 0109 <Electronically signed by Ramiro Carlson MD> Date Ramiro Carlson MD Cosigner Signature (If Indicated): Date CC: Aleksandar Putnam, DO CBC W/DIFF, AUTOMATED Collected: 01/28/2018 Status: F Source: [place] 6:25 PM [facility] REPOSITORY TYPE CODE TESTS RESULT OUT OF RANGE REFERENCE UNITS LAB L100.1000 4.4-11.0 K/mm3 Normal WBC 7.0 LAB L100.1200 4.2-5.4 M/mm3 Normal RBC 4.23 LAB L100.1300 12.0-15.0 g/dl Normal HGB 13.3 LAB L100.1400 37-47 % Normal HCT 42.4 LAB L100.1500 81-99 fL High MCV 100.2 LAB L100.1600 27.0-32.0 pg Normal MCH 31.4 LAB L100.1700 32-36 g/gl Low MCHC 31.4 LAB L100.1810 11.6-14.6 % High RDW CV 15.4 LAB L100.1820 35.1-43.9 fl High RDW SD 56.0 LAB L100.1900 150-450 K/mm3 Normal PLT 239 LAB L100.2000 6.2-12.0 fl Normal MPV 10.4 LAB L100.2100 47-70 % Normal NEUT% 64.2 LAB L100.2200 19-41 % Normal LY% 26.0 LAB L100.2300 0-10 % Normal MONO% 6.8 LAB L100.2400 0-5 % Normal EO% 2.3 LAB L100.2500 0-1 % Normal BASO% 0.6 LAB L100.2550 0.0-0.9 % Normal IM GRAN % 0.100 Result Comment: IG% - Immature Granulocytes (promyelocytes, myelocytes and metamyelocytes) > 1% indicates that a LEFT SHIFT is Present. LAB L100.2620 2.0-7.7 X10 3/uL Normal Absolute Neut 4.5 LAB L100.2720 0.83-4.51 X10 3/ul Normal Absolute Lymph 1.81 Performed By: #### L100.0100 #### [facility] [address] [place], [place], [address] BASIC METABOLIC Collected: 01/28/2018 Status: F Source: [place] PROFILE (BMP) 6:25 PM [facility] REPOSITORY TYPE CODE TESTS RESULT OUT OF RANGE REFERENCE UNITS LAB L501.0100 74-106 mg/dL High GLU 131 Result Comment: Fasting Glucose result greater than or equal to 126 mg/dL suggests DIABETES MELLITUS per A.D.A. criteria. Please note revised GLUCOSE reference range effective 2017. LAB L501.1000 7-18 mg/dL High BUN 29 LAB L501.1100 0.55-1.02 mg/dL Normal CREAT,SERUM 0.92 Result Comment: The validity of the calculated GFR AND GFRAA in patients over 70 years has not been determined. Clinical correlation is essential. LAB L501.1110 >60 mL/min Normal EST GFR 64 Result Comment: Non- GFR Calc LAB L501.1115 >60 mL/min Normal EST GFR - AA 77 Result Comment: GFR Calc LAB L501.1255 ml/min Normal Estimated CRCL 50.22 LAB L501.1300 10-20 RATIO High BUN/CRE 31.6 LAB L501.2200 8.5-10 mg/dL Normal .1 CA 8.9 LAB L501.5300 136-14 mmol/L Normal 5 NA 139 LAB L501.5600 3.5-5. mmol/L Normal 1 K 4.4 LAB L501.5900 98-107 mmol/L Normal CL 105 LAB L501.6100 21.0-3 mmol/L Normal 2.0 CO2 27.0 LAB L501.6200 5-15 Normal GAP 7 Performed By: #### L500.2500 #### [facility] [address] [place], [address] PROTHROMBIN TIME W/INR Collected: 01/28/2018 Status: F Source: [place] 6:25 PM [facility] REPOSITORY TYPE CODE TESTS RESULT OUT OF REFERENCE UNITS RANGE LAB L300.4150 11.7-14.9 SECONDS High PROTIME 35.6 LAB L300.4200 High alert INR 3.5 Result Comment: RESULTS CALLED TO MARILU ROSAS 01/28/18 Erick4 Ramiro Diez. REPORT READ BACK BY SAME . Performed By: #### L300.3900, L300.4310 #### [facility] [address] [place], [address] PARTIAL THROMBOPLAST Collected: 01/28/2018 Status: F Source: [place] TIME 6:25 PM [facility] REPOSITORY TYPE CODE TESTS RESULT OUT OF REFERENCE UNITS RANGE LAB L300.4310 24.1-36.2 Seconds High PTT 53.0 Performed By: #### L300.3900, L300.4310 #### [facility] [address] [place], [address] CT ABD/PEL W IVCON Observed: 01/27/2018 Status: F Source: [place] 10:16 AM [facility] REPOSITORY * * *Final Report* * * DATE OF EXAM: Jan 27 2018 10:16AM [facility] 0530 - CT ABD/PEL W IVCON / PROCEDURE REASON: Intra-abdominal and pelvic swelling, mass and lump, unspecified site * * * * Physician Interpretation * * * * EXAMINATION: CT ABDOMEN AND PELVIS WITH IV CONTRAST CLINICAL HISTORY: Abdominal tenderness and palpable abnormality TECHNIQUE: CT of the abdomen and pelvis was performed using standard technique, scanning from just above the dome of the diaphragm to the symphysis pubis. MQ: CTAP_3 Contrast: IV: 150 ml of Omnipaque 300 Oral: 900 ml of 50ML Omnipaque [address] Radiation dose: Integrated Dose-length product (DLP) for this visit = 832 mGy*cm. CT Dose Reduction Employed: Automated exposure control(AEC) and iterative recon COMPARISON: None. RESULT: Liver: Somewhat ill-defined high attenuation region or density posterior medial RIGHT hepatic lobe measuring about 1-1.8 cm in diameter. 4 to 5 mm low-attenuation density lateral anterior LEFT hepatic lobe lateral segment and 3 4 mm low-attenuation density and posterior RIGHT hepatic lobe. Biliary: No bile duct dilation. Gallbladder is unremarkable. Spleen: No mass. No splenomegaly. Pancreas: No mass or duct dilation. Adrenals: No mass. Kidneys: 2-3 mm high attenuation focus central RIGHT kidney probably a calculus (3:47). GI tract: No dilation or wall thickening. Mild sigmoid diverticulosis. Lymph nodes: No abdominal or pelvic lymphadenopathy. Mesentery/Peritoneum: No ascites or mass. Retroperitoneum: No mass. Vasculature: The celiac axis and SMA are patent. The portal vein and branches, splenic vein, SMV, and hepatic veins are patent. Borderline aneurysmal dilatation infrarenal aorta 3 x 2.9 cm. There is associated mural thrombus. Pelvis: No mass, ascites or fluid collection. Bones/Soft Tissues: There is enlargement of the inferior LEFT rectus muscle maximal axial dimensions 4.6 x 2.7 cm. This extends over a length of 6.7 cm. Much of the rectus muscle has either low-attenuation, about 37 units or higher attenuation of about 62 Hounsfield units. The RIGHT rectus muscle appears normal. Lower thorax: A chest CT performed will be reported separately. IMPRESSION: Findings consistent with LEFT rectus muscle hematoma. Borderline abdominal aortic aneurysm. Ill-defined area of increased attenuation posterior liver. There is corresponding mild hyperechogenicity in this aspect of the liver on the prior ultrasound. Considerations include hemangioma. Suggest correlation with MR liver with IV contrast. Probable 2 to 3 mm RIGHT renal calculus. NOTE: No imaging follow-up is recommended for any of the following incidentally detected lesions: liver lesions less than or equal to 0.5 cm, cystic kidney lesions less than 1.0 cm, or adrenal lesions less than or equal to 1.0 cm, in this adult patient (18 years or older). ACR Whitepaper: Managing Incidental Findings on Abdominal CT. JACR 2010; 7:754 [place] Pilot: ZAC Transcribe Date/Time: Jan 28 2018 2:43P Dictated by : JERO FRANZ MD This examination was interpreted and the report reviewed and electronically signed by: JERO FRANZ MD on Jan 28 2018 3:07PM EST [id number] CT CHEST W IVCON Observed: 01/27/2018 Status: F Source: [place] 10:16 AM [facility] REPOSITORY * * *Final Report* * * DATE OF EXAM: Jan 27 2018 10:16AM [facility] 0539 - CT CHEST W IVCON / PROCEDURE REASON: Intra-abdominal and pelvic swelling, mass and lump, unspecified site * * * * Physician Interpretation * * * * EXAMINATION: CHEST CT WITH CONTRAST Indication: Intra-abdominal and pelvic swelling, mass and lump, unspecified site chest pain. Chest lipoma Technique: Spiral CT acquisition of the chest from the thoracic inlet to the upper abdomen following IV contrast. MQ: CTCW_4 Contrast: 150 mL Omnipaque [address] Dose-Length Product: 832 mGy*cm CT Dose Reduction Employed: Automated exposure control(AEC) and iterative recon Comparison: Type of study and date/time RESULT: Limitations: None. Lines, tubes, and devices: None. Lung parenchyma and pleura: Stable scattered linear densities and small apical emphysematous lucencies. No consolidation. No suspicious pulmonary nodule. No pleural effusion. Central airways are patent. Thoracic inlet, heart, and mediastinum: No lymphadenopathy in the axillary, mediastinal, or hilar regions. The thoracic aorta and main pulmonary artery are normal in caliber. The cardiac chambers are normal in size. Coronary calcification. No pericardial effusion or thickening. Bones and soft tissues: Anterior LEFT pectoral predominantly fatty attenuation mass measuring 10.3 x 4.5 cm in axial dimensions (5:32). No destructive bone lesion. Chest wall is otherwise unremarkable. Upper abdomen: No abnormality in the imaged upper abdomen. IMPRESSION: No CT evidence of acute abnormality. 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 is mildly enlarged from the previous study of 01/23/2015 [place]: ZAC Transcribe Date/Time: Jan 28 2018 6:48P Dictated by : JERO FRANZ MD This examination was interpreted and the report reviewed and electronically signed by: JERO FRANZ MD on Jan 28 2018 6:55PM EST [id number] PROGRESS Observed: 01/27/2018 Status: COMPLETED Source: [place] 10:14 AM [facility] REPOSITORY HNO ID: [id number] Author: Jordana Ruiz (Rt) Liset Cortes Service: (none) Author Type: Technologist Type: Progress Notes Filed: 01/27/2018 10:15 AM Note Text: Radiology Service Progress Note PATIENT NAME: Taz Zavaleta DATE OF SERVICE: January 27, 2018 TIME: 10:14 AM PATIENT IDENTITY VERIFICATION COMPLETED USING TWO (2) METHODS: Patient confirmed name verbally and Date of . PATIENT GENDER DATA: Female. status: : No status: NO. PATIENT RELEVANT IMPLANT DATA REVIEWED: Yes CONTRAST INDUCED NEPHROPATHY RISK FACTORS: Patient age > 60 years CREATININE: Creatinine Date Value Ref Range Status 01/17/2018 0.85 0.58 - 0.96 mg/dL Final 10/01/2017 1.03 (H) 0.58 - 0.96 mg/dL Final 09/11/2016 0.98 (H) 0.58 - 0.96 mg/dL Final eGFR-All Other Races Date Value Ref Range Status 01/17/2018 >60 . Final Comment: eGFR (Estimated GFR) Units of measure: mL/min/1.73 meters squared eGFR is derived from the reexpressed MDRD Study equation using the following parameters: serum creatinine, age, gender and race. The creatinine assay has been calibrated to be traceable to IDMS. An eGFR <60 mL/min/1.73m2 for >3 months is consistent with chronic kidney disease. Refer to KDOQI guidelines for clinical interpretation. In patients with unstable renal function, e.g. those with acute kidney injury, the eGFR may not accurately reflect actual GFR. eGFR- Date Value Ref Range Status 01/17/2018 >60 Final P.O.C.T. RESULTS: POC done: Yes, See Lab Tab January 27, 2018 RADIOLOGIST NOTIFIED?: No ALLERGIES: Reviewed and unchanged CONTRAST ALLERGY: NO. PERIPHERAL IV ACCESS: Ambulatory: IV type: A peripheral IV was started in the Right antecubital site with a Angio cath: 20 gauge., Site assessment: Clean,Dry and Intact, Site disposition Left in for next appointment RADIOLOGY DEPARTMENT: CT; Exam(s) Completed: Chest Abdomen Pelvis SIGNED BY: RT Sukhjinder January 27, 2018 10:14 AM 12 LEAD ELECTROCARDIOGRAM Observed: 01/17/2018 Status: F Source: SARA 3:28 PM [facility] REPOSITORY [facility] Cardiovascular Services [address] [place] [address] 12 Lead EKG 01/07/18 1551 MR#: [id number] Acct: [id number] Name: TAZ ZAVALETA Rep #: [id number] : 1945 72 From: Eladio Owen MD Attending Dr: Arthur Sutton MD Status: DIS IN Ordering Dr: Arthur Sutton MD Date: 01/06/18 Location: [facility] Sex: F C Admitted: 01/06/18 Test Reason : CP Blood Pressure : / mmHG Vent. Rate : 084 BPM Atrial Rate : 084 BPM P-R Int : 128 ms QRS Dur : 088 ms QT Int : 422 ms P-R-T Axes : 007 048 -87 degrees QTc Int : 498 ms Normal sinus rhythm with sinus arrhythmia Left ventricular hypertrophy T wave abnormality, consider inferior ischemia T wave abnormality, consider anterolateral ischemia Prolonged QT Abnormal ECG Confirmed by ELADIO OWEN MD ([id number]), assignment editor OUMOU RO ([id number]) on 01/17/2018 3:28:32 PM Referred By: DR YADAV Confirmed By:ELADIO OWEN MD 01/17/18 1528 Date Eladio Owen MD CC: Arthur Sutton MD; DO Sarita Ferrari CBC AND DIFFERENTIAL Collected: 01/17/2018 Status: F Source: [place] 11:18 AM [facility] RE[facility] TYPE CODE TESTS RESULT OUT OF REFERENCE UNITS RANGE LAB WBC 3.70-11.00 k/uL WBC High 12.98 LAB RBC 3.90-5.20 m/uL RBC 4.92 LAB HGB 11.5-15.5 g/dL Hemoglobin 15.3 LAB HCT 36.0-46.0 % High Hematocrit 51.7 LAB MCV 80.0-100.0 fL MCV High 105.1 LAB MCH 26.0-34.0 pG MCH 31.1 LAB MCHC 30.5-36.0 g/dL Low MCHC 29.6 LAB RDWCV 11.5-15.0 % RDW-CV 14.8 LAB PLTCT 150-400 k/uL Platelet Count 353 LAB MPV 9.0-12.7 fL MPV 11.1 LAB ANEUT % Neut% 88.4 LAB AANEUT 1.45-7.50 k/uL Abs Neut High 11.48 LAB ALYMP % Lymph% 8.7 LAB AALYMP 1.00-4.00 k/uL Abs Lymph 1.13 LAB AMONO % Denali% 2.5 LAB AAMONO <0.87 k/uL Abs Denali 0.32 LAB AEOS % Eosin% 0.2 LAB AAEOS <0.46 k/uL Abs Eosin <0.03 LAB ABASO % Baso% 0.2 LAB AABASO <0.11 k/uL Abs Baso 0.03 LAB AUNRBC 0 /100 WBC NRBCs 0.0 LAB ABNRBC <0.01 k/uL Absolute nRBC <0.01 LAB DTYP DTYPE Auto Diff Performed By: #### CBCDIF, AMYL, CMP, LIPA, TSH, HBA1C #### [facility] [address] [place] [address] AMYLASE Collected: 01/17/2018 Status: F Source: [place] 11:18 [facility] REPOSITORY TYPE CODE TESTS RESULT OUT OF REFERENCE UNITS RANGE LAB AMYL 30-104 U/L Amylase 97 Performed By: #### CBCDIF, AMYL, CMP, LIPA, TSH, HBA1C #### [place] [address] [place] [address] COMP METABOLIC PANEL Collected: 01/17/2018 Status: F Source: [place] 11:18 [facility] REPOSITORY TYPE CODE TESTS RESULT OUT OF REFERENCE UNITS RANGE LAB TP 6.3-8.0 g/dL Protein, Total 7.3 LAB ALB 3.9-4.9 g/dL Albumin 4.1 LAB CA 8.5-10.2 mg/dL Calcium, Total 8.9 LAB TBIL 0.2-1.3 mg/dL Bilirubin, Total 0.8 LAB ALKP 32-117 U/L Alkaline Phosphatase 84 LAB AST 13-35 U/L AST 32 LAB GLU 74-99 mg/dL Glucose High 127 Result Comment: The [place] [employer] (ADA) provides guidance for cutoff values for fasting glucose and random glucose. The ADA defines fasting as no caloric intake for at least 8 hours. Fas ting plasma glucose results between 100 to 125 mg/dL indicate increased risk for diabetes (prediabetes). Fasting plasma glucose results greater than or equal to 126 mg/dL meet the criteria for diagnosis of diabetes. In the absence of unequivocal hyperglycemia, results should be confirmed by repeat testing. In a patient with classic symptoms of hyperglycemia or hyperglycemic crisis, random plasma glucose results greater than or equal to 200 mg/dL meet the criteria for diagnosis of diabetes. Reference: Standards of Medical Care in Diabetes 2016, [place] [employer]. Diabetes Care. 2016.39(Suppl 1). LAB BUN 7-21 mg/dL BUN High 28 LAB CRET 0.58-0.96 mg/dL Creatinine 0.85 LAB NA 136-144 mmol/L Sodium 138 LAB K 3.7-5.1 mmol/L Potassium 5.1 LAB CL 97-105 mmol/L Chloride 97 LAB CO2 22-30 mmol/L CO2 29 LAB AGAP 9-18 mmol/L Anion Gap 12 LAB ALT 7-38 U/L ALT 32 LAB GFRAA eGFR- Amer. >60 LAB GFRNAA . eGFR-All Other Races >60 Result Comment: eGFR (Estimated GFR) Units of measure: mL/min/1.73 meters squared eGFR is derived from the reexpressed MDRD Study equation using the following parameters: serum creatinine, age, gender and race. The creatinine assay has been calibrated to be traceable to IDMS. An eGFR <60 mL/min/1.73m2 for >3 months is consistent with chronic kidney disease. Refer to KDOQI guidelines for clinical interpretation. In patients with unstable renal function, e.g. those with acute kidney injury, the eGFR may not accurately reflect actual GFR. Performed By: #### CBCDIF, AMYL, CMP, LIPA, TSH, HBA1C #### [facility] [address] [place], [place] [address] LIPASE Collected: 01/17/2018 Status: F Source: [place] 11:18 AM [facility] REPOSITORY TYPE CODE TESTS RESULT OUT OF REFERENCE UNITS RANGE LAB LIPA 16-61 U/L Lipase 37 Performed By: #### CBCDIF, AMYL, CMP, LIPA, TSH, HBA1C #### [facility] [address] [place], [place] [address] TSH Collected: 01/17/2018 Status: F Source: [place] 11:18 AM [facility] REPOSITORY TYPE CODE TESTS RESULT OUT OF RANGE REFERENCE UNITS LAB TSH 0.400-5.500 uU/mL TSH 1.780 Performed By: #### CBCDIF, AMYL, CMP, LIPA, TSH, HBA1C #### [facility] [address] [id number] HEMOGLOBIN A1C Collected: 01/17/2018 Status: F Source: [place] 11:18 AM [facility] REPOSITORY TYPE CODE TESTS RESULT OUT OF REFERENCE UNITS RANGE LAB HGBA1C 4.3-5.6 % High Hemoglobin A1c 6.5 LAB HBA0 mg/dL Est. Average Glucose 140 Result Comment: eAG: (Estimated average glucose) is a calculated value from HgbA1c and is sales representative publications of the average blood glucose level in the last 2-3 month period. Performed By: #### CBCDIF, AMYL, CMP, LIPA, TSH, HBA1C #### [facility] [address] [place], [place] [address] PROGRESS Observed: 01/17/2018 Status: COMPLETED Source: [place] 10:13 AM [facility] REPOSITORY HNO ID: [id number] Author: Verna Ruiz (Illustrator Set) NIEVES Ibrahim Service: (none) Author Type: Nurse Practitioner Type: Progress Notes Filed: 01/17/2018 11:27 AM Note Text: HPI/CC: Taz Zavaleta is a 72 year old female who presents to the office today for hospital follow-up on January 06, 2018 for shortness of breath and afib RVR. Patient was transported to [facility] ED via EMS and was started on a non-rebreathe mask. Upon arrival to ED, patient received an EKG which showed A-fib with RVR, with a pulse rate of 148 bpm. While in the hospital the patient received CT angiogram of the chest, CXR, and a 2D echocardiogram. CXR impression showed multifocal infiltrates. Patient was started on Rocephin and Zithromax. CT angiogram was negative for PE. Patient was also started on IV Cardizem drip which was tapered down as heart rate started to become more controlled. Patients lab work showed an elevation of glucose and PT. Pt received insulin while admitted in the hospital. Pt complains of RLQ pain currently in office and states her last bowel movement was 1 week ago. Patient denies shortness of breath, chest pain, dizziness, changes in urinary pattern, and syncope. Other specialist and follow up care: [facility] (February 09, 2018) REVIEW OF SYSTEMS PAIN ASSESSMENT: Negative for pain, history of chronic pain, or current treatment for a chronic pain condition. GENERAL: No weight loss, malaise or fevers HEENT: Negative for frequent or significant headaches, No changes in hearing or vision, no nose bleeds or other nasal problems NECK: Negative for lumps, goiter, pain and significant neck swelling RESPIRATORY: Cough; dry CARDIOVASCULAR: Cough GI: No nausea, vomiting, or diarrhea and Constipation : No history of dysuria, frequency or incontinence DIRECT MARKETING COORDINATOR: Negative for abnormal vaginal bleeding, abnormal vaginal discharge MUSCULOSKELETAL: Negative for joint pain or swelling, back pain or muscle pain SKIN: Negative for lesions, rash, and itching PSYCH: Negative for sleep disturbance, mood disorder and recent psychosocial stressors HEMATOLOGY/LYMPHOLOGY: Positive for bruises easily ENDOCRINE: Positive for heat intolerance: started 2 years ago. NEURO: No history of headaches, syncope, paralysis, seizures or tremors HISTORIES: PAST MEDICAL HISTORY Diagnosis Date - Allergic rhinitis, cause unspecified - Chronic airway obstruction, not elsewhere classified - Diverticulosis of colon (without mention of hemorrhage) - Essential hypertension, benign - Heart failure (HCC) - Insomnia, unspecified - Lipoma Left upper anterior chest - Major depressive disorder, recurrent episode, unspecified - Osteoporosis - Other and unspecified disc disorder of unspecified region Intervertebral disc disorders - Other and unspecified hyperlipidemia - PAD (peripheral artery disease) (HCC) - PAT (paroxysmal atrial tachycardia) (HCC) - Tobacco use disorder PAST SURGICAL HISTORY Procedure Laterality Date - ARTERIOGRAM EXTREMITY LOW VASC O/P F26/6 07/17/05 - ARTERY X-RAYS, ARM/LEG 01/05/06 - COLONOSCOP W/ OR W/O [facility] SPEC 09/05/10 - CONTRAST X-RAY EXAM OF AORTA 01/05/06 - PERC TRANSL COR ANGIO 2013 Percutaneous Transluminal Coronary Angio Status - PLACE CATH SUBSELECT ART,ABD/PEL 01/05/06 - THYROID FINE NEEDLE ASPIRATION 03/01/06 left thyroid fna - THYROIDECTOMY 04/13 partial - TOTAL ABDOM HYSTERECTOMY 1991 - VEIN BYPASS GRAFT,FEM-POP 08/19/2005 FAMILY HISTORY Problem Relation Age of Onset - GLUCOMA [Other] [OTHER] Maternal Grandmother - Heart Mother - Cancer Father ESOPHAGUS - Hypertension Sister - Hypertension Sister - Alzheimer's Disease Brother Social History Marital status: Spouse name: Years of education: Number of children: Social History Main Topics Smoking status: Current Every Day Smoker Packs/day: 0.50 Years: 40.00 Types: Cigarettes Smokeless status: Never Used Comment: 6 cigs daily. Alcohol use: Yes 18.0 oz/week Comment: occasionally Drug use: No Sexual activity: No Current Outpatient Prescriptions on File Prior to Visit: levothyroxine (SYNTHROID) 100 mcg tablet Take 1 tablet by mouth once daily. Take on empty stomach. For Thyroid atenolol (TENORMIN) 50 mg tablet Take 1 tablet by mouth twice daily. spironolactone (ALDACTONE) 25 mg tablet Take 1 tablet by mouth once daily. pramipexole (MIRAPEX) 1 mg tablet Take 1 tablet by mouth three times daily as needed. PARoxetine (PAXIL) 40 mg tablet Take 1.5 tablets by mouth once daily. atorvastatin (LIPITOR) 40 mg tablet Take 1 tablet by mouth daily at bedtime. For cholesterol. warfarin (COUMADIN) 6 mg tablet 6 mg on Mon/Wed/Fri/Sat 3 mg all other days or as directed. warfarin (COUMADIN) 3 mg tablet 6 mg on Mon/Wed/Fri/Sat 3 mg all other days or as directed. furosemide (LASIX) 20 mg tablet Take 1 tablet by mouth once daily. diltiazem CD (CARDIZEM CD) 120 mg 24 hr capsule Take 1 capsule by mouth twice daily. rOPINIRole (REQUIP) 2 mg tablet Take 1-2 tablets by mouth daily at bedtime. Ok to take 1 tablet during day as needed for restless legs as well. No current facility-administered medications on file prior to visit. ALLERGIES Allergen Reactions - Clint Inhibitors Hives - Ambien [Zolpidem Ta* Mental Status Change falls - Amitriptyline Mental Status Change - Augmentin [Amoxicil* Hives - Codeine Hives - Zovirax [Acyclovir * PHYSICAL EXAMINATION: BP 154/92 Pulse 112 Resp 16 Wt 78 kg (172 lb) SpO2 96% BMI 29.52 kg/m2 General appearance: Well appearing, alert, in no acute distress, well-hydrated, well nourished. Skin: Skin color, texture, turgor normal, no suspicious rashes or lesions. 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 Located directly on her stereum. Head: Normocephalic, no masses, lesions, tenderness or abnormalities Eyes: Anicteric sclera. Pupils are equally round and reactive to light. Extraocular movements are intact. Ears: External ears normal, canals clear, TM's normal Nose/Sinuses: Nares normal, septum midline, mucosa normal, no drainage or sinus tenderness Oropharynx: Lips, mucosa, and tongue normal, teeth and gums normal, oropharynx normal Neck: Supple, no adenopathy; thyroid symmetric, normal size, no bruits Back: Normal exam Lungs: Lungs clear to auscultation. No wheezing, rhonchi, rales, Percussion normal, good diaphragmatic excursion Heart: irregular rate and rhythm without murmur, gallop, or rubs. No ectopy, No carotid bruits Abdomen: Negative CVA tenderness, Positive findings: tenderness marked, voluntary guarding, involuntary guarding and rebound present mid to RLQ, mass, located mid to RLQ, hyperactive bowel sounds Extremities: No deformities, edema, skin discoloration, clubbing or cyanosis. Good capillary refill. Musculoskeletal: Spine range of motion normal. Muscular strength intact, No joint swelling, deformity, or tenderness Peripheral pulses: Normal, Capillary refill <2secs, strong peripheral pulses Neuro: Gait normal. Reflexes normal and symmetric. Sensation grossly intact. ASSESSMENT/PLAN: 1. Elevated glucose level - ICD9: 790.29, ICD10: R73.09 (primary diagnosis) - HGB A1C 2. Abdominal mass, unspecified abdominal location - ICD9: 789.30, ICD10: R19.00 - COMP METABOLIC PANEL - TSH BLD - CBC + DIFF - AMYLASE BLD - LIPASE BLD - CT ABD/PEL W IVCON - CT CHEST W IVCON - IV CONTRAST (RADIOLOGY PROCEDURE) - ENTERIC CONTRAST (RADIOLOGY PROCEDURE) 3. Chronic atrial fibrillation (HCC) - ICD9: 427.31, ICD10: I48.2 - stable, monitor - TSH BLD - CBC + DIFF 4. COPD with chronic bronchitis (HCC) - ICD9: 491.20, ICD10: J44.9 -stable, monitor - COMP METABOLIC PANEL F/u based on labs and imaging Verna Ibrahim CNP CNOV Observed: 01/17/2018 Status: COMPLETED Source: [place] 10:00 AM [facility] REPOSITORY Office Visit (FAMPWS) MEGHANNBREE GUTIERREZTAZ Rajan ([id number]) 1945 F Date Time Provider Department 01/17/18 10:00 AM VERNA IBRAHIM (NIEVES) FAMPWS During your visit today, we recorded the following information about you: Pulse Respiration Blood pressure Weight 112/minute 16/minute 154/92 78 kg Verna Ibrahim CNP, CNP 01/17/2018 11:27 AM Signed HPI/CC: Tazannette Zavaleta is a 72 year old female who presents to the office today for hospital follow-up on January 06, 2018 for shortness of breath and afib RVR. Patient was transported to [facility] ED via EMS and was started on a non-rebreathe mask. Upon arrival to ED, patient received an EKG which showed A-fib with RVR, with a pulse rate of 148 bpm. While in the hospital the patient received CT angiogram of the chest, CXR, and a 2D echocardiogram. CXR impression showed multifocal infiltrates. Patient was started on Rocephin and Zithromax. CT angiogram was negative for PE. Patient was also started on IV Cardizem drip which was tapered down as heart rate started to become more controlled. Patients lab work showed an elevation of glucose and PT. Pt received insulin while admitted in the hospital. Pt complains of RLQ pain currently in office and states her last bowel movement was 1 week ago. Patient denies shortness of breath, chest pain, dizziness, changes in urinary pattern, and syncope. Other specialist and follow up care: [facility] (February 09, 2018) REVIEW OF SYSTEMS PAIN ASSESSMENT: Negative for pain, history of chronic pain, or current treatment for a chronic pain condition. GENERAL: No weight loss, malaise or fevers HEENT: Negative for frequent or significant headaches, No changes in hearing or vision, no nose bleeds or other nasal problems NECK: Negative for lumps, goiter, pain and significant neck swelling RESPIRATORY: Cough; dry CARDIOVASCULAR: Cough GI: No nausea, vomiting, or diarrhea and Constipation : No history of dysuria, frequency or incontinence DIRECT MARKETING COORDINATOR: Negative for abnormal vaginal bleeding, abnormal vaginal discharge MUSCULOSKELETAL: Negative for joint pain or swelling, back pain or muscle pain SKIN: Negative for lesions, rash, and itching PSYCH: Negative for sleep disturbance, mood disorder and recent psychosocial stressors HEMATOLOGY/LYMPHOLOGY: Positive for bruises easily ENDOCRINE: Positive for heat intolerance: started 2 years ago. NEURO: No history of headaches, syncope, paralysis, seizures or tremors HISTORIES: PAST MEDICAL HISTORY Diagnosis Date - Allergic rhinitis, cause unspecified - Chronic airway obstruction, not elsewhere classified - Diverticulosis of colon (without mention of hemorrhage) - Essential hypertension, benign - Heart failure (HCC) - Insomnia, unspecified - Lipoma Left upper anterior chest - Major depressive disorder, recurrent episode, unspecified - Osteoporosis - Other and unspecified disc disorder of unspecified region Intervertebral disc disorders - Other and unspecified hyperlipidemia - PAD (peripheral artery disease) (HCC) - PAT (paroxysmal atrial tachycardia) (HCC) - Tobacco use disorder PAST SURGICAL HISTORY Procedure Laterality Date - ARTERIOGRAM EXTREMITY LOW VASC O/P F26/6 07/17/05 - ARTERY X-RAYS, ARM/LEG 01/05/06 - COLONOSCOP W/ OR W/O [facility] SPEC 09/05/10 - CONTRAST X-RAY EXAM OF AORTA 01/05/06 - PERC TRANSL COR ANGIO 2013 Percutaneous Transluminal Coronary Angio Status - PLACE CATH SUBSELECT ART,ABD/PEL 01/05/06 - THYROID FINE NEEDLE ASPIRATION 03/01/06 left thyroid fna - THYROIDECTOMY 04/13 partial - TOTAL ABDOM HYSTERECTOMY 1991 - VEIN BYPASS GRAFT,FEM-POP 08/19/2005 FAMILY HISTORY Problem Relation Age of Onset - GLUCOMA [Other] [OTHER] Maternal Grandmother - Heart Mother - Cancer Father ESOPHAGUS - Hypertension Sister - Hypertension Sister - Alzheimer's Disease Brother Social History Marital status: Spouse name: Years of education: Number of children: Social History Main Topics Smoking status: Current Every Day Smoker Packs/day: 0.50 Years: 40.00 Types: Cigarettes Smokeless status: Never Used Comment: 6 cigs daily. Alcohol use: Yes 18.0 oz/week Comment: occasionally Drug use: No Sexual activity: No Current Outpatient Prescriptions on File Prior to Visit: levothyroxine (SYNTHROID) 100 mcg tablet Take 1 tablet by mouth once daily. Take on empty stomach. For Thyroid atenolol (TENORMIN) 50 mg tablet Take 1 tablet by mouth twice daily. spironolactone (ALDACTONE) 25 mg tablet Take 1 tablet by mouth once daily. pramipexole (MIRAPEX) 1 mg tablet Take 1 tablet by mouth three times daily as needed. PARoxetine (PAXIL) 40 mg tablet Take 1.5 tablets by mouth once daily. atorvastatin (LIPITOR) 40 mg tablet Take 1 tablet by mouth daily at bedtime. For cholesterol. warfarin (COUMADIN) 6 mg tablet 6 mg on Mon/Wed/Fri/Sat 3 mg all other days or as directed. warfarin (COUMADIN) 3 mg tablet 6 mg on Mon/Wed/Wed/Sat 3 mg all other days or as directed. furosemide (LASIX) 20 mg tablet Take 1 tablet by mouth once daily. diltiazem CD (CARDIZEM CD) 120 mg 24 hr capsule Take 1 capsule by mouth twice daily. rOPINIRole (REQUIP) 2 mg tablet Take 1-2 tablets by mouth daily at bedtime. Ok to take 1 tablet during day as needed for restless legs as well. No current facility-administered medications on file prior to visit. ALLERGIES Allergen Reactions - Clint Inhibitors Hives - Ambien [Zolpidem Ta* Mental Status Change falls - Amitriptyline Mental Status Change - Augmentin [Amoxicil* Hives - Codeine Hives - Zovirax [Acyclovir * PHYSICAL EXAMINATION: BP 154/92 Pulse 112 Resp 16 Wt 78 kg (172 lb) SpO2 96% BMI 29.52 kg/m2 General appearance: Well appearing, alert, in no acute distress, well-hydrated, well nourished. Skin: Skin color, texture, turgor normal, no suspicious rashes or lesions. 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 Located directly on her stereum. Head: Normocephalic, no masses, lesions, tenderness or abnormalities Eyes: Anicteric sclera. Pupils are equally round and reactive to light. Extraocular movements are intact. Ears: External ears normal, canals clear, TM's normal Nose/Sinuses: Nares normal, septum midline, mucosa normal, no drainage or sinus tenderness Oropharynx: Lips, mucosa, and tongue normal, teeth and gums normal, oropharynx normal Neck: Supple, no adenopathy; thyroid symmetric, normal size, no bruits Back: Normal exam Lungs: Lungs clear to auscultation. No wheezing, rhonchi, rales, Percussion normal, good diaphragmatic excursion Heart: irregular rate and rhythm without murmur, gallop, or rubs. No ectopy, No carotid bruits Abdomen: Negative CVA tenderness, Positive findings: tenderness marked, voluntary guarding, involuntary guarding and rebound present mid to RLQ, mass, located mid to RLQ, hyperactive bowel sounds Extremities: No deformities, edema, skin discoloration, clubbing or cyanosis. Good capillary refill. Musculoskeletal: Spine range of motion normal. Muscular strength intact, No joint swelling, deformity, or tenderness Peripheral pulses: Normal, Capillary refill ANDlt;2secs, strong peripheral pulses Neuro: Gait normal. Reflexes normal and symmetric. Sensation grossly intact. ASSESSMENT/PLAN: 1. Elevated glucose level - ICD9: 790.29, ICD10: R73.09 (primary diagnosis) - HGB A1C 2. Abdominal mass, unspecified abdominal location - ICD9: 789.30, ICD10: R19.00 - COMP METABOLIC PANEL - TSH BLD - CBC + DIFF - AMYLASE BLD - LIPASE BLD - CT ABD/PEL W IVCON - CT CHEST W IVCON - IV CONTRAST (RADIOLOGY PROCEDURE) - ENTERIC CONTRAST (RADIOLOGY PROCEDURE) 3. Chronic atrial fibrillation (HCC) - ICD9: 427.31, ICD10: I48.2 - stable, monitor - TSH BLD - CBC + DIFF 4. COPD with chronic bronchitis (HCC) - ICD9: 491.20, ICD10: J44.9 -stable, monitor - COMP METABOLIC PANEL F/u based on labs and imaging Verna Ibrahim FIELD INSTALLATION TECHNICIAN Referring Provider: SELF [[id number]] Allergies As of Date: 01/17/2018 Noted Allergy Reaction CLINT INHIBITORS 09/01/2005 4 - Hives AMBIEN (ZOLPIDEM TARTRATE) 12/20/2015 1 - Mental Status Change Comments: falls AMITRIPTYLINE 05/17/2015 1 - Mental Status Change AUGMENTIN (AMOXICILLIN-POT CLAVUL*09/01/2005 4 - Hives CODEINE 09/01/2005 4 - Hives ZOVIRAX (ACYCLOVIR SODIUM) 09/01/2005 Date Reviewed: 01/17/2018 Reviewed by: Maurilio Walker LPN - Fully Assessed Reason for Visit: Hospital F/U [57] Cmt: [facility] dc'd 01/08/18; dx pneumonia, afib with RVR Primary Visit Diagnosis:Elevated glucose level [R73.09] Other Visit Diagnoses:Abdominal mass, unspecified abdominal location [R19.00] Chronic atrial fibrillation (HCC) [I48.2] COPD with chronic bronchitis (HCC) [J44.9] Order(s):COMP METABOLIC PANEL [SQCMP] Order #: [id number] FUTURE TSH BLD [SQTSH] Order #: [id number] FUTURE CBC + DIFF [SQCBCDIF] Order #: [id number] FUTURE AMYLASE BLD [SQAMYL] Order #: [id number] FUTURE LIPASE BLD [SQLIPA] Order #: [id number] FUTURE CT ABD/PEL W IVCON [[id number]] Order #: [id number] FUTURE CT CHEST W IVCON [[id number]] Order #: [id number] FUTURE iv contrast (radiology procedure)CT Chest ABD/PEL-Inject, intravenously, once for 1 dose.No IV access, insert saline lock prior to the beginning of sedation, infusion, injection of imaging exam. Discontinue saline lock post exam. If Pt. has a central line or IVAD, may access for administration according to line specific nursing protocol. Once exam is complete flush line and de- access according to line specific nursing protocol in the CT contrast administration guidelines link.Disp: 1 EachRfl: 0 enteric contrast (radiology procedure)For CT CHESTABD/PEL W IVCON Routine order Administer, As Directed One Time Only, via Oral, Rectal, both Oral and Rectal, Enteric Tube, Stoma or Indwelling Catheter, Enteric Contrast as designated per enteric contrast guidelinesDisp: 1 EachRfl: 0 HGB A1C [JBBWG6M] Order #: [id number] FUTURE Prescriptions as of 01/17/2018 Sig: LEVOTHYROXINE 100 MCG TABLET Take 1 tablet by mouth once d* ATENOLOL 50 MG TABLET Take 1 tablet by mouth twice * SPIRONOLACTONE 25 MG TABLET Take 1 tablet by mouth once d* PRAMIPEXOLE 1 MG TABLET Take 1 tablet by mouth three * PAROXETINE 40 MG TABLET Take 1.5 tablets by mouth onc* ATORVASTATIN 40 MG TABLET Take 1 tablet by mouth daily * WARFARIN 6 MG TABLET 6 mg on Wed/Wed/Wed/Sat 3 mg* WARFARIN 3 MG TABLET 6 mg on Wed/Wed/Wed/Sat 3 mg * FUROSEMIDE 20 MG TABLET Take 1 tablet by mouth once d* IV CONTRAST (RADIOLOGY PROCED* CT Chest ABD/PEL-Inject, intr* ENTERIC CONTRAST (RADIOLOGY P* For CT CHESTABD/PEL W IVCON R* DILTIAZEM SR 120 MG 24 HR CAP Take 1 capsule by mouth twice* ROPINIROLE 2 MG TABLET Take 1-2 tablets by mouth meg* Problem List As Of Date 01/17/2018 Noted Resolved PERIPHERAL VASC DISEASE (See also PVD) [I73.9] INVALID FOR* Other and unspecified disc disorder of unspecif* 01/17/2018 More... Hyperlipidemia [E78.5] 01/17/2018 Chronic airway obstruction, not elsewhere class* 01/17/2018 ALLERGIC RHINITIS NOS [J30.9] INSOMNIA NOS [G47.00] TOBACCO USE DISORDER [F17.200] LIPOMA OTHER SKIN AND SUBCUTANEOUS (Left upper Ch*INVALID FOR*11/21/2010 THYROID NODULE NODULE, NONTOXIC (Left) [E04.1] INVALID FOR*05/22/2011 NERVE INJURY UNSPECIFIED(Left recurrent larynge*INVALID FOR*01/17/2018 Atrial fibrillation (HCC) [I48.91] INVALID FOR*01/17/2018 Essential hypertension, benign [I10] INVALID FOR* PAT (paroxysmal atrial tachycardia) [I47.1] INVALID FOR* Anxiety [F41.9] INVALID FOR* CAD (coronary artery disease) [I25.10] INVALID FOR* Vitamin D deficiency [E55.9] INVALID FOR* Osteoporosis [M81.0] INVALID FOR* Varicose veins with pain [I83.819] INVALID FOR* Restless leg syndrome [G25.81] INVALID FOR* Mixed hyperlipidemia [E78.2] INVALID FOR* Persistent atrial fibrillation (HCC) [I48.1] INVALID FOR* Coronary artery disease involving [place]*INVALID FOR* COPD with chronic bronchitis (HCC) [J44.9] INVALID FOR* Prescriptions ordered this encounter Disp Refills Start End IV CONTRAST (RADIOLOGY PROCEDURE) 1 Ea* 0 01/17/2018 01/18/2018 Class: In Office Sig: CT Chest ABD/PEL-Inject, intravenously, once for 1 dose.No IV access, insert saline lock prior to the beginning of sedation, infusion, injection of imaging exam. Discontinue saline lock post exam. If Pt. has a central line or IVAD, may access for administration according to line specific nursing protocol. Once exam is complete flush line and de-access according to line specific nursing protocol in the CT contrast administration guidelines link. ENTERIC CONTRAST (RADIOLOGY PROCEDUR* 1 Ea* 0 01/17/2018 01/18/2018 Class: In Office Sig: For CT CHESTABD/PEL W IVCON Routine order Administer, As Directed One Time Only, via Oral, Rectal, both Oral and Rectal, Enteric Tube, Stoma or Indwelling Catheter, Enteric Contrast as designated per enteric contrast guidelines Encounter Status:Closed by VERNA IBRAHIM CNP on 01/17/18 EMERGENCY DEPARTMENT Observed: 01/13/2018 Status: F Source: [place] SUMMARY 4:05 PM [facility] REPOSITORY [facility] Medical Records Department [address] [place] [address] Emergency Department Summary 01/07/18 0034 MR#: [id number] Acct: [id number] Name: TAZ ZAVALETA Rep #: [id number] : 1945 72 From: Reynold Montanez DO PCP: Aleksandar Putnam DO Status: DIS IN - ER Visit Summary Date of Service: 01/07/18 Chief Complaint: Dyspnea History of Present Illness: The patient is a 72 F presents with a sudden onset of dyspnea. She states that she was clearing the snow off her windshield when she suddenly got short of breath. She has been noting some shortness of breath with exertion over the past week. She notes a chronic cough with no change in that. She denies any new sputum changes. No fevers. No rhinorrhea. She denies any chest pain. EMS prehospital EKG demonstrates A. fib with RVR. She is in chronic A. fib and is on Coumadin. She is to see Dr. Camejo who is an had an appointment last about 1 year ago. She states that recently she ran out of her cardiac medicines for couple weeks ago but had them refilled and is not taking them. She states that she chronically has sleeping disorders and cannot sleep. She cannot maintain sleep and she has tried several therapies with no relief. She continues to smoke. She had PCI in 2012. This was done at [facility] by Dr. Morrison. She has peripheral artery disease and had arterial bypass in 2005. He currently sees no supervisor endless track vehicle. She has a history of noncompliance. Physical Examination: 98.6 heart rate of 116 respiratory rate is 22 pulse ox 88% on room air 94% on 2 L blood pressure 157/106 Gen: Well-nourished well-developed Head: Normocephalic atraumatic Eyes: Perrl EOMI ENT: TMs clear no rhinorrhea moist mucous membranes Neck: Supple no lymphadenopathy no JVD nontender CVS: Irregularly irregular rhythm no murmurs normal S1-S2 Respiratory: No distress clear to auscultation bilaterally chest nontender Abdomen: Soft nontender nondistended normal bowel sounds no masses Back: Nontender Extremity: Nontender no edema Skin: Normal color no rash Neuro: alert orientated 3 CN II-XII intact normal strength sensation reflexes gait cerebellar Psych: Normal affect normal mood Test Results: EKG shows atrial fibrillation at a rate of 129. CBC and chemistry showed glucose of 156. INR subtherapeutic at 1.5. Troponin less than 0.02. Chest x-ray showed no obvious acute findings. CT angios demonstrates no PE. There is multifocal areas of atelectasis cysts versus pneumonia. Emergency Department Course and Treatment: I do not believe the patient has pneumonia. I believe the area seen on chest CT are probably atelectasis. She has no fever, no white count, no change in cough or sputum production. I believe the patient most likely went into A. fib with RVR due to hypoxia. The patient most likely has worsening COPD and would probably benefit from home oxygen. She was given a dose of Lovenox and several doses of Cardizem and eventually placed on a Cardizem drip. Impression: 1. Atrial fibrillation with rapid ventricular response 2. Hypoxemia 3. Subtherapeutic INR This note was generated with [employer] dictation software. It may contain incorrect words, spelling, and punctuation that were not noted in review of the chart prior to signing ED Disposition - Plan for ED Patient: Disposition: Acute Care Hospital [facility] Chief Complaint: Shortness of Breath What to do if you have Problems For any increased pain, shortness of breath, bleeding, nausea or vomiting, chest pain, or any unexpected problems, contact your Primary Care Provider. Call [facility] ([phone]) or report to the closest Emergency Room. Call 911 if necessary. 01/13/18 1605 <Electronically signed by Reynold Montanez DO> Date Reynold Montanez DO Cosigner Signature (If Indicated): Date CC: Aleksandar Putnam DO 12 LEAD ELECTROCARDIOGRAM Observed: 01/11/2018 Status: F Source: [place] 2:50 PM [facility] REPOSITORY [facility] Cardiovascular Services [address] [place] [address] 12 Lead EKG 01/06/182001 MR#: [id number] Acct: [id number] Name: TAZ ZAVALETA Rep #: [id number] : 1945 72 From: Eladio Owen MD Attending Dr: Arthur Sutton MD Status: DIS IN Ordering Dr: Reynold Montanez DO Date: 01/06/18 Location: [facility] Sex: F C Admitted: 01/06/18 Test Reason : RAPID HR Blood Pressure : / mmHG Vent. Rate : 129 BPM Atrial Rate : 277 BPM P-R Int : 000 ms QRS Dur : 078 ms QT Int : 306 ms P-R-T Axes : 000 064 -31 degrees QTc Int : 448 ms Atrial fibrillation Septal infarct , age undetermined Abnormal ECG Confirmed by ELADIO OWEN MD ([id number]), assignment editor OUMOU RO ([id number]) on 01/11/2018 2:50:22 PM Referred By: PETERSON Confirmed By:ELADIO OWEN MD 01/11/18 6180 Date Eladio Owen MD CC: Reynold Montanez DO; Aleksandar Putnam DO Signed DISCHARGE SUMMARY Observed: 01/08/2018 Status: F Source: [place] 11:36 AM [facility] REPOSITORY [facility] Medical Records Department [address] [place] [address] Discharge Summary 01/08/18 1052 MR#: [id number] Acct: [id number] Name: TAZ ZAVALETA Rep #: [id number] : 1945 72 From: Jordana Boyd HEAD OF PRODUCTDavian PCP: Aleksandar Wiley DO Status: DIS IN Y [id number] <Jordana Boyd - Last Filed: 01/08/18 10:59> Discharge Date and Diagnosis Date of Admission: 01/06/18 Date of Discharge: 01/08/18 - Primary Discharge Diagnosis Active and Suspected Problems 1. Acute COPD exacerbation secondary to acute rhinovirus 2. Acute hypoxia secondary to #1 3. Atrial for ablation with RVR - Secondary Discharge Diagnosis Chronic Problems HTN (hypertension) (Chronic) GERD (gastroesophageal reflux disease) (Chronic) Restless leg syndrome (Chronic) Dyslipidemia (Chronic) CAD (coronary artery disease) (Chronic) Status post stent COPD (chronic obstructive pulmonary disease) (Chronic) Chronic atrial fibrillation (Chronic) Tobacco dependence (Chronic) Hospital Course and Treatment Imaging Results: Diagnostic Data Chest X-Ray 01/06/18 20:25 IMPRESSION: COPD with fibrosis. Cannot exclude additional mild diffuse infiltrate of the left lung. Electronically Signed: Alex Benavidez MD at 21:00 EST , Service support , Chest CTA 01/06/18 21:27 IMPRESSION: Negative for pulmonary embolus. Atherosclerotic changes of the thoracic aorta. Cardiomegaly and coronary calcifications. Diffuse emphysematous changes of the upper lobes. Bronchial thickening in the middle and lower lobes with multifocal areas of atelectasis and/or small consolidations in the right middle lobe, right lower lobe and left lower lobe. Large subpectoral lipoma of the left chest. Degenerative changes of the thoracic spine. Electronically Signed: Christie Bergman MD at 22:26 EST , Service support , Operations: None Procedures: 2-D Echocardiogram Summary of Care Provided: Patient is a 72-year-old female admitted 01/06/2018 due to increased shortness of breath. She has a past medical history of hypertension, GERD, restless leg syndrome, hyperlipidemia, CAD status post PCI, COPD, chronic atrial fibrillation and tobacco dependence. 1. Acute COPD exacerbation secondary to acute rhinovirus with associated acute hypoxia-CTA of chest negative for PE. Diffuse emphysematous changes of the upper lobes. Bronchial thickening in the middle and lower lobes with multifocal areas of atelectasis on the right middle lobe, right lower lobe and left lower lobe. Chest x-ray showed COPD with fibrosis. Questionable mild diffuse infiltrate of the left lung. Do not suspect pneumonia. Patient has remained afebrile. No leukocytosis. Nonproductive cough. Patient did receive antibiotics during admission but will not be discharged on further antibiotic therapy. She received IV Solu-Medrol and will be discharged on prednisone taper. Patient required supplemental oxygen during admission and was weaned off. Walking pulse ox completed prior to discharge and patient did not require home oxygen. Patient does not follow with electrical instrument technician and has never had formal pulmonary function testing. Recommend follow-up with [facility] which was discussed with patient. She was discharged on albuterol inhaler as needed for shortness of breath. 2. Atrial fibrillation with RVR-patient on Cardizem drip during admission which was transitioned to oral Cardizem. Her home Cardizem regimen was increased to 180 mg twice daily. She will continue Coumadin therapy. INR therapeutic, 2.4 at discharge. She will continue home atenolol. Echocardiogram shows an estimated ejection fraction of 65%, mild tricuspid valve insufficiency, RVSP estimated to be 47 mmHg. No changes noted from previous echo 04/17/2015. Patient does not follow with a supervisor endless track vehicle. She previously followed with [facility]. Discussed following up with [facility]. She states she has seen Dr. Owen inpatient in the past and would prefer to see another provider. Discussed with her that she may see HEAD OF PRODUCT/PA to establish as a patient and may also see Dr. Brennan or Dr. Dempsey. She is agreeable. 3. Obstructive sleep apnea-noncompliant with CPAP. CPAP was prescribed approximately 5 years ago and patient returned machine. Encouraged outpatient pulmonary follow-up and CPAP use. 4. Hypertension-stable, continue current regimen. 5. GERD-not on home regimen. 6. Hyperlipidemia-continue statin. 7. CAD status post PCI-continue beta-cruz, statin, Coumadin. 8. Restless leg syndrome-continue home Mirapex regimen. 9. Elevated glucose-hemoglobin A1c 6.3%. Continue Accu-Cheks before meals at bedtime with sliding scale insulin. Suspect acute increase in glucoses due to steroid usage. Will need further monitoring as outpatient. 10. Nicotine dependence-encourage smoking cessation. General: Alert, Oriented x3, Cooperative, No apparent distress HEENT: Atraumatic, PERRLA, EOMI, Normocephalic Neck: Supple, No JVD, Negative Carotid Bruits Lungs: Diminished, clear to auscultation Cardiovascular: Normal S1, Normal S2, Murmur, - - A.Fib. Rate controlled. Abdomen: Bowel Sounds Present, Soft, Non Tender, Non-Distended Extremities: No clubbing, No cyanosis, No edema, Capillary Refill Less than 3 Seconds Skin: No rashes, No breakdown Musculoskeletal: No Tenderness to Palpation of Joints or Extremities Neurological: Cranial nerves II-XII grossly intact, Neuro grossly intact Psych/Mental Status: Normal Affect, Appropriate Patient seen and examined prior to discharge. Physical assessment as noted above. Patient is stable for discharge home with recommendations as noted above. This patient was seen by Jordana Boyd NP-C under the supervision of Dr. Sutton. Discharge Diet: Low fat/ Low Cholesterol, Carb Control Diet Discharge Activity: Return to Normal Activity Call your doctor if you observe: Shortness of breath, Dizziness, Fainting spells, Chest pain, Increased palpitations (irregular heartbeat) Home Medications: Medications to take at Discharge Atorvastatin Calcium [Lipitor] 40 mg PO QHS 04/15/15 Levothyroxine Sodium [Levoxyl] 100 mcg PO DAILY 04/15/15 Paroxetine HCl [Paxil] 40 mg PO DAILY 04/15/15 Warfarin [Coumadin] 3 mg PO SUTUTH 04/15/15 Warfarin [Coumadin] 6 mg PO MOWEFRSA 04/15/15 Atenolol [Tenormin (beta cruz)] 50 mg PO BID #120 tablet 04/17/15 Spironolactone [Aldactone] 25 mg PO DAILY #30 tablet 09/30/15 Pramipexole Di-HCl [Mirapex] 1 mg PO TID PRN PRN 01/06/18 Albuterol Inhaler [Ventolin Hfa] 1 - 2 puff INHALATION Q4H PRN PRN #1 inhaler 01/08/18 Diltiazem CD [Cardizem CD] 180 mg PO BID #60 cap 01/08/18 Prednisone See Taper PO DAILY #30 tab 01/08/18 Following Prescrptions Were Given to Patient: Albuterol Inhaler [Ventolin Hfa] 1 - 2 puff INHALATION Q4H PRN PRN #1 inhaler PRN Reason: Shortness Of Breath Prednisone See Taper PO DAILY #30 tab Diltiazem CD [Cardizem CD] 180 mg PO BID #60 cap Primary Care Physician: Aleksandar Wiley DO [Primary Care Provider] - Please follow up with your Primary Care Physician in: 1-2 Weeks Please Follow Up With: Ventura Cid MD - May see HEAD OF PRODUCT, establish patient When: 2 Weeks Please Follow Up With: Jeff Brennan MD - May see HEAD OF PRODUCT/PA, establish patient When: 1-2 Weeks Disposition: Home Minutes spent on discharge:: 35 Patient Condition:: Stable Meaningful Use Info Meaningful Use Diagnoses (Choose all that apply): None applicable <Arthur Sutton - Last Filed: 01/08/18 11:36> Discharge Date and Diagnosis - Secondary Discharge Diagnosis Chronic Problems HTN (hypertension) (Chronic) GERD (gastroesophageal reflux disease) (Chronic) Restless leg syndrome (Chronic) Dyslipidemia (Chronic) CAD (coronary artery disease) (Chronic) Status post stent COPD (chronic obstructive pulmonary disease) (Chronic) Chronic atrial fibrillation (Chronic) Tobacco dependence (Chronic) Hospital Course and Treatment Summary of Care Provided: In brief, patient is a a 72-year-old lady who was admitted with progressive shortness of breath and palpitations. An assessment of COPD exacerbation and A. fib RVR made admitted to a monitored bed for further management Assessment: 1. COPD with exacerbation precipitated by rhinovirus infection 2. A. fib with RVR 3. Sleep apnea 4. Obstructive sleep apnea-noncompliant with CPAP. 5. Essential hypertension 6. Hyperlipidemia-continue statin. 7. CAD status post PCI 8. Restless leg syndrome 9. GERD without esophagitis 10. Tobacco dependence. 11. DVT prophylaxis patient on Coumadin no need for additional measures Hospital course as elicited above by Jordana Rangel Patient was seen and examined by myself did review her discharge instructions and home going medications prior to her discharge. Discharge process 35 minutes Code Visit Inpatient E AND M: 41959 Subs Hosp L3 Code Visit Inpatient E AND M: 19258 Disch Hosp 01/08/18 1059 <Electronically signed by Jordana ROSE> Date Jordana ROSE 01/08/18 1136<Electronically signed by Arthur Sutton MD> Cosigner Signature (if applicable): Date Arthur Sutton MD CC: ROSE Boyd; Arthur Sutton MD; Aleksandar Wiley DO Signed DISCHARGE INSTRUCTION Observed: 01/08/2018 Status: F Source: [place] 10:52 AM [facility] REPOSITORY [facility] Medical Records Department [address] [place] [address] Instructions for Home/Discharge Instructions 01/08/18 1046 MR#: [id number] Acct: [id number] Name: TAZ ZAVALETA Rajan Rep #: [id number] : 1945 72 From: Jordana ROSE PCP: Aleksandar Wiley DO Status: ADM IN - Discharge Diagnoses Current Active Problems: Current Active and Chronic Problems Multifocal community-acquired pneumonia (Acute) Bilateral lower lobes atelectasis (Acute) Obstructive sleep apnea (Acute) Atrial fibrillation with RVR (Acute) You will use the following diet at home:: Cardiac Discharge Activity: Return to Normal Activity Call your doctor if you observe: Shortness of breath, Dizziness, Fainting spells, Chest pain, Increased palpitations (irregular heartbeat) Additional Instructions: Recommend you establish and follow up with electrical instrument technician for your COPD and obstructive sleep apnea and cardiolgist for atrial fibrillation. Dr. Sierra and Dr. Cid are lung doctors here at the hospital and we spoke about follow up with Dr. Brennan for your heart. Allergies/Adverse Reactions: Allergies CLINT Inhibitors Allergy (Verified 01/06/18 19:59) Unknown acyclovir [From Zovirax] Allergy (Verified 01/06/18 19:59) Unknown amoxicillin trihydrate [From Augmentin] Allergy (Verified 01/06/18 19:59) Unknown codeine Allergy (Verified 01/06/18 19:59) Unknown potassium clavulanate [From Augmentin] Allergy (Verified 01/06/18 19:59) Unknown Medications to take at Discharge Atorvastatin Calcium [Lipitor] 40 mg PO QHS 04/15/15 Levothyroxine Sodium [Levoxyl] 100 mcg PO DAILY 04/15/15 Paroxetine HCl [Paxil] 40 mg PO DAILY 04/15/15 Warfarin [Coumadin] 3 mg PO SUTUTH 04/15/15 Warfarin [Coumadin] 6 mg PO MOWEFRSA 04/15/15 Atenolol [Tenormin (beta cruz)] 50 mg PO BID #120 tablet 04/17/15 Spironolactone [Aldactone] 25 mg PO DAILY #30 tablet 09/30/15 Pramipexole Di-HCl [Mirapex] 1 mg PO TID PRN PRN 01/06/18 Albuterol Inhaler [Ventolin Hfa] 1 - 2 puff INHALATION Q4H PRN PRN #1 inhaler 01/08/18 Diltiazem CD [Cardizem CD] 180 mg PO BID #60 cap 01/08/18 Prednisone See Taper PO DAILY #30 tab 01/08/18 The following prescriptions were given: Albuterol Inhaler [Ventolin Hfa] 1 - 2 puff INHALATION Q4H PRN PRN #1 inhaler PRN Reason: Shortness Of Breath Prednisone See Taper PO DAILY #30 tab Diltiazem CD [Cardizem CD] 180 mg PO BID #60 cap Primary Care Physician: Aleksandar Wiley DO [Primary Care Provider] - Please follow up with your Primary Care Physician in: 1-2 Weeks Please Follow Up With: Ventura Cid MD - May see HEAD OF PRODUCT, establish patient When: 2 Weeks Please Follow Up With: Jeff Brennan MD - May see HEAD OF PRODUCT/PA, establish patient When: 1-2 Weeks Proposed Discharge Date: 01/08/18 01/08/18 1052 <Electronically signed by Jordana Boyd HEAD OF PRODUCT-C> Date Jordana Boyd HEAD OF PRODUCT-C CC: Aleksandar Wiley DO CBC-COMPLETE BLOOD CNT Collected: 01/08/2018 Status: F Source: [place] NO DIFF 6:46 AM [facility] REPOSITORY TYPE CODE TESTS RESULT OUT OF RANGE REFERENCE UNITS LAB L100.1000 4.4-11.0 K/mm3 High WBC 17.1 LAB L100.1200 4.2-5.4 M/mm3 Low RBC 4.15 LAB L100.1300 12.0-15.0 g/dl Normal HGB 12.9 LAB L100.1400 37-47 % Normal HCT 42.2 LAB L100.1500 81-99 fL High MCV 101.7 LAB L100.1600 27.0-32.0 pg Normal MCH 31.1 LAB L100.1700 32-36 g/gl Low MCHC 30.6 LAB L100.1810 11.6-14.6 % High RDW CV 14.7 LAB L100.1820 35.1-43.9 fl High RDW SD 54.9 LAB L100.1900 150-450 K/mm3 Normal PLT 221 LAB L100.2000 6.2-12.0 fl Normal MPV 10.9 Performed By: #### L100.0500 #### [facility] [address] [place], [place], [id number] PROTHROMBIN TIME W/INR Collected: 01/08/2018 Status: F Source: [place]ARA 6:46 AM [facility] REPOSITORY TYPE CODE TESTS RESULT OUT OF RANGE REFERENCE UNITS LAB L300.4150 11.7-14.9 SECONDS High PROTIME 26.3 LAB L300.4200 Normal INR 2.4 Performed By: #### L300.3900 #### [facility] [address] [address] [place], [place], [id number] BASIC METABOLIC Collected: 01/08/2018 Status: F Source: SARA PROFILE (BMP) 6:46 AM [facility] REPOSITORY TYPE CODE TESTS RESULT OUT OF RANGE REFERENCE UNITS LAB L501.0100 74-106 mg/dL High GLU 134 Result Comment: Fasting Glucose result greater than or equal to 126 mg/dL suggests DIABETES MELLITUS per A.D.A. criteria. Please note revised GLUCOSE reference range effective 2017. LAB L501.1000 7-18 mg/dL High BUN 26 LAB L501.1100 0.55-1.02 mg/dL Normal CREAT,SERUM 0.77 Result Comment: The validity of the calculated GFR AND GFRAA in patients over 70 years has not been determined. Clinical correlation is essential. LAB L501.1110 >60 mL/min Normal EST GFR 78 Result Comment: Non- GFR Calc LAB L501.1115 >60 mL/min Normal EST GFR - AA 95 Result Comment: GFR Calc LAB L501.1255 ml/min Normal Estimated CRCL 44.41 LAB L501.1300 10-20 RATIO High BUN/CRE 33.9 LAB L501.2200 8.5-10 mg/dL Normal .1 CA 8.7 LAB L501.5300 136-14 mmol/L Normal 5 NA 137 LAB L501.5600 3.5-5. mmol/L Normal 1 K 4.8 LAB L501.5900 98-107 mmol/L Normal CL 107 LAB L501.6100 21.0-3 mmol/L Normal 2.0 CO2 22.0 LAB L501.6200 5-15 Normal GAP 8 Performed By: #### L500.2500 #### [facility] [address] [place], [place], [address] BEDSIDE GLUCOSE Collected: 01/08/2018 Status: F Source: SARA 6:43 AM [facility] REPOSITORY TYPE CODE TESTS RESULT OUT OF REFERENCE UNITS RANGE LAB L501.080 70-110 mg/dL High BEDSIDE GLU 131 Result Comment: MANAGEMENT OF PATIENT CARE PER NURSING PROTOCOL Performed By: #### L501.080 #### [facility] Point of Care [address] [place] [address] BEDSIDE GLUCOSE Collected: 01/07/2018 Status: F Source: LACLEDE 9:07 PM [facility] REPOSITORY TYPE CODE TESTS RESULT OUT OF REFERENCE UNITS RANGE LAB L501.080 70-110 mg/dL High BEDSIDE GLU 208 Result Comment: MANAGEMENT OF PATIENT CARE PER NURSING PROTOCOL Performed By: #### L501.080 #### [facility] Point of Care [address] [place] [address] BEDSIDE GLUCOSE Collected: 01/07/2018 Status: F Source: LACLEDE 4:20 PM [facility] REPOSITORY TYPE CODE TESTS RESULT OUT OF REFERENCE UNITS RANGE LAB L501.080 70-110 mg/dL High BEDSIDE GLU 165 Result Comment: MANAGEMENT OF PATIENT CARE PER NURSING PROTOCOL Performed By: #### L501.080 #### [facility] Point of Care [address] [place] [address] ECHOCARDIOGRAM COMPLETE Observed: 01/07/2018 Status: F Source: LACLEDE 12:16 PM [facility] REPOSITORY [facility] Cardiovascular Services [address] [place] [address] Echo Complete 01/07/18 0938 MR#: [id number] Acct: [id number] Name: TAZ ZAVALETA Rep #: [id number] : 1945 72 From: Reynold Dempsey MD Attending Dr: Arthur Sutton MD Status: ADM IN Ordering Dr: Vinh Dutta MD Date: 01/07/18 Location: U Sex: F C Admitted: 01/06/18 Reason For Study: Afib w RVR Procedure This was a 2D Doppler, Color Flow transthoracic echocardiogram. Exam performed portable in patient room. Left Ventricle Normal size and thickness. The estimated ejection fraction is 65 %. Unable to assess diastolic dysfunction. No regional wall motion abnormalities noted. Right Ventricle Normal size and thickness. Normal systolic function. Atria The left atrium is severely enlarged. The right atrium is severely enlarged. Normal atrial septum. Mitral Valve Mild diffuse mitral valve thickening. Moderate mitral annular calcification extending into the posterior leaflet. Tricuspid Valve Normal tricuspid valve. Mild (1+) tricuspid valve insufficiency. Right ventricular systolic pressure estimated to be 47 mmHg. Moderate pulmonary hypertension. Aortic Valve Trisinus/trileaflet aortic valve. Mild focal aortic valve thickening. There is no aortic stenosis. Pulmonic Valve Normal pulmonic valve. Great Vessels Normal aortic root. Normal arch. Normal inferior vena cava. Inferior vena cava collapse with sniff. Pericardium/Pleural No pericardial effusion. MMode/2D Measurements AND Calculations LVIDd: 4.4 cm IVSd: 0.84 cm Ao root diam: 2.5 cm LVIDs: 2.4 cm LVPWd: 0.99 cm LA dimension: 5.4 cm RVDd: 3.1 cm FS: 43.9 % LAV(MOD-bp): 86.2 ml LA A4 area: 25.7 cm2 RA A4 area: 24.3 cm2 LAV(MOD-bp) Indexed: 49.5 ml/m2 LAV(MOD-sp2): 91.1 ml LAV(MOD-sp4): 79.9 ml Doppler Measurements AND Calculations MV E max hermelindo: 109.2 cm/sec Lat Peak E' Hermelindo: 7.1 cm/sec Med Peak E' Hermelindo: 6.3 cm/sec E/E' lat: 15.5 E/E' med: 17.3 Ao V2 max: 136.7 cm/sec LV V1 max: 87.5 cm/sec PA V2 max: 78.9 cm/sec Ao max P.6 mmHg LV V1 max P.1 mmHg Ao V2 mean: 92.3 cm/sec Ao mean P.8 mmHg Ao V2 VTI: 26.2 cm TR max hermelindo: 280.4 cm/sec TR max P.5 mmHg Interpretation Summary The estimated ejection fraction is 65 %. Unable to assess diastolic dysfunction due to atrial fibrillation. The left atrium is severely enlarged. The right atrium is severely enlarged. Mild (1+) tricuspid valve insufficiency. Right ventricular systolic pressure estimated to be 47 mmHg. Moderate pulmonary hypertension. Mild focal aortic valve thickening located on left coronary cusp. Pt appears to be in atrial fibrillation. Compared to echo report dated 04/17/2015, no appreciable changes noted. Ordering Physician: Vinh Dutta Referring Physician: Aleksandar Wiley Performed By: Yajaira Aguilar, EDIS, RVT 01/07/18 1216 Date Reynold Dempsey MD CC: Aleksandar Wiley DO; Vinh Dutta MD Date Dictated: 01/07/18 0938 Date Transcribed: 01/07/186 [place]: Signed BEDSIDE GLUCOSE Collected: 01/07/2018 Status: F Source: SARA 11:11 AM [facility] REPOSITORY TYPE CODE TESTS RESULT OUT OF REFERENCE UNITS RANGE LAB L501.080 70-110 mg/dL High BEDSIDE GLU 211 Result Comment: Orders Followed Insulin Given MANAGEMENT OF PATIENT CARE PER NURSING PROTOCOL Performed By: #### L501.080 #### [facility] Point of Care [address] [place] [address] TROPONIN-I Collected: 01/07/2018 Status: F Source: SARA 10:30 AM [facility] REPOSITORY Order Comment: 'TROP' Serial specimen #1, #2, #3, or #4: 4 TYPE CODE TESTS RESULT OUT OF RANGE REFERENCE UNITS LAB L501.4010 <0.06 ng/mL High 0.12 TROPONIN-I Result Comment: TROPONIN-I EXPECTED VALUES <0.05 NEGATIVE 0.06 - 0.59 AT RISK OF GA > OR = 0.60 SUGGEST GA Performed By: #### L501.4010, L500.2500, L501.9520, L506.0400 #### [facility] [address] [place], [address] BEDSIDE GLUCOSE Collected: 01/07/2018 Status: F Source: SARA 6:36 AM [facility] REPOSITORY TYPE CODE TESTS RESULT OUT OF REFERENCE UNITS RANGE LAB L501.080 70-110 mg/dL High BEDSIDE GLU 149 Result Comment: MANAGEMENT OF PATIENT CARE PER NURSING PROTOCOL Performed By: #### L501.080 #### [facility] Point of Care [address] [place] [address] BASIC METABOLIC Collected: 01/07/2018 Status: F Source: SARA PROFILE (BMP) 5:00 AM [facility] REPOSITORY Order Comment: 'TROP' Serial specimen #1, #2, #3, or #4: 3 TYPE CODE TESTS RESULT OUT OF RANGE REFERENCE UNITS LAB L501.0100 74-106 mg/dL High GLU 147 Result Comment: Fasting Glucose result greater than or equal to 126 mg/dL suggests DIABETES MELLITUS per A.D.A. criteria. Please note revised GLUCOSE reference range effective 2017. LAB L501.1000 7-18 mg/dL High BUN 24 LAB L501.1100 0.55-1.02 mg/dL Normal CREAT,SERUM 0.80 Result Comment: The validity of the calculated GFR AND GFRAA in patients over 70 years has not been determined. Clinical correlation is essential. LAB L501.1110 >60 mL/min Normal EST GFR 74 Result Comment: Non- GFR Calc LAB L501.1115 >60 mL/min Normal EST GFR - AA 90 Result Comment: GFR Calc LAB L501.1255 ml/min Normal Estimated CRCL 55.52 LAB L501.1300 10-20 RATIO High BUN/CRE 29.9 LAB L501.2200 8.5-10 mg/dL Low .1 CA 8.4 LAB L501.5300 136-14 mmol/L Normal 5 NA 138 LAB L501.5600 3.5-5. mmol/L Normal 1 K 4.0 LAB L501.5900 98-107 mmol/L Normal CL 104 LAB L501.6100 21.0-3 mmol/L Normal 2.0 CO2 27.0 LAB L501.6200 5-15 Normal GAP 7 Performed By: #### L501.4010, L500.2500, L501.9520, L506.0400 #### [facility] [address] [place], [place], [address] THYROID STIM HORMONE Collected: 01/07/2018 Status: F Source: LACLEDE (TSH) 5:00 AM [facility] REPOSITORY Order Comment: 'TROP' Serial specimen #1, #2, #3, or #4: 3 TYPE CODE TESTS RESULT OUT OF RANGE REFERENCE UNITS LAB L501.9520 0.358-3.74 uIU/mL Normal TSH 0.94 Performed By: #### L501.4010, L500.2500, L501.9520, L506.0400 #### [facility] [address] [place], [address] T4 FREE DIRECT Collected: 01/07/2018 Status: F Source: LACLEDE 5:00 AM [facility] REPOSITORY Order Comment: 'TROP' Serial specimen #1, #2, #3, or #4: 3 TYPE CODE TESTS RESULT OUT OF RANGE REFERENCE UNITS LAB L506.0400 0.76-1.46 ng/dL Normal T4 FREE 1.38 DIRECT Performed By: #### L501.4010, L500.2500, L501.9520, L506.0400 #### [facility] [address] [place], [address] CBC W/DIFF, AUTOMATED Collected: 01/07/2018 Status: F Source: SARA 5:00 AM [facility] REPOSITORY TYPE CODE TESTS RESULT OUT OF RANGE REFERENCE UNITS LAB L100.1000 4.4-11.0 K/mm3 Normal WBC 6.5 LAB L100.1200 4.2-5.4 M/mm3 Low RBC 4.16 LAB L100.1300 12.0-15.0 g/dl Normal HGB 13.1 LAB L100.1400 37-47 % Normal HCT 41.7 LAB L100.1500 81-99 fL High MCV 100.2 LAB L100.1600 27.0-32.0 pg Normal MCH 31.5 LAB L100.1700 32-36 g/gl Low MCHC 31.4 LAB L100.1810 11.6-14.6 % High RDW CV 14.8 LAB L100.1820 35.1-43.9 fl High RDW SD 53.6 LAB L100.1900 150-450 K/mm3 Normal PLT 231 LAB L100.2000 6.2-12.0 fl Normal MPV 10.7 LAB L100.2100 47-70 % High NEUT% 88.7 LAB L100.2200 19-41 % Low LY% 9.2 LAB L100.2300 0-10 % Normal MONO% 1.4 LAB L100.2400 0-5 % Normal EO% 0.2 LAB L100.2500 0-1 % Normal BASO% 0.3 LAB L100.2550 0.0-0.9 % Normal IM GRAN % 0.200 Result Comment: IG% - Immature Granulocytes (promyelocytes, myelocytes and metamyelocytes) > 1% indicates that a LEFT SHIFT is Present. LAB L100.2620 2.0-7.7 X10 3/uL Normal Absolute Neut 5.8 LAB L100.2720 0.83-4.51 X10 3/ul Low Absolute Lymph 0.60 Performed By: #### L100.0100 #### [facility] [address] [place], [place], [address] PROTHROMBIN TIME W/INR Collected: 01/07/2018 Status: F Source: LACLEDE 5:00 AM [facility] REPOSITORY TYPE CODE TESTS RESULT OUT OF RANGE REFERENCE UNITS LAB L300.4150 11.7-14.9 SECONDS High PROTIME 19.6 LAB L300.4200 Normal INR 1.7 Performed By: #### L300.3900 #### [facility] [address] [place], [address] HEMOGLOBIN A1C Collected: 01/07/2018 Status: F Source: LACLEDE 5:00 AM [facility] REPOSITORY TYPE CODE TESTS RESULT OUT OF RANGE REFERENCE UNITS LAB L501.9985 4.2-6.3 % Normal HGB A1C 6.3 Performed By: #### L501.9985 #### [facility] [address] [place], [address] Observed: 01/07/2018 Status: F Source: LACLEDE CULTURE, SPUTUM 4:00 AM [facility] REPOSITORY Order Date: 01/07/18 Has pt arrived? Y Gram Stain Acceptable Specimen? Yes (<25 Epithelial cells per/lpf) Gram Stain 2+ Gram positive cocci 3+ White Blood Cells No Epithelial cells Resp. Culture ORGANISM 1: Streptococcus pneumoniae Amount Growth 3+ ORGANISM 2: Mixed Martha Amount Growth 2+ Streptococcus pneumoniae: REACTION Cefotaxime (meningitis) $ <=0.12 S Cefotaxime (Other dx) $ <=0.12 S (meningitis)Ceftriaxone $ <=0.12 S Ceftriaxone (other dx) $ <=0.12 S Clindamycin $$ <=0.25 S Erythromycin $ <=0.12 S Levofloxacin $ 0.5 S Moxifloxicin *NF 0.12 S Tetracycline NF <=0.25 S Trimethoprim/Sulfametho $ <=10 S Vancomycin $ 0.5 S (NF) indicates non-formulary drug at [facility]. Approval by Infectious Disease Specialist required before non-formulary drugs may be ordered and/or dispensed. * CLSI guidelines does not recommend testing of cephalosporins. This interpretation is deduced from Beta-lactam/penicillin results. Performed By: #### M100.0800 #### [facility] [address] [place], [address] Observed: 01/07/2018 Status: F Source: SARA RESPIRATORY PANEL 3:40 AM [facility] MOLECULAR REPOSITORY RP PANEL Normal Reference Range = Not Detected RESULTS CALLED TO JOSÉ MANUEL 01/07/18 0944 Joceline Miller. REPORT READ BACK BY INDER. Copy of report sent to Infection Control Printer [id number] 01/07/18 0944 BESSIE. ADENOVIRUS Not Detected HUMAN METAPHNEUMO Not Detected INFLUENZA A Not Detected INFLUENZA A (SUBTYPE H1) Not Detected INFLUENZA A (SUBTYPE H3) Not Detected INFLUENZA B Not Detected PARAINFLUENZA 1 Not Detected PARAINFLUENZA 2 Not Detected PARAINFLUENZA 3 Not Detected PARAINFLUENZA 4 Not Detected RHINOVIRUS Positive for RHINOVIRUS by NAAT technology RSV A Not Detected RSV B Not Detected NAAT METHOD Testing was performed using nucleic acid amplification ORGANISM 1: RHINOVIRUS Performed By: #### M100.638 #### [facility] [address] [facility] [place], [place], [id number] URINALYSIS, ROUTINE Collected: 01/07/2018 Status: F Source: SARA (DIPSTICK) 1:25 AM [facility] REPOSITORY Order Comment: How was Urine Obtained? CAMP PROGRAM DIRECTOR TO SPECIFY TYPE CODE TESTS RESULT OUT OF RANGE REFERENCE UNITS LAB L400.3000 Yellow COLOR Normal Yellow LAB L400.3050 Clear Normal CLARITY Clear LAB L400.3200 Normal mg/dl Normal GLUCOSE, UR Normal LAB L400.3300 Negative mg/dL Normal BILIRUBIN URINE Negative LAB L400.3400 Negative mg/dl Normal KETONE UR Negative LAB L400.3465 1.002-1.030 Normal SP.GR. DIPSTX 1.010 LAB L400.3550 5.0 - 8.0 pH UR Normal 5.0 LAB L400.3600 Negative mg/dl High PROT 15 DIPSTX LAB L400.3700 Normal mg/dl High 1 UROBILI LAB L400.3750 Negative Normal NITRITE UR Negative LAB L400.3780 Negative /ul High 10 OCCULT BLOOD-UR LAB L400.3800 Negative /ul LEUK Normal ESTERASE Negative Performed By: #### L400.2010 #### [facility] [address] [place], [place], [id number] STREP Observed: 01/07/2018 Status: F Source: SARA PNEUMONIAE ANTIG(UR,CSF) 1:25 AM [facility] REPOSITORY S pneumo Ag URINE INTERPRETATION Negative Urine Presumptive negative for pneumococcal pneumonia, suggesting no current or recent pneumococcal infection. Infection due to S pneumoniae cannot be ruled out since the antigen present in the sample may be below the detection limit of the test. Strep pneumo Test Negative URINE (See interpretation below) Performed By: #### M300.4600 #### [facility] [place], [address] Observed: 01/07/2018 Status: F Source: LACLEDE LEGIONELLA ANTIGEN 1:25 AM [facility] URINE REPOSITORY Legionella, UR Legionella Antigen result interpretation: Negative Presumptive negative for Legionella pneumophila serogroup 1 antigen in urine, suggesting no recent or current infection. Legionella Ag, Urine Negative (See interpretation below) Performed By: #### M300.4500 #### [facility] [address] [place] [address], [address] Observed: 01/07/2018 Status: F Source: SARA CULTURE, BLOOD (WB) 1:15 AM [facility] REPOSITORY BC No growth in 5 days. Performed By: #### M200.1000 #### [facility] [place], [address] Observed: 01/07/2018 Status: F Source: SARA CULTURE, BLOOD (WB) 1:05 AM [facility] REPOSITORY Has pt arrived? Y BC No growth in 5 days. Performed By: #### M200.1000 #### [facility] [address] [place] [address], [address] HISTORY AND PHYSICAL Observed: 01/07/2018 Status: F Source: SARA EXAM 12:10 AM [facility] REPOSITORY [facility] Medical Records Department [address] [place] [address] History and Physical 01/06/18 2319 MR#: [id number] Acct: [id number] Name: TAZ ZAVALETA Rajan Rep #: [id number] : 1945 72 From: Vinh Dutta MD PCP: Aleksandar Wiley DO Status: ADM IN Y Location: [place] [address] Problem List (1) Multifocal community-acquired pneumonia Status: Acute (2) Bilateral lower lobes atelectasis Status: Acute (3) Obstructive sleep apnea Status: Acute (4) Atrial fibrillation with RVR Status: Acute (5) HTN (hypertension) Status: Chronic (6) GERD (gastroesophageal reflux disease) Status: Chronic (7) Restless leg syndrome Status: Chronic (8) Dyslipidemia Status: Chronic (9) CAD (coronary artery disease) Status: Chronic Comment: Status post stent (10) Alcohol withdrawal Status: Suspected (11) COPD (chronic obstructive pulmonary disease) Status: Chronic (12) Hypokalemia Status: Acute (13) Chronic atrial fibrillation Status: Chronic (14) Tobacco dependence Status: Chronic History of Present Illness Date of Admission: 01/06/18 Chief Complaint: Shortness of breath acute on chronic worse today The patient is a 72 year old F with multiple comorbidities as listed above but significant for chronic A. fib on Coumadin, COPD, not on home oxygen, active smoker about 15 cigarettes per day last admission in September 2015 for A. fib with RVR came to ER with acute on chronic shortness of breath today while she was shoveling. The patient has on and off shortness of breath for at least 5-6 months with history of intermittent URIs about 2- 3 times in last 3-4 months. Patient denies chest pain, palpitation or flutter waves. She denies diaphoresis. Patient took Mirapex for restless leg syndrome and is little confused while I examined the patient. As per the EMS, her heart rate was 1 22/min, pulse ox 100% on nonrebreather mask. EMS EKG shows A. fib with RVR at 1 43 bpm with frequent PVCs. In ED, patient was found tachycardic 110/min, blood pressure is good, respiratory 25/min and hypoxic 94% on 2 L of oxygen. Patient denies fever or chills. INR is subtherapeutic Patient CT angiogram of chest shows negative for PE but diffuse emphysematous changes of the upper lobes, bronchial thickening and middle and lower lobes with multifocal areas of atelectasis and/or/small consolidation in right middle lobe and right lower lobe and left lower lobe. Patient was started on IV Cardizem drip and Lovenox 80 mg 1 dose was given in the ER Past Medical History Past Medical History (Chronic Problems): Chronic Problems HTN (hypertension) (Chronic) GERD (gastroesophageal reflux disease) (Chronic) Restless leg syndrome (Chronic) Dyslipidemia (Chronic) CAD (coronary artery disease) (Chronic) Status post stent COPD (chronic obstructive pulmonary disease) (Chronic) Chronic atrial fibrillation (Chronic) Tobacco dependence (Chronic) Allergies CLINT Inhibitors Allergy (Verified 01/06/18 19:59) Unknown acyclovir [From Zovirax] Allergy (Verified 01/06/18 19:59) Unknown amoxicillin trihydrate [From Augmentin] Allergy (Verified 01/06/18 19:59) Unknown codeine Allergy (Verified 01/06/18 19:59) Unknown potassium clavulanate [From Augmentin] Allergy (Verified 01/06/18 19:59) Unknown Home Medications: Ambulatory Orders Medication Instructions Recorded Atorvastatin Calcium [Lipitor] 40 mg PO QHS 04/15/15 Levothyroxine Sodium [Levoxyl] 100 mcg PO DAILY 04/15/15 Paroxetine HCl [Paxil] 40 mg PO DAILY 04/15/15 Surgical History: - - Lower extremity arterial bypass Cardiac stent placement Psychiatric History: No pertinent psych hx DIRECT MARKETING COORDINATOR History: No pertinent DIRECT MARKETING COORDINATOR history Smoking Status: Current every day smoker - *Family History Paternal History Items: Cancer - Father of dysphagia CA, No pertinent history Review of Systems Constitutional: Reports: Fever, Malaise, Weakness, Fatigue. Denies: Chills HEENT: Denies: Head Aches, Sinus Congestion, Sinus Drainage Cardiovascular: Reports: Edema. Denies: Chest Pain, Palpitations Respiratory: Reports: Cough, Shortness of breath at rest. Denies: Sputum production, Wheezing Gastrointestinal: Denies: Abdominal Pain, Nausea, Vomiting Genitourinary: Denies: Dysuria Musculoskeletal: Denies: Joint Pain, Joint Tenderness Skin: Denies: Rash, Wounds Neurological: Denies: Numbness, Tingling, Focal weakness Psychiatric: Denies: Anxiety, Depression, Homicidal Ideations, Suicidal Ideations Hematologic/ Lymphatic: Denies: Easy Bruising, Easy Bleeding VTE Information - Inpt Only VTE Present on Admission: No VTE Mechan Device Prophylaxis: SCD's VTE Pharm Prophylaxis ordered?: Yes Patient Problems: Active and Suspected Problems Multifocal community-acquired pneumonia (Acute) Bilateral lower lobes atelectasis (Acute) Obstructive sleep apnea (Acute) Atrial fibrillation with RVR (Acute) - Physical Exam General: Alert, Oriented x3, Cooperative HEENT: Atraumatic, PERRLA, EOMI, Normocephalic Oral: Dry Mucosa Neck: Supple, No JVD, Negative Carotid Bruits Lungs: Diminished - Diffuse stiffness but air entry on both side, Rhonchi, Short of Breath, Tachypneic Cardiovascular: Normal S1, Normal S2, No murmurs, Irregular Rate, Tachycardic Abdomen: Bowel Sounds Present, Soft, Non Tender Extremities: No edema, Capillary Refill Less than 3 Seconds Skin: No rashes, No breakdown Musculoskeletal: No Tenderness to Palpation of Joints or Extremities Neurological: Cranial nerves II-XII grossly intact Psych/Mental Status: Normal Affect, Appropriate Vital Signs Temp Pulse Resp BP Pulse Ox 98.6 F 105 H 25 H 113/70 95 01/06/18 19:56 01/06/18 23:00 01/06/18 23:00 01/06/18 23:00 01/06/18 23:00 Oxygen Flow Rate 2 Oxygen Delivery Method Nasal Cannula Weight: 175 lb 14.862 oz Body Mass Index (BMI) 34.3 Laboratory Tests Past 24 Hrs Assessment/Plan Active and Suspected Problems Multifocal community-acquired pneumonia (Acute) Bilateral lower lobes atelectasis (Acute) Obstructive sleep apnea (Acute) Atrial fibrillation with RVR (Acute) The patient is a 72 year old F with multiple comorbidities as listed above but significant for paroxysmal A. fib on Coumadin, COPD, not on home oxygen, active smoker about 15 cigarettes per day last admission in September 2015 for A. fib with RVR came to ER with acute on chronic shortness of breath today while she was shoveling. The patient has on and off shortness of breath for at least 5-6 months with history of intermittent URIs about 2-3 times in last 3-4 months. Patient denies chest pain, palpitation or flutter waves. She denies diaphoresis. Patient took Mirapex for restless leg syndrome and is little confused while I examined the patient. As per the EMS, her heart rate was 1 22/min, pulse ox 100% on nonrebreather mask. EMS EKG shows A. fib with RVR at 1 43 bpm with frequent PVCs. In ED, patient was found tachycardic 110/min, blood pressure is good, respiratory 25/min and hypoxic 94% on 2 L of oxygen. Patient denies fever or chills. INR is subtherapeutic and was given Lovenox. Patient CT angiogram of chest shows negative for PE but diffuse emphysematous changes of the upper lobes, bronchial thickening and middle and lower lobes with multifocal areas of atelectasis and/or/small consolidation in right middle lobe and right lower lobe and left lower lobe. 1. A. fib with RVR: Patient is being admitted in PCU. Started on IV Cardizem drip tapered down as heart rate is controlled and transition to oral Cardizem. Continue Coumadin and supplement with Lovenox if needed. Discontinue Lovenox once INR is more than 1.8. Continue home rate control medications; atenolol 50 mg twice daily and diltiazem CD 120 mg twice daily. 2D echo tomorrow morning. Previous echo in April 2015 shows normal LV size with left ventricular systolic function lower limits of normal, EF 55% with no regional wall motion abnormalities. Mildly dilated right ventricle with normal systolic function. Left atrium severely enlarged. Right atrium severely enlarged. Trivial MR. PA SP 40-45 mmHg with 2+ TR suggestive of moderate pulmonary hypertension. 2. Acute hypoxic respiratory failure most rarely from diffuse COPD, precipitated by A. fib with RVR and pneumonia: On oxygen to keep pulse ox more than 90%. 3. Pulmonary conditions: COPD with moderate acute bronchitis, with moderate pulmonary hypertension and bilateral lower lobes atelectasis. She also has history of obstructive sleep apnea: On bronchodilator, IV Solu-Medrol, chest physiotherapy, incentive spirometry. And was advised CPAP 5 years ago but she is noncompliant and returned the machine back. Smoking counseling done. On nicotine patch 4. Bilateral, multifocal currently acquired pneumonia with recent history of URI: Pneumonia workup with urinary antigen, blood cultures 2 and sputum culture. Respiratory panel ordered. Started on IV Rocephin and Zithromax. 5. Hyperglycemia, possible diabetes mellitus type 2: Patient serum glucose is 156 and BMP. Patient was started on Accu-Chek before meals and at bedtime and cover with NovoLog sliding scale as she is on Solu-Medrol. A1c ordered for tomorrow. Other chronic comorbidities include hypertension, GERD, dyslipidemia, coronary artery status post stent, restless leg syndrome moderate pulmonary hypertension and obesity: This complicates the present care until his recovery. Guarded prognosis. DVT prophylaxis: On Coumadin. Patient is given Lovenox 1 mg/kg body weight in ER Laboratory Results 01/06/18 20:05: WBC 9.6, RBC 4.52, Hgb 14.0, Hct 45.5, MCV 100.7 H, MCH 31.0, MCHC 30.8 L, RDW 14.8 H, RDW Differential 54.5 H, Plt Count 252, MPV 10.8, Immature Gran % (Auto) 0.100, Neut % (Auto) 67.2, Lymph % (Auto) 22.8, Denali % (Auto) 7.7, Eos % (Auto) 1.6, Baso % (Auto) 0.6, Absolute Neuts (auto) 6.5, Absolute Lymphs (auto) 2.20, Total Counted Not Reportable 01/06/18 20:05: PT 18.4 H, INR 1.5 01/06/18 20:05: Sodium 141, Potassium 3.6, Chloride 104, Carbon Dioxide 28.0, Anion Gap 9, BUN 28 H, Creatinine 0.98, Estim Creat Clear Calc 36.18, Est GFR (MDRD) Af Amer 71, Est GFR (MDRD) Non-Af 59 L, BUN/Creatinine Ratio 28.4 H, Glucose 156 H, Calcium 8.9, Troponin I < 0.02 Clinical Impression(s) from Imaging Studies Chest X-Ray 01/06/18 20:25 IMPRESSION: COPD with fibrosis. Cannot exclude additional mild diffuse infiltrate of the left lung. Chest CTA 01/06/18 21:27 IMPRESSION: Negative for pulmonary embolus. Atherosclerotic changes of the thoracic aorta. Cardiomegaly and coronary calcifications. Diffuse emphysematous changes of the upper lobes. Bronchial thickening in the middle and lower lobes with multifocal areas of atelectasis and/or small consolidations in the right middle lobe, right lower lobe and left lower lobe. Large subpectoral lipoma of the left chest. Degenerative changes of the thoracic spine. [] Code Visit Inpatient E AND M: 32542 Subs Hosp L3 01/07/18 0010 <Electronically signed by Vinh Dutta MD> Date Vinh Dutta MD Cosign Signature: Date (if applicable) CC: Aleksandar Wiley DO; Vinh Dutta MD Signed CTA CHEST W/WO Observed: 01/06/2018 Status: F Source: SARA CONTRAST 9:28 PM [facility] REPOSITORY [facility] Imaging Services [address] [place] [address] CTA Chest W/WO Contrast MR#: [id number] Acct: [id number] Name: TAZ ZAVALETA Rep #: [id number] : 1945 F 72 From: Christie Bergman MD PCP: Aleksandar Wiley DO Status: REG ER Study: CTA Chest W/WO Contrast Date of Exam: 01/06/18 Exam# [id number] Ordering Dr: Reynold Montanez DO STUDY: CTA CHEST REASON FOR EXAM: Female, 72 years old. Shortness of breath and elevated blood pressure. History of hypertension, CAD, atrial fibrillation, COPD, myocardial infarction and cardiac stents. RADIATION DOSAGE (If Supplied By Facility): CTDIvol = ( 5.29 ) mGy, DLP = ( 272.24 ) mGycm TECHNIQUE: The examination was performed with the intravenous administration of 100 ml of Isovue 370 contrast material. Post-processing of the angiographic images was performed, with multiplanar reformation and 3D reconstruction. Individualized dose optimization techniques were used for this CT. COMPARISON: Prior chest radiograph of January 06, [address] chest [address] exam of November 15, 2006. FINDINGS: Normal enhancement of the main pulmonary artery and right and left pulmonary arteries. Normal enhancement of the bilateral peripheral pulmonary arteries. There is no demonstrated pulmonary embolism. There is atherosclerotic calcification of the aortic arch with tortuosity. Normal heart and pericardium. Coronary calcifications. Normal mediastinum. Normal hilar regions. Diffuse emphysematous changes of the upper lobes. Bronchial thickening in the middle and lower lobes. Multifocal areas of atelectasis and/or small consolidations in the right middle lobe, right lower lobe and left lower lobe. Negative for a substantial pleural effusion. Some pectoral lipoma of the left chest. There are degenerative changes of thoracic spine. Normal visualized upper abdomen. CT/CTA Chest W/WO Contrast IMPRESSION: Negative for pulmonary embolus. Atherosclerotic changes of the thoracic aorta. Cardiomegaly and coronary calcifications. Diffuse emphysematous changes of the upper lobes. Bronchial thickening in the middle and lower lobes with multifocal areas of atelectasis and/or small consolidations in the right middle lobe, right lower lobe and left lower lobe. Large subpectoral lipoma of the left chest. Degenerative changes of the thoracic spine. Electronically Signed: Christie Bergman MD at 22:26 EST , Service support , CC: Reynold Montanez DO; Aleksandar Wiley DO Harbor Pilot: Signed CHEST PA AND LATERAL Observed: 01/06/2018 Status: F Source: LACLEDE 8:21 PM [facility] REPOSITORY [facility] Imaging Services [address] [place] [address] Chest PA and Lateral MR#: [id number] Acct: [id number] Name: TAZ ZAVALETA Rep #: [id number] : 1945 F 72 From: Alex Benavidez MD PCP: Aleksandar Wiley DO Status: REG ER Study: Chest PA and Lateral Date of Exam: 01/06/18 Exam# [id number] Ordering Dr: Reynold Montanez DO STUDY: X-RAY CHEST REASON FOR EXAM: Female, 72 years old. Difficulty breathing. COPD. TECHNIQUE: Frontal and lateral views of the chest. COMPARISON: 09/30/2015. FINDINGS: The lungs are hyperexpanded. There are coarsened interstitial markings suggestive of mild chronic fibrosis. Diffuse density seen throughout the left lung suggestive of additional overlying infiltrate. Correlate clinically. No gross focal infiltrates. No gross effusions. Normal size heart. Normal mediastinum and lexus. Normal visualized pulmonary arteries. Normal visualized aortic arch and descending thoracic aorta. There are diffuse degenerative changes of the visualized thoracic spine. Normal visualized ribs, clavicles, and shoulders. There is no demonstrated abnormality of the visualized soft tissue structures of the upper abdomen. RAD/Chest PA and Lateral IMPRESSION: COPD with fibrosis. Cannot exclude additional mild diffuse infiltrate of the left lung. Electronically Signed: Alex Benavidez MD at 21:00 EST , Service support , CC: Reynold Montanez DO; Aleksandar Wiley DO [place]: Signed CBC W/DIFF, AUTOMATED Collected: 01/06/2018 Status: F Source: SARA 8:05 PM [facility] REPOSITORY TYPE CODE TESTS RESULT OUT OF RANGE REFERENCE UNITS LAB L100.1000 4.4-11.0 K/mm3 Normal WBC 9.6 LAB L100.1200 4.2-5.4 M/mm3 Normal RBC 4.52 LAB L100.1300 12.0-15.0 g/dl Normal HGB 14.0 LAB L100.1400 37-47 % Normal HCT 45.5 LAB L100.1500 81-99 fL High MCV 100.7 LAB L100.1600 27.0-32.0 pg Normal MCH 31.0 LAB L100.1700 32-36 g/gl Low MCHC 30.8 LAB L100.1810 11.6-14.6 % High RDW CV 14.8 LAB L100.1820 35.1-43.9 fl High RDW SD 54.5 LAB L100.1900 150-450 K/mm3 Normal PLT 252 LAB L100.2000 6.2-12.0 fl Normal MPV 10.8 LAB L100.2100 47-70 % Normal NEUT% 67.2 LAB L100.2200 19-41 % Normal LY% 22.8 LAB L100.2300 0-10 % Normal MONO% 7.7 LAB L100.2400 0-5 % Normal EO% 1.6 LAB L100.2500 0-1 % Normal BASO% 0.6 LAB L100.2550 0.0-0.9 % Normal IM GRAN % 0.100 Result Comment: IG% - Immature Granulocytes (promyelocytes, myelocytes and metamyelocytes) > 1% indicates that a LEFT SHIFT is Present. LAB L100.2620 2.0-7.7 X10 3/uL Normal Absolute Neut 6.5 LAB L100.2720 0.83-4.51 X10 3/ul Normal Absolute Lymph 2.20 Performed By: #### L100.0100 #### [facility] [address] [place], [place], [address] PROTHROMBIN TIME W/INR Collected: 01/06/2018 Status: F Source: LACLEDE 8:05 PM [facility] REPOSITORY TYPE CODE TESTS RESULT OUT OF RANGE REFERENCE UNITS LAB L300.4150 11.7-14.9 SECONDS High PROTIME 18.4 LAB L300.4200 Normal INR 1.5 Performed By: #### L300.3900 #### [facility] [address] [place], [address] BASIC METABOLIC Collected: 01/06/2018 Status: F Source: LACLEDE PROFILE (BMP) 8:05 PM [facility] REPOSITORY Order Comment: 'TROP' Serial specimen #1, #2, #3, or #4: 1 TYPE CODE TESTS RESULT OUT OF RANGE REFERENCE UNITS LAB L501.0100 74-106 mg/dL High GLU 156 Result Comment: Fasting Glucose result greater than or equal to 126 mg/dL suggests DIABETES MELLITUS per A.D.A. criteria. Please note revised GLUCOSE reference range effective 2017. LAB L501.1000 7-18 mg/dL High BUN 28 LAB L501.1100 0.55-1.02 mg/dL Normal CREAT,SERUM 0.98 Result Comment: The validity of the calculated GFR AND GFRAA in patients over 70 years has not been determined. Clinical correlation is essential. LAB L501.1110 >60 mL/min Low EST GFR 59 Result Comment: Non- GFR Calc LAB L501.1115 >60 mL/min Normal EST GFR - AA 71 Result Comment: GFR Calc LAB L501.1255 ml/min Normal Estimated CRCL 36.18 LAB L501.1300 10-20 RATIO High BUN/CRE 28.4 LAB L501.2200 8.5-10 mg/dL Normal .1 CA 8.9 LAB L501.5300 136-14 mmol/L Normal 5 NA 141 LAB L501.5600 3.5-5. mmol/L Normal 1 K 3.6 LAB L501.5900 98-107 mmol/L Normal CL 104 LAB L501.6100 21.0-3 mmol/L Normal 2.0 CO2 28.0 LAB L501.6200 5-15 Normal GAP 9 Performed By: #### L500.2500, L501.4010 #### [facility] [address] [place], [place], [address] TROPONIN-I Collected: 01/06/2018 Status: F Source: LACLEDE 8:05 PM [facility] REPOSITORY Order Comment: 'TROP' Serial specimen #1, #2, #3, or #4: 1 TYPE CODE TESTS RESULT OUT OF RANGE REFERENCE UNITS LAB L501.4010 <0.06 ng/mL Normal < 0.02 TROPONIN-I Result Comment: TROPONIN-I EXPECTED VALUES <0.05 NEGATIVE 0.06 - 0.59 AT RISK OF GA > OR = 0.60 SUGGEST GA Performed By: #### L500.2500, L501.4010 #### [facility] [address] [place], [place], [address] ALLERGIES ALLERGIES DATE TYPE / CODE NAME / CODE REACTION SEVERITY SOURCE 10/05/2018 Drug amoxicillin Unknown Unknown Antoine Allergy/416 trihydrate/[id number] Community 879504(SNOM 07([facility] ED CT) Repository 10/05/2018 Drug potassium Unknown Unknown Antoine Allergy/416 clavulanate/C293455 Community 333142(SNOM 809([facility] ED CT) Repository 10/05/2018 Drug CLINT Unknown Unknown Antoine Allergy/416 Inhibitors/Z9174506 [facility] 524615(SNOM 47([facility] ED CT) Repository 10/05/2018 Drug codeine/[id number]( Unknown Unknown Antoine Allergy/416 RXNORM) Community 695216([facility] ED CT) Repository 10/05/2018 Drug acyclovir/[id number] Unknown Unknown Sara Allergy/416 6(RXNORM) Community 200741([facility] ED CT) Repository 12/20/2015 DRUG ZOLPIDEM TARTRATE Mental Chg [facility] INGREDI/[address] [place] 617956(SNOM Repository ED CT) 05/17/2015 DRUG AMITRIPTYLINE Mental Chg [facility] INGREDI/419 [place] 008343(SNOM Repository ED CT) 09/01/2005 Drug CLINT INHIBITORS HIVES [facility] Class/56261 [place] 1003(SNOMED Repository CT) 09/01/2005 DRUG/358131 AMOXICILLIN-POT [facility] 003(SNOMED CLAVULANATE [place]) Repository 09/01/2005 DRUG CODEINE HIVES [facility] INGREDI/419 [place] 928566(SNOM Repository ED CT) 09/01/2005 DRUG ACYCLOVIR SODIUM [facility] INGREDI/419 [place] 238633(SNOM Repository ED CT) ENCOUNTERS ENCOUNTERS ADMIT/DISCHARGE ACCOUNT ADMITTING ENCOUNTER LOCATION SOURCE NUMBER CLASS 10/25/2018/10/25/[id number] Ambulatory [address] [place] Repository 10/20/2018/10/20/20 [id number] Ambulatory [address] [place] Repository 10/20/2018/10/20/20 [id number] Ambulatory [address] [place] Repository 10/20/2018/10/20/20 [id number] Ambulatory [address] [place] Repository 10/20/2018/10/21/20 [id number] Ambulatory [address] [place] Repository 10/20/2018/10/21/20 [id number] Ambulatory [address] [place] Repository 10/18/2018/10/18/20 [id number] Ambulatory [address] [place] Repository 10/05/2018 [id number] Agchirag, Ambulatory BMSBuilding:Chaz Hardwick [facility] Repository 10/05/2018/10/07/20 [id number] [place], Inpatient Sara Hardwick Encounter [facility] ing:PCURoom: Repository [id number]: 1 10/05/2018 [id number] Agyepong, Ambulatory BMSBuilding:Chaz Hardwick [facility] Repository 10/05/2018 [id number] Agyeponshmuel, Ambulatory BMSBuilding:Chaz [place]wick [facility] Repository 09/13/2018/09/14/20 [id number] Ambulatory [place] [facility] [place] Repository 08/23/2018/08/23/20 [id number] Ambulatory BMSBuilding:Chaz Maxwell MS.[facility] Repository 08/09/2018/08/10/20 [id number] Ambulatory [place] [facility] [place] Repository 08/06/2018/08/08/20 [id number] Ambulatory [place] [facility] [place] Repository 07/12/2018/07/13/20 [id number] Ambulatory [place] [facility] [place] Repository 06/13/2018/06/14/20 [id number] Ambulatory [place] [facility] [place] Repository 06/13/2018/06/13/20 [id number] Ambulatory [facility] [place] Repository 05/23/2018/05/24/20 [id number] Ambulatory [place] [facility] [place] Repository 05/09/2018/05/10/20 [id number] Ambulatory [place] [facility] [place] Repository 05/02/2018/05/03/20 [id number] Ambulatory [facility] [place] Repository 04/21/2018/04/21/20 [id number] Ambulatory [place] [facility] [place] Repository 04/20/2018/04/21/20 [id number] Ambulatory [facility] [place] Repository 04/18/2018/04/18/20 [id number] Ambulatory [place] [facility] [place] Repository 04/18/2018/04/19/20 [id number] Ambulatory [facility] [place] Repository 04/08/2018/04/08/20 [id number] Ambulatory [facility] [place] Repository 04/08/2018/04/11/20 [id number] Ambulatory [facility] [place] Repository 03/30/2018/03/30/20 [id number] Ambulatory [place] [facility] [place] Repository 03/22/2018 [id number] Ambulatory Sara Ruiz [facility] Hospital ing[facility] Repository 03/22/2018 [id number] Ambulatory BMSBuilding:W Sara [facility] Repository 03/18/2018 [id number] Ambulatory [facility] ing:[place] Repository 03/17/2018 [id number] Ambulatory BMSBuilding:B Sara [facility] Repository 02/28/2018/03/07/20 [id number] Ambulatory [address] ing:[place] Repository 02/18/2018 [id number] Ambulatory BMSBuilding:B Sara [facility] Repository 02/17/2018/02/18/20 [id number] Ambulatory BMSBuilding:B Sara 18 [facility] Repository 02/10/2018 [id number] Ambulatory BMSBuilding:B Sara [facility] Repository 02/08/2018 [id number] Ambulatory BMSBuilding:B Sara [facility] Repository 02/03/2018/02/06/20 [id number] Ambulatory [address] ing:[place] Repository 01/28/2018/01/29/20 [id number] Emergency [address] ing:ED Repository 01/27/2018/02/01/20 [id number] Ambulatory [address] Repository 01/27/2018/01/28/20 [id number] Ambulatory [address] Repository 01/17/2018/01/18/20 [id number] Ambulatory [address] Repository 01/17/2018/01/19/20 [id number] Ambulatory [address] Repository 01/06/2018/01/09/20 [id number] [facility], Inpatient Antoine Sara [facility] ing:PCURoom: Repository [id number]: 1 01/06/2018 [id number] [place], Ambulatory BMSBuilding:B Sara Justice [facility] Repository 01/06/2018 [id number] Tra, Ambulatory BMSBuilding:B Sara Justice [facility] Repository 01/06/2018 [id number] Tra, Ambulatory BMSBuilding:B Sara Vinh MS.[facility] Repository 01/06/2018/01/09/20 [id number] Ambulatory BMSBuilding:Darrel Ruiz [facility] Repository PAYERS PAYERS ENCOUNTER GUARANTOR PAYER SUBSCRIBER SOURCE 10/05/2018 TAZ J Primary TAZ J Antoine [id number] Insurance:AETNA TROYERDOB: [facility] [place] [facility] Number: [id number] [id number] Repository [address]Lsy: (330) Date:6810-37-83[phone] () [id number] JEANETTE CANALES [address]WN: 10/05/2018 Secondary TAZ J Antoine Insurance:MEDICAIDPol TROYERDOB: [facility] Number: [id number] Hospital [id number] Repository Date:2018-10-05 10/05/2018 Tertiary NOT GIVENUNK Sara Insurance:SELF PAY [facility] Number: Effective Repository Date:2018-10-05 10/05/2018 TAZ J Primary TAZ J Sara [id number] Insurance:AETNA TROYERDOB: [facility] [place] [facility] Number: [id number] [id number] Repository [address]Djc: (330) Date:4136-46-90[phone] () 447269TD JEANETTE CANALES [address]UE: 10/05/2018 Secondary TAZ J Sara Insurance:MEDICAIDPol TROYERDOB: [facility] icy Number: [id number] Hospital [id number] Repository Date:2018-10-05 10/05/2018 Tertiary NOT GIVENUNK Sara Insurance:SELF PAY [facility] Number: Effective Repository Date:2018-10-05 10/05/2018 TAZ J Primary TAZ J Antoine [id number] Insurance:AETNA TROYERDOB: [facility] ERLIN [facility] Number: [id number] [id number] Repository [address]Nss: (330) Date:6931-54-94[phone] () [id number] [place] [address]ZM: 10/05/2018 Secondary TAZ J Sara Insurance:MEDICAIDPol TROYERDOB: [facility] icy Number: [id number] Hospital [id number] Repository Date:2018-10-05 10/05/2018 Tertiary NOT GIVENUNK Sara Insurance:SELF PAY [facility] Number: Effective Repository Date:2018-10-05 10/05/2018 TAZ J Primary TAZ J Sara [id number] Insurance:AETNA TROYERDOB: [facility] [facility] [facility]: [id number] [id number] Repository [address]Ogb: (330) Date:1546-31-10JY [phone] () [id number] [address]WK: 10/05/2018 Secondary TAZ J Antoine Insurance:MEDICAIDPol TROYERDOB: [facility] icy Number: [id number] Hospital [id number] Repository Date:2018-10-05 10/05/2018 Tertiary NOT GIVENUNK Sara Insurance:SELF PAY [facility] Number: Effective Repository Date:2018-10-05 08/23/2018 TAZ J Primary TAZ J Antoine [id number] Insurance:AETNA TROYERDOB: [facility] [place] [facility]: [id number] [id number] Repository [address]Jpi: (330) Date:4418-41-38HS [phone] () [id number] [place] [address]VS: 08/23/2018 Secondary TAZ J Antoine Insurance:MEDICAIDPol TROYERDOB: [facility] icy Number: [id number] Hospital [id number] Repository Date:2018-02-17 08/23/2018 Tertiary NOT GIVENUNK Antoine Insurance:SELF PAY [facility] Number: Effective Repository Date:2018-08-23 03/22/2018 TAZ J Primary TAZ J Antoine [id number] Insurance:AETNA TROYERDOB: [facility] Number: [id number] [id number] Repository [address]Jrt: (330) Date:1715-76-06WJ [phone] (HP) [id number] [place] [address]JW: 03/22/2018 Secondary NOT GIVENUNK Antoine Insurance:SELF PAY [facility] Number: Effective Repository Date:2018-02-18 03/22/2018 TAZ J Primary TAZ J Sara [id number] Insurance:AETNA TROYERDOB: [facility] Number: [id number] [id number] Repository [address]Fnc: (330) Date:8666-92-70CX [phone] (HP) [id number] [place] [address]PR: 03/22/2018 Secondary NOT GIVENUNK Sara Insurance:SELF PAY [facility] Number: Effective Repository Date:2018-03-22 03/18/2018 TAZ J Primary TAZ J Sara [id number] Insurance:AETNA TROYERDOB: [facility] Number: [id number] [id number] Repository [address]Stz: (330) Date:7560-72-36VV [phone] (HP) 247298LE [place] [address]LN: 03/18/2018 Secondary NOT GIVENUNK Sara Insurance:SELF PAY [facility] Number: Effective Repository Date:2018-03-08 03/17/2018 TAZ J Primary TAZ J Sara [id number] Insurance:AETNA TROYERDOB: Community [facility] RAJANPolicy Number: [id number] [id number] Repository [address]Kpc: (330) Date:8112-18-31UR [phone] () [place]79[address]NK[place] [address]QC: 03/17/2018 Secondary NOT GIVENUNK Sara Insurance:SELF PAY [facility] Number: Effective Repository Date:2018-02-18 02/28/2018 TAZ J Primary TAZ J Sara [id number] Insurance:AETNA TROYERDOB: [facility] [place] RAJANPolicy Number: [id number] [id number] Repository [address]Vbg: (330) Date:4742-24-64VJ [phone] () 550[address]RSPR[place] [address]SD: 02/28/2018 Secondary NOT GIVENUNK Antoine Insurance:SELF PAY [facility] Number: Effective Repository Date:2018-02-06 02/18/2018 Taz J Primary Taz J Antoine [id number] Insurance:AETNA TroyerDOB: [facility] [place] [facility]: [id number] [id number] Repository [address]Lyh: (330) Date:7733-33-97RY [phone] (HP) [id number] [address]FA: 02/18/2018 Secondary NOT GIVENUNK Antoine Insurance:SELF PAY [facility] Number: Effective Repository Date:2018-01-13 02/17/2018 TAZ J Primary TAZ J Antoine [id number] Insurance:AETNA TROYERDOB: [facility] [place] [facility]: [id number] [id number] Repository [address]Xxg: (330) Date:7322-03-38JE [phone] (HP) [id number] [place] [address]RH: 02/17/2018 Secondary NOT GIVENUNK Antoine Insurance:SELF PAY [facility] Effective Repository Date:2018-02-01 02/10/2018 TAZ J Primary TAZ J Antoine [id number] Insurance:AETNA TROYERDOB: [facility] [place] [facility]: [id number] [id number] Repository [address]Sgp: (330) Date:0808-81-04QJ [phone] (HP) [id number] [address]TY: 02/10/2018 Secondary NOT GIVENUNK Sara Insurance:SELF PAY [facility] Number: Effective Repository Date:2018-02-10 02/08/2018 TAZ J Primary TAZ J Antoine [id number] Insurance:AETNA TROYERDOB: [facility] [place] [facility]: [id number] [id number] Repository [address]Ury: (330) Date:4429-57-04EX [phone] (HP) [id number] [address]MK: 02/08/2018 Secondary NOT GIVENUNK Sara Insurance:SELF PAY [facility] Number: Effective Repository Date:2018-02-08 02/03/2018 TAZ J Primary TAZ J Sara [id number] Insurance:AETNA TROYERDOB: [facility] [place] [facility]: [id number] [id number] Repository [address]Ckp: (330) Date:1730-99-80BI [phone] (HP) [id number] [address]QF: 02/03/2018 Secondary NOT GIVENUNK Sara Insurance:SELF PAY [facility] Number: Effective Repository Date:2018-01-25 01/28/2018 Taz J Primary Taz J Sara [id number] Insurance:AETNA TroyerDOB: [facility] RAJANPollillian Number: [id number] [id number] Repository [address]Guk: (330) Date:4396-56-75TT [phone] (HP) [id number], [place] [address]FS: 01/28/2018 Secondary NOT GIVENUNK Sara Insurance:SELF PAY [facility] Number: Effective Repository Date:2018-01-28 01/06/2018 Taz J Primary Taz J Sara [id number] Insurance:AETNA TroyerD[facility] Number: [id number] [id number] Repository [address]Mbq: [phone]) Date:[id number] [phone] (HP) [id number], [place] [address]KD: 01/06/2018 Secondary NOT GIVENUNK Sara Insurance:SELF PAY [facility] Number: Effective Repository Date:2018-01-06 01/06/2018 Taz J Primary Taz J Antoine [id number] Insurance:AETNA TroyerDOB: [facility] Number: [id number] [id number] Repository [address]Jsp: [phone]) Date:[id number] [phone] (HP) [id number], [place] [address]YF: 01/06/2018 Secondary NOT GIVENUNK Antoine Insurance:SELF PAY [facility] Number: Effective Repository Date:2018-01-06 01/06/2018 Taz J Primary Taz J Sara [id number] Insurance:AETNA TroyerDOB[facility] Number: [id number] [id number] Repository [address]Vsz: [phone]) Date:[id number] [phone] (HP) [id number] [place] [address]DW: 01/06/2018 Secondary NOT GIVENUNK Antoine Insurance:SELF PAY [facility] Number: Effective Repository Date:2018-01-06 01/06/2018 Taz J Primary Taz J Sara [id number] Insurance:AETNA TroyerDOB: [facility]: [id number] [id number] Repository [address]Piy: [phone]) Date:7347-21-77YS [phone] (HP) [id number] [place] [address]HC: 01/06/2018 Secondary NOT GIVENUNK Sara Insurance:SELF PAY [facility] Number: Effective Repository Date:2018-01-06 01/06/2018 TAZ J Primary TAZ J Antoine [id number] Insurance:AETNA TROYERDOB: [facility] Number: [id number] [id number] Repository [address]Nkt: ([phone]) Date:0352-08-61SH [phone] (HP) [id number] [place] [address]XB: 01/06/2018 Secondary NOT GIVENUNK Antoine Insurance:SELF PAY [facility] Number: Effective Repository Date:2018-01-06
== END 2018-10-07 13:29 | disposition home or self-care (01) | DRG 291 ==
LOC: ED 19:43 → PCU 23:09
PROVIDERS: Admitting Provider Hospitalist; Emergency Provider Emergency Medicine; Family Provider Student in an Organized Health Care Education/Training Program; PCP Student in an Organized Health Care Education/Training Program; Visit Provider Internal Medicine
DX: I11.0 Hypertensive heart disease with heart failure (principal); J96.01 Acute respiratory failure with hypoxia; J44.1 Chronic obstructive pulmonary disease with (acute) exacerbation; I50.33 Acute on chronic diastolic (congestive) heart failure; R73.03 Prediabetes; E03.9 Hypothyroidism, unspecified; I25.10 Atherosclerotic heart disease of native coronary artery without angina pectoris; F41.9 Anxiety disorder, unspecified; G25.81 Restless legs syndrome; G47.33 Obstructive sleep apnea (adult) (pediatric); F17.210 Nicotine dependence, cigarettes, uncomplicated; I27.21 Secondary pulmonary arterial hypertension; Z79.01 Long term (current) use of anticoagulants; Z95.5 Presence of coronary angioplasty implant and graft; I48.2 Chronic atrial fibrillation; E78.5 Hyperlipidemia, unspecified; I71.4 Abdominal aortic aneurysm, without rupture
CPT/HCPCS: 36415; 71045; 80048; 82962; 83036; 83605; 83735; 83880; 84443; 84484; 85025; 85610; 87040; 87633; 87804; 93005; 93306; 94640; 97162; 97165; 97802; 99251; 99285; 99406; J7040; A4216; G0463; J1940

== ENCOUNTER → 2018-12-27 07:13 | Outpatient (CLI) | payer MEDICARE, MEDICAID, SELFPAY ==
[2018-12-13 07:12] VITALS: BMI 29.5
--- NOTE | 2018-12-27 14:36 | PFTCOMP ---
COMPLETE PULMONARY FUNCTION TEST INTERPRETATION Brief HPI: Patient is a 73 year old female, currently under the care of Dr. Sierra, who presents to [facility] for complete pulmonary function tests secondary to diagnosis of COPD. Respiratory therapist reports good effort and reproducible results. Interpretation: Forced expiration spirometry shows a moderately-severe large airways obstructive ventilatory defect with an FEV1 of 53% predicted. There is no significant bronchodilator response by strict ATS criteria. Spirograms are of good quality and plateau slowly, indicating slowly emptying areas of the lungs. The respiratory flow volume loop shows decreased expiratory flow rates at all lung volumes consistent with airway obstruction. Lung volumes by body plethysmography show a decreased total lung capacity at 4 L, 80% predicted. FRC and RV are elevated out of proportion. Lung volume measurements are consistent with air-trapping. Diffusion capacity by carbon monoxide is decreased at 32% predicted. The airway resistance is elevated. No previous pulmonary function tests were available for review. Impression: Moderately severe mixed ventilatory defect with significant reduction in diffusing capacity
== END ==
PROVIDERS: Family Provider Student in an Organized Health Care Education/Training Program; PCP Student in an Organized Health Care Education/Training Program; Referring Provider Internal Medicine Critical Care Medicine; Visit Provider Internal Medicine Critical Care Medicine
DX: J44.9 Chronic obstructive pulmonary disease, unspecified (principal)
CPT/HCPCS: 94060; 94726; 94729

== ENCOUNTER → 2018-12-29 08:02 | Outpatient (CLI) | payer MEDICARE, MEDICAID, SELFPAY ==
[2018-12-13 07:12] VITALS: BMI 29.5
[2018-12-29 08:15] VITALS: PULSE 104; PULSE 105; PULSE 106; PULSE 110; PULSE 83; PULSE 89; PULSE 96; PULSE 97; O2SAT 93; O2SAT 94; O2SAT 95; O2SAT 96; O2SAT 98
--- NOTE | 2018-12-30 10:10 | PCM.PSN.6M ---
PSN 6 Minute Walk Test - 6 Minute Walk Test 6 Minute Walk Test: 6 Minute Walk Test PSN:6-Minute Walk Test Start: 12/29/18 09:55 Freq: Status: Active Protocol: RESP.6MINW Document 12/29/18 08:15 [facility] (Rec: 12/29/18 09:58 [facility] [id number]) 6 Minute Walk Test Date Performed 12/29/18 Time Performed 08:15 Height 5 ft 5 in Weight: 77.111 kg Weight in Pounds 170.[address]: Ken Sierra Assistive device used: None Pre-test Oxygen Delivery Method Room Air Pulse Ox (%) 98 Pulse Rate (60-100 beats/min) 89 Dyspnea Nahed Scale (0-10) 0 Exertion Nahed Scale (6-20) 6 1st minute Oxygen Delivery Method Room Air Pulse Ox (%) 96 Pulse Rate (60-100 beats/min) 96 Number of Rests Taken 0 2nd minute Oxygen Delivery Method Room Air Pulse Ox (%) 95 Pulse Rate (60-100 beats/min) 106 H Number of Rests Taken 0 3rd minute Oxygen Delivery Method Room Air Pulse Ox (%) 95 Pulse Rate (60-100 beats/min) 97 Number of Rests Taken 0 4th minute Oxygen Delivery Method Room Air Pulse Ox (%) 93 Pulse Rate (60-100 beats/min) 110 H Number of Rests Taken 0 5th minute Oxygen Delivery Method Room Air Pulse Ox (%) 94 Pulse Rate (60-100 beats/min) 104 H Number of Rests Taken 0 6th minute Oxygen Delivery Method Room Air Pulse Ox (%) 94 Pulse Rate (60-100 beats/min) 105 H Number of Rests Taken 0 Post-test Oxygen Delivery Method Room Air Pulse Ox (%) 98 Pulse Rate (60-100 beats/min) 83 Dyspnea Nahed Scale (0-10) 1 Exertion Nahed Scale (6-20) 13 Number of Rests Taken 0 Full Laps Walked 14 Partial Lap, Number of Tiles Walked 40 Total Distance Walked (ft) 866 - Interpretation Interpretation: The patient was able to walk 866 feet over the course of 6 minutes on room air with no assistive devices. The patient did experience significant desaturation to as low as 93% with compensatory tachycardia that peaked at 110 bpm. These findings are consistent with a respiratory limitation exercise tolerance. - Recommendations Recommendations: No supplemental oxygen is indicated at this time. However, patient should be followed closely given level of desaturation.
== END ==
PROVIDERS: Family Provider Student in an Organized Health Care Education/Training Program; PCP Student in an Organized Health Care Education/Training Program; Referring Provider Internal Medicine Critical Care Medicine; Visit Provider Internal Medicine Critical Care Medicine
DX: J44.9 Chronic obstructive pulmonary disease, unspecified (principal)
CPT/HCPCS: 94618

== ENCOUNTER → 2019-02-07 12:44 | Outpatient (CLI) | payer MEDICARE, MEDICAID, SELFPAY ==
[2019-01-17 12:57] VITALS: BMI 28.9
--- NOTE | 2019-02-07 12:45 | CT_ITS ---
STUDY: CTA OF THE ABDOMINAL AORTA REASON FOR EXAM: Female, 73 years old. Follow-up aortic aneurysm. RADIATION DOSAGE (If Supplied By Facility): CTDIvol = ( 24.90 ) mGy, DLP = ( 421.90 ) mGycm TECHNIQUE: Axial CT angiography multi-detector data acquisition was obtained from the lung bases to the pelvic inlet following intravenous administration of 100 IV Isovue 370. Axial images and MIP images were reconstructed from the axial data set. Post-processing of the angiographic images was performed, with multiplanar reformation and 3D reconstruction. Individualized dose optimization techniques were used for this CT. TECHNICAL QUALITY: Good COMPARISON: CTA chest 01/06/2018, CT abdomen and pelvis 04/15/2015 Descriptors of Narrowing: None (0%) Mild (< 50%) Moderate (50-70%) Severe (70-90%) Subtotal/Total Occlusion (90-100%) Non-Evaluable (technically non-diagnostic FINDINGS: Body wall soft tissues: No acute process. Osseous structures: No acute process. Degenerative disc disease L4-L5 and L5-S1 with disc bulging and facet hypertrophy contributing to mild foraminal stenosis. Very slight anterior listhesis L5-S1. Inferior chest: Poorly features consistent with underlying COPD. Correlate smoking history. Normal distal esophagus. Mild cardiomegaly, coronary calcifications and mitral annulus calcifications present. Ectasia in particular of the right and left atria. Hepatobiliary: Normal. Pancreas: Normal. Spleen: Normal. Adrenal glands: Normal. Urinary tract: Mild symmetric renal cortical thinning, symmetric nephrograms, normal collecting systems and proximal ureters. Retroperitoneum: No mass or lymphadenopathy. Stomach: Normal. Small bowel and mesentery: Normal. Large bowel: Normal. Vasculature: Circumferential calcified plaque and moderate soft plaque of the wall of the abdominal aorta, prominent plaque in the proximal iliac arteries, mild stenosis of the common iliac arteries. Fusiform infrarenal abdominal aortic aneurysm with greatest dimensions 2.87 x 2.89 cm. Length 6.5 cm. Moderately prominent mural thrombus without stenosis. CT/CTA Abdomen W/WO Contrast IMPRESSION: Infrarenal abdominal aortic aneurysm with a greatest dimension of 2.87 x 2.9 cm. In greatest dimension on the prior study of 04/15/2015 was 2.47 x 2.47 cm. Gradually increasing in size. There is prominent aortoiliac atherosclerosis. Electronically Signed: Geremias Rehman MD at 11:31 EDT Tel , Service support ,
[2019-02-07 13:01] LABS: CREATININE FINGERSTICK 1.2 mg/dL (0.55-1.02)
== END ==
PROVIDERS: Family Provider Student in an Organized Health Care Education/Training Program; PCP Student in an Organized Health Care Education/Training Program; Referring Provider Physician Assistant Medical; Visit Provider Physician Assistant Medical
DX: I71.4 Abdominal aortic aneurysm, without rupture (principal)
CPT/HCPCS: 74175; Q9967

== ENCOUNTER → 2019-06-13 | Outpatient (CLI) | payer MEDICARE, SELFPAY ==
[2019-02-16 13:18] VITALS: BMI 28.8
--- NOTE | 2019-06-13 12:40 | CDU_ITS ---
Reason For Study: Carotid stenosis Rt. Velocities/BP Lt. Velocities/BP Prox CCA 56.9/7.7 cm/sec. Prox CCA 93.7/16.3 cm/sec. Mid CCA 37.1/6.9 cm/sec. Mid CCA 67.9/12.6 cm/sec. Dist CCA 31.5/5.9 cm/sec. Dist CCA 58.1/12.6 cm/sec. Prox ECA 456.9/70.8 cm/sec. Prox ICA 605.8/399.1 cm/sec. Rt. Vert. 75.3/15.1 cm/sec. Mid ICA 165.8/43 cm/sec. Dist ICA 64.3/20.4 cm/sec. Lt. ICA/CCA = 8.92. Prox ECA 166.6/11.1 cm/sec. Lt. Vert. 87.6/18.8 cm/sec. Right Extracranial There is heterogeneous, irregular atherosclerotic plaque noted in the right common carotid artery. The right internal carotid artery is occluded. There is heterogeneous, irregular atherosclerotic plaque noted in the right external carotid artery. Antegrade flow is noted in the right vertebral artery. Left Extracranial There is heterogeneous, irregular atherosclerotic plaque noted in the left common carotid artery. There is heterogeneous, irregular atherosclerotic plaque noted in the left internal carotid artery. There is heterogeneous, irregular atherosclerotic plaque noted in the left external carotid artery. Antegrade flow is noted in the left vertebral artery. Procedure Carotid Duplex 01418. Prelim to Yuval. Exam performed in department. 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 Complete occlusion of the right internal carotid suspected. 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 <50% stenosis left external carotid Patent and antegrade vertebrals bilaterally Patient notified and urgent tertiary referral stressed. Ordering Physician: Eric Barakat Referring Physician: Aleksandar Putnam Performed By: Yanira Israel Howie
== END | disposition home or self-care (01) ==
LOC: CVS 12:38
PROVIDERS: Family Provider Student in an Organized Health Care Education/Training Program; PCP Student in an Organized Health Care Education/Training Program; Referring Provider Surgery; Visit Provider Surgery
DX: I65.23 Occlusion and stenosis of bilateral carotid arteries (principal)
CPT/HCPCS: 93880

== ENCOUNTER 2019-06-16 23:20 | Inpatient (IN) | payer MEDICARE, MEDICAID, SELFPAY ==
[2019-02-16 13:18] VITALS: BMI 28.8
--- NOTE | 2019-06-16 01:33 | RAD_ITS ---
HISTORY: FELL TODAY AND COULDN'T GET UPSOB,HYPOXIA EXAM: XR Chest 2 Views COMPARISON: October 05, 2018 FINDINGS: LINES/DEVICES: None. LUNGS: There are chronic interstitial changes. No pneumothorax. No consolidation or effusion. MEDIASTINUM AND CARDIOVASCULAR STRUCTURES: Cardiac silhouette enlarged. Central airways and mediastinal contour are unremarkable. Athersclerotic plaque within the aortic arch. BONES AND SOFT TISSUES: Thoracic spondylosis. RAD/Chest PA and Lateral IMPRESSION: Chronic interestitial changes. No radiographic evidence of acute cardiopulmonary disease. at 0207 Reported and signed by: Holden Lopez MD Electronically Signed: Holden Lopez MD at 2:06 EDT Tel , Service support ,
[2019-06-16 23:21] VITALS: BP 128/66; PULSE 128; RESP 24; TEMP 37.2; O2SAT 88; BMI 32.6
[2019-06-16 23:27] VITALS: BP 123/61; PULSE 100; RESP 18; O2SAT 92
--- NOTE | 2019-06-16 23:42 | EKG12_ITS ---
Test Reason : SOB Blood Pressure : / mmHG Vent. Rate : 096 BPM Atrial Rate : 113 BPM P-R Int : 000 ms QRS Dur : 076 ms QT Int : 350 ms P-R-T Axes : 000 043 -12 degrees QTc Int : 442 ms Atrial fibrillation Septal infarct , age undetermined Abnormal ECG Confirmed by BATOOL LUNA, DAMIÁN ([id number]), society editor OUMOU RO ([id number]) on 06/19/2019 1:45:29 PM Referred By: BB Confirmed By:DAMIÁN RENAE MD
--- NOTE | 2019-06-16 23:43 | ED.VIS.GEN ---
History of Present Illness Chief Complaint: Shortness of Breath Informant: Patient, Family, Senior Benefits Manager Narrative: Patient was discharged from the ICU at [facility] after a right carotid endarterectomy yesterday at her demand, because she did not want to stay any longer and though apparently they wanted her to. She is a history of congestive heart failure and COPD she is not on home oxygen, but she has been very weak and shaky at home and had a couple of near falls. She denies any lightheadedness or dizziness. She denies being short of breath but her pulse ox was 85% on room air at home. She vomited once within the past 24 hours, and she vomited once while she was in the hospital. States her neck is sore. She denies any focal neurologic symptoms. She has restless leg syndromes and states that her legs been very restless today. She lives at home alone. 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 (9) Presence of stent in coronary artery Status: Chronic Comment: [facility] (10) Pulmonary hypertension Status: Chronic Past Medical History - Allergies and Home Meds Allergies/Adverse Reactions: Allergies amitriptyline Allergy (Intermediate, Verified 02/16/19 13:20) mental status change CLINT Inhibitors Allergy (Verified 02/16/19 13:20) Unknown acyclovir [From Zovirax] Allergy (Verified 02/16/19 13:20) Unknown amoxicillin trihydrate [From Augmentin] Allergy (Verified 02/16/19 13:20) Unknown codeine Allergy (Verified 02/16/19 13:20) Unknown potassium clavulanate [From Augmentin] Allergy (Verified 02/16/19 13:20) Unknown zolpidem [From Ambien] Allergy (Verified 02/16/19 13:20) mental status change Primary Care Physician: Wiley,Aleksandar, DO [Primary Care Provider] - Surgical History: - - Lower extremity arterial bypass Cardiac stent placement, right carotid endarterectomy Lives: Alone Smoking Status: Current every day smoker - Family History Paternal Family History: Family History (Last Reviewed 02/16/19 @ 13:26 by Alisson Mirza) Father Cancer Mother Heart disease Sister Hypertension Sister Hypertension Family History: Reports: Cancer - Father of dysphagia CA Review of Systems General: Reports: Malaise. Denies: Chills, Fever, Sweats Eyes: Denies: Visual changes - bilaterally, Diplopia ENT: Denies: Rhinorrhea, Sore throat Cardiovascular: Denies: Chest pain, Palpitations Respiratory: Reports: Dyspnea on exertion - chronic. Denies: Dyspnea, Cough Gastrointestinal: Reports: Nausea, Vomiting. Denies: Abdominal pain, Diarrhea, Melena, Hematochezia Genitourinary: Denies: Dysuria, Hematuria, Frequency Musculoskeletal: Reports: Neck pain, - - restless legs. Denies: Back pain, Extremity Pain Skin: Denies: Rash, Wounds Neurological: Denies: Headache, Weakness, Numbness Physical Exam Vital Signs/Narrative: Vital Signs Temp Pulse Resp BP Pulse Ox 06/16/19 23:27 100 18 123/61 H 92 06/16/19 23:21 98.9 F 128 H 24 H 128/66 H 88 Inital Vital Signs reviewed: Yes General: Well nourished, Well developed, No Acute Distress Head: Normocephalic, Atraumatic Eyes: Perrl, EOMI ENT: Moist mucous membranes, No rhinorrhea Neck: Supple, - - postop ecchymoses right neck, mildly tender, no signs of infection Cardiovascular: No murmurs, Normal S1, Normal S2, Irregular Respiratory: No distress, CTA bilaterally, Chest nontender Abdomen: Soft, Nontender, Nondistended, Normal bowel sounds Back: Nontender, Normal Inspection Extremities: Nontender, No edema. Negative for: Calf Tenderness Skin: Normal color, No rash, No Trauma Neurological: Alert - somnolent, GCS 15, Oriented x3, Cranial nerves II-XII grossly intact, Normal Strength, Normal Sensation Psychological: Normal affect, Normal Mood Diagnostic/Tx/Re-eval Impressions Chest X-Ray 06/16/19 01:33 IMPRESSION: Chronic interestitial changes. No radiographic evidence of acute cardiopulmonary disease. at 0207 Reported and signed by: Holden Lopez MD Electronically Signed: Holden Lopez MD at 2:06 EDT Tel , Service support , Laboratory Results 06/17/19 06/17/19 06/17/19 00:14 00:14 00:14 WBC 7.1 RBC 3.53 L Hgb 11.3 L Hct 35.9 L MCV 101.7 H MCH 32.0 MCHC 31.5 L RDW Std Deviation 54.3 H RDW Coeff of Todd 14.6 Plt Count 172 MPV 10.3 Immature Gran % (Auto) 0.400 Neut % (Auto) 73.6 H Lymph % (Auto) 16.1 L Snyder % (Auto) 8.9 Eos % (Auto) 0.4 Baso % (Auto) 0.6 Absolute Neuts (auto) 5.2 Absolute Lymphs (auto) 1.14 Nucleated RBC % 0 PT 16.2 H INR 1.3 Specimen Type Sample Site VBG pH VBG pO2 VBG O2 Sat (Calc) VBG O2 Content VBG Base Excess POC Mix VBG pCO2 Pt Tmp O2 Delivery Device Liter Flow Blood Gas Notified Whom Blood Gas Notified Time Sodium 135 L Potassium 4.0 Chloride 102 Carbon Dioxide 28.0 Anion Gap 5 BUN 31 H Creatinine 0.78 Estim Creat Clear Calc 41.97 Est GFR (MDRD) Af Amer 93 Est GFR (MDRD) Non-Af 77 BUN/Creatinine Ratio 39.8 H Glucose 141 H Calcium 8.6 Total Bilirubin 1.00 AST 43 H ALT 22 Alkaline Phosphatase 76 Troponin I < 0.015 B-Natriuretic Peptide Total Protein 6.8 Albumin 3.4 Globulin 3.4 Albumin/Globulin Ratio 1.0 Urine Color Urine Clarity Urine pH Ur Specific [place] Urine Protein Urine Glucose (UA) Urine Ketones Urine Occult Blood Urine Nitrite Urine Bilirubin Urine Urobilinogen Ur Leukocyte Esterase Urine RBC Urine WBC Ur Squamous Epith Cells Urine Bacteria Urine Mucus 06/17/19 06/17/19 06/17/19 00:14 00:47 02:05 WBC RBC Hgb Hct MCV MCH MCHC RDW Std Deviation RDW Coeff of Todd Plt Count MPV Immature Gran % (Auto) Neut % (Auto) Lymph % (Auto) Snyder % (Auto) Eos % (Auto) Baso % (Auto) Absolute Neuts (auto) Absolute Lymphs (auto) Nucleated RBC % PT INR Specimen Type NANCY Sample Site OTHER VBG pH 7.38 VBG pO2 51 H VBG O2 Sat (Calc) 85 H VBG O2 Content 29 VBG Base Excess 3 POC Mix VBG pCO2 Pt Tmp 46.9 O2 Delivery Device Nasal Can Liter Flow 2.0 Blood Gas Notified Whom ED MD Blood Gas Notified Time 44 Sodium Potassium Chloride Carbon Dioxide Anion Gap BUN Creatinine Estim Creat Clear Calc Est GFR (MDRD) Af Amer Est GFR (MDRD) Non-Af BUN/Creatinine Ratio Glucose Calcium Total Bilirubin AST ALT Alkaline Phosphatase Troponin I B-Natriuretic Peptide 308.5 H Total Protein Albumin Globulin Albumin/Globulin Ratio Urine Color Yellow Urine Clarity Sl. Cloudy Urine pH 5.0 Ur Specific [place] 1.025 Urine Protein 100 H Urine Glucose (UA) Normal Urine Ketones 5 H Urine Occult Blood 250 H Urine Nitrite Negative Urine Bilirubin Negative Urine Urobilinogen 1 H Ur Leukocyte Esterase 25 H Urine RBC 10-25 SEEN Urine WBC 0-5 SEEN Ur Squamous Epith Cells 0-5 SEEN Urine Bacteria RARE Urine Mucus 0 SEEN - Rhythm Strip Rhythm Strip: A-fib Rate: 96 Ectopy: None - EKG Initial EKG Interpretation: No Acute Injury Pattern, Atrial Fibrillation Prior: Unchanged - Medical Decision Making Work-up shows what appears to be chronic interstitial lung disease without acute pulmonary edema. Her BNP is slightly elevated at 300, arguing against acute decompensated congestive heart failure. She is not short of breath so I do not think she is having an acute COPD exacerbation, however she was hypoxic at 85% on room air and does not have oxygen at home. For that reason I do not think she can safely be discharged to home. She says just prior to being discharged, physicians at [facility] thought she was a little fluid overloaded because of the fluids that she was given in the hospital and operating room, and they sent her home with a prescription for Lasix which she has not taken yet. Since she is not dyspneic and it is nighttime, I have chosen to not give her Lasix at this time. With observation in the ER although she initially was tachycardic in A. fib, even with the initial EKG her heart rate came down to the 80-95 range and remain there. Her INR is subtherapeutic at 1.3, she is on warfarin, she has no clinical signs of a DVT. We were unable to obtain an ABG, so I had respiratory obtain a venous blood gas instead, it shows a neutral pH of 7.31 and a PCO2 of 47, arguing against acute CO2 retention/respiratory failure. She sees Dr. Sierra here in [place], pulmonology. She does not want to be transferred back to [place] where she was just discharged from. She is neurologically intact. She prefers to be admitted here. Discussed with hospitalist. Will admit to observation telemetry and obtain CTA chest to rule out pulmonary embolus. ED Disposition - Plan for ED Patient: Disposition: Acute Care Hospital [facility] Diagnosis: Hypoxemia, Generalized weakness, Subtherapeutic international normalized ratio (INR) Referrals: Aleksandar Wiley DO [Primary Care Provider] -
[2019-06-17] VITALS (21 sets, daily range): BP systolic 124–166; BP diastolic 60–84; PULSE 76–96; RESP 16–22; TEMP 36.6–36.9; O2SAT 88–100; BMI 31.8
[2019-06-17 00:31] LABS: Absolute Lymphocyte Count 1.14 X10^3/uL (0.83-4.51); Absolute Neutrophil Count 5.2 X10^3/uL (2.0-7.7); Basophil# 0.04 X10^3/uL; Basophil% 0.6 % (0-1); Eosinophil# 0.03 X10^3/uL; Eosinophils% 0.4 % (0-5); Hematocrit 35.9 % (37-47); Hemoglobin 11.3 g/dL (12.0-15.0); International Normalized Ratio 1.3; Lymphocyte # 1.14 X10^3/ul (4.0); Lymphocyte % 16.1 % (19-41); Mean Corp Hgb Conc 31.5 g/dL (32-36); Mean Corpuscular Volume 101.7 fL (81-99); Mean Platelet Vol. 10.3 fl (6.2-12.0); Monocyte# 0.63 X10^3/uL; Monocyte% 8.9 % (0-10); NRBC Flagged by Analyzer 0 % (0-5); Neutrophil # 5.21 X10^3/uL (2.7-7.7); Neutrophil % 73.6 % (47-70); Platelet Count 172 K/mm3 (150-450); Prothrombin Time (Protime)PT. 16.2 SECONDS (11.7-14.9); RBC Distribution Width CV 14.6 % (11.6-14.6); RBC Distribution Width SD 54.3 fl (35.1-43.9); Red Blood Count 3.53 M/mm3 (4.2-5.4); White Blood Count 7.1 K/mm3 (4.4-11.0)
[2019-06-17 00:39] LABS: AST(SGOT) 43 U/L (15-37); Alanine Aminotransfer ALT/SGPT 22 U/L (13-56); Albumin, Serum 3.4 g/dL (3.2-5.0); Alkaline Phosphatase 76 U/L (45-117); Anion Gap 5 (5-15); BUN 31 mg/dL (7-18); BUN/Creat Ratio 39.8 RATIO (10-20); Calcium,Total 8.6 mg/dL (8.5-10.1); Chloride 102 mmol/L (98-107); Creatinine, Serum 0.78 mg/dL (0.55-1.02); EST Glomerular Filtration Rate 77 mL/min (>60); Est Glom Filt Rate - Afr Amer 93 mL/min (>60); Estimated Creatinine Clearance 41.97 ml/min; Globulin 3.4 g/dL (2.2-4.2); Glucose 141 mg/dL (74-106); Protein, Total 6.8 g/dL (6.4-8.2); Sodium Level 135 mmol/L (136-145)
[2019-06-17 00:51] LABS: Blood Gas Specimen Type VEN; O2 Delivery Device Nasal Can; SITE OTHER; Time Given 44; VBG BASE EXCESS 3 mmol/L (-1.0-3.5); VBG Bicarbonate 28 mmol/L (22-26); VBG Oxygen Content 29 mmol/L (23-33); VBG PO2 51 mmHg (25-40); VBG SO2 85 % (50-70); VBG pCO2 46.9 mmHg (41-51); VBG pH 7.38 (7.32-7.42)
[2019-06-17 01:25] LABS: BNP,B-Type NATRIURETIC PEPTIDE 308.5 pg/mL (0-100)
[2019-06-17 02:15] LABS: Mucous, Urine 0 SEEN /hpf (<or=2+)
[2019-06-17 02:16] LABS: Color, Urine Yellow (Yellow); Glucose, Dipstick Normal (Normal); Ketone-Dipstick 5 mg/dl (Negative); Leukocyte Esterase-Dipstick 25 /ul (Negative); Nitrite-Dipstick Negative (Negative); Occult Blood-Urine 250 /ul (Negative); Protein-Dipstick 100 mg/dl (Negative); Specific Gravity, Urine 1.025 (1.002-1.030); Urine Bilirubin Dipstick Negative (Negative); Urine Clarity Sl. Cloudy (Clear); Urine Urobilinogen 1 mg/dl (Normal)
[2019-06-17 02:23] LABS: Bacteria RARE /hpf (None Seen); Red Blood Cells-Urine 10-25 SEEN /hpf (0-5); Squamous Epithelial Cells - UA 0-5 SEEN /hpf (5-10); White Blood Cells 0-5 SEEN /hpf (0-5)
--- NOTE | 2019-06-17 03:08 | PCM.HP.STD ---
Problem List (1) Generalized weakness Status: Acute (2) Subtherapeutic international normalized ratio (INR) Status: Acute (3) Pulmonary hypertension Status: Chronic (4) COPD (chronic obstructive pulmonary disease) Status: Chronic (5) Heart failure Status: Chronic History of Present Illness Date of Admission: 06/17/19 Chief Complaint: weakness and fall The patient is a 73 year old F with a significant history of CAD status post stent; PAD status post bypass surgery; chronic atrial fibrillation; restless leg syndrome; tobacco abuse; COPD; pulmonary hypertension; peripheral vascular disease; restless leg syndrome; thyroid disorder who presented to emergency with generalized weakness and fall. Her fall occurred on the same day of presentation. And on the same day of presentation and on the same day of fall patient had earlier been discharged from [facility]. She was admitted at [facility] for a right carotid adenectomy following 2 recent TIAs. The procedure went successful. Per family patient had a complete occlusion of her right carotid. She also has near complete occlusion of the left carotid for which she has a left carotid enterectomy scheduled in 4 four weeks time. After the right carotid enterectomy, because of elevated blood pressure patient was admitted to the intensive care unit. Patient was supposed to stay 1 more day at the intensive care unit at [facility]. However patient requested that she be discharged home and she was discharged. Reportedly she was prescribed Lasix as it was thought that she has been fluid overloaded from IV fluids given at that hospitalization. However she did not take the Lasix upon discharge since it was late in the day and she did not want to be urinating late. Reportedly she might have received heparin drip as a gonzález-operative anticoagulation. Patient is on chronic Coumadin for A. fib. At this presentation was found to be in A. fib upon arrival. Her ventricular rate was 120s after patient settled in bed her ventricular rate was controlled between 80s to 90s. Patient attributes her fall to a weakness and shakiness of her legs.. She reports history of restless leg syndrome as above. Patient fell while her granddaughter was trying to help her. Paramedics helped the patient to get up. Paramedics found that her oxygen saturation on room air was 85%. However patient denies shortness of breath. At the emergency department on 3 L her respiratory rate at rest was 95%. Emergency department doctor discussed transferring patient to [facility] because she was discharged from there on the same day of this presentation.However patient refused to go back to [facility]. Also, patient see Dr. Cid, medical billing and coding instructor and it contributed to patient staying at our hospital. 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) Nicotine dependence, cigarettes, uncomplicated (Chronic) Hypersomnia (Chronic) Pulmonary hypertension (Chronic) Heart failure (Chronic) COPD (chronic obstructive pulmonary disease) (Chronic) Aneurysm of infrarenal abdominal aorta (Chronic) Presence of stent in coronary artery (Chronic) PTCA/GAIL to LCX 06/19/13 @ [facility] Chronic atrial fibrillation (Chronic) Secondary pulmonary arterial hypertension (Chronic) Atherosclerosis of coronary artery of [place] heart without angina pectoris (Chronic) PTCA/GAIL to LCX 06/19/13 @ [facility] Hypertension (Chronic) Atrial fibrillation with RVR (Chronic ~01/2018) Dyslipidemia (Chronic) Medical History: Medical History (Last Reviewed 06/17/19 @ 04:36 by Ronen Donovan MD) Nicotine dependence, cigarettes, uncomplicated (Chronic) F17.210 Hypersomnia (Chronic) G47.10 Pulmonary hypertension (Chronic) I27.20 Aneurysm of infrarenal abdominal aorta (Chronic) I71.4 Chronic atrial fibrillation (Chronic) I48.2 Secondary pulmonary arterial hypertension (Chronic) I27.21 Atherosclerosis of coronary artery of [place] heart without angina pectoris (Chronic) I25.10 PTCA/GAIL to LCX 06/19/13 @ [facility] Hypertension (Chronic) I10 Atrial fibrillation with RVR (Chronic) Onset Date: ~01/2018 I48.91 Dyslipidemia (Chronic) E78.5 Acute coronary syndrome I24.9 Hx of renal calculi Z87.442 COPD (chronic obstructive pulmonary disease) J44.9 Depression F32.9 Diverticulitis K57.92 GERD (gastroesophageal reflux disease) K21.9 Obstructive sleep apnea G47.33 Osteoporosis M81.0 PVD (peripheral vascular disease) I73.9 Peripheral artery disease I73.9 RLS (restless legs syndrome) G25.81 Rheumatoid arthritis M06.9 Thyroid disorder E07.9 Bronchitis J40 Pneumonia Onset Date: ~01/2018 J18.9 Allergies amitriptyline Allergy (Intermediate, Verified 02/16/19 13:20) mental status change CLINT Inhibitors Allergy (Verified 02/16/19 13:20) Unknown acyclovir [From Zovirax] Allergy (Verified 02/16/19 13:20) Unknown amoxicillin trihydrate [From Augmentin] Allergy (Verified 02/16/19 13:20) Unknown codeine Allergy (Verified 02/16/19 13:20) Unknown potassium clavulanate [From Augmentin] Allergy (Verified 02/16/19 13:20) Unknown zolpidem [From Ambien] Allergy (Verified 02/16/19 13:20) mental status change Home Medications: Ambulatory Orders Medication Instructions Recorded Atorvastatin Calcium [Lipitor] 40 mg PO QHS 04/15/15 Paroxetine HCl [Paxil] 40 mg PO DAILY 04/15/15 Warfarin [Coumadin] 6 mg PO MOWE 04/15/15 Pramipexole Di-HCl [Mirapex] 1 mg PO TID PRN PRN 01/06/18 levothyroxine 100 mcg tablet 100 mcg PO DAILY tab 02/17/18 warfarin 3 mg tablet 3 mg PO SUTUTHFRSA 02/17/18 albuterol sulfate 2.5 mg/3 mL 2.5 mg INHALATION Q4H PRN 12/13/18 (0.083 %) solution for nebulization furosemide 20 mg tablet 20 mg PO DAILY tab 02/16/19 Atenolol [Tenormin (beta curz)] 50 mg PO BID 06/17/19 Diltiazem CD [Cardizem CD] 180 mg PO BID 06/17/19 Spironolactone [Aldactone] 25 mg PO DAILY 06/17/19 Umeclidinium Brm/Vilanterol Tr 1 inh INHALATION Q24H 06/17/19 [Anoro Ellipta] Surgical History: Surgical History (Last Reviewed 06/17/19 @ 04:36 by Ronen Donovan MD) Presence of stent in coronary artery (Chronic) Z95.5 PTCA/GAIL to LCX 06/19/13 @ [facility] History of partial thyroidectomy E89.0 History of total hysterectomy Z90.[address] 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 Denies: Chills, Fever, Weight Change HEENT: Denies: Head Aches, Sinus Congestion, Sinus Drainage Cardiovascular: Denies: Chest Pain, Palpitations Respiratory: Denies: Cough, Shortness of breath at rest, Sputum production Gastrointestinal: Denies: Abdominal Pain, Nausea, Vomiting Genitourinary: Denies: Dysuria Musculoskeletal: Denies: Joint Pain, Joint Tenderness Skin: Denies: Rash, Wounds Neurological: Denies: Numbness, Tingling, Focal weakness Psychiatric: Denies: Anxiety, Depression, Homicidal Ideations, Suicidal Ideations Hematologic/ Lymphatic: Denies: Easy Bruising, Easy Bleeding VTE Information - Inpt Only VTE Present on Admission: No VTE Mechan Device Prophylaxis: None VTE Pharm Prophylaxis ordered?: No Reason prophylaxis not ordered:: Treatment Not Indicated - Coumadin for A. fib. Patient Problems: Active and Suspected Problems (Last Reviewed 06/17/19 @ 04:36 by Ronen Donovan MD) Hypoxemia (Acute) Generalized weakness (Acute) Subtherapeutic international normalized ratio (INR) (Acute) - Physical Exam General: Alert, Oriented x3, Cooperative, - - Patient appears weak HEENT: Atraumatic, PERRLA, EOMI, Normocephalic Neck: Supple, - - Right neck with approximated incision Lungs: Wheezes Cardiovascular: No murmurs, Irregular Rate Abdomen: Bowel Sounds Present, Soft, Non Tender Extremities: No edema, Capillary Refill Less than 3 Seconds Skin: No rashes, No breakdown Musculoskeletal: No Tenderness to Palpation of Joints or Extremities Neurological: Cranial nerves II-XII grossly intact Psych/Mental Status: Normal Affect, Appropriate Vital Signs Temp Pulse Resp BP Pulse Ox 98.5 F 83 19 H 140/76 H 95 06/17/19 00:22 06/17/19 01:38 06/17/19 01:38 06/17/19 01:38 06/17/19 01:38 Oxygen Flow Rate (L/min) 3 Oxygen Delivery Method Nasal Cannula Weight: 86.3 kg Body Mass Index (BMI) 32.6 Laboratory Tests Past 24 Hrs 06/17/19 06/17/19 06/17/19 00:14 00:14 00:14 WBC 7.1 RBC 3.53 L Hgb 11.3 L Hct 35.9 L MCV 101.7 H MCH 32.0 MCHC 31.5 L RDW Std Deviation 54.3 H RDW Coeff of Todd 14.6 Plt Count 172 MPV 10.3 Immature Gran % (Auto) 0.400 Neut % (Auto) 73.6 H Lymph % (Auto) 16.1 L [place] % (Auto) 8.9 Eos % (Auto) 0.4 Baso % (Auto) 0.6 Absolute Neuts (auto) 5.2 Absolute Lymphs (auto) 1.14 Nucleated RBC % 0 PT 16.2 H INR 1.3 Specimen Type Sample Site VBG pH VBG pO2 VBG O2 Sat (Calc) VBG O2 Content VBG Base Excess POC Mix VBG pCO2 Pt Tmp O2 Delivery Device Liter Flow Blood Gas Notified Whom Blood Gas Notified Time Sodium 135 L Potassium 4.0 Chloride 102 Carbon Dioxide 28.0 Anion Gap 5 BUN 31 H Creatinine 0.78 Estim Creat Clear Calc 41.97 Est GFR (MDRD) Af Amer 93 Est GFR (MDRD) Non-Af 77 BUN/Creatinine Ratio 39.8 H Glucose 141 H Calcium 8.6 Total Bilirubin 1.00 AST 43 H ALT 22 Alkaline Phosphatase 76 Troponin I < 0.015 B-Natriuretic Peptide Total Protein 6.8 Albumin 3.4 Globulin 3.4 Albumin/Globulin Ratio 1.0 Urine Color Urine Clarity Urine pH Ur Specific [place] Urine Protein Urine Glucose (UA) Urine Ketones Urine Occult Blood Urine Nitrite Urine Bilirubin Urine Urobilinogen Ur Leukocyte Esterase Urine RBC Urine WBC Ur Squamous Epith Cells Urine Bacteria Urine Mucus 06/17/19 06/17/19 06/17/19 00:14 00:47 02:05 WBC RBC Hgb Hct MCV MCH MCHC RDW Std Deviation RDW Coeff of [place] Plt Count MPV Immature Gran % (Auto) Neut % (Auto) Lymph % (Auto) [place] % (Auto) Eos % (Auto) Baso % (Auto) Absolute Neuts (auto) Absolute Lymphs (auto) Nucleated RBC % PT INR Specimen Type NANCY Sample Site OTHER VBG pH 7.38 VBG pO2 51 H VBG O2 Sat (Calc) 85 H VBG O2 Content 29 VBG Base Excess 3 POC Mix VBG pCO2 Pt Tmp 46.9 O2 Delivery Device Nasal Can Liter Flow 2.0 Blood Gas Notified Whom ED MD Blood Gas Notified Time 44 Sodium Potassium Chloride Carbon Dioxide Anion Gap BUN Creatinine Estim Creat Clear Calc Est GFR (MDRD) Af Amer Est GFR (MDRD) Non-Af BUN/Creatinine Ratio Glucose Calcium Total Bilirubin AST ALT Alkaline Phosphatase Troponin I B-Natriuretic Peptide 308.5 H Total Protein Albumin Globulin Albumin/Globulin Ratio Urine Color Yellow Urine Clarity Sl. Cloudy Urine pH 5.0 Ur Specific [place] 1.025 Urine Protein 100 H Urine Glucose (UA) Normal Urine Ketones 5 H Urine Occult Blood 250 H Urine Nitrite Negative Urine Bilirubin Negative Urine Urobilinogen 1 H Ur Leukocyte Esterase 25 H Urine RBC 10-25 SEEN Urine WBC 0-5 SEEN Ur Squamous Epith Cells 0-5 SEEN Urine Bacteria RARE Urine Mucus 0 SEEN Assessment/Plan All Active Problems (Last Reviewed 06/17/19 @ 04:36 by Ronen Donovan MD) Hypoxemia (Acute) Generalized weakness (Acute) Subtherapeutic international normalized ratio (INR) (Acute) Alcohol withdrawal (Resolved) Bilateral lower lobes atelectasis (Resolved) Hypokalemia (Resolved) Multifocal community-acquired pneumonia (Resolved) The patient is a 73 year old F with a significant history of CAD status post stent; PAD status post bypass surgery; chronic atrial fibrillation; restless leg syndrome; tobacco abuse; COPD; pulmonary hypertension; peripheral vascular disease; restless leg syndrome; thyroid disorder who presented to emergency with generalized weakness and fall; and also with a significant hypoxia. Generalized weakness and fall Likely secondary to debility and hypoxia Physical therapy and Occupational Therapy to work with patient for strengthening and balance training; and to make appropriate recommendations. Acute hypoxemic respiratory insufficiency Will admit patient to the PCU since patient has history of CHF (?); CAD with coronary stent; and she is hypoxic. Oxygen per nasal cannula to maintain oxygenation above 92%. Scheduled DuoNeb and as needed albuterol. Importantly patient denies feeling short of breath although she had mild to moderate wheezes. Because of generalized weakness and hypoxia it was discussed with emergency department doctor to get CTA chest. [facility]. Review of old records: Echo of 10/06/2018 showed an ejection fraction was 65%. Patient had moderately dilated right ventricle. Her left atrium was severely enlarged. Her right atrium was moderately enlarged. The patient had severe mitral annular calcification mild to moderate tricuspid valve insufficiency the right ventricular systolic pressure was estimated to be 54 moderate hypertension. Had diffuse aortic valve thickening with moderate focal thickening of the left coronary cusps. Per EMR patient has cardiology visits with no mentioned made of heart failure. If heart failure presume diastolic. No mention was made of heart failure in cardiology's notes. BNP moderately elevated at 308.5 on presentation. Patient does not look fluid overloaded at this time. Will not start lasix prescribed at recent discharge from [facility]. If patient does not improve consider discussing case with Dr. Cid, medical billing and coding instructor since patient follows up with him. Carotid artery disease Recent carotid endarterectomy of the right side. And with near occlusion of left carotid artery for which scheduled surgery has been scheduled. Obtain records from [facility] Coronary artery disease status post stent Atenolol and Lipitor continued Peripheral artery disease Status post bypass surgery of the left leg by Dr. Barakat Atrial fibrillation with RVR Patient had atrial fibrillation with RVR on presentation. As patient settled down his A. fib was controlled Escalate Coumadin since INR is subtherapeutic. Check INR next day. MD to order INR and dose Coumadin. Cardizem p.o. and atenolol continued. Hypertension On presentation her blood pressure was stable in regard to her age. Spironolactone; Cardizem and atenolol continued Trend blood sugar blood pressure and adjust blood pressure medication Hypothyroidism: Synthroid continued Depression Paroxetine continued Tobacco abuse Counselled Nicotine patch prescribed. Patient was concerned whether her insurance will pay for nicotine patch. Case management consult for financial planning. DVT prophylaxis No extra prophylaxis recommended since patient is on Coumadin for A. fib and her Coumadin dose to be escalated. Code Visit Inpatient E&M: 74954 Init Hosp L3
--- NOTE | 2019-06-17 03:20 | CT_ITS ---
HISTORY: Increased shortness of breath. Weakness. Hypoxemia. Subtherapeutic INR. Carotid endarterectomy. COPD. Coronary stent. TIA. A. fib. Hysterectomy. Pulmonary hypertension. Technique: Following the uneventful demonstration of 100 ML of Isovue-370 contiguous helical images were obtained through the chest. 2-D MIP is were performed on the acquisition scanner. 1081 images. Most recent chest x-ray comparison is from about 2 hours earlier. A CTA of the abdomen was performed on February 07, 2019 that begins within the heart. The patient had a CTA of the chest on January 06, 2018. There is images are currently unavailable, however, the report from that study is available. Findings: Interstitial thickening likely interstitial pulmonary edema. Trace pulmonary emphysema greatest at the lung apices. Minimal basilar atelectasis. Minimal bronchial wall thickening. Cardiomegaly. Severe coronary artery calcific ASCVD. Mitral and aortic valvular disease. No pulmonary embolism. Atherosclerotic disease within the thoracic aorta without aneurysm or dissection. Kyphoscoliosis. Degenerative disc disease. There is a superior endplate fracture to the T4 vertebral body. I see no evidence that this is an acute fracture. It does cause for mild wedging. Within the left chest wall, involving the left pectoralis muscle, there is an 11 x 11.5 x 4.6 cm fatty mass. I believe this represents a lipoma. CT/CTA Chest W/WO Contrast IMPRESSION: Interstitial pulmonary edema. Cardiomegaly. Atherosclerotic disease. Findings likely represent mild CHF. Individualized dose optimization techniques were used for this CT. at 0507 Reported and signed by: Holden Lopez MD Electronically Signed: Holden Lopez MD at 5:06 EDT Tel , Service support ,
[2019-06-17] MEDS: Levothyroxine 100 MCG Tablet PO (05:42)
--- NOTE | 2019-06-17 05:44 | ECHOD_ITS ---
Reason For Study: Hypoxia Procedure This was a 2D Doppler, Color Flow transthoracic echocardiogram. Exam performed portable in patient room. Left Ventricle Normal size and thickness. The estimated ejection fraction is 65 %. Unable to assess diastolic dysfunction due to arrhythmia. No regional wall motion abnormalities noted. Right Ventricle Mildly dilated right ventricle. Normal systolic function. Atria The left atrium is severely enlarged. The right atrium is severely enlarged. Normal atrial septum. Mitral Valve Mild diffuse mitral valve thickening. Moderate mitral annular calcification extending into the posterior leaflet. Trivial mitral valve insufficiency. Tricuspid Valve Normal tricuspid valve. Mild (1+) tricuspid valve insufficiency. Right ventricular systolic pressure estimated to be 60 mmHg. Severe pulmonary hypertension. Aortic Valve Trisinus/trileaflet aortic valve. Moderate focal aortic valve thickening. There is no aortic stenosis. Pulmonic Valve Normal pulmonic valve. Great Vessels Normal aortic root. Normal arch. The inferior vena cava is dilated. Inferior vena cava collapse with sniff. Pericardium/Pleural No pericardial effusion. MMode/2D Measurements & Calculations LVIDd: 3.7 cm IVSd: 1.3 cm Ao root diam: 2.2 cm LVIDs: 2.7 cm LVPWd: 1.1 cm RVDd: 3.9 cm FS: 26.8 % LAV(MOD-bp): 87.9 ml LVAd ap4: 19.0 cm2 SV(MOD-sp4): 26.5 ml LAV(MOD-bp) Indexed: 47.7 ml/m2 EDV(MOD-sp4): 48.3 ml LAV(MOD-sp2): 108.7 ml EDV(sp4-el): 49.4 ml LAV(MOD-sp4): 68.1 ml LVAs ap4: 11.1 cm2 ESV(MOD-sp4): 21.8 ml ESV(sp4-el): 20.3 ml EF(MOD-sp4): 54.9 % EF(sp4-el): 58.9 % SV(sp4-el): 29.1 ml LA A4 area: 22.7 cm2 LA dimension(2D): 5.6 cm RA A4 area: 23.7 cm2 Doppler Measurements & Calculations MV E max hermelindo: 124.9 cm/sec Ao V2 max: 128.8 cm/sec LV V1 max: 85.6 cm/sec Ao max P.6 mmHg LV V1 max P.9 mmHg Ao V2 mean: 92.9 cm/sec Ao mean P.7 mmHg Ao V2 VTI: 25.8 cm PA V2 max: 92.9 cm/sec TR max hermelindo: 329.8 cm/sec TR max P.5 mmHg Interpretation Summary The estimated ejection fraction is 65 %. Unable to assess diastolic dysfunction due to arrhythmia. Mildly dilated right ventricle. The left atrium is severely enlarged. The right atrium is severely enlarged. Trivial mitral valve insufficiency. Mild (1+) tricuspid valve insufficiency. Right ventricular systolic pressure estimated to be 60 mmHg. Severe pulmonary hypertension. Compared to echo report dated 10/06/2018, no appreciable changes noted. Pt appears to be in atrial fibrillation. Ordering Physician: Ronen Donovan Referring Physician: Aleksandar Putnam Performed By: Yajaira Aguilar, EDIS, RVT
[2019-06-17] MEDS: Furosemide 20 MG/2 ML VIAL IV ×2 (06:08→16:42)
[2019-06-17] MEDS: Ipratropium/Albuterol Sulfate 3 ML AMPUL.NEB INHALATION ×4 (07:12→20:04)
[2019-06-17] MEDS: dilTIAZem CD 180 MG Capsule PO ×2 (09:57→21:18)
[2019-06-17] MEDS: Spironolactone 25 MG Tablet PO (09:58)
[2019-06-17] MEDS: Paroxetine 20 MG Tablet 40 MG PO (09:58)
[2019-06-17] MEDS: Atenolol 50 MG Tablet PO ×2 (09:58→21:18)
--- NOTE | 2019-06-17 13:10 | PN_ITS ---
<Zack Knutson - Last Filed: 06/17/19 13:10> Patient Problems: Active and Suspected Problems (Last Reviewed 06/17/19 @ 04:36 by Ronen Donovan MD) Hypoxemia (Acute) Generalized weakness (Acute) Subtherapeutic international normalized ratio (INR) (Acute) Subjective: CEA 2 days prior at [facility], subsequently placed in ICU. Yesterday morning she left AMA with a prescription for lasix which she did not fill. She follows Dr Barakat for vascular however she states she had the surgery at the clinic due to being high risk. She has mild SOB today and remains on O2, she does not normally need O2. She complains of mild surgical sight discomfort and ecchymosis. No fever/chills. Occasional cough with white sputum. She did not come to the ER for her breathing. She came because at home she was weak and fell. Despite this she refuses to consider SNF. She was set up for [facility] health through the clinic however she does not want that and wants us to arrange a local home health service. - Physical Exam General: Alert, Oriented x3, Cooperative HEENT: Atraumatic, PERRLA, EOMI, Normocephalic Neck: Supple, No JVD, Negative Carotid Bruits Lungs: Clear to auscultation, Normal air movement Cardiovascular: Regular rate, No murmurs Abdomen: Bowel Sounds Present, Soft, Non Tender Extremities: No edema, Capillary Refill Less than 3 Seconds Skin: No rashes, No breakdown Musculoskeletal: No Tenderness to Palpation of Joints or Extremities Neurological: Cranial nerves II-XII grossly intact Psych/Mental Status: Normal Affect, Appropriate, Alert and oriented to time, place, person, mood and affect Vital Signs Temp Pulse Resp BP Pulse Ox 97.8 F 90 16 166/72 H 100 06/17/19 10:30 06/17/19 10:42 06/17/19 10:42 06/17/19 10:30 06/17/19 10:30 Oxygen Flow Rate (L/min) 3 Oxygen Delivery Method Nasal Cannula Weight: 179 lb 10.828 oz Body Mass Index (BMI) 31.8 Intake and Output for Last 24 Hours 06/15/19 06/16/19 06/17/19 23:59 23:59 23:59 Intake Total 372 / 372 Balance 372 / 372 Laboratory Tests Past 24 Hrs 06/17/19 06/17/19 06/17/19 00:14 00:14 00:14 WBC 7.1 RBC 3.53 L Hgb 11.3 L Hct 35.9 L MCV 101.7 H MCH 32.0 MCHC 31.5 L RDW Std Deviation 54.3 H RDW Coeff of Todd 14.6 Plt Count 172 MPV 10.3 Immature Gran % (Auto) 0.400 Neut % (Auto) 73.6 H Lymph % (Auto) 16.1 L Cochran % (Auto) 8.9 Eos % (Auto) 0.4 Baso % (Auto) 0.6 Absolute Neuts (auto) 5.2 Absolute Lymphs (auto) 1.14 Nucleated RBC % 0 PT 16.2 H INR 1.3 Specimen Type Sample Site VBG pH VBG pO2 VBG O2 Sat (Calc) VBG O2 Content VBG Base Excess POC Mix VBG pCO2 Pt Tmp O2 Delivery Device Liter Flow Blood Gas Notified Whom Blood Gas Notified Time Sodium 135 L Potassium 4.0 Chloride 102 Carbon Dioxide 28.0 Anion Gap 5 BUN 31 H Creatinine 0.78 Estim Creat Clear Calc 41.97 Est GFR (MDRD) Af Amer 93 Est GFR (MDRD) Non-Af 77 BUN/Creatinine Ratio 39.8 H Glucose 141 H Calcium 8.6 Total Bilirubin 1.00 AST 43 H ALT 22 Alkaline Phosphatase 76 Troponin I < 0.015 B-Natriuretic Peptide Total Protein 6.8 Albumin 3.4 Globulin 3.4 Albumin/Globulin Ratio 1.0 Urine Color Urine Clarity Urine pH Ur Specific [place] Urine Protein Urine Glucose (UA) Urine Ketones Urine Occult Blood Urine Nitrite Urine Bilirubin Urine Urobilinogen Ur Leukocyte Esterase Urine RBC Urine WBC Ur Squamous Epith Cells Urine Bacteria Urine Mucus 06/17/19 06/17/19 06/17/19 00:14 00:47 02:05 WBC RBC Hgb Hct MCV MCH MCHC RDW Std Deviation RDW Coeff of Todd Plt Count MPV Immature Gran % (Auto) Neut % (Auto) Lymph % (Auto) Cochran % (Auto) Eos % (Auto) Baso % (Auto) Absolute Neuts (auto) Absolute Lymphs (auto) Nucleated RBC % PT INR Specimen Type NANCY Sample Site OTHER VBG pH 7.38 VBG pO2 51 H VBG O2 Sat (Calc) 85 H VBG O2 Content 29 VBG Base Excess 3 POC Mix VBG pCO2 Pt Tmp 46.9 O2 Delivery Device Nasal Can Liter Flow 2.0 Blood Gas Notified Whom ED MD Blood Gas Notified Time 44 Sodium Potassium Chloride Carbon Dioxide Anion Gap BUN Creatinine Estim Creat Clear Calc Est GFR (MDRD) Af Amer Est GFR (MDRD) Non-Af BUN/Creatinine Ratio Glucose Calcium Total Bilirubin AST ALT Alkaline Phosphatase Troponin I B-Natriuretic Peptide 308.5 H Total Protein Albumin Globulin Albumin/Globulin Ratio Urine Color Yellow Urine Clarity Sl. Cloudy Urine pH 5.0 Ur Specific [place] 1.025 Urine Protein 100 H Urine Glucose (UA) Normal Urine Ketones 5 H Urine Occult Blood 250 H Urine Nitrite Negative Urine Bilirubin Negative Urine Urobilinogen 1 H Ur Leukocyte Esterase 25 H Urine RBC 10-25 SEEN Urine WBC 0-5 SEEN Ur Squamous Epith Cells 0-5 SEEN Urine Bacteria RARE Urine Mucus 0 SEEN Medical Necessity - Tobacco Use Smoking Status: Current every day smoker Tobacco Use: Cigarettes Assessment/Plan All Active Problems (Last Reviewed 06/17/19 @ 04:36 by Ronen Donovan MD) Hypoxemia (Acute) Generalized weakness (Acute) Subtherapeutic international normalized ratio (INR) (Acute) Alcohol withdrawal (Resolved) Bilateral lower lobes atelectasis (Resolved) Hypokalemia (Resolved) Multifocal community-acquired pneumonia (Resolved) 1. Acute on chronic diastolic CHF exacerbation - CT c/w CHF, elevated BNP. Improving with IV lasix. Continue. Wean O2 to off then walking pulse ox. Echo EF 65%, severe pulmonary HTN with RVSP 60 mmHg, 1+ TVI 2. Debility, falls - PTOT, plan for home health. 3. Carotid artery dz s/p CEA 2 days prior right side - also planning to have left done in the near future. C/s to Dr. Barakat if complications arise. 4. COPD - no exacerbation, continue aerosols. 5. CAD - prior stent 6. Afib RVR - rate controlled. Coumadin, cardizem, atenolol 7. HTN - running high, will trend. 8. Hypothyroidism - synthroid 9. PAD - again, follows [facility], prior peripheral arterial bypass. 10. RLS - mirapex DVT ppx: coumadin DC planning: PTOT, plan for HHC. This patient was seen by Zack Knutson PA-C under the supervision of Dr. Hogan. <Jacque Hogan - Last Filed: 06/17/19 15:09> - Physical Exam Vital Signs Temp Pulse Resp BP Pulse Ox 97.8 F 87 16 166/72 H 93 06/17/19 10:30 06/17/19 14:00 06/17/19 14:00 06/17/19 10:30 06/17/19 14:00 Oxygen Flow Rate (L/min) 3 Oxygen Delivery Method Room Air Weight: 81.5 kg Body Mass Index (BMI) 31.8 Intake and Output for Last 24 Hours 06/15/19 06/16/19 06/17/19 23:59 23:59 23:59 Intake Total 672 / 672 Balance 672 / 672 Laboratory Tests Past 24 Hrs 06/17/19 06/17/19 06/17/19 00:14 00:14 00:14 WBC 7.1 RBC 3.53 L Hgb 11.3 L Hct 35.9 L MCV 101.7 H MCH 32.0 MCHC 31.5 L RDW Std Deviation 54.3 H RDW Coeff of Todd 14.6 Plt Count 172 MPV 10.3 Immature Gran % (Auto) 0.400 Neut % (Auto) 73.6 H Lymph % (Auto) 16.1 L Cochran % (Auto) 8.9 Eos % (Auto) 0.4 Baso % (Auto) 0.6 Absolute Neuts (auto) 5.2 Absolute Lymphs (auto) 1.14 Nucleated RBC % 0 PT 16.2 H INR 1.3 Specimen Type Sample Site VBG pH VBG pO2 VBG O2 Sat (Calc) VBG O2 Content VBG Base Excess POC Mix VBG pCO2 Pt Tmp O2 Delivery Device Liter Flow Blood Gas Notified Whom Blood Gas Notified Time Sodium 135 L Potassium 4.0 Chloride 102 Carbon Dioxide 28.0 Anion Gap 5 BUN 31 H Creatinine 0.78 Estim Creat Clear Calc 41.97 Est GFR (MDRD) Af Amer 93 Est GFR (MDRD) Non-Af 77 BUN/Creatinine Ratio 39.8 H Glucose 141 H Calcium 8.6 Total Bilirubin 1.00 AST 43 H ALT 22 Alkaline Phosphatase 76 Troponin I < 0.015 B-Natriuretic Peptide Total Protein 6.8 Albumin 3.4 Globulin 3.4 Albumin/Globulin Ratio 1.0 Urine Color Urine Clarity Urine pH Ur Specific [place] Urine Protein Urine Glucose (UA) Urine Ketones Urine Occult Blood Urine Nitrite Urine Bilirubin Urine Urobilinogen Ur Leukocyte Esterase Urine RBC Urine WBC Ur Squamous Epith Cells Urine Bacteria Urine Mucus 06/17/19 06/17/19 06/17/19 00:14 00:47 02:05 WBC RBC Hgb Hct MCV MCH MCHC RDW Std Deviation RDW Coeff of Todd Plt Count MPV Immature Gran % (Auto) Neut % (Auto) Lymph % (Auto) Cochran % (Auto) Eos % (Auto) Baso % (Auto) Absolute Neuts (auto) Absolute Lymphs (auto) Nucleated RBC % PT INR Specimen Type NANCY Sample Site OTHER VBG pH 7.38 VBG pO2 51 H VBG O2 Sat (Calc) 85 H VBG O2 Content 29 VBG Base Excess 3 POC Mix VBG pCO2 Pt Tmp 46.9 O2 Delivery Device Nasal Can Liter Flow 2.0 Blood Gas Notified Whom ED MD Blood Gas Notified Time 44 Sodium Potassium Chloride Carbon Dioxide Anion Gap BUN Creatinine Estim Creat Clear Calc Est GFR (MDRD) Af Amer Est GFR (MDRD) Non-Af BUN/Creatinine Ratio Glucose Calcium Total Bilirubin AST ALT Alkaline Phosphatase Troponin I B-Natriuretic Peptide 308.5 H Total Protein Albumin Globulin Albumin/Globulin Ratio Urine Color Yellow Urine Clarity Sl. Cloudy Urine pH 5.0 Ur Specific [place] 1.025 Urine Protein 100 H Urine Glucose (UA) Normal Urine Ketones 5 H Urine Occult Blood 250 H Urine Nitrite Negative Urine Bilirubin Negative Urine Urobilinogen 1 H Ur Leukocyte Esterase 25 H Urine RBC 10-25 SEEN Urine WBC 0-5 SEEN Ur Squamous Epith Cells 0-5 SEEN Urine Bacteria RARE Urine Mucus 0 SEEN Assessment/Plan This patient was seen in conjunction with VANESSA Jimenez. I have independently interviewed and examined the patient and reviewed pertinent historical, laboratory, and other data. Please refer to VANESSA Jimenez note for his patient's presentation, findings, and recommendations. I have reviewed and his note and concur with his documentation Patient was seen and examined. Denied any pain. Her breathing is better. She is on 2 L of oxygen. Not on oxygen at home Denies any chest pain or dizziness or palpitation. Vitals are stable Physical Exam: Gen: Comfortable, not pale, not jaundiced CVS:HS I +II, regular, no murmurs RESP: Scattered wheezes GI: BS present and normal, soft, nontender, no palpable organs EXT:No edema ASSESSMENT: 1. Acute hypoxic respiratory insufficiency 2. Probable acute on chronic diastolic CHF exacerbation 3. Recent CEA(R) 4. COPD, not in acute exacerbation 5. CAD status post stent 6. A. fib with RVR, rate controlled 7. Hypertension 8. Hypothyroidism 9. Nicotine dependence, advised to quit Plan: Use of incentive spirometer, continue to wean off oxygen for more than 94% Continue on breathing treatments as needed Lasix 20 mg daily Code Visit Inpatient E&M: 53709 Subs Hosp L2
--- NOTE | 2019-06-17 13:35 | NURSING ---
pt repeatedly getting out of chair without calling for assist as instructed, chair alarm on pt took it apart to go to back to bed , reinstructed pt to call for assistance to ensure her safety bed alarm active
--- NOTE | 2019-06-17 15:13 | CPS ---
pt placed back on 1lpm...sat to 92%
[2019-06-17] MEDS: 0.9% NaCl Peripheral Flush Adult/Peds IV (16:42)
--- NOTE | 2019-06-17 17:29 | CM.UR ---
Met face to face with patient approximately 1:30pm. RN CM Assessment Introduced role of RN CM to patient. Patient is alert and able to participate in RN CM Assessment. Care providers, pharmacy, and demographics verified. No family at bedside. she is laying on the bed, on right side but up on her arm. Appears slightly anxious and unable to lay still. Presentation: Weakness Admit Dx: generalized weakness and fall. Re-Admit: Yes but unsure what her status was at [facility]. Possibly SDC. Barriers/Issues (including potential): Risk for noncompliance. PCP: Saurabh Specialists: Anu and Dr. Sierra (pul) Preferred Pharmacy: [facility] Insurance: [employer] MCR/Medicaid Rx Benefit: Yes, no concerns re: cost of meds. LNOK: Fatoumata, daughter LW/HPOA: None, declines additional info and does not want to do at this time. Living Arrangements: Lives alone in apartment. No steps to get in. ADL?s: States independent with all Adls. Transportation: Drives DME: grab bars, nebulizer. DME co: no preference. HHC: Set up at pr from [facility]. I'm guessing [facility]. Tried to call, no answer. No answering service picked up. SNF: Been in [facility] before. Goal: Home. Talked about how she is very pleased with her apartment. Has a neighbor she has become friends with. DC PLAN: Discussed possible need for O2. States she doesn't want to have it at home. Explained it may only be for a little while. States she really doesn't even want home care. Explained how therapy at home will help her get stronger but she said her place is probably too small to really do anything. She had told provider that she wanted our home care but she didn't not express that to me. Did not change d/t inability to get ahold of agency. Green sheet and forms placed on chart for home o2. Lauro Bernard RN, CCM.
[2019-06-17] MEDS: Atorvastatin Calcium 40 MG Tablet PO (21:18)
[2019-06-18] VITALS (11 sets, daily range): BP systolic 134–148; BP diastolic 66–73; PULSE 64–96; RESP 16; TEMP 36.7–37.2; O2SAT 92
[2019-06-18] MEDS: Levothyroxine 100 MCG Tablet PO (05:27)
[2019-06-18 06:18] LABS: International Normalized Ratio 1.5; Prothrombin Time (Protime)PT. 18.2 SECONDS (11.7-14.9)
[2019-06-18 06:42] LABS: Anion Gap 5 (5-15); BUN 34 mg/dL (7-18); BUN/Creat Ratio 40.3 RATIO (10-20); Calcium,Total 8.7 mg/dL (8.5-10.1); Chloride 99 mmol/L (98-107); Creatinine, Serum 0.84 mg/dL (0.55-1.02); EST Glomerular Filtration Rate 70 mL/min (>60); Est Glom Filt Rate - Afr Amer 85 mL/min (>60); Estimated Creatinine Clearance 47.87 ml/min; Glucose 112 mg/dL (74-106); Potassium 3.9 mmol/L (3.5-5.1); Sodium Level 136 mmol/L (136-145)
[2019-06-18] MEDS: Ipratropium/Albuterol Sulfate 3 ML AMPUL.NEB INHALATION ×2 (07:25→11:04)
[2019-06-18] MEDS: Spironolactone 25 MG Tablet PO (09:02)
[2019-06-18] MEDS: Atenolol 50 MG Tablet PO (09:02)
[2019-06-18] MEDS: dilTIAZem CD 180 MG Capsule PO (09:02)
[2019-06-18] MEDS: 0.9% NaCl Peripheral Flush Adult/Peds IV (09:02)
[2019-06-18] MEDS: Furosemide 20 MG/2 ML VIAL IV (09:02)
[2019-06-18] MEDS: Paroxetine 20 MG Tablet 40 MG PO (09:04)
--- NOTE | 2019-06-18 14:11 | DCINST_ITS ---
- Discharge Diagnoses Current Active Problems: Current Active and Chronic Problems (Last Reviewed 06/17/19 @ 04:36 by Ronen Donovan MD) Hypoxemia (Acute) Generalized weakness (Acute) Subtherapeutic international normalized ratio (INR) (Acute) You will use the following diet at home:: Cardiac Your food should be the consistency of: Regular Your liquids should be the consistency of: Regular/Thin Discharge Activity: Return to Normal Activity Allergies/Adverse Reactions: Allergies amitriptyline Allergy (Intermediate, Verified 06/17/19 04:29) mental status change CLINT Inhibitors Allergy (Verified 06/17/19 04:29) Unknown acyclovir [From Zovirax] Allergy (Verified 06/17/19 04:29) Unknown amoxicillin trihydrate [From Augmentin] Allergy (Verified 06/17/19 04:29) Unknown codeine Allergy (Verified 06/17/19 04:29) Unknown potassium clavulanate [From Augmentin] Allergy (Verified 06/17/19 04:29) Unknown zolpidem [From Ambien] Allergy (Verified 06/17/19 04:29) mental status change Medications to take at Discharge Atorvastatin Calcium [Lipitor] 40 mg PO QHS 04/15/15 Paroxetine HCl [Paxil] 40 mg PO DAILY 04/15/15 Warfarin [Coumadin] 6 mg PO MOWE 04/15/15 Pramipexole Di-HCl [Mirapex] 1 mg PO TID PRN PRN 01/06/18 levothyroxine 100 mcg tablet 100 mcg PO DAILY tab 02/17/18 warfarin 3 mg tablet 3 mg PO SUTUTHFRSA 02/17/18 albuterol sulfate 2.5 mg/3 mL (0.083 %) solution for nebulization 2.5 mg INHALATION Q4H PRN 12/13/18 Atenolol [Tenormin (beta cruz)] 50 mg PO BID 06/17/19 Diltiazem CD [Cardizem CD] 180 mg PO BID 06/17/19 Spironolactone [Aldactone] 25 mg PO DAILY 06/17/19 Umeclidinium Brm/Vilanterol Tr [Anoro Ellipta 62.5-25 Mcg INH] 1 inh INHALATION Q24H 06/17/19 Furosemide [Lasix] 40 mg PO DAILY #30 tab 06/18/19 The following prescriptions were given: Furosemide [Lasix] 40 mg PO DAILY #30 tab Transmission Status: Received by [facility] Primary Care Physician: Aleksandar Wiley DO [Primary Care Provider] - Please follow up with your Primary Care Physician in: 1-2 weeks Test Results: Test results from this visit will be discussed in further detail at your follow- up appointment, if applicable. Please Follow Up With: Eric Barakat MD When: as directed Please Follow Up With: [facility] Vascular Surgeon When: As directed Proposed Discharge Date: 06/18/19
--- NOTE | 2019-06-18 14:13 | DS.PCM_ITS ---
<Zack Knutson - Last Filed: 06/18/19 14:13> Discharge Date and Diagnosis - Problem List Patient Problems: Active and Suspected Problems (Last Reviewed 06/17/19 @ 04:36 by Ronen Donovan MD) Hypoxemia (Acute) Generalized weakness (Acute) Subtherapeutic international normalized ratio (INR) (Acute) Date of Admission: 06/17/19 Date of Discharge: 06/18/19 - Primary Discharge Diagnosis Active and Suspected Problems (Last Reviewed 06/17/19 @ 04:36 by Ronen Donovan MD) Acute on chronic diastolic CHF exacerbation Severe pulmonary HTN Carotid stenosis s/p recent right carotid endarterectomy COPD no exacerbation CAD with prior stent Afib RVR HTN Hypothyroidism PAD RLS - Secondary Discharge Diagnosis Chronic Problems (Last Reviewed 06/17/19 @ 04:36 by Ronen Donovan MD) 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) Nicotine dependence, cigarettes, uncomplicated (Chronic) Hypersomnia (Chronic) Pulmonary hypertension (Chronic) Heart failure (Chronic) COPD (chronic obstructive pulmonary disease) (Chronic) Aneurysm of infrarenal abdominal aorta (Chronic) Presence of stent in coronary artery (Chronic) PTCA/GAIL to LCX 06/19/13 @ [facility] Chronic atrial fibrillation (Chronic) Secondary pulmonary arterial hypertension (Chronic) Atherosclerosis of coronary artery of [place] heart without angina pectoris (Chronic) PTCA/GAIL to LCX 06/19/13 @ [facility] Hypertension (Chronic) Atrial fibrillation with RVR (Chronic ~01/2018) Dyslipidemia (Chronic) Hospital Course and Treatment Imaging Results: RAD/Chest PA and Lateral IMPRESSION: Chronic interestitial changes. No radiographic evidence of acute cardiopulmonary disease. CT/CTA Chest W/WO Contrast IMPRESSION: Interstitial pulmonary edema. Cardiomegaly. Atherosclerotic disease. Findings likely represent mild CHF. Individualized dose optimization techniques were used for this CT. at 0507 Echo: Interpretation Summary The estimated ejection fraction is 65 %. Unable to assess diastolic dysfunction due to arrhythmia. Mildly dilated right ventricle. The left atrium is severely enlarged. The right atrium is severely enlarged. Trivial mitral valve insufficiency. Mild (1+) tricuspid valve insufficiency. Right ventricular systolic pressure estimated to be 60 mmHg. Severe pulmonary hypertension. Compared to echo report dated 10/06/2018, no appreciable changes noted. Pt appears to be in atrial fibrillation. Operations: None Procedures: 2-D Echocardiogram Summary of Care Provided: Hospital Course: The patient is a 73 year old F with pmhx most notably for having a carotid endarterectomy two days prior to coming to the ER. Her hx is also notable for diastolic CHF, Afib, CAD, COPD, HTN, PAD, Hypothyroidism, ongoing nicotine abuse, and RLS. The day after her CEA she left AMA from [facility] ICU (sent after surgery for HTN) after becoming frustrated with how slow the service was. At release she was arranged to have home health from an [place] agency, and was also prescribed lasix as they felt she had volume overload. She did not fill the lasix. She went home and had a fall and paramedics were called to help her up. They did so, and also found her to have hypoxia at 85%. In the ER she refused transfer back to [facility]. She was also in Afib RVR but was noted that this resolved after she calmed down. She appeared to have acute CHF accounting for her respiratory issues, and required 3lpm O2 to maintain good sats. She was admitted to the PCU on tele for Acute diastolic CHF exacerbation and debility. She was treated with IV lasix and PTOT was provided. She did not require further rate control. Echo was obtained as above notably preserved EF and severe pulmonary HTN. She diuresed well and was able to be weaned off O2 at rest and with ambulation. She was transitioned to PO lasix. She initially stated she wanted us to set up home health through us instead of [facility], however later said she did not want home health at all. She also would not consider a SNF. She was discharged home in stable condition on PO lasix. She will need follow up with her PCP in 1-2 weeks, her vascular surgeon at the clinic, and she plans to follow up with her local vascular surgeon, Dr. Barakat as well. She plans to have the 2nd carotid surgery done soon. This patient was seen by Zack Knutson PA-C under the supervision of Dr. Hogan. [] Patient Problems: Active and Suspected Problems (Last Reviewed 06/17/19 @ 04:36 by Ronen Donovan MD) Hypoxemia (Acute) Generalized weakness (Acute) Subtherapeutic international normalized ratio (INR) (Acute) - Physical Exam General: Alert, Oriented x3, Cooperative HEENT: Atraumatic, PERRLA, EOMI, Normocephalic Neck: Supple, No JVD, Negative Carotid Bruits Lungs: Clear to auscultation, Normal air movement Cardiovascular: Regular rate, No murmurs Abdomen: Bowel Sounds Present, Soft, Non Tender Extremities: No edema, Capillary Refill Less than 3 Seconds Skin: No rashes, No breakdown Musculoskeletal: No Tenderness to Palpation of Joints or Extremities Neurological: Cranial nerves II-XII grossly intact Psych/Mental Status: Normal Affect, Appropriate, Alert and oriented to time, place, person, mood and affect Vital Signs Temp Pulse Resp BP Pulse Ox 98.9 F 70 16 134/66 H 92 06/18/19 09:00 06/18/19 13:50 06/18/19 11:04 06/18/19 09:00 06/18/19 10:38 Oxygen Flow Rate (L/min) 1 Oxygen Delivery Method Room Air Weight: 172 lb 13.478 oz Body Mass Index (BMI) 31.8 Intake and Output for Last 24 Hours 06/16/19 06/17/19 06/18/19 23:59 23:59 23:59 Intake Total 1452 / 1452 600 / 600 Output Total 825 / 825 1050 / 1050 Balance 627 / 627 -450 / -450 Laboratory Tests Past 24 Hrs 06/18/19 06/18/19 05:30 05:30 PT 18.2 H INR 1.5 Sodium 136 Potassium 3.9 Chloride 99 Carbon Dioxide 32.0 Anion Gap 5 BUN 34 H Creatinine 0.84 Estim Creat Clear Calc 47.87 Est GFR (MDRD) Af Amer 85 Est GFR (MDRD) Non-Af 70 BUN/Creatinine Ratio 40.3 H Glucose 112 H Calcium 8.7 Discharge Diet: Low fat/ Low Cholesterol, 2000 mg Sodium Diet Discharge Activity: Return to Normal Activity Home Medications: Medications to take at Discharge Atorvastatin Calcium [Lipitor] 40 mg PO QHS 04/15/15 Paroxetine HCl [Paxil] 40 mg PO DAILY 04/15/15 Warfarin [Coumadin] 6 mg PO MOWE 04/15/15 Pramipexole Di-HCl [Mirapex] 1 mg PO TID PRN PRN 01/06/18 levothyroxine 100 mcg tablet 100 mcg PO DAILY tab 02/17/18 warfarin 3 mg tablet 3 mg PO SUTUTHFRSA 02/17/18 albuterol sulfate 2.5 mg/3 mL (0.083 %) solution for nebulization 2.5 mg INHALATION Q4H PRN 12/13/18 Atenolol [Tenormin (beta cruz)] 50 mg PO BID 06/17/19 Diltiazem CD [Cardizem CD] 180 mg PO BID 06/17/19 Spironolactone [Aldactone] 25 mg PO DAILY 06/17/19 Umeclidinium Brm/Vilanterol Tr [Anoro Ellipta 62.5-25 Mcg INH] 1 inh INHALATION Q24H 06/17/19 Furosemide [Lasix] 40 mg PO DAILY #30 tab 06/18/19 Following Prescrptions Were Given to Patient: Furosemide [Lasix] 40 mg PO DAILY #30 tab Transmission Status: Received by [facility] Primary Care Physician: Aleksandar Wiley DO [Primary Care Provider] - Please follow up with your Primary Care Physician in: 1-2 weeks Please Follow Up With: Eric Barakat MD When: as directed Please Follow Up With: [facility] Vascular Surgeon When: As directed Disposition: Home Minutes spent on discharge:: 35 Patient Condition:: Stable Medical Necessity - Tobacco Use Smoking Status: Current every day smoker Tobacco Use: Cigarettes Meaningful Use Info Meaningful Use Diagnoses (Choose all that apply): CHF - CHF CLINT/ARB ordered at discharge?: No Reason CLINT/ARB not ordered?: Allergy Documented LVEF (%): 65 <Paintssergio,[place] - Last Filed: 06/18/19 14:57> Discharge Date and Diagnosis - Primary Discharge Diagnosis Active and Suspected Problems (Last Reviewed 06/17/19 @ 04:36 by Ronen Donovan MD) Hypoxemia (Acute) Generalized weakness (Acute) Subtherapeutic international normalized ratio (INR) (Acute) - Secondary Discharge Diagnosis Chronic Problems (Last Reviewed 06/17/19 @ 04:36 by Ronen Donovan MD) 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) Nicotine dependence, cigarettes, uncomplicated (Chronic) Hypersomnia (Chronic) Pulmonary hypertension (Chronic) Heart failure (Chronic) COPD (chronic obstructive pulmonary disease) (Chronic) Aneurysm of infrarenal abdominal aorta (Chronic) Presence of stent in coronary artery (Chronic) PTCA/GAIL to LCX 06/19/13 @ [facility] Chronic atrial fibrillation (Chronic) Secondary pulmonary arterial hypertension (Chronic) Atherosclerosis of coronary artery of [place] heart without angina pectoris (Chronic) PTCA/GAIL to LCX 06/19/13 @ [facility] Hypertension (Chronic) Atrial fibrillation with RVR (Chronic ~01/2018) Dyslipidemia (Chronic) Hospital Course and Treatment Summary of Care Provided: This patient was seen in conjunction with VANESSA Jimenez. I have independently interviewed and examined the patient and reviewed pertinent historical, labora tory, and other data. Please refer to VANESSA Jimenez note for his patient's presentation, findings, and recommendations. I have reviewed and his note and concur with his documentation 73-year-old with multiple comorbidities who had signed out AMA from the [facility] MICU 1 day after her right carotid endarterectomy. She comes in with progressive shortness of breath. She was also being managed for acute on chronic diastolic CHF also in the [facility]. When she got home, she had a fall and the EMS was called to help her. They found her oxygen saturation to 85%. Patient refused transfer back to the [facility]. She had transient atrial fibrillation with RVR. This resolved after the patient had come down. Her management was for acute diastolic CHF exacerbation. She was managed on IV Lasix, diuresed well, transition to p.o. Lasix. Patient was off oxygen at the time of discharge. She was ambulated and did not qualify for oxygen. She will be followed up with her primary care doctor within a week for repeat blood work. Physical Exam: Gen: Comfortable, not pale, not jaundiced CVS:HS I +II, regular, no murmurs RESP: Scattered wheezes GI: BS present and normal, soft, nontender, no palpable organs EXT:No edema ASSESSMENT: 1. Acute hypoxic respiratory insufficiency, resolved 2. Acute on chronic diastolic CHF exacerbation 3. Recent CEA(R) 4. COPD, not in acute exacerbation 5. CAD status post stent 6. A. fib with RVR, rate controlled 7. Hypertension 8. Hypothyroidism 9. Nicotine dependence, advised to quit - Physical Exam Vital Signs Temp Pulse Resp BP Pulse Ox 98.9 F 70 16 134/66 H 92 06/18/19 09:00 06/18/19 13:50 06/18/19 11:04 06/18/19 09:00 06/18/19 10:38 Oxygen Flow Rate (L/min) 1 Oxygen Delivery Method Room Air Weight: 78.4 kg Body Mass Index (BMI) 31.8 Intake and Output for Last 24 Hours 06/16/19 06/17/19 06/18/19 23:59 23:59 23:59 Intake Total 1452 / 1452 600 / 600 Output Total 825 / 825 1050 / 1050 Balance 627 / 627 -450 / -450 Laboratory Tests Past 24 Hrs 06/18/19 06/18/19 05:30 05:30 PT 18.2 H INR 1.5 Sodium 136 Potassium 3.9 Chloride 99 Carbon Dioxide 32.0 Anion Gap 5 BUN 34 H Creatinine 0.84 Estim Creat Clear Calc 47.87 Est GFR (MDRD) Af Amer 85 Est GFR (MDRD) Non-Af 70 BUN/Creatinine Ratio 40.3 H Glucose 112 H Calcium 8.7 Code Visit Inpatient E&M: 21509 Disch Hosp
--- NOTE | 2019-06-19 14:16 | CASEMGMT ---
PAOLA GIRALDO DC PHONE CALL DC DATE: 06/18/2019 DC Disposition: Home Diagnosis on Discharge: Hypoxemia LACE/STRATA: 07/11 Attempted call to home phone. No answer, but pt returned call promptly. Stated she has a home health nurse from [facility] at her house. This was not set up by [facility], but PAOLA GIRALDO let pt know she could refer questions to this nurse. Carolann WARREN RN [facility]
== END 2019-06-18 15:02 | disposition home or self-care (01) | DRG 293 ==
LOC: ED 06-17 03:07 → PCU 06-17 04:01
PROVIDERS: Physician Assistant; Admitting Provider Hospitalist; Emergency Provider Emergency Medicine; Family Provider Student in an Organized Health Care Education/Training Program; PCP Student in an Organized Health Care Education/Training Program; Visit Provider Internal Medicine
DX: I11.0 Hypertensive heart disease with heart failure (principal); I50.33 Acute on chronic diastolic (congestive) heart failure; I73.9 Peripheral vascular disease, unspecified; I48.2 Chronic atrial fibrillation; E03.9 Hypothyroidism, unspecified; J44.9 Chronic obstructive pulmonary disease, unspecified; G25.81 Restless legs syndrome; I25.10 Atherosclerotic heart disease of native coronary artery without angina pectoris; F17.210 Nicotine dependence, cigarettes, uncomplicated; E78.5 Hyperlipidemia, unspecified; I27.21 Secondary pulmonary arterial hypertension; I65.22 Occlusion and stenosis of left carotid artery; I71.4 Abdominal aortic aneurysm, without rupture; R06.89 Other abnormalities of breathing; R09.02 Hypoxemia; F32.9 Major depressive disorder, single episode, unspecified; Z79.01 Long term (current) use of anticoagulants; Z95.5 Presence of coronary angioplasty implant and graft
CPT/HCPCS: 36415; 71046; 71275; 80048; 80053; 81001; 82803; 83880; 84484; 85025; 85610; 93005; 93306; 94640; 97116; 97162; 97166; 97530; 99285; 99406; Q9967; A4216; J1940

== ENCOUNTER 2019-06-29 10:27 | Inpatient (IN) | payer MEDICARE, MEDICAID, SELFPAY ==
[2019-06-17 04:20] VITALS: BMI 31.8
[2019-06-29] VITALS (7 sets, daily range): BP systolic 105–160; BP diastolic 87–91; PULSE 66–101; RESP 16–18; TEMP 36.2–37; O2SAT 94–98; BMI 29.8; BMI 29.2
--- NOTE | 2019-06-29 10:58 | EKG12_ITS ---
Test Reason : NEURO Blood Pressure : / mmHG Vent. Rate : 086 BPM Atrial Rate : 394 BPM P-R Int : 000 ms QRS Dur : 072 ms QT Int : 348 ms P-R-T Axes : 000 018 -09 degrees QTc Int : 416 ms Atrial flutter with variable A-V block Septal infarct (cited on or before 16-JUN-2019), age undetermined Abnormal ECG Confirmed by NANDO LUNA, FOREST ([id number]), website/blog editor CARL HERNDON ([id number]) on 07/03/2019 11:22:40 A M Referred By: Jose Delgado Confirmed By:EZIO COLLIER MD
--- NOTE | 2019-06-29 11:00 | CT_ITS ---
STUDY: CTA HEAD AND NECK WITH CONTRAST REASON FOR EXAM: Female, 73 years old. LEFT SIDED WEAKNESS. RADIATION DOSAGE (If Supplied By Facility): CTDIvol = ( 32.32 ) mGy, DLP = ( 1498.27 ) mGycm TECHNIQUE: CT angiography was performed with a multi-detector CT scanner. Data acquisition was obtained from the skull base through the vertex following intravenous administration of 100 IV Isovue 370. MIP images were reconstructed from the axial data set. Post-processing of the angiographic images was performed, with multiplanar reformation and 3D reconstruction. Individualized dose optimization techniques were used for this CT. COMPARISON: No relevant priors. FINDINGS: There is occlusion of the right carotid artery to the level of the terminus. There is patent right middle cerebral artery, likely through a patent [place]. There is atherosclerosis of the left cavernous carotid artery without demonstrated significant stenosis. Normal right A1 segments of the anterior cerebral artery. Normal left A1 segments of the anterior cerebral artery. Normal intact anterior communicating artery (ACOM). Normal bilateral A2 segments of the anterior cerebral arteries. Normal right M1 and M2 segments of the middle cerebral arteries, with a normal M1 bifurcation. Normal left M1 and M2 segments of the middle cerebral arteries, with a normal M1 bifurcation. There is non-visualization of the right posterior communicating artery (PCOM). There is non-visualization of the left posterior communicating artery (PCOM). Normal basilar artery with a normal basilar bifurcation. The visualized bilateral superior cerebellar (SCA) arteries are normal. Normal bilateral posterior cerebral arteries. AORTIC ARCH: There is is atherosclerotic plaque of the visualized aortic arch. RIGHT CAROTID ARTERIES: There is atherosclerotic plaque formation of the common carotid artery, but without a hemodynamically significant stenosis. There are surgical clips at the carotid bifurcation. There is occlusion of the right ICA to the level of the terminus. Normal origin of the right external carotid artery (ECA). LEFT CAROTID ARTERIES: There is atherosclerotic plaque formation of the common carotid artery, but without a hemodynamically significant stenosis. There is extensive atherosclerotic plaque formation with severe narrowing of the carotid bulb with a hemodynamically significant stenosis. There is severe atherosclerotic plaque formation of the origin of the left internal carotid artery with a near complete occlusion. Normal visualized cervical portion of the left internal carotid artery. Normal origin of the left external carotid artery (ECA). VERTEBRAL ARTERIES: Normal bilateral vertebral arteries. There is thickening of the left vocal cord with asymmetry of the left arytenoids. CT/CTA Head AND Neck W/ Contrast IMPRESSION: Occlusion of the right ICA. Near occlusion of the left ICA. Surgical consultation is recommended. Thickening/asymmetry of the left vocal cord. Neoplastic disease is not excluded. Comparison with prior examinations if available or correlation with direct visualization is indicated. N.B. : The above information has been verbally conveyed by Kenny Bentley MD to Noel Barcenas MD, on 06/29/2019 12:40:38 (ET). Electronically Signed: Kenny Bentley MD at 12:41 EDT Tel , Service support ,
--- NOTE | 2019-06-29 11:04 | ED.VIS.STROK ---
History of Present Illness Chief Complaint: Neuro S/Sx Informant: Patient, Family Onset: Yesterday - Somewhere between [id number] Context: Sudden Onset Timing: Intermittent - X1, Lasts - 5 minutes or so Quality and Location: Left Facial Droop Current Severity: Gone Maximum Severity: Moderate Worsened by: Nothing Relieved by: Nothing Associated Symptoms: Negative for: Headache, Nausea, Vomiting, Chest Pain Narrative: Patient had TIAs last month that led to a right carotid endarterectomy that was done about 2-3 weeks ago at [facility]. Ever since the surgery she has been having intermittent shaking in the left arm and left leg, but that they occur only when she is doing something such as drinking a cup of coffee, walking, etc. She has had multiple falls because of shaking in the leg and weakness, 1 of those occurred today. She did not injure herself. She has had no TIA symptoms since her surgery until the symptoms that occurred yesterday and have not recurred since then including today. She had no weakness in her left arm or leg, but she does drop things when she shakes, and the shaking occurs frequently when she uses them. Daughter witnessed the left facial droop, and brings her in now for evaluation. She has not seen neurology to her knowledge since all of this is happened. She is otherwise feeling okay without any recent illness. She denies a headache or chest pain or palpitations or presyncope/syncope, and she has no lapses in consciousness when the shaking occurs. - Past Medical History (1) Aneurysm of infrarenal abdominal aorta Status: Chronic (2) Atherosclerosis of coronary artery of [place] heart without angina pectoris Status: Chronic Comment: PTCA/GAIL to LCX 06/19/13 @ [facility] (3) COPD (chronic obstructive pulmonary disease) Status: Chronic (4) Chronic atrial fibrillation Status: Chronic (5) Dyslipidemia Status: Chronic (6) Heart failure Status: Chronic (7) Hypersomnia Status: Chronic (8) Hypertension Status: Chronic (9) Presence of stent in coronary artery Status: Chronic Comment: PTCA/GAIL to LCX 06/19/13 @ [facility] (10) Pulmonary hypertension Status: Chronic Past Medical History - Allergies and Home Meds Allergies/Adverse Reactions: Allergies amitriptyline Allergy (Intermediate, Verified 06/29/19 10:29) mental status change CLINT Inhibitors Allergy (Verified 06/29/19 10:29) Unknown acyclovir [From Zovirax] Allergy (Verified 06/29/19 10:29) Unknown amoxicillin trihydrate [From Augmentin] Allergy (Verified 06/29/19 10:29) Unknown codeine Allergy (Verified 06/29/19 10:29) Unknown potassium clavulanate [From Augmentin] Allergy (Verified 06/29/19 10:29) Unknown zolpidem [From Ambien] Allergy (Verified 06/29/19 10:29) mental status change Primary Care Physician: Aleksandar Wiley DO [Primary Care Provider] - Surgical History: - - Lower extremity arterial bypass Cardiac stent placement, right carotid endarterectomy Lives: Alone Smoking Status: Current every day smoker Alcohol: None - Family History Paternal Family History: Family History (Last Reviewed 06/17/19 @ 04:36 by Ronen Donovan MD) Father Cancer Mother Heart disease Sister Hypertension Sister Hypertension Family History: Reports: Cancer - Father of dysphagia CA Review of Systems General: Denies: Chills, Fever, Sweats Eyes: Denies: Visual changes - bilaterally, Diplopia ENT: Denies: Rhinorrhea, Sore throat Cardiovascular: Denies: Chest pain, Palpitations Respiratory: Denies: Dyspnea, Cough, Dyspnea on exertion Gastrointestinal: Denies: Abdominal pain, Nausea, Vomiting, Diarrhea, Melena, Hematochezia Genitourinary: Denies: Dysuria, Hematuria, Frequency Musculoskeletal: Denies: Back pain, Extremity Pain Skin: Denies: Rash, Wounds Neurological: Reports: Weakness - See HPI, - - Tremor/shaking left upper and lower extremities, see HPI. Denies: Headache, Numbness STROKE Vital Signs/Narrative: Vital Signs Temp Pulse Resp BP Pulse Ox 06/29/19 10:29 97.1 F L 101 H 16 152/87 H 96 Inital Vital Signs reviewed: Yes - NIHSS Initial 1a Level of Consciousness: 0 1b LOC Questions (Score 2 if aphasic/stupor): 0 1c LOC Commands (Only score 1st attempt): 0 2 Best Gaze (If aphasic, use reflexive mvmts.): 0 3 Visual: 0 4 Facial Palsy: 0 5 Motor Arm Right (UN = amputation/fusion): 0 5 Motor Arm Left: 0 6 Motor Leg Right: 0 6 Motor Leg Left: 0 7 Limb ataxia (Only + if out of proportion): 0 8 Sensory (Aphasia/stupor=0 or 1, coma=2): 0 9 Best Language: 0 10 Dysarthria (mute, coma=2, intubated=UN): 0 11 Extinction and Inattention (only scored if +): 0 Total Score: 0 General: Well nourished, Well developed Head: Normocephalic, Atraumatic Eyes: Perrl, EOMI ENT: Moist mucous membranes, No rhinorrhea Neck: Supple, Nontender Cardiovascular: No murmurs, Irregular, Tachycardia - mild Respiratory: No distress, CTA bilaterally, Chest nontender Abdomen: Soft, Nontender, Nondistended, Normal bowel sounds Back: Nontender, Normal Inspection Extremities: Nontender, No edema Skin: Normal color, No rash, No Trauma Neurological: Alert, Oriented x3, Cranial nerves II-XII grossly intact, Normal Strength, Normal Sensation Psychological: Normal affect, Normal Mood Diagnostic/Tx/Re-eval Impressions Head/Neck CTA 06/29/19 11:00 IMPRESSION: Occlusion of the right ICA. Near occlusion of the left ICA. Surgical consultation is recommended. Thickening/asymmetry of the left vocal cord. Neoplastic disease is not excluded. Comparison with prior examinations if available or correlation with direct visualization is indicated. N.B. : The above information has been verbally conveyed by Kenny Bentley MD to Noel Barcenas MD, on 06/29/2019 12:40:38 (ET). Electronically Signed: Kenny Bentley MD at 12:41 EDT Tel , Service support , ADDENDUM: 06/29/19 1248 IMPRESSION: Occlusion of the right ICA. Near occlusion of the left ICA. Surgical consultation is recommended. Thickening/asymmetry of the left vocal cord. Neoplastic disease is not excluded. Comparison with prior examinations if available or correlation with direct visualization is indicated. N.B. : The above information has been verbally conveyed by Kenny Bentley MD to Noel Barcenas MD, on 06/29/2019 12:40:38 (ET). Electronically Signed: Kenny Bentley MD at 12:41 EDT Tel , Service support , 06/29/19 11:00 CTA Head AND Neck W/ Contrast [CT] Stat Laboratory Results 06/29/19 06/29/19 06/29/19 11:00 11:00 11:00 WBC 6.6 RBC 4.39 Hgb 14.0 Hct 44.3 MCV 100.9 H MCH 31.9 MCHC 31.6 L RDW Std Deviation 54.0 H RDW Coeff of Todd 14.5 Plt Count 251 MPV 9.8 Immature Gran % (Auto) 0.300 Neut % (Auto) 66.3 Lymph % (Auto) 23.2 [place] % (Auto) 8.0 Eos % (Auto) 1.1 Baso % (Auto) 1.1 H Absolute Neuts (auto) 4.4 Absolute Lymphs (auto) 1.54 Nucleated RBC % 0 PT 22.3 H INR 2.0 APTT 37.1 H Sodium 137 Potassium 4.3 Chloride 105 Carbon Dioxide 30.0 Anion Gap 2 L BUN 30 H Creatinine 0.92 Estim Creat Clear Calc 45.62 Est GFR (MDRD) Af Amer 76 Est GFR (MDRD) Non-Af 63 BUN/Creatinine Ratio 32.5 H Glucose 113 H Calcium 9.3 Troponin I < 0.015 POC Glucose 06/29/19 11:00 WBC RBC Hgb Hct MCV MCH MCHC RDW Std Deviation RDW Coeff of Todd Plt Count MPV Immature Gran % (Auto) Neut % (Auto) Lymph % (Auto) [place] % (Auto) Eos % (Auto) Baso % (Auto) Absolute Neuts (auto) Absolute Lymphs (auto) Nucleated RBC % PT INR APTT Sodium Potassium Chloride Carbon Dioxide Anion Gap BUN Creatinine Estim Creat Clear Calc Est GFR (MDRD) Af Amer Est GFR (MDRD) Non-Af BUN/Creatinine Ratio Glucose Calcium Troponin I POC Glucose 124 H - Rhythm Strip Rhythm Strip: Sinus Rhythm Rate: 65 Ectopy: PAC(s) - EKG Initial EKG Interpretation: Sinus Rhythm, No Acute Injury Pattern, Atrial Flutter Prior: Unchanged - Medical Decision Making Stroke Team Activated: No - NIHSS 0 Was Patient considered for Endovascular Intervention?: No - NIHSS 0 Patient is therapeutic on her warfarin with an INR of 2.0. She has a history of A. flutter, her EKG is unchanged. CT angiography shows total occlusion of both internal carotids including the one she just had operated on. We do not have vascular surgery here. She just had this performed at [facility] Dr. Andrews. I spoke with his nurse practitioner as he was in the operating room and unavailable, it appears that during the procedure the internal carotid was ligated and bypassed with the external carotid. They agreed that they would have to see the patient in the imaging to be able to provide any further recommendations on this patient. I think that is understandable, and for this reason I think sending the patient to [facility] is the best thing for her at this time, at this time to a medicine service. However, they have no available beds at [facility]. I do not think sending her to a satellite facility would be helpful since vascular surgery is mainly available there, especially her surgeon in particular. For that reason, I think the best thing would be to admit her locally until a bed becomes available there, with the transfer center agreed would be the best course for now. ED Disposition - Plan for ED Patient: Disposition: Acute Care Hospital [facility] Diagnosis: TIA (transient ischemic attack), Bilateral extracranial carotid artery occlusion Referrals: Aleksandar Wiley DO [Primary Care Provider] -
[2019-06-29 11:05] LABS: Bedside Glucose 124 mg/dL (70-110)
[2019-06-29 11:15] LABS: Absolute Lymphocyte Count 1.54 X10^3/uL (0.83-4.51); Absolute Neutrophil Count 4.4 X10^3/uL (2.0-7.7); Basophil# 0.07 X10^3/uL; Basophil% 1.1 % (0-1); Eosinophil# 0.07 X10^3/uL; Eosinophils% 1.1 % (0-5); Hematocrit 44.3 % (37-47); Lymphocyte # 1.54 X10^3/ul (4.0); Lymphocyte % 23.2 % (19-41); Mean Corp Hgb Conc 31.6 g/dL (32-36); Mean Corpuscular Hgb 31.9 pg (27.0-32.0); Mean Corpuscular Volume 100.9 fL (81-99); Mean Platelet Vol. 9.8 fl (6.2-12.0); Monocyte# 0.53 X10^3/uL; NRBC Flagged by Analyzer 0 % (0-5); Neutrophil % 66.3 % (47-70); Platelet Count 251 K/mm3 (150-450); RBC Distribution Width CV 14.5 % (11.6-14.6); Red Blood Count 4.39 M/mm3 (4.2-5.4); White Blood Count 6.6 K/mm3 (4.4-11.0)
[2019-06-29 11:32] LABS: Prothrombin Time (Protime)PT. 22.3 SECONDS (11.7-14.9)
[2019-06-29 11:33] LABS: Partial Thromboplast Time 37.1 Seconds (24.1-36.2)
[2019-06-29 11:35] LABS: Anion Gap 2 (5-15); BUN 30 mg/dL (7-18); BUN/Creat Ratio 32.5 RATIO (10-20); Calcium,Total 9.3 mg/dL (8.5-10.1); Chloride 105 mmol/L (98-107); Creatinine, Serum 0.92 mg/dL (0.55-1.02); EST Glomerular Filtration Rate 63 mL/min (>60); Est Glom Filt Rate - Afr Amer 76 mL/min (>60); Estimated Creatinine Clearance 45.62 ml/min; Glucose 113 mg/dL (74-106); Potassium 4.3 mmol/L (3.5-5.1); Sodium Level 137 mmol/L (136-145)
--- NOTE | 2019-06-29 14:19 | HP.PCM_ITS ---
Problem List (1) CVA (cerebral vascular accident) Status: Acute Qualifiers: CVA mechanism: unspecified Qualified Code(s): I63.9 - Cerebral infarction, unspecified History of Present Illness Date of Admission: 06/29/19 Chief Complaint: left facial droop The patient is a 73 year old F who was in her normal state of health but since having carotid endarterectomy, has been having periods where her left side just tremors and gives out. Had a fall last night when this occurred. Was able to get up and be on her own and sent home. Patient's daughter went to check on her today noted a left facial droop. Given patient's recent carotid endarterectomy and history of TIA, patient was directed to the emergency room. Patient underwent a CTA of her head neck that showed occlusion of the right ICA, near occlusion of left ICA. The ER physician contacted [facility], where the surgery was performed, and explained her case and felt that the patient should be transferred there given her recency of her carotid enterectomy and potential source of her possible stroke. They said that they would accept her but do not have any beds available and may not have a bed available ~24th. The hospital service was contacted in regards to working the patient up patient until she could be safely transferred to the [facility]. 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) Nicotine dependence, cigarettes, uncomplicated (Chronic) Hypersomnia (Chronic) Pulmonary hypertension (Chronic) Heart failure (Chronic) COPD (chronic obstructive pulmonary disease) (Chronic) Aneurysm of infrarenal abdominal aorta (Chronic) Presence of stent in coronary artery (Chronic) PTCA/GAIL to LCX 06/19/13 @ [facility] Chronic atrial fibrillation (Chronic) Secondary pulmonary arterial hypertension (Chronic) Atherosclerosis of coronary artery of [place] heart without angina pectoris (Chronic) PTCA/GAIL to LCX 06/19/13 @ [facility] Hypertension (Chronic) Atrial fibrillation with RVR (Chronic ~01/2018) Dyslipidemia (Chronic) Medical History: Medical History (Last Reviewed 06/29/19 @ 14:22 by Jose Delgado DO) Nicotine dependence, cigarettes, uncomplicated (Chronic) F17.210 Hypersomnia (Chronic) G47.10 Pulmonary hypertension (Chronic) I27.20 Aneurysm of infrarenal abdominal aorta (Chronic) I71.4 Chronic atrial fibrillation (Chronic) I48.2 Secondary pulmonary arterial hypertension (Chronic) I27.21 Atherosclerosis of coronary artery of [place] heart without angina pectoris (Chronic) I25.10 PTCA/GAIL to LCX 06/19/13 @ [facility] Hypertension (Chronic) I10 Atrial fibrillation with RVR (Chronic) Onset Date: ~01/2018 I48.91 Dyslipidemia (Chronic) E78.5 Acute coronary syndrome I24.9 Hx of renal calculi Z87.442 COPD (chronic obstructive pulmonary disease) J44.9 Depression F32.9 Diverticulitis K57.92 GERD (gastroesophageal reflux disease) K21.9 Obstructive sleep apnea G47.33 Osteoporosis M81.0 PVD (peripheral vascular disease) I73.9 Peripheral artery disease I73.9 RLS (restless legs syndrome) G25.81 Rheumatoid arthritis M06.9 Thyroid disorder E07.9 Bronchitis J40 Pneumonia Onset Date: ~01/2018 J18.9 Allergies amitriptyline Allergy (Intermediate, Verified 06/29/19 10:29) mental status change CLINT Inhibitors Allergy (Verified 06/29/19 10:29) Unknown acyclovir [From Zovirax] Allergy (Verified 06/29/19 10:29) Unknown amoxicillin trihydrate [From Augmentin] Allergy (Verified 06/29/19 10:29) Unknown codeine Allergy (Verified 06/29/19 10:29) Unknown potassium clavulanate [From Augmentin] Allergy (Verified 06/29/19 10:29) Unknown zolpidem [From Ambien] Allergy (Verified 06/29/19 10:29) mental status change Home Medications: Ambulatory Orders Medication Instructions Recorded Atorvastatin Calcium [Lipitor] 40 mg PO QHS 04/15/15 Paroxetine HCl [Paxil] 40 mg PO DAILY 04/15/15 Warfarin [Coumadin] 6 mg PO MOWE 04/15/15 Pramipexole Di-HCl [Mirapex] 1 mg PO TID PRN PRN 01/06/18 levothyroxine 100 mcg tablet 100 mcg PO DAILY tab 02/17/18 warfarin 3 mg tablet 3 mg PO SUTUTHFRSA 02/17/18 Atenolol [Tenormin (beta cruz)] 50 mg PO BID 06/17/19 Diltiazem CD [Cardizem CD] 180 mg PO BID 06/17/19 Spironolactone [Aldactone] 25 mg PO DAILY 06/17/19 Umeclidinium Brm/Vilanterol Tr 1 inh INHALATION Q24H 06/17/19 [Anoro Ellipta 62.5-25 Mcg INH] Furosemide [Lasix] 20 mg PO DAILY 06/29/19 Surgical History: Surgical History (Last Reviewed 06/17/19 @ 04:36 by Ronen Donovan MD) Presence of stent in coronary artery (Chronic) Z95.5 PTCA/GAIL to LCX 06/19/13 @ [facility] History of partial thyroidectomy E89.0 History of total hysterectomy Z90.[address] 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 Lives: Alone Smoking Status: Current every day smoker Alcohol: None - *Family History Paternal Family History: Family History (Last Reviewed 06/29/19 @ 14:22 by Jose Delgado DO) Father Cancer Mother Heart disease Sister Hypertension Sister Hypertension History Items: Cancer - Father of dysphagia CA Review of Systems Constitutional: Denies: Chills, Fever, Weight Change Eyes: Denies: Blurred vision, Double vision HEENT: Denies: Head Aches, Sinus Congestion, Sinus Drainage Cardiovascular: Denies: Chest Pain, Palpitations Respiratory: Denies: Cough, Shortness of breath at rest, Sputum production Gastrointestinal: Denies: Abdominal Pain, Nausea, Vomiting Genitourinary: Denies: Dysuria Musculoskeletal: Denies: Joint Pain, Joint Tenderness Skin: Reports: - - easy bruising. Denies: Dryness, Jaundice Neurological: Reports: Balance problems, Focal weakness, Incoordination, Tingling, Tremor. Denies: Blurred vision, Double vision Psychiatric: Denies: Anxiety, Depression, Homicidal Ideations, Suicidal Ideations Endocrine: Denies: Change in Body Habitus, Heat/ Cold Intolerance Hematologic/ Lymphatic: Reports: Easy Bruising. Denies: Easy Bleeding, Hx of blood clot Comment: A 10 point review of systems were negative except as mentioned in the history of present illness and the other review of systems. VTE Information - Inpt Only VTE Present on Admission: No VTE Mechan Device Prophylaxis: None VTE Pharm Prophylaxis ordered?: No Reason prophylaxis not ordered:: Procedure Not Indicated Patient Problems: Active and Suspected Problems (Last Reviewed 06/17/19 @ 04:36 by Ronen beard MD) TIA (transient ischemic attack) (Acute) Bilateral extracranial carotid artery occlusion (Acute) CVA (cerebral vascular accident) (Acute) - Physical Exam General: Alert, Cooperative, No apparent distress, Well developed, Well nourished HEENT: Atraumatic, PERRLA, EOMI, Normocephalic Oral: Moist Mucosa, No Gingival or Mucosal Lesions/ Ulcerations Neck: No Nodes, Trachea Midline, Thyroid Normal Size and Texture, Carotid Bruit, Left Lungs: Clear to auscultation, Normal air movement, No rhonchi, No wheeze, No rales Cardiovascular: Regular rate, Regular Rhythm, Normal S1, Normal S2, No murmurs Abdomen: Bowel Sounds Present, Soft, Non Tender, Non-Distended, No Hepato- splenomegaly Extremities: No edema, No Calf Tenderness Skin: No rashes, No breakdown Musculoskeletal: No Tenderness to Palpation of Joints or Extremities, No Muscle Wasting Neurological: Cranial nerves II-XII grossly intact, Motor Exam 5/5 strength throughout - With the exception of 4 out of 5 in the left lower extremity. Psych/Mental Status: Normal Affect, Appropriate Vital Signs Temp Pulse Resp BP Pulse Ox 36.2 C L 74 18 152/87 H 98 06/29/19 10:29 06/29/19 12:38 06/29/19 12:38 06/29/19 10:29 06/29/19 12:38 Oxygen Delivery Method Room Air Weight: 78.925 kg Body Mass Index (BMI) 29.8 Finger Stick Blood Glucose 124 Laboratory Tests Past 24 Hrs 06/29/19 06/29/19 06/29/19 11:00 11:00 11:00 WBC 6.6 RBC 4.39 Hgb 14.0 Hct 44.3 MCV 100.9 H MCH 31.9 MCHC 31.6 L RDW Std Deviation 54.0 H RDW Coeff of Todd 14.5 Plt Count 251 MPV 9.8 Immature Gran % (Auto) 0.300 Neut % (Auto) 66.3 Lymph % (Auto) 23.2 [place] % (Auto) 8.0 Eos % (Auto) 1.1 Baso % (Auto) 1.1 H Absolute Neuts (auto) 4.4 Absolute Lymphs (auto) 1.54 Nucleated RBC % 0 PT 22.3 H INR 2.0 APTT 37.1 H Sodium 137 Potassium 4.3 Chloride 105 Carbon Dioxide 30.0 Anion Gap 2 L BUN 30 H Creatinine 0.92 Estim Creat Clear Calc 45.62 Est GFR (MDRD) Af Amer 76 Est GFR (MDRD) Non-Af 63 BUN/Creatinine Ratio 32.5 H Glucose 113 H Calcium 9.3 Troponin I < 0.015 POC Glucose 06/29/19 11:00 POC Glucose 124 H Clinical Impression(s) from Imaging Studies Head/Neck CTA 06/29/19 11:00 IMPRESSION: Occlusion of the right ICA. Near occlusion of the left ICA. Surgical consultation is recommended. Thickening/asymmetry of the left vocal cord. Neoplastic disease is not excluded. Comparison with prior examinations if available or correlation with direct visualization is indicated. N.B. : The above information has been verbally conveyed by Kenny Bentley MD to Noel Barcensa MD, on 06/29/2019 12:40:38 (ET). Electronically Signed: Kenny Bentley MD at 12:41 EDT Tel , Service support , ADDENDUM: 06/29/19 1248 IMPRESSION: Occlusion of the right ICA. Near occlusion of the left ICA. Surgical consultation is recommended. Thickening/asymmetry of the left vocal cord. Neoplastic disease is not excluded. Comparison with prior examinations if available or correlation with direct visualization is indicated. N.B. : The above information has been verbally conveyed by Kenny Bentley MD to Noel Barcenas MD, on 06/29/2019 12:40:38 (ET). Electronically Signed: Kenny Bentley MD at 12:41 EDT Tel , Service support , Assessment/Plan All Active Problems (Last Reviewed 06/17/19 @ 04:36 by Ronen Donovan MD) Hypoxemia (Acute) Generalized weakness (Acute) Subtherapeutic international normalized ratio (INR) (Acute) TIA (transient ischemic attack) (Acute) Bilateral extracranial carotid artery occlusion (Acute) CVA (cerebral vascular accident) (Acute) Alcohol withdrawal (Resolved) Bilateral lower lobes atelectasis (Resolved) Hypokalemia (Resolved) Multifocal community-acquired pneumonia (Resolved) 1. Possible acute/subacute stroke * has been having intermittent weakness on her left side since her carotid endarterectomy today and had noted left facial droop. Facial droop has resolved but patient still does have some left-sided weakness * Told patient that she will undergo a further stroke evaluation while she was here until she does have a bed available at [facility]. Part of that work-up will include an MRI. Patient states that was going to be causing her to have a panic attack by putting her an MRI. Told her that this is part of the stroke work-up to further evaluate to see if indeed she did have a stroke. I told her that we do not have conscious sedation available at this time to help her undergo an MRI but we could give her a medication shortly before. Patient reluctantly agreed. I did give the patient information that she is probably capable of declining any procedure test that she does not want but would certainly limit our ability to adequately care for her. * Patient will receive aspirin and will continue daily and continue atorvastatin. * Physical, occupational and speech therapy evaluations * Neurology consultation * If this is a stroke, likely etiology could either be the atrial fibrillation versus the carotid stenosis, I am favoring the latter. 2. Carotid stenosis: * Right carotid was noted to be occluded but apparently this was an expected finding from the vascular surgery at [facility] given the patient underwent some kind of bypass. Does have very tight stenosis with a bruit on the left, however. * Waiting on transfer to the [facility] for further evaluation from their surgical services 3. Atrial fibrillation * Rate controlled * Continue with atenolol * Anticoagulated with Coumadin 4. VTE prophylaxis: Low risk as patient is already anticoagulated on Coumadin. 5. Advanced care planning: Addressed CODE STATUS. Patient was to be full CODE STATUS at this time. Though she did express reluctance about intubation. Code Visit Inpatient E&M: 51084 Init Hosp L3
--- NOTE | 2019-06-29 14:30 | NURSING ---
In PCU 105 from ED, per cart. ED staff in attendance
--- NOTE | 2019-06-29 14:55 | MRI_ITS ---
STUDY: MRI BRAIN WITH AND WITHOUT CONTRAST REASON FOR EXAM: Female, 73 years old. Left-sided weakness and facial droop TECHNIQUE: Standardized multiplanar fat and water weighted pulse sequences were obtained. 15 IV Dotarem was administered for the contrast portion of the examination. COMPARISON: CTA same day FINDINGS: Normal size of the ventricles and extra-axial spaces for the patient's age. There are multiple confluent white matter hyperintensities, distributed throughout the deep white matter tracts of the cerebral hemispheres, consistent with severe chronic white matter ischemic changes. Several tiny foci of restricted diffusion are present in the deep white matter of the right frontal lobe and the right basal ganglia compatible with areas of acute ischemia. Normal thalami. There is no extra-axial fluid accumulation. There is loss of the flow void of the intracranial right internal carotid artery compatible with occlusion as described on previous CTA. Normal venous enhancement. There is no enhancing intra-axial or extra-axial abnormality. Normal sella turcica, pituitary gland, infundibular stalk, optic chiasm and hypothalamus. Normal tectal plate and pineal gland. There are chronic white matter ischemic changes of the lance. The midbrain and medulla are otherwise normal. Normal cerebellum. Normal basal cisterns. Normal bilateral temporal bones. Normal bilateral internal auditory canals. No demonstrated orbital abnormality, within the constraints of a routine brain study. Normal visualized paranasal sinuses. Normal calvarium and skull base. Normal visualized soft tissue structures. Normal visualized upper cervical spine. MRI/Brain W/WO Contrast IMPRESSION: Several focal areas of acute ischemia are present in the deep white matter of the right frontal lobe and right basal ganglia. No evidence of intracranial hemorrhage. Occlusion of the intracranial right ICA, previously described. Severe microangiopathic white matter disease. Electronically Signed: Smooth Lin MD at 20:04 EDT Tel , Service support ,
[2019-06-29] MEDS: Aspirin 325 MG Tablet PO (15:54)
[2019-06-29] MEDS: 0.9% Saline Lock 10 ML Syringe IV (15:55)
[2019-06-29] MEDS: LORazepam 1 MG Tablet PO (18:14)
--- NOTE | 2019-06-29 18:59 | CPS ---
Patient off floor at this time
--- NOTE | 2019-06-29 19:01 | NURSING ---
report called to [facility] Krysten GUEVARA
--- NOTE | 2019-06-30 08:34 | DS.PCM_ITS ---
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) Nicotine dependence, cigarettes, uncomplicated (Chronic) Hypersomnia (Chronic) Pulmonary hypertension (Chronic) Heart failure (Chronic) COPD (chronic obstructive pulmonary disease) (Chronic) Aneurysm of infrarenal abdominal aorta (Chronic) Presence of stent in coronary artery (Chronic) PTCA/GAIL to LCX 06/19/13 @ [facility] Chronic atrial fibrillation (Chronic) Secondary pulmonary arterial hypertension (Chronic) Atherosclerosis of coronary artery of [place] without angina pectoris (Chronic) PTCA/GAIL to LCX 06/19/13 @ [facility] Hypertension (Chronic) Atrial fibrillation with RVR (Chronic ~01/2018) Dyslipidemia (Chronic) Hospital Course and Treatment Imaging Results: Clinical Impression(s) from Imaging Studies Head/Neck CTA 06/29/19 11:00 IMPRESSION: Occlusion of the right ICA. Near occlusion of the left ICA. Surgical consultation is recommended. Thickening/asymmetry of the left vocal cord. Neoplastic disease is not excluded. Comparison with prior examinations if available or correlation with direct visualization is indicated. N.B. : The above information has been verbally conveyed by Kenny Bentley MD to Noel Barcenas MD, on 06/29/2019 12:40:38 (ET). Electronically Signed: Kenny Bentley MD at 12:41 EDT Tel , Service support , ADDENDUM: 06/29/19 1248 IMPRESSION: Occlusion of the right ICA. Near occlusion of the left ICA. Surgical consultation is recommended. Thickening/asymmetry of the left vocal cord. Neoplastic disease is not excluded. Comparison with prior examinations if available or correlation with direct visualization is indicated. N.B. : The above information has been verbally conveyed by Kenny Bentley MD to Noel Barcenas MD, on 06/29/2019 12:40:38 (ET). Electronically Signed: Kenny Bentley MD at 12:41 EDT Tel , Service support , Brain MRI 06/29/19 14:55 IMPRESSION: Several focal areas of acute ischemia are present in the deep white matter of the right frontal lobe and right basal ganglia. No evidence of intracranial hemorrhage. Occlusion of the intracranial right ICA, previously described. Severe microangiopathic white matter disease. Electronically Signed: Smooth Lin MD at 20:04 EDT Tel , Service support , Operations: None Procedures: None Summary of Care Provided: The patient is a 73 year old F presents with left sided weakness. 1. Acute stroke * has been having intermittent weakness on her left side since her carotid endarterectomy today and had noted left facial droop. Facial droop has resolved but patient still does have some left-sided weakness * MRI showed several foci of CVA in right frontal lobe and right basal ganglia * Patient will receive aspirin and will continue daily and continue atorvastatin. * Physical, occupational and speech therapy evaluations * Neurology consultation * Suspect due to carotid stenosis 2. Carotid stenosis: * Right carotid was noted to be occluded but apparently this was an expected finding from the vascular surgery at [facility] given the patient underwent some kind of bypass. Does have very tight stenosis with a bruit on the left, however. * Transferred to [facility] on 06/29 3. Atrial fibrillation * Rate controlled * Continue with atenolol * Anticoagulated with Coumadin[] Patient Problems: Active and Suspected Problems (Last Reviewed 06/29/19 @ 14:22 by Jose Delgado DO) CVA (cerebral vascular accident) (Acute) - Physical Exam Vital Signs Temp Pulse Resp BP Pulse Ox 36.8 C 82 18 105/90 H 96 06/29/19 19:48 06/29/19 19:48 06/29/19 19:48 06/29/19 19:48 06/29/19 19:48 Oxygen Delivery Method Room Air Weight: 77.2 kg Body Mass Index (BMI) 29.2 Finger Stick Blood Glucose 124 Intake and Output for Last 24 Hours 06/28/19 06/29/19 06/30/19 23:59 23:59 23:59 Intake Total 860 / 860 Balance 860 / 860 Laboratory Tests Past 24 Hrs 06/29/19 06/29/19 06/29/19 11:00 11:00 11:00 WBC 6.6 RBC 4.39 Hgb 14.0 Hct 44.3 MCV 100.9 H MCH 31.9 MCHC 31.6 L RDW Std Deviation 54.0 H RDW Coeff of Todd 14.5 Plt Count 251 MPV 9.8 Immature Gran % (Auto) 0.300 Neut % (Auto) 66.3 Lymph % (Auto) 23.2 [place] % (Auto) 8.0 Eos % (Auto) 1.1 Baso % (Auto) 1.1 H Absolute Neuts (auto) 4.4 Absolute Lymphs (auto) 1.54 Nucleated RBC % 0 PT 22.3 H INR 2.0 APTT 37.1 H Sodium 137 Potassium 4.3 Chloride 105 Carbon Dioxide 30.0 Anion Gap 2 L BUN 30 H Creatinine 0.92 Estim Creat Clear Calc 45.62 Est GFR (MDRD) Af Amer 76 Est GFR (MDRD) Non-Af 63 BUN/Creatinine Ratio 32.5 H Glucose 113 H Calcium 9.3 Troponin I < 0.015 POC Glucose 06/29/19 11:00 POC Glucose 124 H Discharge Diet: Low fat/ Low Cholesterol Discharge Activity: Return to Normal Activity Home Medications: Medications to take at Discharge Atorvastatin Calcium [Lipitor] 40 mg PO QHS 04/15/15 Paroxetine HCl [Paxil] 40 mg PO DAILY 04/15/15 Warfarin [Coumadin] 6 mg PO MOWE 04/15/15 Pramipexole Di-HCl [Mirapex] 1 mg PO TID PRN PRN 01/06/18 levothyroxine 100 mcg tablet 100 mcg PO DAILY tab 02/17/18 warfarin 3 mg tablet 3 mg PO SUTUTHFRSA 02/17/18 Atenolol [Tenormin (beta cruz)] 50 mg PO BID 06/17/19 Diltiazem CD [Cardizem CD] 180 mg PO BID 06/17/19 Spironolactone [Aldactone] 25 mg PO DAILY 06/17/19 Umeclidinium Brm/Vilanterol Tr [Anoro Ellipta 62.5-25 Mcg INH] 1 inh INHALATION Q24H 06/17/19 Furosemide [Lasix] 20 mg PO DAILY 06/29/19 Primary Care Physician: Aleksandar Wiley DO [Primary Care Provider] - Disposition: Acute care Hospital Minutes spent on discharge:: 45 Patient Condition:: Good Medical Necessity - Tobacco Use Smoking Status: Current every day smoker Tobacco Use: Cigarettes Meaningful Use Info Meaningful Use Diagnoses (Choose all that apply): Ischemic CVA - CVA Therapy Assessed for PT,OT and/or ST?: No Reason therapy not assessed?: Patient Noncompliant - patient transferred to an acute care hospital before could be evaluated by therapy services. - Ischemic Stroke Antithrombotic order at d/c?: Yes Dx of Atrial fib/flutter?: Yes Anticoagulant at discharge?: Yes Statins at discharge?: Yes Primary Dx Acute Ischemic CVA?: Yes IV tPA ordered during stay?: No Reason IV t-PA not ordered: Procedure not Indicated Code Visit OBSV E&M: [id number] Observ/hosp same date L3 - coding for 06/29/19
== END 2019-06-29 20:05 | disposition short-term general hospital (02) | DRG 65 ==
LOC: ED 13:37 → PCU 14:26
PROVIDERS: Emergency Provider Emergency Medicine; Family Provider Student in an Organized Health Care Education/Training Program; PCP Student in an Organized Health Care Education/Training Program
DX: I63.233 Cerebral infarction due to unspecified occlusion or stenosis of bilateral carotid arteries (principal); G81.94 Hemiplegia, unspecified affecting left nondominant side; R29.810 Facial weakness; Z79.01 Long term (current) use of anticoagulants; I48.2 Chronic atrial fibrillation; F17.210 Nicotine dependence, cigarettes, uncomplicated
CPT/HCPCS: 70496; 70498; 70553; 80048; 82962; 84484; 85025; 85610; 85730; 93005; 99285; 99406; A9575; Q9967; A4216

== ENCOUNTER 2019-07-07 17:27 | Emergency (ER) | payer MEDICARE, MEDICAID, SELFPAY ==
[2019-07-07 17:27] VITALS: BMI 29.8
[2019-07-07 17:28] VITALS: BP 239/138; PULSE 129; PULSE 81; RESP 13; RESP 19; TEMP 36.3; O2SAT 98; O2SAT 99; BMI 31.4
--- NOTE | 2019-07-07 17:35 | CT_ITS ---
STUDY: CT BRAIN WITHOUT CONTRAST REASON FOR EXAM: Female, 73 years old. Sudden onset of headache RADIATION DOSAGE (If Supplied By Facility): CTDIvol = ( 44.99 ) mGy, DLP = ( 779.24 ) mGycm TECHNIQUE: Transaxial CT imaging of the brain was performed without administration of intravenous contrast material. Individualized dose optimization techniques were used for this CT. COMPARISON: No relevant priors. FINDINGS: Normal soft tissue structures. Normal calvarium. Advanced periventricular white matter ischemic changes. There is a large acute/subacute left subdural hematoma measuring approximately 1.6 cm in diameter with mass effect upon left lateral ventricle which is compressed and displaced approximately 10.4 mm . across the midline as is the third ventricle. There is associated subarachnoid hemorrhage within the left cerebral hemisphere as well as large parenchymal hematoma in the left frontal lobe measuring approximately 2.4 x 3.1 cm. There is effacement of the left perimesencephalic cistern suggesting mild mass effect upon the left brainstem as well.. . Normal cerebellum. . There are no findings of an acute ischemic infarction. Minor mucosal thickening in left sphenoid sinus. CT/Brain/Head without Contrast IMPRESSION: Large acute/subacute left subdural hematoma compressing the left lateral ventricle which is displaced across the midline as is the third ventricle in association with subarachnoid hemorrhage. There is also effacement of the left perimesencephalic cistern suggesting mass effect upon the brainstem as well N.B. : The above information has been verbally conveyed by Lee Villegas MD to Ramiro Carlson MD, on 07/07/2019 18:25:59 (ET). Electronically Signed: Lee Villegas MD at 18:26 EDT , Service support ,
--- NOTE | 2019-07-07 17:35 | EKG12_ITS ---
Test Reason : WEAKNESS Blood Pressure : / mmHG Vent. Rate : 116 BPM Atrial Rate : 107 BPM P-R Int : 000 ms QRS Dur : 084 ms QT Int : 280 ms P-R-T Axes : 000 023 004 degrees QTc Int : 389 ms Atrial fibrillation with rapid ventricular response Septal infarct (cited on or before 16-JUN-2019) Abnormal ECG Confirmed by BATOOL LUNA, DAMIÁN ([id number]), restaurant expeditor BLAS ESPINO ([id number]) on 07/11/2019 11:16:36 AM Referred By: MR Confirmed By:DAMIÁN RENAE MD
--- NOTE | 2019-07-07 17:40 | ED.RN ---
UPON PATIENT ASSESSMENT BY PHYSICIAN, PATIENT BECOMES INCREASINGLY MORE UNRESPONSIVE AND OBTUNDED.
[2019-07-07 17:48] LABS: Absolute Lymphocyte Count 4.33 X10^3/uL (0.83-4.51); Absolute Neutrophil Count 4.2 X10^3/uL (2.0-7.7); Basophil# 0.06 X10^3/uL; Basophil% 0.6 % (0-1); Eosinophil# 0.24 X10^3/uL; Eosinophils% 2.5 % (0-5); Hematocrit 42.6 % (37-47); Hemoglobin 13.9 g/dL (12.0-15.0); Lymphocyte # 4.33 X10^3/ul (4.0); Lymphocyte % 44.5 % (19-41); Mean Corp Hgb Conc 32.6 g/dL (32-36); Mean Corpuscular Hgb 32.6 pg (27.0-32.0); Mean Platelet Vol. 10.4 fl (6.2-12.0); Monocyte# 0.89 X10^3/uL; Monocyte% 9.2 % (0-10); NRBC Flagged by Analyzer 0 % (0-5); Neutrophil # 4.16 X10^3/uL (2.7-7.7); Neutrophil % 42.8 % (47-70); Platelet Count 230 K/mm3 (150-450); RBC Distribution Width SD 51.1 fl (35.1-43.9); Red Blood Count 4.26 M/mm3 (4.2-5.4); White Blood Count 9.7 K/mm3 (4.4-11.0)
[2019-07-07 17:54] VITALS: BP 181/103; PULSE 72; RESP 17
[2019-07-07 18:00] VITALS: BP 159/114; PULSE 65; RESP 17
[2019-07-07 18:06] LABS: Anion Gap 8 (5-15); BUN 19 mg/dL (7-18); BUN/Creat Ratio 21.8 RATIO (10-20); Calcium,Total 9.1 mg/dL (8.5-10.1); Chloride 106 mmol/L (98-107); Creatinine, Serum 0.87 mg/dL (0.55-1.02); EST Glomerular Filtration Rate 67 mL/min (>60); Est Glom Filt Rate - Afr Amer 81 mL/min (>60); Estimated Creatinine Clearance 46.22 ml/min; Glucose 161 mg/dL (74-106); Potassium 3.3 mmol/L (3.5-5.1); Sodium Level 139 mmol/L (136-145)
[2019-07-07 18:09] VITALS: BP 159/114; PULSE 72; RESP 17
--- NOTE | 2019-07-07 18:12 | ED.DCSUM_ITS ---
History of Present Illness Chief Complaint: Weakness Narrative: Patient presenting for evaluation secondary to altered mental status. Patient was recently admitted to [facility] secondary to a stroke and right carotid stenosis. She underwent carotid endarterectomy that was complicated by rethrombosis with placement of a stent. Patient was recently discharged, and today about 20 minutes prior to arrival had a sudden onset of altered mental status and severe headache. EMS brought patient immediately to the emergency department. Patient is denying any lateralizing weakness, but does state that she has a severe headache. Additional history is unable to be performed due to the patient's level of illness. Past Medical History - Allergies and Home Meds Allergies/Adverse Reactions: Allergies amitriptyline Allergy (Intermediate, Verified 07/07/19 17:32) mental status change CLINT Inhibitors Allergy (Verified 07/07/19 17:32) Unknown acyclovir [From Zovirax] Allergy (Verified 07/07/19 17:32) Unknown amoxicillin trihydrate [From Augmentin] Allergy (Verified 07/07/19 17:32) Unknown codeine Allergy (Verified 07/07/19 17:32) Unknown potassium clavulanate [From Augmentin] Allergy (Verified 07/07/19 17:32) Unknown zolpidem [From Ambien] Allergy (Verified 07/07/19 17:32) mental status change Primary Care Physician: Aleksandar Wiley DO [Primary Care Provider] - Past Medical History: - - Afib, Stroke Surgical History: - - Lower extremity arterial bypass Cardiac stent placement, right carotid endarterectomy Smoking Status: Current every day smoker - Family History Paternal Family History: Family History (Last Reviewed 06/29/19 @ 14:22 by Jose Delgado DO) Father Cancer Mother Heart disease Sister Hypertension Sister Hypertension Family History: Reports: Cancer - Father of dysphagia CA Review of Systems ROS: Unable to Obtain Physical Exam Vital Signs/Narrative: Vital Signs Temp Pulse Resp BP Pulse Ox 07/07/19 17:28 97.4 F L 129 H 13 239/138 H 98 General: Well nourished, Well developed, - - Patient is somewhat sedate but arousable and diaphoretic and protecting her airway Head: Normocephalic, Atraumatic Eyes: Perrl, EOMI ENT: Moist mucous membranes, No rhinorrhea Neck: Supple, Nontender Cardiovascular: Regular rhythm, Tachycardia Respiratory: No distress Abdomen: Soft Extremities: Nontender Skin: Normal color Neurological: - - Patient will awaken and open her eyes to voice, is lethargic but will respond to commands in the upper and lower extremities. Diagnostic/Tx/Re-eval - Medical Decision Making Patient presented secondary to altered mental status. Patient seemed critically ill upon arrival, so IV was established and the patient was immediately taken to CT. CT imaging ended up showing the patient to have a intraparenchymal hemorrhage with subdural and subarachnoid extension and midline shift. Patient upon arrival back from the CT scanner had further decrease in her mental status so the decision was made to intubate the patient. She was profoundly hypertensive, she was given 20 of labetalol. Patient was intubated using rapid sequence intubation using etomidate and succinylcholine. Nael 3 blade and direct laryngoscopy was performed with good visualization of the cords, passage of a 7.5 ET tube there was secured 22 cm at the lips with positive color change and good bilateral breath sounds. Patient was placed on a Cardene drip, propofol. Due to the patient's precipitous decline in mental status I did give the patient a dose of mannitol in the emergency department. Patient was also reportedly on Coumadin up to yesterday, so she was given a dose of Kcentra. Head of the bed was remained in an elevated status. After I intubated the patient, [facility] was contacted as as were the patient was just discharged from who launched a helicopter, and accepted the patient to the neurosurgical service. I had a discussion with family about CODE STATUS, and the patient is currently full code, and I informed them of the graveness of the patient's situation. Patient was transferred in critical condition. - Critical Care Time Critical care time (excluding procedures): 30-74 minutes, Discussing w/Patient &/or Family/Manager Commodities, Discussing w/Consultants, Arranging Admission or Transfer, Performing Direct Patient Care at Bedside Procedures Procedure(s): Endotracheal intubation was performed as noted in the MDM note ED Disposition - Plan for ED Patient: Disposition: [facility] - Main Diagnosis: Intracranial hemorrhage, Hypertensive emergency
--- NOTE | 2019-07-07 18:15 | ED.RN ---
[facility] CREW AT BEDSIDE, REPORT GIVEN TO THEM.
[2019-07-07] MEDS: Propofol 10MG/Ml 1,000 MG/100 ML Bottle 4.8 MG CONT INF (18:22)
--- NOTE | 2019-07-07 18:23 | ED.RN ---
[facility]W AWARE THAT [facility] AND [facility]PHY[facility] NEEDED TO COME FROM PHARMACY, THEY DECLINED TO WAIT FOR THEIR ARRIVAL. AN ADDITIONAL 50MG OF MANNITOL ORDERED AND THEY DECLINED TO ADMINISTER OURS AND STATED THAT THEY PREFERRED TO ADMINISTER THEIR OWN.
[2019-07-07 18:38] VITALS: BP 143/94; PULSE 58; RESP 17
[2019-07-07 18:41] LABS: Prothrombin Time (Protime)PT. 13.3 SECONDS (11.7-14.9)
[2019-07-07 18:42] LABS: Partial Thromboplast Time 26.5 Seconds (24.1-36.2)
--- NOTE | 2019-07-07 18:44 | CM.ED ---
Social Work Consult: Patient transfer due to brain bleed/support for family Informant: Korin RN Met with patient family in critical access hospital. Support provided. Patient family voicing to be understanding what is happening and plan for patient at this time. Patient family stating that patient wishes are to at least try one time. Active listening provided. Jocelyn CORDOVA, JAYSON
[2019-07-07 18:50] VITALS: BP 130/103; PULSE 74; RESP 16; O2SAT 99
--- NOTE | 2019-07-07 18:57 | ED.RN ---
1754- 20 MG ETOMIDATE GIVEN IVP BY Philomena TRAN 1754- 100 MG SUCCINOCHOLINE GIVEN IVP BY Philomena BARRAZA 1755- 7.5 ET TUBE INSERTED BY DR. GLOVER, 22 CM AT LIPLINE, POSITIVE COLOR CHANGE AND BILATERAL BREATH SOUNDS HEARD, NO AIR AUSCULTATED OVER ABDOMEN. 1756- 20 GAUGE IV INITIATED TO LEFT WRIST 1758- 20 GAUGE IV INITIATED TO RIGHT HAND
== END 2019-07-07 18:23 | disposition short-term general hospital (02) ==
LOC: ED 17:48
PROVIDERS: Emergency Provider Emergency Medicine; Family Provider Student in an Organized Health Care Education/Training Program; PCP Student in an Organized Health Care Education/Training Program
DX: I62.9 Nontraumatic intracranial hemorrhage, unspecified (principal); I16.1 Hypertensive emergency; I48.91 Unspecified atrial fibrillation; Z86.73 Personal history of transient ischemic attack (TIA), and cerebral infarction without residual deficits; Z95.5 Presence of coronary angioplasty implant and graft; Z79.01 Long term (current) use of anticoagulants; Z79.899 Other long term (current) drug therapy; F17.200 Nicotine dependence, unspecified, uncomplicated
CPT/HCPCS: 31500; 51702; 70450; 80048; 84484; 85025; 85610; 85730; 93005; 96374; 96375; 99251; 99285; C9132; J7030; J7050; A4216; G0463; J3490